=== PATIENT | female | born 1955 | race Caucasian/White ===

== ENCOUNTER 2020-08-25 17:07 | Inpatient (IN) | payer MEDICARE, MEDICAID, SELFPAY ==
[2020-08-25] VITALS (7 sets, daily range): BP systolic 115–134; BP diastolic 76–91; PULSE 88–98; RESP 16–24; TEMP 36–36.7; O2SAT 93–98; BMI 39.2
--- NOTE | ~2020-08-25 | XR_ITS ---
EXAMINATION: XR chest 1V portable EXAM DATE: 08/25/2020 18:34 INDICATION: Initial encounter following injury, with pain of the edema, CHF, high blood pressure. TECHNIQUE: Portable AP frontal chest x-ray was obtained. Comparison is made to prior examination from 02/27/2017. FINDINGS: Cardiac silhouette is moderately enlarged, and larger than previous examination. There is p ulmonary vascular congestion. No confluent consolidation, pneumothorax or pleural effusion suspected. There is aortic arteriosclerosis. There are bony degenerative changes. IMPRESSION: 1. Cardiomegaly, congestion. Reviewed, dictated and finalized at location A.
--- NOTE | ~2020-08-25 | US_ITS ---
EXAMINATION: US venous doppler [facility] DATE: 08/26/2020 16:07 INDICATION: Bilateral lower limb swelling TECHNIQUE: To scale images without and with compression and Doppler images of the bilateral lower e xtremity veins were obtained. COMPARISON: None FINDINGS: The right common femoral vein, profunda femoral vein, femoral vein, popliteal vein, peroneal trunk, p osterior tibial veins, and greater saphenous vein are patent. The left common femoral vein, profunda femoral vein, femoral vein, popliteal vein, peroneal trunk, po sterior tibial veins, and greater saphenous vein are patent. IMPRESSION: 1. Patent bilateral lower extremity veins. No evidence of deep venous thrombosis. Reviewed, dictated and finalized at location A. IMPRESSION: 1. Patent bilateral lower extremity veins. No evidence of deep venous thrombosi s.
--- NOTE | 2020-08-25 17:57 | ED.GENADULT ---
HPI - General Adult General Chief complaint: Unspecified Stated complaint: body is swollen Time Seen by Provider: 08/25/20 17:55 Source: patient and family Limitations: no limitations History of Present Illness HPI narrative: Patient is 65 years old white female presents with increased swelling of the lower extremities over the last few weeks ,currently up to her breast bilaterally.. Patient denies any fever, chills, nausea, vomiting, chest pain, shortness of breath or back pain. Patient cannot move or get out of bed without mechanic's assistant. Patient lives alone. Came to the emergency room with her daughter. Patient was seen her family physician 3 days ago, and did not make any comment about her lower extremity edema. History of CHF, diabetes, hyperlipidemia, hypertension, NM, COPD Related Data Allergies Allergy/AdvReac Type Severity Reaction Status Date / Time infliximab Allergy Unknown Verified 01/01/12 14:10 Review of Systems Review of Systems: Narrative: CONSTITUTIONAL: Denies fever, chills, or sweats. EYES: Denies visual changes, redness, or discharge. ENT: Denies rhinorrhea, congestion, sore throat, or otalgia. CARDIOVASCULAR: Denies chest pain, palpitations, or edema. RESPIRATORY: Denies cough or dyspnea. GASTROINTESTINAL: Denies abdominal pain, nausea, vomiting, or diarrhea. GENITOURINARY: Denies dysuria or hematuria. SKIN: Denies rash or itching. MUSCULOSKELETAL: Denies back pain, joint pain, or myalgia. NEUROLOGIC: Denies headache, numbness, or weakness. PSYCHIATRIC: Denies anxiety or depression. [facility] Past Medical History Medical History (Updated 08/25/20 @ 18:37 by Tung Collins MD) Acute CHF (congestive heart failure) COPD (chronic obstructive pulmonary disease) Diabetes mellitus, new onset Hypertension Family History Family History (Updated 06/08/16 @ 23:19 by DOCTOR UNKNOWN) Mother Family history of diabetes mellitus in first degree relative Social History Social History Alcohol intake: never Exam Narrative: Exam Narrative: General appearance: Well-developed, well-nourished, morbidly obese, poor hygienic condition patient unable to change position without mechanic's assistant in bed. Daughter at the bedside Skin: Normal color, extensive edema of the feet all the way up to the mid abdomen and lower back bilaterally. Scattered open sores Head: Normocephalic, nontraumatic Eyes: Clear conjunctiva ENT: Oropharynx normal, ears normal, nose normal Neck: Supple, nontender Chest and respiratory: Airway patent, no respiratory distress, no accessory muscle use Heart: Regular rate/rhythm Abdomen: Soft, nontender, no organomegaly, quiet bowel sounds Vascular: Normal peripheral pulses, normal capillary refill. Musculoskeletal: Normal range of motion, nontender back Neurologic: Alert and oriented ?3, COMBAT SYSTEMS OFFICER is normal as tested, no gross motor deficit Course Course Emergency Course: Stable Vital Signs Vital signs: Vital Signs Temperature 36.0 C L 08/25/20 17: Pulse Rate 98 08/25/20 17:29 Respiratory Rate 18 08/25/20 17:29 Blood Pressure 134/76 08/25/20 17:29 Pulse Oximetry 95 08/25/20 17:29 Temperature 36.0 C L 08/25/20 17:29 Pulse Rate 98 08/25/20 17:29 Respiratory Rate 18 08/25/20 17:29 Blood Pressure 134/76 08/25/20 17:29 Pulse Oximetry 95 08/25/20 17:29 Medical Decision Making [facility] Narrative Medical decision making narrative: Patient presents with extensive and worsening edema of the lower extremities over the last few weeks. Congestive heart failure, renal failure, dependent edema are my differential diagnosis. Labs, UA, EKG, chest x-ray ordered. Differential Diagnosis Differential Diagno
--- NOTE | 2020-08-25 18:09 | ECG_ITS ---
Measurements Intervals [place] Rate: 98 P: 54 OK: 159 QRS: -63 QRSD: 105 T: 151 QT: 346 QTc: 443 Interpretive Statements SINUS RHYTHM VENTRICULAR PREMATURE COMPLEX INFERIOR INFARCT, AGE INDETERMINATE ANTEROLATERAL INFARCT, AGE INDETERMINATE BORDERLINE ST-T WAVE ABNORMALITY- HIGH LATERAL LEADS BASELINE ARTIFACT- I, II, AVR, AVL, AVF, V1-V6 ABNORMAL ECG Electronically Signed On 08-25-2020 19:35:22 CDT by Walter Maki D.O.
[2020-08-25 18:33] LABS: Basophils Absolute Auto 0.1 K/mm3 (0.0-0.1); Basophils Percent Auto 0.6 % (0.2-1.2); Eosinophils Absolute Auto 0.3 K/mm3 (0-0.3); Eosinophils Percent Auto 3.8 % (0-4.4); Hematocrit 36.3 % (37.0-47.0); Hemoglobin 10.5 g/dL (12.0-15.0); Immature Granulocyte Absolute 0.02 K/mm3 (0.00-0.031); Immature Granulocyte Percent A 0.2 % (0-0.5); Lymphocytes Percent Auto 22.3 % (18.3-44.2); Mean Corpuscular HGB Conc 28.9 g/dl (32-36); Mean Corpuscular Hemoglobin 28.2 pg (26-34); Mean Corpuscular Volume 97.6 fl (80-100); Monocytes Absolute Auto 0.8 K/mm3 (0.1-0.6); Monocytes Percent Auto 9.5 % (2.6-8.5); Neutrophils Absolute Auto 5.1 K/mm3 (1.3-6.7); Neutrophils Percent Auto 63.6 % (45.5-73.1); Platelet Count Result 384 k/mm3 (150-375); Red Blood Count 3.72 M/mm3 (4.2-5.4); Red Cell Distribution Width 22.4 % (11.5-14.5); White Blood Count 8.1 K/mm3 (4.5-10.0)
[2020-08-25 18:44] LABS: Hypochromasia 1+ (NORMAL)
[2020-08-25 18:46] LABS: Alanine Aminotransferase 20 U/L (4-35); Albumin Level 3.2 g/dL (3.5-5.1); Alkaline Phosphatase 122 U/L (38-126); Anion Gap 5 mmol/L (8-16); Aspartate Amino Transferase 25 U/L (14-36); Bilirubin,Total 0.5 mg/dL (0.2-1.3); Blood Urea Nitrogen 28 mg/dL (7-17); Calcium 8.9 mg/dL (8.4-10.2); Carbon Dioxide 27 mmol/L (22-30); Chloride 114 mmol/L (98-107); Estimated CRCL calculation 57 ml/min; Estimated Glomerular Filt Rate 56; Glucose 158 mg/dL (65-105); Potassium 3.9 mmol/L (3.4-5.0); Sodium 146 mmol/L (137-145)
[2020-08-25 18:54] LABS: NT Pro B Type Natriuretic Pept 24600 PG/ML (5-100)
[2020-08-25 18:56] LABS: Add Urine Microscopic? YES; Appearance Urine Clear (Clear); Bilirubin Urine Negative (Negative); Blood Urine Negative (Negative); Color Urine Yellow (Yellow); Glucose Urine UA Negative (Negative); Ketones Urine Negative (Negative); Leukocyte Esterase Ur Negative LEU/UL (Negative); Mucus Urine Rare /lpf; Nitrate Urine Negative (Negative); Protein Urine 2+ mg/dL (Negative); RBC Urine 0-2 /hpf (0-2); Specific Grav Ur 1.017 (1.001-1.035); Squamous Epithelial Cell Urine Rare /hpf (Few); Urobilinogen Urine Negative mg/dL (<2.0); WBC Urine 0-3 /hpf
[2020-08-25] MEDS: FUROSEMIDE INJ 40 MG/4 ML VIAL IV PUSH (22:00)
--- NOTE | 2020-08-25 22:14 | PC.NURSE ---
noted swelling to bilat lower extremities, right leg has ulcers with yellow secretions, left leg weeping sm amount clear.
--- NOTE | 2020-08-25 23:27 | ADMGEN ---
This patient, Brenda Cruz, was admitted to 2 Medical Room 241-01. Patient/family oriented to hospital policies and general routines including ID bracelet, bed and alarms, visiting hours, pain management, procedures, bathroom and other care routines, personal items, smoking policy, room service/diet, and visiting hours. Information on how to activate the Rapid Response Team has been discussed. Patient/Family are encouraged to report perceived risks to care and to ask questions if they do not understand what they are told or what they should do.
[2020-08-26] VITALS (9 sets, daily range): BP systolic 98–121; BP diastolic 56–88; PULSE 80–100; RESP 16–22; TEMP 35.7–36.5; O2SAT 93–98
--- NOTE | 2020-08-26 | ECHO_ITS ---
Patient Info Name: Brenda Cruz Age: 65 years : 1955 Gender: Female Ht: 64 in Wt: 228 lbs BSA: 2.21 m2 HR: 100 bpm BP: 111 / 62 mmHg Heart Rhythm: Sinus Rhythm Technical Quality: Good Exam Date: 08/26/2020 1:54 PM Exam Location: [facility] Pulmonary Patient Status: Inpatient Admit Date: 08/26/2020 Staff Ordering Physician: Kendrick Fischer MD Certified Addiction Counselor: Ryna Hussein RDCS Attending Provider: Rayo Woo MD Exam Type: CA echo doppler color flow Study Info Indications I50.9 - Heart failure, unspecified Complete two-dimensional, color flow and Doppler transthoracic echocardiogram is performed. Strain analysis performed. History/Risk Factors CHF; COPD, DM, HTN, edema. Summary 1. Complete two-dimensional, color flow and Doppler transthoracic echocardiogram is performed. 2. Left ventricular chamber dimension is severely enlarged. 3. Left ventricular systolic function is severely reduced, estimated at 30-35%. 4. There is mildly increased left ventricular wall thickness. 5. Left ventricular septal wall motion is abnormal with septal motion related to bundle branch block. 6. The left ventricular diastolic function is abnormal. 7. E/e' 13 is mildly elevated. 8. Global longitudinal strain is abnormal at -8.0%. 9. Right ventricular systolic function is reduced with abnormal TAPSE at 1.0 cm. 10. Left atrial chamber dimension is moderately enlarged. 11. Right atrial chamber dimension is mildly enlarged. 12. The mitral valve has moderately calcified annulus. 13. There is trace mitral valve regurgitation. 14. There is mild tricuspid valve regurgitation. 15. Mild pulmonary hypertension, estimated pulmonary arterial systolic pressure is 44 mmHg. Left Ventricle E/e' 13 is mildly elevated. Global longitudinal strain is abnormal at -8.0%. Left ventricular chamber dimension is severely enlarged. Left ventricular systolic function is severely reduced, estimated at 30-35%. There is mildly increased left ventricular wall thickness. Left ventricular septal wall motion is abnormal with septal motion related to bundle branch block. The left ventricular diastolic function is abnormal. Right Ventricle Right ventricular systolic function is reduced with abnormal TAPSE at 1.0 cm. Right ventricular chamber dimension is normal. Left Atria Left atrial chamber dimension is moderately enlarged. Right Atria Right atrial chamber dimension is mildly enlarged. Aortic Valve There is no aortic valve stenosis based on valve area and gradients. Cannot determine number of aortic valve leaflets. The aortic valve is not well visualized. There is no aortic valve regurgitation. Pulmonic Valve There is no pulmonic regurgitation. Mitral Valve The mitral valve has moderately calcified annulus. There is no mitral valve stenosis. There is trace mitral valve regurgitation. Tricuspid Valve There is mild tricuspid valve regurgitation. Mild pulmonary hypertension, estimated pulmonary arterial systolic pressure is 44 mmHg. Pericardium/Pleural There is no pericardial effusion. Inferior Vena Cava Normal inferior vena cava with >50% collapse upon inspiration consistent with normal right atrial pressure, 5 mmHg. Aorta The aortic root size at the sinus of Valsalva is normal. Left Ventricular Outflow Tract Name Value Normal ------
[2020-08-26] MEDS: HYDROcodone/acetaminophen (*CRX) 5-325 MG TABLET 1 TAB PO ×2 (03:26→18:18)
[2020-08-26 04:06] LABS: Magnesium 1.5 mg/dL (1.6-2.3)
[2020-08-26] MEDS: MAGNESIUM SULF 2 GM/WATER 50ML 2 GM/50 ML BAG IVPB (04:39)
[2020-08-26 07:59] LABS: Glucose Point of Care 196 (65-105)
[2020-08-26] MEDS: TRIAMCINOLONE ACET 0.1% OINT 80 GM TUBE 1 APPLIC TOPICAL ×2 (09:31→18:20)
[2020-08-26] MEDS: ALPRAZolam (*CRX) 0.5 MG TABLET 1 MG PO (09:31)
[2020-08-26] MEDS: GABAPENTIN 300 MG CAPSULE PO ×3 (09:32→21:42)
[2020-08-26] MEDS: LOSARTAN POTASSIUM 50 MG TABLET PO (09:32)
[2020-08-26] MEDS: ATORVASTATIN 40 MG TABLET PO (09:32)
[2020-08-26] MEDS: ASPIRIN 325 MG TABLET PO (09:33)
[2020-08-26] MEDS: FUROSEMIDE INJ 40 MG/4 ML VIAL IV PUSH ×2 (09:33→21:42)
[2020-08-26] MEDS: MINOCYCLINE HCL 50 MG CAPSULE 100 MG PO ×2 (09:33→18:19)
[2020-08-26] MEDS: hydrALAZINE HCL 25 MG TABLET PO (09:33)
[2020-08-26] MEDS: TIZANIDINE HCL 4 MG TABLET PO ×2 (09:33→21:42)
[2020-08-26 11:41] LABS: Glucose Point of Care 175 (65-105)
--- NOTE | 2020-08-26 11:53 | PM.IMHP ---
H&P: HPI History of Present Illness Date/Time: 08/26/20 11:53 Chief complaint: Cellulitis, CHF Narrative: Brenda Cruz is a 65 year old female Morbidly obese with past medical history of diabetes hypertension congestive heart failure patient presented emergency department with a complaint of shortness of breath and lower extremity edema her symptoms were getting worse swelling is getting worse and is now is all the way up to her chest, patient states due to her morbid obesity and back pain is not very active and does not do any exertion, patient was seen by her primary care provider 3 days ago apparently there was no mention of lower extremity edema and getting worse, patient normally gets her care at the [facility], her hair spring cutter and primary care doctor at the hospital. to further evaluate etiology of acute CHF, we have ordered cardiac echo. patient is also found to hidradenitis suppurative to lower abdomen, groin, labia (per wound care nurse) cellulitis of lower extremity and scabs on her lower extremity, patient treated with imipenem and vancomycin, and dermatitis dermatitis most likely fungal patient is treated with antifungal ointment, patient is seen by wound team and been managed. Review of Systems Review of Systems: All systems reviewed & are unremarkable except as noted in HPI and below PMFSH Past Medical History Medical History (Updated 08/26/20 @ 12:06 by Kendrick Fischer MD) Acute CHF (congestive heart failure) COPD (chronic obstructive pulmonary disease) Diabetes mellitus, new onset Hypertension Family History Family History (Updated 06/08/16 @ 23:19 by DOCTOR UNKNOWN) Mother Family history of diabetes mellitus in first degree relative Social History Social History Smoking packs per day: 1 Smoking cigarettes per day: 20.0 Smoking status: Current every day smoker Tobacco type: cigarettes Alcohol intake: never Substance use: current Substance use type: marijuana Other substance usage details: every couple of weeks Last use: aug 11 2020 Gender identity (if verbalized by the patient): Female Spiritual care concerns: No Meds Home Medications and Allergies Home Medications Medication Instructions Recorded Confirmed Type albuterol sulfate [ProAir HFA] 2 puff INHALATION QID PRN 08/25/20 08/26/20 History alprazolam 1 mg PO BID 08/25/20 08/26/20 History aspirin 325 mg PO DAILY 08/25/20 08/25/20 History atorvastatin 40 mg PO DAILY 08/25/20 08/25/20 History azelastine 2 drp OPHTHALMIC (EYE) DAILY PRN 08/25/20 08/26/20 History betamethasone dipropionate 1 applic TOPICAL BID 08/25/20 08/26/20 History dulaglutide [Trulicity] 1.5 mg SUBCUT WEEKLY 08/25/20 08/25/20 History fluticasone propion-salmeterol 2 puff INHALATION Q12H 08/25/20 08/26/20 History [Advair HFA] gabapentin 300 mg PO QID 08/25/20 08/25/20 History hydralazine 25 mg PO DAILY 08/25/20 08/25/20 History hydrocodone-acetaminophen 5 - 325 tablet PO Q12H PRN 08/25/20 08/25/20 History losartan 50 mg PO DAILY 08/25/20 08/25/20 History minocycline 100 mg PO BID 08/25/20 08/25/20 History oxybutynin chloride 10 mg PO DAILY 08/25/20 08/25/20 History pramipexole 0.75 mg PO HS 08/25/20 08/25/20 History silver sulfadiazine [SSD] 1 applic TOPICAL DAILY 08/25/20 08/25/20 History tizanidine 4 mg PO Q8H 08/25/20 08/25/20 History Allergies Allergy/AdvReac Type Severity Reaction Status Date / Time infliximab Allergy Unknown Verified 01/01/12 14:10 Vital Signs Vital Signs - 24 hr 08/25/20 17:29 08/25/20 18:30 08/25/20 18:34 Temperature 96.8 F L Pulse Rate 98 98 96 Respiratory Rate 18 24 H Blood Pressure 134/76 117/81 Pulse Oximetry 95 94 08/25/20 21:15 08/25/20 21:16 08/25/20 23:06 Temperature 98.1 F Pulse Rate 89 88 Respiratory Rate 20 20 18 Blood Pressure 128/86 134/86 Pulse Oximetry 97 97 98 08/25/20 23:45 08/26/20 00:00 08/26/20 04:00 Temperature 97.8 F Pulse Rate 96 96 9
[2020-08-26 12:44] LABS: Hemoglobin A1C 5.9 % (<5.7)
[2020-08-26] MEDS: TOLNAFTATE 1% POWDER 45 GM BTL 1 APPLIC TOPICAL ×2 (13:19→21:41)
[2020-08-26 17:15] LABS: Glucose Point of Care 148 (65-105)
[2020-08-26] MEDS: FLUTICASONE/SALMETEROL 115-21 MCG INHALER 1 PUFF 2 PUFF INHALATION (20:08)
[2020-08-26] MEDS: PRAMIPEXOLE 0.25 MG TABLET 0.75 MG PO (21:42)
[2020-08-27] VITALS (21 sets, daily range): BP systolic 78–120; BP diastolic 42–92; PULSE 65–104; RESP 16–22; TEMP 36.4–36.6; O2SAT 80–99
[2020-08-27] MEDS: TIZANIDINE HCL 4 MG TABLET PO ×3 (05:54→22:18)
[2020-08-27 06:10] LABS: Glucose Point of Care 155 (65-105)
[2020-08-27 06:10] LABS: Hemoglobin 10.6 g/dL (12.0-15.0); Mean Corpuscular HGB Conc 27.9 g/dl (32-36); Mean Corpuscular Hemoglobin 27.9 pg (26-34); Mean Platelet Volume 11.3 fl (7.4-10.4); Platelet Count Result 388 k/mm3 (150-375); Red Cell Distribution Width 21.8 % (11.5-14.5); White Blood Count 8.9 K/mm3 (4.5-10.0)
[2020-08-27 06:33] LABS: Potassium 4.4 mmol/L (3.4-5.0)
[2020-08-27 06:38] LABS: Anion Gap 6 mmol/L (8-16); Blood Urea Nitrogen 29 mg/dL (7-17); Carbon Dioxide 27 mmol/L (22-30); Chloride 112 mmol/L (98-107); Estimated CRCL calculation 53 ml/min; Estimated Glomerular Filt Rate 50; Glucose 147 mg/dL (65-105); Sodium 145 mmol/L (137-145)
[2020-08-27 07:38] LABS: Glucose Point of Care 169 (65-105)
[2020-08-27] MEDS: FLUTICASONE/SALMETEROL 115-21 MCG INHALER 1 PUFF 2 PUFF INHALATION ×2 (08:13→19:55)
--- NOTE | 2020-08-27 08:54 | PM.CNCAR ---
Assessment and Plan Assessment and plan (1) Acute on chronic systolic (congestive) heart failure: Code(s): I50.23 - Acute on chronic systolic (congestive) heart failure Status: Acute Assessment and Plan: WIth evidence of anasarca and massive volume overload due to severe LV dysfunction EF is 30-35% as well as right heart failure with pulmonary HTN in the setting of COPD and active tobacco abuse Will need records from primaryt book canvasser at [facility]. Her BP is low this morning. Septic (due to cellulitis) Vs cardiogenic shock? Will transfer patient to stepdown unit Hold Losartan and Hydralazine Continue IV lasix If BP drops again would start Dobutamine at low dose 2.5 Mcg/kg/min. Will need to monitor closely for arrhythmia (had short run 7 beats of NSVT) Follow creatinine and in/out while on IV lasix (2) NSVT (nonsustained ventricular tachycardia): Code(s): I47.2 - Ventricular tachycardia Status: Acute Assessment and Plan: Short run noted on tele. Start BB once BP stable (3) Hypotension: Code(s): I95.9 - Hypotension, unspecified Status: Acute Assessment and Plan: Transfer to stepdown unit. Hold Losartan and Hydralazine. May need inotrope/pressor support (4) Tobacco abuse: Code(s): Z72.0 - Tobacco use Status: Acute History of Present Illness History of Present Illness Consult date/time: 08/27/20 08:54 65 y/o female with h/o of obiesty, HTN, DM, ME, CHF,COPD with active tobacco abuse who presents with lower ext edema Patient is poor historian. She states that she had worsening lower ext edema for more than a week. She is followed by book canvasser at [facility] but she can't recall his name. She states that she had 4 heart attacks in the past. She had cardiac catheterization in the past but does not think she has any stents placed. She denies dyspnea at rest. She lives sedentary lifestyle and not active due to back pain issues. She had 2D echo yesterday that showed Biventricular failure with severely enlarged left ventricle, EF 30-35%, Bi-atrial enlargement, mild MR/TR and mild pulmonary HTN She was started on Abx for cellulitis and was also started on IV lasix. Her BP this morning was 78/42, now up to 90/52 EKG sinus rhythm at HR 89, inferior Q waves (noted on prior EKG in 2017) Chest X ray: cardiomegaly and pulmonary edema noted. She smokes pack a day. Reason For Visit: Cellulitis, CHF Review of Systems Review of Systems: All systems reviewed & are unremarkable except as noted in HPI and below Constitutional: Constitutional: Denies fatigue and Denies headache(s) Eyes: Eyes: Denies blurry vision ENT: Reports Normal hearing present and Denies headache(s) Cardiovascular: Cardiovascular: Denies chest pain, Denies diaphoresis, Denies pedal edema, Denies leg edema, Denies lightheadedness, Denies palpitations and Denies dyspnea Respiratory: Respiratory: Denies cough and Denies dyspnea Gastrointestinal: Gastrointestinal: Denies abdominal pain Musculoskeletal: Musculoskeletal: Denies back pain Neurologic: Reports Normal hearing present and Denies headache(s) Psychiatric: Psychiatric: Denies anxiety Endocrine: Endocrine: Denies fatigue and Denies palpitations [facility] Past Medical History Medical History (Updated 08/27/20 @ 09:31 by Isaac Schumacher MD) Acute CHF (congestive heart failure) COPD (chronic obstructive pulmonary disease) Diabetes mellitus, new onset Hypertension Family History Family History (Updated 06/08/16 @ 23:19 by DOCTOR UNKNOWN) Mother Family history of diabetes mellitus in first degree relative Social History Social History Smoking packs per day: 1 Smoking cigarettes per day: 20.0 Smoking status: Current every day smoker Tobacco type: cigarettes Alcohol intake: never Substance use: current Substance use type: marijuana Other substance usage details: e
[2020-08-27] MEDS: GABAPENTIN 300 MG CAPSULE PO ×4 (09:09→20:34)
[2020-08-27] MEDS: FUROSEMIDE INJ 40 MG/4 ML VIAL IV PUSH ×2 (09:09→20:34)
[2020-08-27] MEDS: MINOCYCLINE HCL 50 MG CAPSULE 100 MG PO ×2 (09:09→18:43)
[2020-08-27] MEDS: ASPIRIN 325 MG TABLET PO (09:09)
[2020-08-27] MEDS: ATORVASTATIN 40 MG TABLET PO (09:09)
[2020-08-27 09:14] LABS: Magnesium 1.7 mg/dL (1.6-2.3)
[2020-08-27 12:18] LABS: Glucose Point of Care 147 (65-105)
[2020-08-27] MEDS: TOLNAFTATE 1% POWDER 45 GM BTL 1 APPLIC TOPICAL ×2 (12:29→20:37)
[2020-08-27] MEDS: TRIAMCINOLONE ACET 0.1% OINT 80 GM TUBE 1 APPLIC TOPICAL ×2 (12:30→18:43)
[2020-08-27] MEDS: SILVERGEL (ELTA) 45 ML 1 APPLIC TOPICAL (12:30)
--- NOTE | 2020-08-27 12:54 | PCOTNOTE ---
Attempted to see patient for OT treatment, however patient declined any/all activity at this time due to being too tired. Will continue to attempt.
--- NOTE | 2020-08-27 14:12 | PM.IMPN ---
Progress Note: A&P Assessment and Plan (1) Acute CHF (congestive heart failure): Code(s): I50.9 - Heart failure, unspecified Status: Inactive Assessment and Plan: Acute systolic and diastolic CHF with anasarca. Found to be fluid overloaded on admission with pitting edema and pulmonary congestion on CXR. She is receiving IV lasix at this time Echocardiogram showed EF 30-35%, diastolic dysfunction, right ventricular systolic function is reduced and mild pulmonary HTN. Cardiology was consulted for further evaluation and work up and suggested continuing IV Lasix Continue monitoring, strict input and output, weights daily. (2) Acute respiratory failure with hypoxemia: Code(s): J96.01 - Acute respiratory failure with hypoxia Status: Acute Assessment and Plan: Most likely secondary to acute CHF exacerbation as well as possible underlying sleep apnea because she was found to be hypoxic while sleeping. We have continuous pulse ox on. Will order apnea link tonight Continue to wean as tolerated with diuresis Continue monitoring. (3) Hypotension: Code(s): I95.9 - Hypotension, unspecified Status: Acute Assessment and Plan: Could be secondary to her IV Lasix, sepsis from cellulitis versus cardiogenic shock. Based the patient's vital signs does not appear she is septic Patient's blood pressure went low at 78/42 but she was asymptomatic. Cardiology moved her to the IMU for further evaluation monitoring in the need to possibly start dopamine. She is stable at this time with blood pressure is 90/50s. Continue monitoring. (4) Cellulitis of left lower extremity: Code(s): L03.116 - Cellulitis of left lower limb Status: Acute Assessment and Plan: Patient seen by Wound Team patient started on imipenem and vancomycin for cellulitis from a cat scratch, and antifungal for dermatitis Wound cultures were obtained today to from her anterior rocha and left toe Pending cultures to see if we can adjust antibiotics. Patient states she has improvement of her wound and redness around it Continue IV antibiotics at this time (5) Diabetes mellitus: Code(s): E11.9 - Type 2 diabetes mellitus without complications Status: Acute Assessment and Plan: Continue home regimen and monitor with sliding scale (6) Hypertension: Code(s): I10 - Essential (primary) hypertension Status: Inactive Assessment and Plan: Blood pressure have been hypotensive today so we will hold her blood pressure medications as per Cardiology recommendations (7) COPD (chronic obstructive pulmonary disease): Code(s): J44.9 - Chronic obstructive pulmonary disease, unspecified Status: Inactive Assessment and Plan: Patient is clinically stable will continue home inhalers and p.r.n. DuoNeb treatments Otherwise appears to be stable Time Spent With Patient Time with patient: 25 - 35 minutes Subjective Date/time seen: 08/27/20 14:12 Interval history: Date of service 08/27/2020: The patient states she is feeling slightly better today with her breathing. She still has some shortness of breath at rest and some with exertion. She denies any cough, fever, chills, chest pain. She states she has a wound to her left leg from a cat scratch and had almost healed the once her leg swelling came it became worse. She also has multiple scabs throughout her upper and lower legs without any signs of redness or drainage noted. Swelling to her legs is improved as well and it feels like she can't move them again. She still feels like she has swelling to her abdomen and breasts from fluid retention. She de
--- NOTE | 2020-08-27 14:30 | PCOTNOTE ---
Patient declined OT tx this afternoon due to pain and fatigue.
[2020-08-27 17:23] LABS: Glucose Point of Care 182 (65-105)
--- NOTE | 2020-08-27 17:53 | PC.NURSE ---
Patient transferred from 241 into 202 at [id number].
[2020-08-27] MEDS: HYDROcodone/acetaminophen (*CRX) 5-325 MG TABLET 1 TAB PO (20:33)
[2020-08-27] MEDS: PANTOPRAZOLE 40 MG TABLET PO (20:34)
[2020-08-27] MEDS: PRAMIPEXOLE 0.25 MG TABLET 0.75 MG PO (20:34)
[2020-08-27 20:47] LABS: Glucose Point of Care 164 (65-105)
[2020-08-27] MEDS: ALPRAZolam (*CRX) 0.5 MG TABLET PO (22:18)
[2020-08-28] VITALS (21 sets, daily range): BP systolic 82–125; BP diastolic 42–106; PULSE 62–94; RESP 16–22; TEMP 36–36.6; O2SAT 84–100
[2020-08-28 05:35] LABS: Hematocrit 32.2 % (37.0-47.0); Hemoglobin 9.3 g/dL (12.0-15.0); Mean Corpuscular HGB Conc 28.9 g/dl (32-36); Mean Corpuscular Hemoglobin 28.4 pg (26-34); Mean Corpuscular Volume 98.5 fl (80-100); Mean Platelet Volume 11.6 fl (7.4-10.4); Platelet Count Result 273 k/mm3 (150-375); Red Blood Count 3.27 M/mm3 (4.2-5.4); Red Cell Distribution Width 20.8 % (11.5-14.5); White Blood Count 6.4 K/mm3 (4.5-10.0)
[2020-08-28 05:50] LABS: Anion Gap 3 mmol/L (8-16); Blood Urea Nitrogen 36 mg/dL (7-17); CRP 1.6 mg/dL (<1.0); Calcium 8.2 mg/dL (8.4-10.2); Carbon Dioxide 29 mmol/L (22-30); Chloride 110 mmol/L (98-107); Estimated CRCL calculation 45 ml/min; Estimated Glomerular Filt Rate 41; Glucose 183 mg/dL (65-105); Magnesium 1.6 mg/dL (1.6-2.3); Potassium 4.2 mmol/L (3.4-5.0); Sodium 142 mmol/L (137-145)
[2020-08-28] MEDS: TIZANIDINE HCL 4 MG TABLET PO ×3 (06:33→21:15)
[2020-08-28] MEDS: FLUTICASONE/SALMETEROL 115-21 MCG INHALER 1 PUFF 2 PUFF INHALATION ×2 (07:51→20:09)
[2020-08-28 08:10] LABS: Glucose Point of Care 158 (65-105)
[2020-08-28] MEDS: ATORVASTATIN 40 MG TABLET PO (09:40)
[2020-08-28] MEDS: MINOCYCLINE HCL 50 MG CAPSULE 100 MG PO ×2 (09:40→17:25)
[2020-08-28] MEDS: PANTOPRAZOLE 40 MG TABLET PO ×2 (09:40→21:15)
[2020-08-28] MEDS: GABAPENTIN 300 MG CAPSULE PO ×4 (09:40→21:14)
[2020-08-28] MEDS: ASPIRIN 325 MG TABLET PO (09:40)
[2020-08-28] MEDS: FUROSEMIDE INJ 40 MG/4 ML VIAL IV PUSH ×2 (09:41→21:14)
[2020-08-28] MEDS: DOBUTamine 250 MG/D5W 250 ML 250 MG/250 ML BAG 15.5 MG IV CONT (09:56)
[2020-08-28] MEDS: TOLNAFTATE 1% POWDER 45 GM BTL 1 APPLIC TOPICAL ×2 (10:08→21:21)
[2020-08-28] MEDS: SILVERGEL (ELTA) 45 ML 1 APPLIC TOPICAL (10:08)
[2020-08-28] MEDS: TRIAMCINOLONE ACET 0.1% OINT 80 GM TUBE 1 APPLIC TOPICAL ×2 (10:08→17:25)
--- NOTE | 2020-08-28 11:03 | PM.PNCARD ---
Progress Note: A&P Assessment and Plan (1) Acute on chronic systolic (congestive) heart failure: Code(s): I50.23 - Acute on chronic systolic (congestive) heart failure Status: Acute Assessment and Plan: WIth evidence of anasarca and massive volume overload She has severe LV dysfunction EF is 30-35% as well as right heart failure with pulmonary HTN (with COPD and likely IRMA) BP low. Probably has component of cardiogenic shock. She is also on ABx for lower ext cellulitis though does not appear she is septic Will start patient on fixed dose of Dobutamine at 2.5 Mck/Kg/Min. Need to monitor closely on tele for ectopy. She had some short runs of NSVT Will continue on current dose of Lasix. She may start to diurese better while on inotropic support with Dobutamine. If urine output not adequate may consider Lasix drip Hold Losartan and Hydralazine (2) NSVT (nonsustained ventricular tachycardia): Code(s): I47.2 - Ventricular tachycardia Status: Acute Assessment and Plan: Short run noted on tele. Start BB once BP stable (3) Hypotension: Code(s): I95.9 - Hypotension, unspecified Status: Acute Assessment and Plan: Start Dobutamine (4) Tobacco abuse: Code(s): Z72.0 - Tobacco use Status: Acute Subjective Date/time seen: 08/28/20 11:03 BP low again this morning. Started on Dobutamine. Repeated BP better. She denies dizziness or lightheadedness. Continues to have massive lower ext edema up to the thighs. Review of Systems Review of Systems: All systems reviewed & are unremarkable except as noted in HPI and below Constitutional: Constitutional: Denies fatigue and Denies headache(s) Eyes: Eyes: Denies blurry vision ENT: Reports Normal hearing present and Denies headache(s) Cardiovascular: Cardiovascular: Denies chest pain, Denies diaphoresis, Denies pedal edema, Denies leg edema, Denies lightheadedness, Denies palpitations and Denies dyspnea Respiratory: Respiratory: Denies cough and Denies dyspnea Gastrointestinal: Gastrointestinal: Denies abdominal pain Musculoskeletal: Musculoskeletal: Denies back pain Neurologic: Reports Normal hearing present and Denies headache(s) Psychiatric: Psychiatric: Denies anxiety Endocrine: Endocrine: Denies fatigue and Denies palpitations Exam Narrative: Exam Narrative: General appearance: poor hygiene. No acute distress Head: Normocephalic, nontraumatic Eyes: Clear conjunctiva ENT: Oropharynx normal, ears normal, nose normal Neck: Supple, nontender Chest: decrease breathing sounds Heart: Regular rate/rhythm, normal S1,S2. No murmurs. +++ lower ext edema with Erythema, chronic skin changes and open sores noted Abdomen: Soft, nontender Vascular: Normal peripheral pulses, normal capillary refill. Neurologic: Alert and oriented ?3, LICENSED EMBALMER is normal as tested, no gross motor deficit Neuro: Cranial nerves: Yes Normal hearing present Objective Data Vital Signs Vital Signs: Vital Signs - 24 hr 08/27/20 12:00 08/27/20 12:20 08/27/20 14:00 Temperature 36.5 C Pulse Rate 95 89 99 Respiratory Rate 20 Blood Pressure 98/55 L Pulse Oximetry 96 08/27/20 16:00 08/27/20 17:11 08/27/20 19:45 Temperature 36.4 C 36.6 C Pulse Rate 97 100 104 H Respiratory Rate 16 20 Blood Pressure 103/51 L 120/92 H Pulse Oximetry 91 91 08/27/20 19:58 08/27/20 20:00 08/27/20 22:00 Temperature Pulse Rate 82 81 Respiratory Rate Blood Pressure Pulse Oximetry 92 08/27/20 22:20 08/27/20 22:41 08/28/20 00:00 Temperature 36.6 C Pulse Rate 71 Respiratory Rate 20 Blood Pressure 125/106 H Pulse Oximetry 90 91 97 08/28/20 01:53 08/28/20 04:00 08/28/20 06:00 Temperature 36.2 C L Pulse Rate 64 79 65 Respiratory Rate 20 Blood Pressure 100/45 L Pulse Oximetry 100 08/28/20 07:46 08/28/20 07:52 08/28/20 08:15 Temperature 36.0 C L Pulse Rate 64 Respiratory Rate 20 Bloo
[2020-08-28 12:59] LABS: Glucose Point of Care 169 (65-105)
[2020-08-28] MEDS: ENOXAPARIN 40 MG/0.4 ML SYRINGE SUB-Q ×2 (13:39→21:14)
--- NOTE | 2020-08-28 15:33 | PM.IMPN ---
Progress Note: A&P Assessment and Plan (1) Acute CHF (congestive heart failure): Code(s): I50.9 - Heart failure, unspecified Status: Inactive Assessment and Plan: Acute systolic and diastolic CHF with anasarca. Found to be fluid overloaded on admission with pitting edema and pulmonary congestion on CXR. She is receiving IV lasix at this time Echocardiogram showed EF 30-35%, diastolic dysfunction, right ventricular systolic function is reduced and mild pulmonary HTN. Cardiology was consulted for further evaluation and work up and suggested continuing IV Lasix Continue monitoring, strict input and output, weights daily. 08/28/20 15:33 Brenda Cruz is a 65 year old female Morbidly obese with past medical history of diabetes hypertension congestive heart failure patient presented emergency department with a complaint of shortness of breath and lower extremity edema her symptoms were getting worse swelling was getting worse and now was all the way up to her chest, patient stated due to her morbid obesity and back pain is not very active and does not do any exertion, patient was seen by her primary care provider 3 days ago apparently there was no mention of lower extremity edema and getting worse, patient normally gets her care at the [facility], her assistant nurse manager and primary care doctor at the hospital. to further evaluate etiology of acute CHF, had ordered cardiac echo which showed patient severe systolic dysfunction with reduced ejection fraction of 35%, and severe pulmonary hypertension secondary to COPD and obstructive sleep apnea, patient is seen by Cardiology patient is being diuresed dobutamine is added, today patient states feeling much better compared to when she arrived, discuss with cardiology will get the record from [facility] and further recommendation to follow. lower extremity venous Doppler is negative for DVT patient is also found to hidradenitis suppurative to lower abdomen, groin, labia (per wound care nurse) cellulitis of lower extremity and scabs on her lower extremity, patient treated with imipenem and vancomycin, and dermatitis dermatitis most likely fungal patient is treated with antifungal ointment, patient is seen by wound team and been managed. (2) Acute respiratory failure with hypoxemia: Code(s): J96.01 - Acute respiratory failure with hypoxia Status: Acute Assessment and Plan: Most likely secondary to acute CHF exacerbation as well as possible underlying sleep apnea because she was found to be hypoxic while sleeping. We have continuous pulse ox on. Will order apnea link tonight Continue to wean as tolerated with diuresis Continue monitoring. (3) Hypotension: Code(s): I95.9 - Hypotension, unspecified Status: Acute Assessment and Plan: Could be secondary to her IV Lasix, sepsis from cellulitis versus cardiogenic shock. Based the patient's vital signs does not appear she is septic Patient's blood pressure went low at 78/42 but she was asymptomatic. Cardiology moved her to the IMU for further evaluation monitoring in the need to possibly start dopamine. She is stable at this time with blood pressure is 90/50s. Continue monitoring. (4) Cellulitis of left lower extremity: Code(s): L03.116 - Cellulitis of left lower limb Status: Acute Assessment and Plan: Patient seen by Wound Team patient started on imipenem and vancomycin for cellulitis from a cat scratch, and antifungal for dermatitis Wound cultures were obtained today to from her anterior rocha and left toe Pending cultures to see if we can adjust antibiotics. Patient states she has improvement of her wound and redness around it Continue IV antibiotics at this time (5) Diabetes mellitus: Code(s): E11.9
[2020-08-28 17:04] LABS: Glucose Point of Care 199 (65-105)
[2020-08-28 20:38] LABS: Glucose Point of Care 252 (65-105)
[2020-08-28] MEDS: PRAMIPEXOLE 0.25 MG TABLET 0.75 MG PO (21:15)
[2020-08-28] MEDS: HYDROcodone/acetaminophen (*CRX) 5-325 MG TABLET 1 TAB PO (21:19)
[2020-08-28] MEDS: ALPRAZolam (*CRX) 0.5 MG TABLET PO (21:20)
[2020-08-28 22:03] LABS: Vancomycin Trough 14.5 ug/mL (10.0-20.0)
[2020-08-29] VITALS (20 sets, daily range): BP systolic 90–119; BP diastolic 46–74; PULSE 69–91; RESP 16–22; TEMP 36.1–36.4; O2SAT 94–99
[2020-08-29] MEDS: DOBUTamine 250 MG/D5W 250 ML 250 MG/250 ML BAG 15.5 MG IV CONT ×2 (03:46→21:26)
[2020-08-29 05:25] LABS: Hematocrit 30.9 % (37.0-47.0); Mean Corpuscular HGB Conc 29.1 g/dl (32-36); Mean Corpuscular Hemoglobin 28.1 pg (26-34); Mean Corpuscular Volume 96.6 fl (80-100); Mean Platelet Volume 11.6 fl (7.4-10.4); Platelet Count Result 266 k/mm3 (150-375); Red Cell Distribution Width 20.3 % (11.5-14.5); White Blood Count 8.4 K/mm3 (4.5-10.0)
[2020-08-29 05:47] LABS: Anion Gap 5 mmol/L (8-16); Blood Urea Nitrogen 38 mg/dL (7-17); Calcium 8.1 mg/dL (8.4-10.2); Carbon Dioxide 32 mmol/L (22-30); Chloride 105 mmol/L (98-107); Estimated CRCL calculation 45 ml/min; Estimated Glomerular Filt Rate 41; Glucose 175 mg/dL (65-105); Potassium 3.6 mmol/L (3.4-5.0); Sodium 142 mmol/L (137-145)
[2020-08-29] MEDS: TIZANIDINE HCL 4 MG TABLET PO ×3 (06:14→21:29)
[2020-08-29 08:24] LABS: Glucose Point of Care 132 (65-105)
[2020-08-29] MEDS: ATORVASTATIN 40 MG TABLET PO (09:19)
[2020-08-29] MEDS: GABAPENTIN 300 MG CAPSULE PO ×4 (09:19→21:27)
[2020-08-29] MEDS: ASPIRIN 325 MG TABLET PO (09:19)
[2020-08-29] MEDS: PANTOPRAZOLE 40 MG TABLET PO ×2 (09:20→22:56)
[2020-08-29] MEDS: MINOCYCLINE HCL 50 MG CAPSULE 100 MG PO ×2 (09:20→16:36)
[2020-08-29] MEDS: FUROSEMIDE INJ 40 MG/4 ML VIAL IV PUSH ×2 (09:21→21:27)
[2020-08-29] MEDS: ENOXAPARIN 40 MG/0.4 ML SYRINGE SUB-Q ×2 (09:21→21:26)
[2020-08-29] MEDS: LIDOCAINE HCL 1% PF INJ 5 ML VIAL INFILTRATE (09:30)
[2020-08-29 12:50] LABS: Glucose Point of Care 166 (65-105)
[2020-08-29] MEDS: CENTRAL LINE FLUSH 10 ML IV PUSH ×2 (13:01→21:29)
[2020-08-29] MEDS: TRIAMCINOLONE ACET 0.1% OINT 80 GM TUBE 1 APPLIC TOPICAL ×2 (13:02→21:28)
[2020-08-29] MEDS: TOLNAFTATE 1% POWDER 45 GM BTL 1 APPLIC TOPICAL ×2 (13:16→21:27)
[2020-08-29] MEDS: SILVERGEL (ELTA) 45 ML 1 APPLIC TOPICAL ×2 (13:26→21:28)
--- NOTE | 2020-08-29 13:42 | PM.PNCARD ---
Progress Note: A&P Assessment and Plan (1) Acute on chronic systolic (congestive) heart failure: Code(s): I50.23 - Acute on chronic systolic (congestive) heart failure Status: Acute Assessment and Plan: WIth evidence of anasarca and massive volume overload She has severe LV dysfunction EF is 30-35% as well as right heart failure with pulmonary HTN (with COPD and likely IRMA) BP low. Probably has component of cardiogenic shock. She is also on ABx for lower ext cellulitis though does not appear she is septic he seems to be much better with diuresing and with dobutamine dose, will continue with dobutamine for another 24 hours Will continue on current dose of Lasix. Hold Losartan and Hydralazine still trying to get her records from [place] (2) NSVT (nonsustained ventricular tachycardia): Code(s): I47.2 - Ventricular tachycardia Status: Acute Assessment and Plan: Short run noted on tele. Start BB once BP stable (3) Hypotension: Code(s): I95.9 - Hypotension, unspecified Status: Acute Assessment and Plan: Started Dobutamine, better now, continue to monitor inputs and outputs, will get her records from her primary vegetable farm worker to consider the need for cardiac catheterization (4) Tobacco abuse: Code(s): Z72.0 - Tobacco use Status: Acute Subjective Date/time seen: 08/29/20 13:42 she still has significant shortness of breath and significant orthopnea, leg swelling is better. No chest pain Exam Narrative: Exam Narrative: General appearance: poor hygiene. No acute distress Head: Normocephalic, nontraumatic Eyes: Clear conjunctiva ENT: Oropharynx normal, ears normal, nose normal Neck: Supple, nontender Chest: decrease breathing sounds Heart: Regular rate/rhythm, normal S1,S2. No murmurs. +++ lower ext edema with Erythema, chronic skin changes and open sores noted Abdomen: Soft, nontender Vascular: Normal peripheral pulses, normal capillary refill. Neurologic: Alert and oriented ?3, LEGAL COORDINATOR is normal as tested, no gross motor deficit Neuro: Cranial nerves: Yes Normal hearing present Objective Data Vital Signs Vital Signs: Vital Signs - 24 hr 08/28/20 14:00 08/28/20 16:00 08/28/20 16:13 Temperature 36.0 C L Pulse Rate 94 84 86 Respiratory Rate 16 Blood Pressure 120/67 Pulse Oximetry 98 08/28/20 18:00 08/28/20 20:00 08/28/20 20:11 Temperature 36.0 C L Pulse Rate 76 91 91 Respiratory Rate 22 H 22 H Blood Pressure 117/48 L Pulse Oximetry 94 94 08/28/20 22:00 08/28/20 23:20 08/29/20 00:00 Temperature 36.0 C L Pulse Rate 79 78 71 Respiratory Rate 20 20 Blood Pressure 86/49 L Pulse Oximetry 96 96 08/29/20 02:00 08/29/20 03:45 08/29/20 03:46 Temperature Pulse Rate 89 73 73 Respiratory Rate Blood Pressure Pulse Oximetry 08/29/20 04:00 08/29/20 06:00 08/29/20 07:10 Temperature 36.3 C L 36.4 C L Pulse Rate 73 69 87 Respiratory Rate 20 20 Blood Pressure 90/46 L 102/74 Pulse Oximetry 96 99 08/29/20 12:16 Temperature 36.2 C L Pulse Rate 75 Respiratory Rate 20 Blood Pressure 99/56 L Pulse Oximetry 97 Intake/Output Intake/Output: Intake & Output 08/26/20 08/27/20 08/28/20 08/29/20 23:59 23:59 23:59 23:59 Intake Total 2610 1570 2580 500 Output Total 1900 1750 3575 3850 Balance 262 -889 -291 -1878 Meds/Results Medications: Active Medications Generic Name Dose Route Start Last Admin Trade Name Freq PRN Reason Stop Dose Admin Hydrocodone Bitart/Acetaminophen 1 tab 08/26/20 07:46 08/28/20 21:19 Hydrocodone/Acetaminophen (*Crx) 5-325 Mg Tablet PO 1 tab Q12H PRN Administration Pain (Scale Score 4-6) Albuterol 2 puff 08/26/20 07:46 Albuterol Sulfate (*Sp) Aerosol 1 Puff INHALATION QID PRN Shortness Of Breath Albuterol 2.5 mg 08/27/20 15:47 Albuterol Sulfate Neb 2.5 Mg/0.5 Ml Inh INHALATION Q6HRT PRN Shortness Of Camila
[2020-08-29] MEDS: HYDROcodone/acetaminophen (*CRX) 5-325 MG TABLET 1 TAB PO (16:37)
--- NOTE | 2020-08-29 17:03 | PM.IMPN ---
Progress Note: A&P Assessment and Plan (1) Acute CHF (congestive heart failure): Code(s): I50.9 - Heart failure, unspecified Status: Inactive Assessment and Plan: Acute systolic and diastolic CHF with anasarca. Found to be fluid overloaded on admission with pitting edema and pulmonary congestion on CXR. She is receiving IV lasix at this time Echocardiogram showed EF 30-35%, diastolic dysfunction, right ventricular systolic function is reduced and mild pulmonary HTN. Cardiology was consulted for further evaluation and work up and suggested continuing IV Lasix Continue monitoring, strict input and output, weights daily. 08/29/20 17:03 Brenda Cruz is a 65 year old female Morbidly obese with past medical history of diabetes hypertension congestive heart failure patient presented emergency department with a complaint of shortness of breath and lower extremity edema her symptoms were getting worse swelling was getting worse and now was all the way up to her chest, patient stated due to her morbid obesity and back pain is not very active and does not do any exertion, patient was seen by her primary care provider 3 days ago apparently there was no mention of lower extremity edema and getting worse, patient normally gets her care at the [facility], her water control station engineer and primary care doctor at the hospital. to further evaluate etiology of acute CHF, had ordered cardiac echo which showed patient severe systolic dysfunction with reduced ejection fraction of 35%, and severe pulmonary hypertension secondary to COPD and obstructive sleep apnea, patient is seen by Cardiology patient is being diuresed, patient blood pressure is soft and was started on dobutamine, today patient states feeling much better compared to when she arrived, discuss with cardiology on 08/28 will get the record from [facility] and further recommendation to follow. lower extremity venous Doppler is negative for DVT, will have PT/OT evaluate the patient. patient is also found to hidradenitis suppurative to lower abdomen, groin, labia (per wound care nurse) cellulitis of lower extremity and scabs on her lower extremity, on 08/29 left toe wound culture is growing staph aureus, left foot culture is growing Pseudomonas sensitivities pending, currently patient treated with imipenem and vancomycin, will follow and sensitivity and further recommendation to follow, patient has dermatitis most likely fungal patient is treated with antifungal ointment, patient is seen by wound team and been managed. (2) Acute respiratory failure with hypoxemia: Code(s): J96.01 - Acute respiratory failure with hypoxia Status: Acute Assessment and Plan: Most likely secondary to acute CHF exacerbation as well as possible underlying sleep apnea because she was found to be hypoxic while sleeping. We have continuous pulse ox on. Will order apnea link tonight Continue to wean as tolerated with diuresis Continue monitoring. (3) Hypotension: Code(s): I95.9 - Hypotension, unspecified Status: Acute Assessment and Plan: Could be secondary to her IV Lasix, sepsis from cellulitis versus cardiogenic shock. Based the patient's vital signs does not appear she is septic Patient's blood pressure went low at 78/42 but she was asymptomatic. Cardiology moved her to the IMU for further evaluation monitoring in the need to possibly start dopamine. She is stable at this time with blood pressure is 90/50s. Continue monitoring. (4) Cellulitis of left lower extremity: Code(s): L03.116 - Cellulitis of left lower limb Status: Acute Assessment and Plan: Patient seen by Wound Team patient started on imipenem and vancomycin for cellulitis from a cat scratch, and antifungal for dermatitis Wound cultures were obtained today to from her
[2020-08-29 17:30] LABS: Glucose Point of Care 189 (65-105)
[2020-08-29 20:30] LABS: Glucose Point of Care 211 (65-105)
[2020-08-29] MEDS: FLUTICASONE/SALMETEROL 115-21 MCG INHALER 1 PUFF 2 PUFF INHALATION (20:41)
[2020-08-29] MEDS: ALPRAZolam (*CRX) 0.5 MG TABLET PO (22:56)
[2020-08-29] MEDS: PRAMIPEXOLE 0.25 MG TABLET 0.75 MG PO (22:56)
[2020-08-30] VITALS (17 sets, daily range): BP systolic 116–149; BP diastolic 48–65; PULSE 62–92; RESP 18–26; TEMP 35.7–36.7; O2SAT 92–98
--- NOTE | 2020-08-30 00:47 | PC.NURSE ---
patient offered a bath. refused a bath from the tech and from the nurse. stated that she was trying to get comfortable and didn't want one.
[2020-08-30 04:56] LABS: Hematocrit 31.1 % (37.0-47.0); Hemoglobin 9.3 g/dL (12.0-15.0); Mean Corpuscular HGB Conc 29.9 g/dl (32-36); Mean Corpuscular Hemoglobin 27.4 pg (26-34); Mean Corpuscular Volume 91.7 fl (80-100); Mean Platelet Volume 10.4 fl (7.4-10.4); Platelet Count Result 262 k/mm3 (150-375); Red Blood Count 3.39 M/mm3 (4.2-5.4); Red Cell Distribution Width 19.8 % (11.5-14.5); White Blood Count 9.6 K/mm3 (4.5-10.0)
[2020-08-30] MEDS: TIZANIDINE HCL 4 MG TABLET PO ×3 (05:51→23:13)
[2020-08-30] MEDS: CENTRAL LINE FLUSH 10 ML IV PUSH ×3 (05:51→20:20)
[2020-08-30 06:38] LABS: Anion Gap 4 mmol/L (8-16); Blood Urea Nitrogen 39 mg/dL (7-17); Calcium 8.2 mg/dL (8.4-10.2); Carbon Dioxide 39 mmol/L (22-30); Chloride 99 mmol/L (98-107); Estimated CRCL calculation 53 ml/min; Estimated Glomerular Filt Rate 50; Glucose 156 mg/dL (65-105); Potassium 3.6 mmol/L (3.4-5.0); Sodium 142 mmol/L (137-145)
[2020-08-30 07:45] LABS: Glucose Point of Care 132 (65-105)
[2020-08-30] MEDS: FLUTICASONE/SALMETEROL 115-21 MCG INHALER 1 PUFF 2 PUFF INHALATION ×2 (08:08→20:35)
[2020-08-30] MEDS: PANTOPRAZOLE 40 MG TABLET PO ×2 (08:40→20:11)
[2020-08-30] MEDS: MINOCYCLINE HCL 50 MG CAPSULE 100 MG PO ×2 (08:41→16:11)
[2020-08-30] MEDS: ATORVASTATIN 40 MG TABLET PO (08:42)
[2020-08-30] MEDS: FUROSEMIDE INJ 40 MG/4 ML VIAL IV PUSH ×2 (08:42→20:11)
[2020-08-30] MEDS: GABAPENTIN 300 MG CAPSULE PO ×4 (08:42→20:10)
[2020-08-30] MEDS: ASPIRIN 325 MG TABLET PO (08:42)
[2020-08-30] MEDS: ENOXAPARIN 40 MG/0.4 ML SYRINGE SUB-Q ×2 (08:42→20:11)
[2020-08-30] MEDS: POTASSIUM CHLORIDE 20 MEQ TABLET 40 MEQ PO (08:43)
[2020-08-30] MEDS: LOSARTAN POTASSIUM 25 MG TABLET PO (08:52)
--- NOTE | 2020-08-30 09:25 | PM.PNCARD ---
Progress Note: A&P Assessment and Plan (1) Acute on chronic systolic (congestive) heart failure: Code(s): I50.23 - Acute on chronic systolic (congestive) heart failure Status: Acute Assessment and Plan: With evidence of anasarca and massive volume overload She has severe LV dysfunction EF is 30-35% as well as right heart failure with pulmonary HTN (with COPD and likely IRMA) She is doing better since started on Dobutamine. Diuresing well. Net negative 4 liters over the last 24 hours. Her creatinine is improving. K is borderline low Would continue Dobutamine at current dose for today. Start Losartan. Continue lasix 40 BID. Will start BB once weaned off Dobutamine. Hopefully tomorrow Replace Stephen Still trying to get her records from [place] (2) NSVT (nonsustained ventricular tachycardia): Code(s): I47.2 - Ventricular tachycardia Status: Acute Assessment and Plan: Short run noted on tele. Stable while on Dobutamine Start BB once BP stable (3) Hypotension: Code(s): I95.9 - Hypotension, unspecified Status: Acute Assessment and Plan: Resolved. Will start Losartan at low dose. (4) Tobacco abuse: Code(s): Z72.0 - Tobacco use Status: Acute Subjective Date/time seen: 08/30/20 09:25 She feels better. Lower ext edema improving. Review of Systems Review of Systems: All systems reviewed & are unremarkable except as noted in HPI and below Constitutional: Constitutional: Denies fatigue and Denies headache(s) Eyes: Eyes: Denies blurry vision ENT: Reports Normal hearing present and Denies headache(s) Cardiovascular: Cardiovascular: Denies chest pain, Denies diaphoresis, Denies pedal edema, Denies leg edema, Denies lightheadedness, Denies palpitations and Denies dyspnea Respiratory: Respiratory: Denies cough and Denies dyspnea Gastrointestinal: Gastrointestinal: Denies abdominal pain Musculoskeletal: Musculoskeletal: Denies back pain Neurologic: Reports Normal hearing present and Denies headache(s) Psychiatric: Psychiatric: Denies anxiety Endocrine: Endocrine: Denies fatigue and Denies palpitations Exam Narrative: Exam Narrative: General appearance: poor hygiene. No acute distress Head: Normocephalic, nontraumatic Eyes: Clear conjunctiva ENT: Oropharynx normal, ears normal, nose normal Neck: Supple, nontender Chest: decrease breathing sounds Heart: Regular rate/rhythm, normal S1,S2. No murmurs. +++ lower ext edema with Erythema, chronic skin changes and open sores noted Abdomen: Soft, nontender Vascular: Normal peripheral pulses, normal capillary refill. Neurologic: Alert and oriented ?3, MASCARA MOLDER is normal as tested, no gross motor deficit Neuro: Cranial nerves: Yes Normal hearing present Objective Data Vital Signs Vital Signs: Vital Signs - 24 hr 08/29/20 10:00 08/29/20 12:00 08/29/20 12:16 Temperature 36.2 C L Pulse Rate 77 77 75 Respiratory Rate 20 Blood Pressure 99/56 L Pulse Oximetry 97 08/29/20 14:00 08/29/20 16:19 08/29/20 16:20 Temperature 36.2 C L Pulse Rate 80 75 79 Respiratory Rate 16 Blood Pressure 111/61 Pulse Oximetry 96 08/29/20 19:23 08/29/20 20:00 08/29/20 20:42 Temperature 36.2 C L Pulse Rate 75 88 82 Respiratory Rate 16 20 20 Blood Pressure 119/63 Pulse Oximetry 95 94 94 08/29/20 21:26 08/29/20 22:00 08/29/20 23:44 Temperature 36.1 C L Pulse Rate 91 76 72 Respiratory Rate 22 H Blood Pressure 106/54 L Pulse Oximetry 96 08/30/20 00:00 08/30/20 02:00 08/30/20 04:00 Temperature 36.0 C L Pulse Rate 62 80 73 Respiratory Rate 22 H 22 H Blood Pressure 130/48 L Pulse Oximetry 96 94 08/30/20 06:00 08/30/20 07:05 08/30/20 08:00 Temperature 36.3 C L Pulse Rate 76 77 87 Respiratory Rate 22 H Blood Pressure 124/51 L Pulse Oximetry 97 08/30/20 08:08 Temperature Pulse Rate Respiratory Rate Blood Pressure Pulse Oximetry 97
[2020-08-30 12:21] LABS: Glucose Point of Care 202 (65-105)
[2020-08-30] MEDS: TRIAMCINOLONE ACET 0.1% OINT 80 GM TUBE 1 APPLIC TOPICAL ×2 (12:27→20:12)
[2020-08-30] MEDS: INSULIN ASPART (*BKC) 100 UNITS/ML SUB-Q (12:27)
[2020-08-30] MEDS: TOLNAFTATE 1% POWDER 45 GM BTL 1 APPLIC TOPICAL ×2 (13:35→20:12)
--- NOTE | 2020-08-30 14:49 | PM.IMPN ---
Progress Note: A&P Assessment and Plan (1) Acute CHF (congestive heart failure): Code(s): I50.9 - Heart failure, unspecified Status: Inactive Assessment and Plan: Acute systolic and diastolic CHF with anasarca. Found to be fluid overloaded on admission with pitting edema and pulmonary congestion on CXR. She is receiving IV lasix at this time Echocardiogram showed EF 30-35%, diastolic dysfunction, right ventricular systolic function is reduced and mild pulmonary HTN. Cardiology was consulted for further evaluation and work up and suggested continuing IV Lasix Continue monitoring, strict input and output, weights daily. 08/30/20 14:49 Brenda Cruz is a 65 year old female Morbidly obese with past medical history of diabetes hypertension congestive heart failure patient presented emergency department with a complaint of shortness of breath and lower extremity edema her symptoms were getting worse swelling was getting worse and now was all the way up to her chest, patient stated due to her morbid obesity and back pain is not very active and does not do any exertion, patient was seen by her primary care provider 3 days ago apparently there was no mention of lower extremity edema and getting worse, patient normally gets her care at the [facility], her nutritionist and primary care doctor at the hospital. to further evaluate etiology of acute CHF, had ordered cardiac echo which showed patient severe systolic dysfunction with reduced ejection fraction of 35%, and severe pulmonary hypertension secondary to COPD and obstructive sleep apnea, patient is seen by Cardiology patient is being diuresed, patient blood pressure is soft and was started on dobutamine, today patient states feeling much better compared to when she arrived, discuss with cardiology on 08/28 will get the record from [facility] and further recommendation to follow. lower extremity venous Doppler is negative for DVT, today on 08/30 patient states feeling much better patient is diuresing well see has urinated 7500 cc in last 24 and net urine production of 5700cc again seen by Cardiology will continue dobutamine 1 more day and will plan tomorrow and further recommendation to follow will have PT/OT evaluate the patient. patient is also found to hidradenitis suppurative to lower abdomen, groin, labia (per wound care nurse) cellulitis of lower extremity and scabs on her lower extremity, on 08/30 left toe wound culture is growing staph aureus not MRSA patient is treated with imipenem and vancomycin, left foot culture is growing Pseudomonas sensitivities pending, currently patient treated with imipenem and vancomycin, will follow and sensitivity and further recommendation to follow, patient has dermatitis most likely fungal patient is treated with antifungal ointment, patient is seen by wound team and been managed. (2) Acute respiratory failure with hypoxemia: Code(s): J96.01 - Acute respiratory failure with hypoxia Status: Acute Assessment and Plan: Most likely secondary to acute CHF exacerbation as well as possible underlying sleep apnea because she was found to be hypoxic while sleeping. We have continuous pulse ox on. Will order apnea link tonight Continue to wean as tolerated with diuresis Continue monitoring. (3) Hypotension: Code(s): I95.9 - Hypotension, unspecified Status: Acute Assessment and Plan: Could be secondary to her IV Lasix, sepsis from cellulitis versus cardiogenic shock. Based the patient's vital signs does not appear she is septic Patient's blood pressure went low at 78/42 but she was asymptomatic. Cardiology moved her to the IMU for further evaluation monitoring in the need to possibly start dopamine. She is stable at this time with blood pressure is 90/50s. Continue monitoring. (4) C
[2020-08-30] MEDS: DOBUTamine 250 MG/D5W 250 ML 250 MG/250 ML BAG 15.5 MG IV CONT (16:11)
[2020-08-30 17:18] LABS: Glucose Point of Care 179 (65-105)
[2020-08-30 19:56] LABS: Glucose Point of Care 186 (65-105)
[2020-08-30] MEDS: PRAMIPEXOLE 0.25 MG TABLET 0.75 MG PO (20:13)
[2020-08-30] MEDS: HYDROcodone/acetaminophen (*CRX) 5-325 MG TABLET 1 TAB PO (20:16)
[2020-08-31] VITALS (17 sets, daily range): BP systolic 108–144; BP diastolic 53–83; PULSE 68–92; RESP 18–26; TEMP 36–36.5; O2SAT 92–96
[2020-08-31 04:21] LABS: Hematocrit 32.3 % (37.0-47.0); Hemoglobin 9.7 g/dL (12.0-15.0); Mean Corpuscular Hemoglobin 28.1 pg (26-34); Mean Corpuscular Volume 93.6 fl (80-100); Mean Platelet Volume 10.7 fl (7.4-10.4); Platelet Count Result 256 k/mm3 (150-375); Red Blood Count 3.45 M/mm3 (4.2-5.4); Red Cell Distribution Width 19.7 % (11.5-14.5)
[2020-08-31 05:25] LABS: Anion Gap 8.99999 mmol/L (8-16); Blood Urea Nitrogen 37 mg/dL (7-17); Calcium 8.2 mg/dL (8.4-10.2); Carbon Dioxide > 40 mmol/L (22-30); Chloride 91 mmol/L (98-107); Estimated CRCL calculation 69 ml/min; Estimated Glomerular Filt Rate > 60; Glucose 216 mg/dL (65-105); Potassium 3.7 mmol/L (3.4-5.0); Sodium 140 mmol/L (137-145)
[2020-08-31] MEDS: TIZANIDINE HCL 4 MG TABLET PO ×3 (05:39→20:31)
[2020-08-31] MEDS: CENTRAL LINE FLUSH 10 ML IV PUSH ×4 (05:40→20:35)
[2020-08-31] MEDS: MINOCYCLINE HCL 50 MG CAPSULE 100 MG PO ×2 (08:41→17:32)
[2020-08-31] MEDS: FUROSEMIDE INJ 40 MG/4 ML VIAL IV PUSH ×2 (08:41→20:29)
[2020-08-31] MEDS: LOSARTAN POTASSIUM 25 MG TABLET PO (08:41)
[2020-08-31] MEDS: GABAPENTIN 300 MG CAPSULE PO ×4 (08:41→20:30)
[2020-08-31] MEDS: ENOXAPARIN 40 MG/0.4 ML SYRINGE SUB-Q ×2 (08:41→20:29)
[2020-08-31] MEDS: PANTOPRAZOLE 40 MG TABLET PO ×2 (08:41→20:30)
[2020-08-31 08:42] LABS: Glucose Point of Care 119 (65-105)
[2020-08-31] MEDS: ATORVASTATIN 40 MG TABLET PO (08:42)
[2020-08-31] MEDS: DOBUTamine 250 MG/D5W 250 ML 250 MG/250 ML BAG 15.5 MG IV CONT (08:42)
[2020-08-31] MEDS: ASPIRIN 325 MG TABLET PO (08:42)
[2020-08-31] MEDS: FLUTICASONE/SALMETEROL 115-21 MCG INHALER 1 PUFF 2 PUFF INHALATION ×2 (09:30→19:21)
[2020-08-31] MEDS: SILVERGEL (ELTA) 45 ML 1 APPLIC TOPICAL (10:43)
[2020-08-31] MEDS: TOLNAFTATE 1% POWDER 45 GM BTL 1 APPLIC TOPICAL ×2 (10:43→20:38)
[2020-08-31] MEDS: TRIAMCINOLONE ACET 0.1% OINT 80 GM TUBE 1 APPLIC TOPICAL ×2 (10:44→20:38)
--- NOTE | 2020-08-31 11:12 | PM.PNCARD ---
Progress Note: A&P Assessment and Plan (1) Acute on chronic systolic (congestive) heart failure: Code(s): I50.23 - Acute on chronic systolic (congestive) heart failure Status: Acute Assessment and Plan: With evidence of anasarca and massive volume overload She has severe LV dysfunction EF is 30-35% as well as right heart failure with pulmonary HTN (with COPD and likely IRMA) She is doing better since started on Dobutamine. Diuresing well. Net negative 4 liters over the last 24 hours. Her creatinine is improving. K is borderline low Would stop Dobutamine today. Start Losartan. Continue lasix 40 BID. Replace K Still trying to get her records from [place] she may need to have cardiac catheterization (2) NSVT (nonsustained ventricular tachycardia): Code(s): I47.2 - Ventricular tachycardia Status: Acute Assessment and Plan: Short run noted on tele. Stable while on Dobutamine Start BB once BP stable (3) Hypotension: Code(s): I95.9 - Hypotension, unspecified Status: Acute Assessment and Plan: Resolved. Will start Losartan at low dose. (4) Tobacco abuse: Code(s): Z72.0 - Tobacco use Status: Acute Subjective Date/time seen: 08/31/20 11:12 she feels slightly better today, still with mild shortness of breath on mild orthopnea, but she diuresed very well on dobutamine. No chest pain Exam Narrative: Exam Narrative: General appearance: poor hygiene. No acute distress Head: Normocephalic, nontraumatic Eyes: Clear conjunctiva ENT: Oropharynx normal, ears normal, nose normal Neck: Supple, nontender Chest: decrease breathing sounds Heart: Regular rate/rhythm, normal S1,S2. No murmurs. +++ lower ext edema with Erythema, chronic skin changes and open sores noted Abdomen: Soft, nontender Vascular: Normal peripheral pulses, normal capillary refill. 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 tested, no gross motor deficit Objective Data Vital Signs Vital Signs: Vital Signs - 24 hr 08/30/20 12:00 08/30/20 12:57 08/30/20 14:00 Temperature 36.1 C L Pulse Rate 89 83 88 Respiratory Rate 22 H Blood Pressure 121/65 Pulse Oximetry 95 08/30/20 16:00 08/30/20 18:14 08/30/20 20:00 Temperature 36.7 C 35.9 C L Pulse Rate 77 86 77 Respiratory Rate 26 H 18 Blood Pressure 128/60 116/55 L Pulse Oximetry 92 98 08/30/20 22:00 08/30/20 23:42 08/31/20 00:00 Temperature 35.7 C L Pulse Rate 92 82 68 Respiratory Rate 18 Blood Pressure 149/59 H Pulse Oximetry 98 08/31/20 02:00 08/31/20 03:20 08/31/20 04:00 Temperature 36.3 C L Pulse Rate 72 74 68 Respiratory Rate 18 Blood Pressure 137/63 Pulse Oximetry 96 08/31/20 06:00 08/31/20 08:00 08/31/20 10:00 Temperature 36.5 C Pulse Rate 70 76 73 Respiratory Rate 22 H Blood Pressure 116/83 Pulse Oximetry 95 Intake/Output Intake/Output: Intake & Output 08/28/20 08/29/20 08/30/20 08/31/20 23:59 23:59 23:59 23:59 Intake Total 2580 1170 1610 1650 Output Total 3575 5900 8900 3800 [facility] -[phone] Meds/Results Medications: Active Medications Generic Name Dose Route Start Last Admin Trade Name Freq PRN Reason Stop Dose Admin Hydrocodone Bitart/Acetaminophen 1 tab 08/26/20 07:46 08/30/20 20:16 Hydrocodone/Acetaminophen (*Crx) 5-325 Mg Tablet PO 1 tab Q12H PRN Administration Pain (Scale Score 4-6) Acetazolamide 250 mg 08/31/20 09:00 Acetazolamide Tab 250 Mg Tablet PO 09/01/20 08:00 QAM MELONY Albuterol 2 puff 08/26/20 07:46 Albuterol Sulfate (*Sp) Aerosol 1 Puff INHALATION QID PRN Shortness Of Breath Albuterol 2.5 mg 08/27/20 15:47 Albuterol Sulfate Neb 2.5 Mg/0.5 Ml Inh INHALATION Q6HRT PRN Shortness Of Breath Alprazolam 0.5 mg 08/26/20 18:35 08/29/20 22:56 Alprazolam (*Crx) 0.5 Mg Tablet PO 0.5 mg BID PRN Administration Anxiety Aspirin 325
[2020-08-31] MEDS: POTASSIUM CHLORIDE 20 MEQ PACKET (FOR LIQUID) 40 MEQ PO (11:30)
[2020-08-31 12:09] LABS: Glucose Point of Care 140 (65-105)
[2020-08-31] MEDS: acetaZOLAMIDE TAB 250 MG TABLET PO (12:32)
--- NOTE | 2020-08-31 14:26 | PM.IMPN ---
Progress Note: A&P Assessment and Plan (1) Acute CHF (congestive heart failure): Code(s): I50.9 - Heart failure, unspecified Status: Inactive Assessment and Plan: Acute systolic and diastolic CHF with anasarca. Found to be fluid overloaded on admission with pitting edema and pulmonary congestion on CXR. She is receiving IV lasix at this time Echocardiogram showed EF 30-35%, diastolic dysfunction, right ventricular systolic function is reduced and mild pulmonary HTN. Cardiology was consulted for further evaluation and work up and suggested continuing IV Lasix Continue monitoring, strict input and output, weights daily. 08/31/20 14:26 Brenda Cruz is a 65 year old female Morbidly obese with past medical history of diabetes hypertension congestive heart failure patient presented emergency department with a complaint of shortness of breath and lower extremity edema her symptoms were getting worse swelling was getting worse and now was all the way up to her chest, patient stated due to her morbid obesity and back pain is not very active and does not do any exertion, patient was seen by her primary care provider 3 days ago apparently there was no mention of lower extremity edema and getting worse, patient normally gets her care at the [facility], her concessionist and primary care doctor at the hospital. to further evaluate etiology of acute CHF, had ordered cardiac echo which showed patient severe systolic dysfunction with reduced ejection fraction of 35%, and severe pulmonary hypertension secondary to COPD and obstructive sleep apnea, patient is seen by Cardiology patient is being diuresed, patient blood pressure is soft and was started on dobutamine, today patient states feeling much better compared to when she arrived, discuss with cardiology on 08/28 will get the record from [facility] and further recommendation to follow. lower extremity venous Doppler is negative for DVT, today on 08/31 patient states feeling much better patient is diuresing well she has urinated 9300 cc in last 24 and net urine production of 7322 cc, today again patient was seen by Cardiology decided to discountinue dobutamine and will continue to diursing the patient, patient will benefit from cardiac catheterization to further evaluate, further recommendation to follow will have PT/OT evaluate the patient. patient is also found to hidradenitis suppurative to lower abdomen, groin, labia (per wound care nurse) cellulitis of lower extremity and scabs on her lower extremity, on 08/31 left toe wound culture is growing staph aureus not MRSA patient is treated with imipenem and vancomycin, left foot culture is growing Pseudomonas sensitivities pending, currently patient treated with imipenem and vancomycin, will follow and sensitivity and further recommendation to follow, will consult Dr. Rivera for recommendation. patient has dermatitis most likely fungal patient is treated with antifungal ointment, patient is seen by wound team and been managed. (2) Acute respiratory failure with hypoxemia: Code(s): J96.01 - Acute respiratory failure with hypoxia Status: Acute Assessment and Plan: Most likely secondary to acute CHF exacerbation as well as possible underlying sleep apnea because she was found to be hypoxic while sleeping. We have continuous pulse ox on. Will order apnea link tonight Continue to wean as tolerated with diuresis Continue monitoring. (3) Hypotension: Code(s): I95.9 - Hypotension, unspecified Status: Acute Assessment and Plan: Could be secondary to her IV Lasix, sepsis from cellulitis versus cardiogenic shock. Based the patient's vital signs does not appear she is septic Patient's blood pressure went low at 78/42 but she was asymptomatic. Cardiology moved her to the IMU for further evaluation monitoring in the need to possibl
--- NOTE | 2020-08-31 15:25 | WPDINFPN2 ---
Progress Note: A&P Assessment and Plan (1) Infected ulcer of skin: Code(s): L98.499 - Non-pressure chronic ulcer of skin of other sites with unspecified severity; L08.9 - Local infection of the skin and subcutaneous tissue, unspecified Status: Acute Assessment and Plan: 1. Infected leg ulcer R rocha, after cat scratch. There is no cellulitis 2. Chronic uninfected foot ulcers 3. Hidradenitis and immune suppression 4. 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 Add cefuroxime x 4 days more. Local wound care. F/U with her gore inserter, suggest hold Humira this week and next week. Call if other Qs Subjective Date/time seen: 08/31/20 15:25 Objective Data Vital Signs Vital Signs: Vital Signs - 24 hr 08/30/20 16:00 08/30/20 18:14 08/30/20 20:00 Temperature 36.7 C 35.9 C L Pulse Rate 77 86 77 Respiratory Rate 26 H 18 Blood Pressure 128/60 116/55 L Pulse Oximetry 92 98 08/30/20 22:00 08/30/20 23:42 08/31/20 00:00 Temperature 35.7 C L Pulse Rate 92 82 68 Respiratory Rate 18 Blood Pressure 149/59 H Pulse Oximetry 98 08/31/20 02:00 08/31/20 03:20 08/31/20 04:00 Temperature 36.3 C L Pulse Rate 72 74 68 Respiratory Rate 18 Blood Pressure 137/63 Pulse Oximetry 96 08/31/20 06:00 08/31/20 08:00 08/31/20 10:00 Temperature 36.5 C Pulse Rate 70 76 73 Respiratory Rate 22 H Blood Pressure 116/83 Pulse Oximetry 95 08/31/20 12:00 Temperature 36.0 C L Pulse Rate 76 Respiratory Rate 22 H Blood Pressure 134/63 Pulse Oximetry 92 Intake/Output Intake/Output: Intake & Output 08/28/20 08/29/20 08/30/20 08/31/20 23:59 23:59 23:59 23:59 Intake Total 2580 1170 1610 1758 Output Total 3575 5900 8900 2560 [facility] [phone] Meds/Results Medications: Active Medications Generic Name Dose Route Start Last Admin Trade Name Freq PRN Reason Stop Dose Admin Hydrocodone Bitart/Acetaminophen 1 tab 08/26/20 07:46 08/30/20 20:16 Hydrocodone/Acetaminophen (*Crx) 5-325 Mg Tablet PO 1 tab Q12H PRN Administration Pain (Scale Score 4-6) Acetazolamide 250 mg 08/31/20 09:00 08/31/20 12:32 Acetazolamide Tab 250 Mg Tablet PO 09/01/20 08:00 250 mg QAM MELONY Administration Albuterol 2 puff 08/26/20 07:46 Albuterol Sulfate (*Sp) Aerosol 1 Puff INHALATION QID PRN Shortness Of Breath Albuterol 2.5 mg 08/27/20 15:47 Albuterol Sulfate Neb 2.5 Mg/0.5 Ml Inh INHALATION Q6HRT PRN Shortness Of Breath Alprazolam 0.5 mg 08/26/20 18:35 08/29/20 22:56 Alprazolam (*Crx) 0.5 Mg Tablet PO 0.5 mg BID PRN Administration Anxiety Aspirin 325 mg 08/26/20 09:00 08/31/20 08:42 Aspirin 325 Mg Tablet PO 325 mg DAILY MELONY Administration Atorvastatin Calcium 40 mg 08/26/20 09:00 08/31/20 08:42 Atorvastatin 40 Mg Tablet PO 40 mg DAILY MELONY Administration Dextrose 12.5 gm 08/26/20 11:37 Dextrose 50% 25 Gm/50 Ml Syringe IV PUSH PRN PRN Hypoglycemia Protocol Docusate Sodium 100 mg 08/27/20 15:48 Docusate Sodium 100 Mg Capsule PO Q12H PRN Constipation Enoxaparin Sodium 40 mg 08/28/20 12:40 08/31/20 08:41 Enoxaparin 40 Mg/0.4 Ml Syringe SUB-Q 40 mg Q12HR MELONY Administration Furosemide 40 mg 08/26/20 09:00 08/31/20 08:41 Furosemide Inj 40 Mg/4 Ml Vial IV PUSH 40 mg Q12HR MELONY Administration Gabapentin 300 mg 08/26/20 09:00 08/31/20 12:32 Gabapentin 300 Mg Capsule PO 300 mg QID MELONY Administration Glucagon 1 mg 08/26/20 11:37 Glucagon For Inj 1 Mg Vial IM PRN PRN Hypoglycemia Protocol Glucose 15 gm 08/26/20 11:37 Glucose Oral Gel 15 Gm Of Glucse In 37.5 Gm Tube PO PRN PRN Hypoglycemia Protocol Dextrose 1,000 mls @ 100 mls/hr 08/26/20 11:37 Dextrose 5% 1,000 Ml IVPB PRN PRN Hypoglycemia Protocol Insulin Aspart 2 - 5 units 08/26/20 12
--- NOTE | 2020-08-31 15:34 | PCPTNOTE ---
Attempted to see patient for PT, however patient refused. Patient states she will do therapy tomorrow.
[2020-08-31 16:43] LABS: Glucose Point of Care 140 (65-105)
--- NOTE | 2020-08-31 18:25 | CONS_ITS ---
DATE OF CONSULTATION: REASON FOR CONSULTATION: Positive wound culture. HISTORY OF PRESENT ILLNESS: A 65-year-old female with hidradenitis, treated by railway head tender in [place], has previously received Remicade, more recently has been on Humira. She also is on chronic minocycline or doxycycline, the former being used here. She was admitted through the emergency room on August 25 with worsened swelling over both lower extremities. She has a longstanding history of congestive heart failure. Here, she was believed to have dependent edema and heart failure. She presumably was believed to have infection coexistent as well in the lower extremities and was given vancomycin, cefazolin, imipenem at various times. Consultation requested. Today, she is on day 7 of her antibiotics. She reports her railway head tender is treating ulcers over the dorsum of both feet. About 2 weeks prior to admission, she had her cat scratch her in the right rocha. First aid was applied and she has been doing topical ointment of some kind to the open wound in the right rocha, but it has not been healing. The patient denies fever, chills, or sweats. No other recent trauma. Her railway head tender is apparently treating her for chronic skin condition in both distal legs, though the patient is unsure of diagnosis. The hidradenitis causes marked pain for the patient in the pelvic area. HABITS: One [id number] smoker. She also uses marijuana. No alcohol. PRESENT MEDICATIONS: Humira as above, but did not receive a dose, 40 mg once weekly when scheduled 3 days ago. ALLERGIES: REMICADE. PAST MEDICAL HISTORY: In addition to the above, diabetes mellitus, hypertension, morbid obesity, COPD, chronic heart failure, diastolic dysfunction, and systolic dysfunction. No previous vascular operations. FAMILY HISTORY: Not pertinent to her present illness. SOCIAL HISTORY: She is single, lives locally. Has family locally that help look after her. REVIEW OF SYSTEMS: Chronic pain due to the hidradenitis and the patient is not happy with the degree of pain relief as provided by her hydrocodone 5 mg b.i.d. 14-point review otherwise unremarkable. FAMILY HISTORY: Not pertinent to present illness. PHYSICAL EXAMINATION: GENERAL: This is a middle-aged female who appears older than her actual age. No respiratory distress. VITAL SIGNS: Afebrile since arrival, 134/63, 76, 22, 92%. SKIN: No erythroderma. No generalized rash. Warm and dry. EENT: The pupils equal, round, and reactive to light. The conjunctivae are normal. The oropharynx, oral mucosa normal. Teeth in good repair. NECK: No meningismus, no tenderness nor abnormal contour. LUNGS: Clear to auscultation and percussion. CARDIAC: Soft, S1, S2. Regular rate and rhythm. No murmurs or gallops. ABDOMEN: Morbidly obese, nontender. No masses. EXTREMITIES: She has multiple scars and abrasions over both lower extremities. Right mid rocha has an open wound 2 cm x 0.5 cm with an ointment present at the base, which I did not remove. I did review the photographs on the patient's phone of untreated wound. She has 2 to 3+ pitting and nonpitting edema of her legs down into the toes. She has no surrounding erythema, tenderness, or warmth. No crepitus. She has ulcers over both feet. LABORATORY DATA: No wound culture collected from the rocha. Cultures from both feet indicate Staph aureus and pseudomonas. I reviewed the susceptibilities. White count consistently normal. Hemoglobin 9.7 and platelets are 256, no differential done recently, but earlier showed a mild monocytosis. Her sodium initially high and now normalized. CO2 was 24, now over 40. BUN 37, creatinine 0.8, down from 1.1, glucose 216. Hemoglobin A1c 5.9%. CRP is 1.6. Urinalysis, done for unknown reasons,
[2020-08-31 20:12] LABS: Glucose Point of Care 229 (65-105)
[2020-08-31] MEDS: CEFUROXIME AXETIL 250 MG TABLET 500 MG PO (20:29)
[2020-08-31] MEDS: PRAMIPEXOLE 0.25 MG TABLET 0.75 MG PO (20:30)
[2020-08-31] MEDS: HYDROcodone/acetaminophen (*CRX) 5-325 MG TABLET 1 TAB PO (20:32)
[2020-09-01] VITALS (13 sets, daily range): BP systolic 116–135; BP diastolic 53–77; PULSE 58–99; RESP 18–24; TEMP 35.6–36.8; O2SAT 92–97
[2020-09-01] MEDS: TIZANIDINE HCL 4 MG TABLET PO ×3 (05:03→21:40)
[2020-09-01] MEDS: CENTRAL LINE FLUSH 10 ML IV PUSH ×3 (05:03→21:40)
[2020-09-01] MEDS: CENTRAL LINE FLUSH 20 ML IV PUSH (05:03)
[2020-09-01 05:34] LABS: Mean Corpuscular HGB Conc 29.4 g/dl (32-36); Mean Corpuscular Hemoglobin 27.9 pg (26-34); Mean Corpuscular Volume 94.7 fl (80-100); Mean Platelet Volume 11.5 fl (7.4-10.4); Platelet Count Result 257 k/mm3 (150-375); Red Blood Count 3.59 M/mm3 (4.2-5.4); Red Cell Distribution Width 19.2 % (11.5-14.5); White Blood Count 9.5 K/mm3 (4.5-10.0)
[2020-09-01 05:47] LABS: Anion Gap 9.99999 mmol/L (8-16); Blood Urea Nitrogen 34 mg/dL (7-17); Calcium 8.4 mg/dL (8.4-10.2); Carbon Dioxide > 40 mmol/L (22-30); Chloride 90 mmol/L (98-107); Estimated CRCL calculation 45 ml/min; Estimated Glomerular Filt Rate 45; Glucose 162 mg/dL (65-105); Potassium 3.7 mmol/L (3.4-5.0); Sodium 140 mmol/L (137-145)
[2020-09-01] MEDS: FLUTICASONE/SALMETEROL 115-21 MCG INHALER 1 PUFF 2 PUFF INHALATION ×2 (08:16→20:35)
[2020-09-01] MEDS: PANTOPRAZOLE 40 MG TABLET PO ×2 (08:55→21:38)
[2020-09-01] MEDS: GABAPENTIN 300 MG CAPSULE PO ×4 (08:55→21:39)
[2020-09-01] MEDS: HYDROcodone/acetaminophen (*CRX) 5-325 MG TABLET 1 TAB PO ×3 (08:55→21:38)
[2020-09-01] MEDS: CEFUROXIME AXETIL 250 MG TABLET 500 MG PO ×2 (08:56→21:39)
[2020-09-01] MEDS: ATORVASTATIN 40 MG TABLET PO (08:56)
[2020-09-01] MEDS: LOSARTAN POTASSIUM 25 MG TABLET PO (08:56)
[2020-09-01] MEDS: MINOCYCLINE HCL 50 MG CAPSULE 100 MG PO ×2 (08:56→16:58)
[2020-09-01] MEDS: ENOXAPARIN 40 MG/0.4 ML SYRINGE SUB-Q ×2 (08:56→21:40)
[2020-09-01] MEDS: FUROSEMIDE INJ 40 MG/4 ML VIAL IV PUSH ×2 (08:56→21:38)
[2020-09-01] MEDS: ASPIRIN 325 MG TABLET PO (08:56)
[2020-09-01] MEDS: TRIAMCINOLONE ACET 0.1% OINT 80 GM TUBE 1 APPLIC TOPICAL ×2 (08:57→21:40)
[2020-09-01] MEDS: SILVERGEL (ELTA) 45 ML 1 APPLIC TOPICAL (08:57)
[2020-09-01] MEDS: TOLNAFTATE 1% POWDER 45 GM BTL 1 APPLIC TOPICAL ×2 (08:57→21:40)
[2020-09-01 12:23] LABS: Glucose Point of Care 162 (65-105)
[2020-09-01 12:23] LABS: Glucose Point of Care 182 (65-105)
--- NOTE | 2020-09-01 13:50 | PM.PNCARD ---
Progress Note: A&P Assessment and Plan (1) Acute on chronic systolic (congestive) heart failure: Code(s): I50.23 - Acute on chronic systolic (congestive) heart failure Status: Acute Assessment and Plan: With evidence of anasarca and massive volume overload She has severe LV dysfunction EF is 30-35% as well as right heart failure with pulmonary HTN (with COPD and likely IRMA) She is doing better since started on Dobutamine. Diuresing well. she seems to be clinically much better now, apparently she had cardiac catheterization at [place] December of this year showed mild coronary disease with total occluded RCA and with collaterals. She was considered for ICD, she will need to have a follow-up with her primary academic computing director for further follow-up and treatment from that point of view (2) NSVT (nonsustained ventricular tachycardia): Code(s): I47.2 - Ventricular tachycardia Status: Acute Assessment and Plan: Short run noted on tele. Stable while on Dobutamine Start BB once BP stable no recurrence, she was considered for ICD, will arrange for her to follow-up with her primary academic computing director to continue that plan (3) Hypotension: Code(s): I95.9 - Hypotension, unspecified Status: Acute Assessment and Plan: Resolved. Will start Losartan at low dose. (4) Tobacco abuse: Code(s): Z72.0 - Tobacco use Status: Acute Subjective Date/time seen: 09/01/20 13:50 she feels much better today, shortness breath is better leg swelling is a lot better. Still with fatigue and weakness Exam Narrative: Exam Narrative: General appearance: poor hygiene. No acute distress Head: Normocephalic, nontraumatic Eyes: Clear conjunctiva ENT: Oropharynx normal, ears normal, nose normal Neck: Supple, nontender Chest: decrease breathing sounds Heart: Regular rate/rhythm, normal S1,S2. No murmurs. +++ lower ext edema with Erythema, chronic skin changes and open sores noted Abdomen: Soft, nontender Vascular: Normal peripheral pulses, normal capillary refill. 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, no gross motor deficit Objective Data Vital Signs Vital Signs: Vital Signs - 24 hr 08/31/20 14:00 08/31/20 16:00 08/31/20 18:23 Temperature 36.0 C L Pulse Rate 78 87 76 Respiratory Rate 24 H Blood Pressure 144/76 H Pulse Oximetry 96 08/31/20 19:24 08/31/20 19:25 08/31/20 19:36 Temperature 36.0 C L Pulse Rate 76 76 74 Respiratory Rate 20 20 26 H Blood Pressure 141/74 H Pulse Oximetry 95 96 08/31/20 20:00 08/31/20 22:00 08/31/20 23:46 Temperature 36.2 C L Pulse Rate 77 89 69 Respiratory Rate 18 Blood Pressure 108/53 L Pulse Oximetry 96 09/01/20 00:00 09/01/20 02:00 09/01/20 04:00 Temperature 35.6 C L Pulse Rate 61 88 76 Respiratory Rate 20 Blood Pressure 135/77 Pulse Oximetry 92 09/01/20 06:00 09/01/20 08:00 09/01/20 08:16 Temperature 36.2 C L Pulse Rate 59 L 58 L Respiratory Rate 24 H Blood Pressure 116/63 Pulse Oximetry 94 92 09/01/20 10:00 09/01/20 12:00 Temperature 36.5 C Pulse Rate 72 83 Respiratory Rate 24 H Blood Pressure 129/77 Pulse Oximetry 93 Intake/Output Intake/Output: Intake & Output 08/29/20 08/30/20 08/31/20 09/01/20 23:59 23:59 23:59 23:59 Intake Total 1170 1610 2418 750 Output Total 5900 8900 8450 2250 [facility] -[phone] -1500 Meds/Results Medications: Active Medications Generic Name Dose Route Start Last Admin Trade Name Freq PRN Reason Stop Dose Admin Hydrocodone Bitart/Acetaminophen 1 tab 09/01/20 12:07 Hydrocodone/Acetaminophen (*Crx) 5-325 Mg Tablet PO Q6H PRN Pain (Scale Score 4-6) Albuterol 2 puff 08/26/20 07:46 Albuterol Sulfate (*Sp) Aerosol 1 Puff INHALATION QID PRN Shortness Of Breath Albuterol 2.5 mg 08/27/20 15:47 Albuterol Sulfate Neb 2.5 Mg/0.5 Ml Inh INHALATION Q6HRT PRN
--- NOTE | 2020-09-01 16:31 | PCPTNOTE ---
The patient treatment was not able to be completed on 09/01/2020. Will plan to continue treatment per plan of care.
--- NOTE | 2020-09-01 16:43 | PM.IMPN ---
Progress Note: A&P Assessment and Plan (1) Acute CHF (congestive heart failure): Code(s): I50.9 - Heart failure, unspecified Status: Inactive Assessment and Plan: Acute systolic and diastolic CHF with anasarca. Found to be fluid overloaded on admission with pitting edema and pulmonary congestion on CXR. She is receiving IV lasix at this time Echocardiogram showed EF 30-35%, diastolic dysfunction, right ventricular systolic function is reduced and mild pulmonary HTN. Cardiology was consulted for further evaluation and work up and suggested continuing IV Lasix Continue monitoring, strict input and output, weights daily. [place] discharge soon in 1-2 days time (2) Acute respiratory failure with hypoxemia: Code(s): J96.01 - Acute respiratory failure with hypoxia Status: Acute Assessment and Plan: Most likely secondary to acute CHF exacerbation as well as possible underlying sleep apnea (3) Hypotension: Code(s): I95.9 - Hypotension, unspecified Status: Resolved Assessment and Plan: Move out of [facility] (4) Cellulitis of left lower extremity: Code(s): L03.116 - Cellulitis of left lower limb Status: Acute Assessment and Plan: Patient seen by Wound Team patient started on imipenem and vancomycin for cellulitis from a cat scratch, and antifungal for dermatitis Continue IV antibiotics at this time (5) Diabetes mellitus: Code(s): E11.9 - Type 2 diabetes mellitus without complications Status: Acute Assessment and Plan: Continue home regimen and monitor with sliding scale (6) Hypertension: Code(s): I10 - Essential (primary) hypertension Status: Inactive Assessment and Plan: Blood pressure have been hypotensive today so we will hold her blood pressure medications as per Cardiology recommendations (7) COPD (chronic obstructive pulmonary disease): Code(s): J44.9 - Chronic obstructive pulmonary disease, unspecified Status: Inactive Assessment and Plan: Patient is clinically stable will continue home inhalers and p.r.n. DuoNeb treatments Otherwise appears to be stable Subjective Date/time seen: 09/01/20 16:44 Interval history: Pt admitted with SOB swelling and wound to her left leg from a cat scratch. PT feels better sinve admission abdomen softer now. Wound is getting better Review of Systems Review of Systems: All systems reviewed & are unremarkable except as noted in HPI and below Exam Narrative: Exam Narrative: Patient is comfortable= HEENT: eyes are clear and none icteric LUNGS: bilateral fair air entry decreased at bases HEART: RR S1S2 ABD: BS+, Soft and nontender, Lower extremities: b/l SKIN: nonjaundiced, lower extremity erythematous macules scabbed, wound dressed over Neuro: grossly intact. Objective Data Vital Signs Vital Signs: Vital Signs - 24 hr 08/31/20 18:23 08/31/20 19:24 08/31/20 19:25 Temperature Pulse Rate 76 76 76 Respiratory Rate 20 20 Blood Pressure Pulse Oximetry 95 08/31/20 19:36 08/31/20 20:00 08/31/20 22:00 Temperature 36.0 C L Pulse Rate 74 77 89 Respiratory Rate 26 H Blood Pressure 141/74 H Pulse Oximetry 96 08/31/20 23:46 09/01/20 00:00 09/01/20 02:00 Temperature 36.2 C L Pulse Rate 69 61 88 Respiratory Rate 18 Blood Pressure 108/53 L Pulse Oximetry 96 09/01/20 04:00 09/01/20 06:00 09/01/20 08:00 Temperature 35.6 C L 36.2 C L Pulse Rate 76 59 L 58 L Respiratory Rate 20 24 H Blood Pressure 135/77 116/63 Pulse Oximetry 92 94 09/01/20 08:16 09/01/20 10:00 09/01/20 12:00 Temperature 36.5 C Pulse R
[2020-09-01 17:08] LABS: Glucose Point of Care 194 (65-105)
--- NOTE | 2020-09-01 17:57 | PC.NURSE ---
This patient, Brenda Cruz, was transferred to [facility] on 09/01/20 at 1755. Personal belongings sent with patient. Report given to VINOD Walker. Appropriate documentation sent with patient.
--- NOTE | 2020-09-01 18:07 | PC.NURSE ---
This patient, Brenda Cruz, was received from IMU on 09/01/20 at 1800. Personal belongings list checked and signed. Patient/family oriented to unit policies and routines
[2020-09-01 20:15] LABS: Glucose Point of Care 239 (65-105)
[2020-09-01] MEDS: PRAMIPEXOLE 0.25 MG TABLET 0.75 MG PO (21:38)
[2020-09-01] MEDS: ALPRAZolam (*CRX) 0.5 MG TABLET PO (21:38)
[2020-09-02] VITALS (11 sets, daily range): BP systolic 135–151; BP diastolic 73–87; PULSE 62–100; RESP 16–18; TEMP 36.1–36.3; O2SAT 92–97
[2020-09-02] MEDS: TIZANIDINE HCL 4 MG TABLET PO ×3 (05:31→20:30)
[2020-09-02] MEDS: HYDROcodone/acetaminophen (*CRX) 5-325 MG TABLET 1 TAB PO ×2 (05:31→20:40)
[2020-09-02] MEDS: CENTRAL LINE FLUSH 20 ML IV PUSH (05:32)
[2020-09-02] MEDS: CENTRAL LINE FLUSH 10 ML IV PUSH ×2 (05:32→13:54)
[2020-09-02 05:50] LABS: Hematocrit 34.8 % (37.0-47.0); Hemoglobin 10.4 g/dL (12.0-15.0); Mean Corpuscular HGB Conc 29.9 g/dl (32-36); Mean Corpuscular Hemoglobin 27.5 pg (26-34); Mean Corpuscular Volume 92.1 fl (80-100); Mean Platelet Volume 11.8 fl (7.4-10.4); Platelet Count Result 281 k/mm3 (150-375); Red Blood Count 3.78 M/mm3 (4.2-5.4); Red Cell Distribution Width 18.7 % (11.5-14.5); White Blood Count 9.3 K/mm3 (4.5-10.0)
[2020-09-02 06:12] LABS: Anion Gap 10.99999 mmol/L (8-16); Blood Urea Nitrogen 34 mg/dL (7-17); Calcium 8.5 mg/dL (8.4-10.2); Carbon Dioxide > 40 mmol/L (22-30); Chloride 92 mmol/L (98-107); Estimated CRCL calculation 49 ml/min; Estimated Glomerular Filt Rate 50; Glucose 104 mg/dL (65-105); Potassium 3.3 mmol/L (3.4-5.0); Sodium 143 mmol/L (137-145)
[2020-09-02] MEDS: FLUTICASONE/SALMETEROL 115-21 MCG INHALER 1 PUFF 2 PUFF INHALATION ×2 (07:55→19:34)
[2020-09-02 08:03] LABS: Glucose Point of Care 130 (65-105)
--- NOTE | 2020-09-02 09:37 | PM.PNCARD ---
Progress Note: A&P Assessment and Plan (1) Acute on chronic systolic (congestive) heart failure: Code(s): I50.23 - Acute on chronic systolic (congestive) heart failure Status: Acute Assessment and Plan: Significantly improved Initially With evidence of anasarca and massive volume overload She has severe LV dysfunction EF is 30-35% as well as right heart failure with pulmonary HTN (with COPD and likely IRMA) Diuresing well. she seems to be clinically much better now, apparently she had cardiac catheterization at [place] December of this year showed mild coronary disease with total occluded RCA and with collaterals. She was considered for ICD, she will need to have a follow-up with her primary casing splitter for further follow-up and treatment from that point of view (2) NSVT (nonsustained ventricular tachycardia): Code(s): I47.2 - Ventricular tachycardia Status: Acute Assessment and Plan: Short run noted on tele while on Dobutamine Start BB (3) Infected ulcer of skin: Code(s): L98.499 - Non-pressure chronic ulcer of skin of other sites with unspecified severity; L08.9 - Local infection of the skin and subcutaneous tissue, unspecified Status: Acute Assessment and Plan: management per PC (4) HTN (hypertension): Code(s): I10 - Essential (primary) hypertension Status: Acute Assessment and Plan: well controlled cont meds Subjective Date/time seen: 09/02/20 Pt feels better today. Her LE edema and SOB improved significantly. Still complains for pain due to cellulitis. Higher dose of pain pills helped her. Pt was seen and examined, chart reviewed, hollis d/w pt's nurse. Review of Systems Review of Systems: All systems reviewed & are unremarkable except as noted in HPI and below Constitutional: Constitutional: Reports as per HPI Eyes: Eyes: Reports as per HPI ENT: Reports system reviewed and no additional complaints, except as documented and Reports as per HPI Cardiovascular: Cardiovascular: Reports as per HPI Respiratory: Respiratory: Reports as per HPI Gastrointestinal: Gastrointestinal: Reports as per HPI Genitourinary: Genitourinary: Reports as per HPI Musculoskeletal: Musculoskeletal: Reports as per HPI Exam Const: General: no acute distress Nutritional Appearance: well nourished Orientation/consciousness: patient oriented x3 HENMT: Head: normal to inspection and atraumatic Ears: hearing grossly normal bilaterally Face and sinus: normal facial exam Eyes: General: appearance normal, both eyes and all related structures Pupils: Equal, round and reactive pupils present EOM: EOMs intact bilaterally Neck: Neck: supple Chest: Chest palpation & inspection: normal inspection of the chest Resp: Effort & Inspection: normal respiratory effort and no respiratory distress Auscultation: clear to auscultation bilaterally Cardio: Jugular venous distension: no JVD Rate: regular rate Heart sounds: S1 normal heart sound present, S2 normal heart sound present and no murmurs Peripheral pulses: Peripheral pulses 2+ throughout GI: GI Palp: No abdominal tenderness Auscultation: normal bowel sounds Skin: General skin exam: normal color Neuro: General: patient oriented x3 Cranial nerves: Yes Equal, round and reactive pupils present Extrem: General: normal to inspection and no clubbing, cyanosis or edema Objective Data Vital Signs Vital Signs: Vital Signs - 24 hr 09/01/20 10:00 09/01/20 12:00 09/01/20 16:00 Temperature 36.5 C 36.8 C Pulse Rate 72 83 78 Respiratory Rate 24 H 24 H Blood Pressure 129/77 122/76 Pulse Oximetry 93 96 09/01/20 18:00 09/01/20 19:33 09/01/20 20:00 Temperature 35.9 C L 36.6 C Pulse Rate 68 79 68 Respiratory Rate 18 18 Blood Pressure 117/65 127/53 L Pulse Oximetry 93 97 09/01/20 20:36 09/02/20 00:00 09/02/20 04:00 Temperature Pulse Rate 80 81 Respiratory Rate Blood Pressure Puls
--- NOTE | 2020-09-02 09:37 | PM.PNCARD ---
Progress Note: A&P Assessment and Plan (1) Acute on chronic systolic (congestive) heart failure: Code(s): I50.23 - Acute on chronic systolic (congestive) heart failure Status: Acute Assessment and Plan: With evidence of anasarca and massive volume overload She has severe LV dysfunction EF is 30-35% as well as right heart failure with pulmonary HTN (with COPD and likely IRMA) She is doing better since started on Dobutamine. Diuresing well. she seems to be clinically much better now, apparently she had cardiac catheterization at [place] December of this year showed mild coronary disease with total occluded RCA and with collaterals. She was considered for ICD, she will need to have a follow-up with her primary client experience consultant for further follow-up and treatment from that point of view Subjective Date/time seen: 09/02/20 09:37 Objective Data Vital Signs Vital Signs: Vital Signs - 24 hr 09/01/20 10:00 09/01/20 12:00 09/01/20 16:00 Temperature 36.5 C 36.8 C Pulse Rate 72 83 78 Respiratory Rate 24 H 24 H Blood Pressure 129/77 122/76 Pulse Oximetry 93 96 09/01/20 18:00 09/01/20 19:33 09/01/20 20:00 Temperature 35.9 C L 36.6 C Pulse Rate 68 79 68 Respiratory Rate 18 18 Blood Pressure 117/65 127/53 L Pulse Oximetry 93 97 09/01/20 20:36 09/02/20 00:00 09/02/20 04:00 Temperature Pulse Rate 80 81 Respiratory Rate Blood Pressure Pulse Oximetry 95 09/02/20 05:25 09/02/20 07:58 Temperature 36.1 C L Pulse Rate 88 Respiratory Rate 18 Blood Pressure 151/73 H Pulse Oximetry 96 94 Intake/Output Intake/Output: Intake & Output 08/30/20 08/31/20 09/01/20 09/02/20 23:59 23:59 23:59 23:59 Intake Total 1610 2418 1870 380 Output Total 8900 8450 3500 1750 [id number] [phone] [phone] Meds/Results Medications: Active Medications Generic Name Dose Route Start Last Admin Trade Name Freq PRN Reason Stop Dose Admin Hydrocodone Bitart/Acetaminophen 1 tab 09/01/20 12:07 09/02/20 05:31 Hydrocodone/Acetaminophen (*Crx) 5-325 Mg Tablet PO 1 tab Q6H PRN Administration Pain (Scale Score 4-6) Albuterol 2 puff 08/26/20 07:46 Albuterol Sulfate (*Sp) Aerosol 1 Puff INHALATION QID PRN Shortness Of Breath Albuterol 2.5 mg 08/27/20 15:47 Albuterol Sulfate Neb 2.5 Mg/0.5 Ml Inh INHALATION Q6HRT PRN Shortness Of Breath Alprazolam 0.5 mg 08/26/20 18:35 09/01/20 21:38 Alprazolam (*Crx) 0.5 Mg Tablet PO 0.5 mg BID PRN Administration Anxiety Aspirin 325 mg 08/26/20 09:00 09/01/20 08:56 Aspirin 325 Mg Tablet PO 325 mg DAILY MELONY Administration Atorvastatin Calcium 40 mg 08/26/20 09:00 09/01/20 08:56 Atorvastatin 40 Mg Tablet PO 40 mg DAILY MELONY Administration Cefuroxime Axetil 500 mg 08/31/20 21:00 09/01/20 21:39 Cefuroxime Axetil 250 Mg Tablet PO 09/04/20 09:01 500 mg Q12HR MELONY Administration Dextrose 12.5 gm 08/26/20 11:37 Dextrose 50% 25 Gm/50 Ml Syringe IV PUSH PRN PRN Hypoglycemia Protocol Docusate Sodium 100 mg 08/27/20 15:48 Docusate Sodium 100 Mg Capsule PO Q12H PRN Constipation Enoxaparin Sodium 40 mg 08/28/20 12:40 09/01/20 21:40 Enoxaparin 40 Mg/0.4 Ml Syringe SUB-Q 40 mg Q12HR MELONY Administration Furosemide 40 mg 08/26/20 09:00 09/01/20 21:38 Furosemide Inj 40 Mg/4 Ml Vial IV PUSH 40 mg Q12HR MELONY Administration Gabapentin 300 mg 08/26/20 09:00 09/01/20 21:39 Gabapentin 300 Mg Capsule PO 300 mg QID MELONY Administration Glucagon 1 mg 08/26/20 11:37 Glucagon For Inj 1 Mg Vial IM PRN PRN Hypoglycemia Protocol Glucose 15 gm 08/26/20 11:37 Glucose Oral Gel 15 Gm Of Glucse In 37.5 Gm Tube PO PRN PRN Hypoglycemia Protocol Dextrose 1,000 mls @ 100 mls/hr 08/26/20 11:37 Dextrose 5% 1,000 Ml IVPB PRN PRN Hypoglycemia Protocol Insulin Aspart 2 - 5
[2020-09-02] MEDS: ASPIRIN 325 MG TABLET PO (09:41)
[2020-09-02] MEDS: ATORVASTATIN 40 MG TABLET PO (09:42)
[2020-09-02] MEDS: PANTOPRAZOLE 40 MG TABLET PO ×2 (09:42→20:29)
[2020-09-02] MEDS: CEFUROXIME AXETIL 250 MG TABLET 500 MG PO ×2 (09:42→20:28)
[2020-09-02] MEDS: LOSARTAN POTASSIUM 25 MG TABLET PO (09:42)
[2020-09-02] MEDS: ENOXAPARIN 40 MG/0.4 ML SYRINGE SUB-Q ×2 (09:42→20:28)
[2020-09-02] MEDS: MINOCYCLINE HCL 50 MG CAPSULE 100 MG PO ×2 (09:42→17:20)
[2020-09-02] MEDS: GABAPENTIN 300 MG CAPSULE PO ×4 (09:42→20:29)
[2020-09-02] MEDS: TRIAMCINOLONE ACET 0.1% OINT 80 GM TUBE 1 APPLIC TOPICAL ×2 (09:44→20:26)
[2020-09-02] MEDS: FUROSEMIDE INJ 40 MG/4 ML VIAL IV PUSH ×2 (09:44→20:29)
[2020-09-02] MEDS: TOLNAFTATE 1% POWDER 45 GM BTL 1 APPLIC TOPICAL ×2 (09:44→20:26)
[2020-09-02] MEDS: SILVERGEL (ELTA) 45 ML 1 APPLIC TOPICAL (09:45)
--- NOTE | 2020-09-02 11:01 | PM.IMPN ---
Progress Note: A&P Assessment and Plan (1) Acute CHF (congestive heart failure): Code(s): I50.9 - Heart failure, unspecified Status: Inactive Assessment and Plan: Acute systolic and diastolic CHF with anasarca. Found to be fluid overloaded on admission with pitting edema and pulmonary congestion on CXR. She is receiving IV lasix at this time Echocardiogram showed EF 30-35%, diastolic dysfunction, right ventricular systolic function is reduced and mild pulmonary HTN. Cardiology was consulted for further evaluation Continue monitoring, strict input and output, weights daily. Hopeful discharge soon in 1-2 days time (2) Acute respiratory failure with hypoxemia: Code(s): J96.01 - Acute respiratory failure with hypoxia Status: Acute Assessment and Plan: Most likely secondary to acute CHF exacerbation as well as possible underlying sleep apnea (3) Hypotension: Code(s): I95.9 - Hypotension, unspecified Status: Resolved Assessment and Plan: Move out of [facility] (4) Cellulitis of left lower extremity: Code(s): L03.116 - Cellulitis of left lower limb Status: Acute Assessment and Plan: Patient seen by Wound Team patient started on imipenem and vancomycin for cellulitis from a cat scratch, and antifungal for dermatitis Continue IV antibiotics at this time. Pain control for cellultis and Hidradenitis. (5) Diabetes mellitus: Code(s): E11.9 - Type 2 diabetes mellitus without complications Status: Acute Assessment and Plan: Continue home regimen and monitor with sliding scale (6) Hypertension: Code(s): I10 - Essential (primary) hypertension Status: Inactive Assessment and Plan: Blood pressure have been hypotensive today so we will hold her blood pressure medications as per Cardiology recommendations (7) COPD (chronic obstructive pulmonary disease): Code(s): J44.9 - Chronic obstructive pulmonary disease, unspecified Status: Inactive Assessment and Plan: Patient is clinically stable will continue home inhalers and p.r.n. DuoNeb treatments Otherwise appears to be stable Subjective Date/time seen: 09/02/20 11:01 Interval history: Pt admitted with SOB swelling and wound to her left leg from a cat scratch. Pt feels better since admission abdomen softer now. Wound is getting better, complains of pain her groin from Hidradenitis. Otherwise feels better. Review of Systems Review of Systems: All systems reviewed & are unremarkable except as noted in HPI and below Exam Narrative: Exam Narrative: Patient is comfortable HEENT: eyes are clear and none icteric LUNGS: bilateral fair air entry decreased at bases, no crackles HEART: RR S1S2 ABD: BS+, Soft and nontender, Lower extremities: b/l SKIN: BL legs less red less swollen, lower extremity erythematous macules scabbed, wound dressed over Neuro: grossly intact. Objective Data Vital Signs Vital Signs: Vital Signs - 24 hr 09/01/20 12:00 09/01/20 16:00 09/01/20 18:00 Temperature 36.5 C 36.8 C 35.9 C L Pulse Rate 83 78 68 Respiratory Rate 24 H 24 H 18 Blood Pressure 129/77 122/76 117/65 Pulse Oximetry 93 96 93 09/01/20 19:33 09/01/20 20:00 09/01/20 20:36 Temperature 36.6 C Pulse Rate 79 68 Respiratory Rate 18 Blood Pressure 127/53 L Pulse Oximetry 97 95 09/02/20 00:00 09/02/20 04:00 09/02/20 05:25 Temperature 36.1 C L Pulse Rate 80 81 88 Respiratory Rate 18 Blood Pressure 151/73 H Pulse Oximetry 96 09/02/20 07:58 Temperature Pulse Rate Respiratory Rate Blood Pressure Pulse Oximetry 94 Intake/Output Int
[2020-09-02 11:44] LABS: Glucose Point of Care 167 (65-105)
--- NOTE | 2020-09-02 11:46 | PCNWS ---
Weekly nutritional screen. Patient is tolerating current diet with adequate intake. No weight loss reported. No nutritional needs at this time.
[2020-09-02] MEDS: POTASSIUM CHLORIDE 20 MEQ PACKET (FOR LIQUID) PO (13:54)
[2020-09-02] MEDS: METOPROLOL SUCCINATE EXT REL 12.5 MG TABCR PO (13:58)
[2020-09-02 16:44] LABS: Glucose Point of Care 169 (65-105)
[2020-09-02] MEDS: PRAMIPEXOLE 0.25 MG TABLET 0.75 MG PO (20:30)
[2020-09-02 22:00] LABS: Glucose Point of Care 277 (65-105)
[2020-09-03] VITALS (8 sets, daily range): BP systolic 119–150; BP diastolic 59–67; PULSE 65–89; RESP 16–18; TEMP 36.3–36.6; O2SAT 94–96
[2020-09-03] MEDS: CENTRAL LINE FLUSH 10 ML IV PUSH ×3 (00:57→13:05)
[2020-09-03] MEDS: TIZANIDINE HCL 4 MG TABLET PO ×2 (05:18→13:05)
[2020-09-03 06:10] LABS: Anion Gap 8.99999 mmol/L (8-16); Blood Urea Nitrogen 30 mg/dL (7-17); Calcium 8.5 mg/dL (8.4-10.2); Carbon Dioxide > 40 mmol/L (22-30); Chloride 93 mmol/L (98-107); Estimated CRCL calculation 48 ml/min; Estimated Glomerular Filt Rate 50; Glucose 123 mg/dL (65-105); Potassium 3.6 mmol/L (3.4-5.0); Sodium 142 mmol/L (137-145)
[2020-09-03 06:12] LABS: Hematocrit 35.2 % (37.0-47.0); Hemoglobin 10.5 g/dL (12.0-15.0); Mean Corpuscular HGB Conc 29.8 g/dl (32-36); Mean Corpuscular Hemoglobin 27.6 pg (26-34); Mean Corpuscular Volume 92.4 fl (80-100); Mean Platelet Volume 11.7 fl (7.4-10.4); Platelet Count Result 262 k/mm3 (150-375); Red Blood Count 3.81 M/mm3 (4.2-5.4); Red Cell Distribution Width 18.5 % (11.5-14.5); White Blood Count 9.1 K/mm3 (4.5-10.0)
[2020-09-03 08:26] LABS: Glucose Point of Care 167 (65-105)
[2020-09-03] MEDS: METOPROLOL SUCCINATE EXT REL 12.5 MG TABCR PO (08:33)
[2020-09-03] MEDS: GABAPENTIN 300 MG CAPSULE PO ×2 (08:34→13:04)
[2020-09-03] MEDS: CEFUROXIME AXETIL 250 MG TABLET 500 MG PO (08:34)
[2020-09-03] MEDS: PANTOPRAZOLE 40 MG TABLET PO (08:35)
[2020-09-03] MEDS: FUROSEMIDE INJ 40 MG/4 ML VIAL IV PUSH (08:35)
[2020-09-03] MEDS: ASPIRIN 325 MG TABLET PO (08:35)
[2020-09-03] MEDS: ENOXAPARIN 40 MG/0.4 ML SYRINGE SUB-Q (08:35)
[2020-09-03] MEDS: SPIRONOLACTONE 12.5 MG TABLET PO (08:36)
[2020-09-03] MEDS: POTASSIUM CHLORIDE 20 MEQ PACKET (FOR LIQUID) PO (08:36)
[2020-09-03] MEDS: LOSARTAN POTASSIUM 25 MG TABLET PO (08:37)
[2020-09-03] MEDS: ATORVASTATIN 40 MG TABLET PO (08:37)
[2020-09-03] MEDS: MINOCYCLINE HCL 50 MG CAPSULE 100 MG PO (08:39)
[2020-09-03] MEDS: SILVERGEL (ELTA) 45 ML 1 APPLIC TOPICAL (08:57)
[2020-09-03] MEDS: TOLNAFTATE 1% POWDER 45 GM BTL 1 APPLIC TOPICAL (09:06)
[2020-09-03] MEDS: FLUTICASONE/SALMETEROL 115-21 MCG INHALER 1 PUFF 2 PUFF INHALATION (09:07)
--- NOTE | 2020-09-03 09:57 | PM.PNCARD ---
Progress Note: A&P Assessment and Plan (1) Acute on chronic systolic (congestive) heart failure: Code(s): I50.23 - Acute on chronic systolic (congestive) heart failure Status: Acute Assessment and Plan: Significantly improved Initially With evidence of anasarca and massive volume overload She has severe LV dysfunction EF is 30-35% as well as right heart failure with pulmonary HTN (with COPD and likely IRMA) Diuresing well. she seems to be clinically much better now, apparently she had cardiac catheterization at [place] December of this year showed mild coronary disease with total occluded RCA and with collaterals. She was considered for ICD, she will need to have a follow-up with her primary medical staff services coordinator for further follow-up and treatment from that point of view. she seems to be more stable from cardiac standpoint now to be discharged home if it is okay with all others to have a follow-up with her medical staff services coordinator in [place] (2) NSVT (nonsustained ventricular tachycardia): Code(s): I47.2 - Ventricular tachycardia Status: Acute Assessment and Plan: Short run noted on tele while on Dobutamine Start BB (3) Infected ulcer of skin: Code(s): L98.499 - Non-pressure chronic ulcer of skin of other sites with unspecified severity; L08.9 - Local infection of the skin and subcutaneous tissue, unspecified Status: Acute Assessment and Plan: management per PC (4) HTN (hypertension): Code(s): I10 - Essential (primary) hypertension Status: Acute Assessment and Plan: well controlled cont meds Subjective Date/time seen: 09/03/20 09:57 She feels better today, shortness of breath is better, still with mild cough orthopnea significantly improved leg swelling almost resolved Exam Const: General: no acute distress Nutritional Appearance: well nourished Orientation/consciousness: patient oriented x3 HENMT: Head: normal to inspection and atraumatic Ears: hearing grossly normal bilaterally Face and sinus: normal facial exam Eyes: General: appearance normal, both eyes and all related structures Pupils: Equal, round and reactive pupils present EOM: EOMs intact bilaterally Neck: Neck: supple Chest: Chest palpation & inspection: normal inspection of the chest Resp: Effort & Inspection: normal respiratory effort and no respiratory distress Auscultation: clear to auscultation bilaterally Cardio: Jugular venous distension: no JVD Rate: regular rate Heart sounds: S1 normal heart sound present, S2 normal heart sound present and no murmurs Peripheral pulses: Peripheral pulses 2+ throughout GI: Auscultation: normal bowel sounds Skin: General skin exam: normal color Neuro: General: patient oriented x3 Cranial nerves: Yes Equal, round and reactive pupils present and Yes Normal hearing present Extrem: General: normal to inspection and no clubbing, cyanosis or edema Objective Data Vital Signs Vital Signs: Vital Signs - 24 hr 09/02/20 12:00 09/02/20 13:58 09/02/20 14:48 Temperature 36.3 C L Pulse Rate 84 87 100 Respiratory Rate 18 Blood Pressure 149/87 H Pulse Oximetry 92 09/02/20 16:00 09/02/20 16:25 09/02/20 20:00 Temperature 36.3 C L 36.3 C L Pulse Rate 74 68 91 Respiratory Rate 16 18 Blood Pressure 135/73 138/86 Pulse Oximetry 97 92 09/03/20 00:00 09/03/20 00:34 09/03/20 04:00 Temperature 36.3 C L 36.6 C Pulse Rate 65 80 Respiratory Rate 16 16 Blood Pressure 119/59 L 150/67 H Pulse Oximetry 96 94 96 09/03/20 08:00 09/03/20 08:33 09/03/20 09:12 Temperature Pulse Rate 79 72 79 Respiratory Rate 16 Blood Pressure Pulse Oximetry 96 Intake/Output Intake/Output: Intake & Output 08/31/20 09/01/20 09/02/20 09/03/20 23:59 23:59 23:59 23:59 Intake Total 2418 1870 1525 420 Output Total 8451 3500 0920 992 [facility] -6032 -1630 -2325 -230 Meds/Results Medications: Active Medications Generic Name Dose
[2020-09-03] MEDS: TRIAMCINOLONE ACET 0.1% OINT 80 GM TUBE 1 APPLIC TOPICAL (10:27)
[2020-09-03] MEDS: POTASSIUM CHLORIDE 20 MEQ PACKET (FOR LIQUID) 40 MEQ PO (10:38)
[2020-09-03] MEDS: INSULIN ASPART (*BKC) 100 UNITS/ML SUB-Q (11:49)
[2020-09-03 11:56] LABS: Glucose Point of Care 205 (65-105)
--- NOTE | 2020-09-03 12:34 | PM.DS ---
DS: Admitting Diagnosis Admitting Diagnosis Admitting Diagnosis: Cellulitis, CHF DS: Discharge Diagnosis Discharge Diagnosis (1) Acute respiratory failure with hypoxemia: Code(s): J96.01 - Acute respiratory failure with hypoxia Status: Acute Assessment and Plan: Most likely secondary to acute CHF exacerbation as well as possible underlying sleep apnea, sleep study will have to be ordered later. (2) Hypotension: Code(s): I95.9 - Hypotension, unspecified Status: Resolved Assessment and Plan: Hypotension resolved now. (3) Cellulitis of left lower extremity: Code(s): L03.116 - Cellulitis of left lower limb Status: Acute Assessment and Plan: Patient seen by Wound Team patient started on imipenem and vancomycin for cellulitis from a cat scratch, and antifungal for dermatitis. Pain control for cellultis and Hidradenitis. Pt can continue with cefuroxime for 3 more days. (4) Diabetes mellitus: Code(s): E11.9 - Type 2 diabetes mellitus without complications Status: Acute Assessment and Plan: Continue home regimen and monitor with sliding scale DS: Summary Time Spent with Patient Time attestation: Total time spent providing and/or coordinating discharge services:40 minutes on day of dischrage Exam Narrative: Exam Narrative: Patient is comfortable HEENT: eyes are clear and none icteric LUNGS: bilateral fair air entry decreased at bases, no crackles HEART: RR S1S2 ABD: BS+, Soft and nontender, Lower extremities: b/l SKIN: BL legs less red less swollen, lower extremity erythematous macules scabbed, wound dressed over Neuro: grossly intact. DS: Data Data Completed and Pending Labs on day of discharge: Labs from last 24 hours 09/03/20 09/03/20 09/03/20 11:45 07:51 05:16 WBC RBC Hgb Hct MCV MCH MCHC RDW Plt Count MPV Sodium 142 Potassium 3.6 Chloride 93 L Carbon Dioxide > 40 H Anion Gap [id number] BUN 30 H Creatinine 1.10 H Estim Creat Clear Calc 48 Estimated GFR 50 L Glucose 123 H POC Capillary Glucose 205 H 167 H Calcium 8.5 09/03/20 09/02/20 09/02/20 05:16 20:27 16:38 WBC 9.1 RBC 3.81 L Hgb 10.5 L Hct 35.2 L MCV 92.4 MCH 27.6 MCHC 29.8 L RDW 18.5 H Plt Count 262 MPV 11.7 H Sodium Potassium Chloride Carbon Dioxide Anion Gap BUN Creatinine Estim Creat Clear Calc Estimated GFR Glucose POC Capillary Glucose 277 H 169 H Calcium Discharge Plan Discharge Attending physician on discharge: Nany Roque Consulting providers: Carroll Nolan Discharging Clinician: Nany Roque Anticipated Discharge Date/Time: 09/03/20 12:08 Patient Disposition: Home, Self-Care Activity: as tolerated Diet: heart healthy and diabetic Discharge Instructions: FOLLOW UP WITH PATIENTS OWN SCHOOL CROSSING GUARD SUPERVISOR Patient Instructions: Antibiotic Form, Heart Failure (GEN), How to Stop Smoking (DC), Cellulitis (GEN), [place] Catheter Placement and Care (GEN), [place] Catheter Removal (GEN) Stand Alone Forms: General Discharge Information Follow-up/Referrals: Bridger,Kirsten Kimble MD [Primary Care Provider] - Discharge Medications: New furosemide 40 mg Tablet 40 mg PO DAILY 30 Days Qty: 30 RF: 0 cefuroxime axetil 250 mg Tablet 500 mg PO Q12HR Qty: 6 RF: 0 potassium chloride 20 mEq Packet 20 meq PO DAILY 30 Days RF: 0 losartan 25 mg Tablet 25 mg PO QAM 30 Days Qty: 30 RF: 0 docusate sodium 100 mg Capsule 100 mg PO Q12H PRN (Reason: Constipation) Qty: 30 RF: 0 albuterol sulfate 2.5 mg/0.5 mL Solution For Nebulization 2.5 mg inhalation Q6HRT PRN
[2020-09-03] MEDS: NEOMYCIN/POLYMYXIN/BACITRACIN OINTMENT PACKET 1 PACKET TOPICAL (14:01)
== END 2020-09-03 14:30 | disposition home or self-care (01) | DRG 291 ==
LOC: ANHED 21:37 → ANH2MED 22:34 → ANHIMU 08-27 10:49 → ANH3MED 09-03 12:34 → ANH2MED 09-06 10:26 → ANH3MED 09-06 10:26 → ANHIMU 09-06 10:26
PROVIDERS: Emergency Medicine; Family Medicine; Nurse Practitioner; Physician Assistant; Admitting Provider Internal Medicine; Emergency Provider Emergency Medicine; PCP Family Medicine; Visit Provider Family Medicine
DX: I11.0 Hypertensive heart disease with heart failure (principal); J96.01 Acute respiratory failure with hypoxia; R57.0 Cardiogenic shock; I47.2 Ventricular tachycardia; L03.116 Cellulitis of left lower limb; E87.0 Hyperosmolality and hypernatremia; I50.43 Acute on chronic combined systolic (congestive) and diastolic (congestive) heart failure; Z23 Encounter for immunization; W55.03XA Scratched by cat, initial encounter; L98.499 Non-pressure chronic ulcer of skin of other sites with unspecified severity; L08.9 Local infection of the skin and subcutaneous tissue, unspecified; G47.33 Obstructive sleep apnea (adult) (pediatric); E11.9 Type 2 diabetes mellitus without complications; J44.9 Chronic obstructive pulmonary disease, unspecified; B95.61 Methicillin susceptible Staphylococcus aureus infection as the cause of diseases classified elsewhere; B96.5 Pseudomonas (aeruginosa) (mallei) (pseudomallei) as the cause of diseases classified elsewhere; I27.20 Pulmonary hypertension, unspecified; L73.2 Hidradenitis suppurativa; I95.9 Hypotension, unspecified; E66.01 Morbid (severe) obesity due to excess calories; E78.5 Hyperlipidemia, unspecified; I25.2 Old myocardial infarction; B36.8 Other specified superficial mycoses; F17.210 Nicotine dependence, cigarettes, uncomplicated; Z68.32 Body mass index [BMI] 32.0-32.9, adult
CPT/HCPCS: 36415; 36569; 51701; 71045; 80048; 80053; 80202; 81001; 83036; 83735; 83880; 85025; 85027; 86140; 87070; 87077; 87147; 87186; 87205; 90471; 90653; 93005; 93306; 93970; 94640; 94762; 96365; 96367; 96368; 96375; 96376; 97110; 97116; 97162; 97166; 97530; 97535; 99285; A9270; C1751; G0008; G0378; J0743; J1250; J1650; J1815; J1940; J3370; J3475

== ENCOUNTER 2020-11-20 19:56 | Inpatient (IN) | payer MEDICARE, MEDICAID, SELFPAY ==
[2020-11-20] VITALS (20 sets, daily range): BP systolic 138–165; BP diastolic 92–115; PULSE 96–113; RESP 21–32; TEMP 36.4–36.8; O2SAT 92–97; BMI 38.2
--- NOTE | ~2020-11-20 | US_ITS ---
EXAMINATION: US renal BI DATE: 11/24/2020 08:54 INDICATION: Acute kidney injury TECHNIQUE: Multiple grayscale and Doppler ultrasound images of the kidneys were obtained. COMPARISON: None. FINDINGS: The right kidney measures 11.9 x 5.6 x 5.0 cm and contains cysts measuring up to 2.5 cm. Th e left kidney measures 10.5 x 6.0 x 5.0 cm and contains a 1.3 cm cyst. The kidneys demonstrate normal parenchymal echogenicity. There is no hydronephrosis. The bladder is incompletely distended but norm al in appearance. IMPRESSION: 1. Normal kidneys without hydronephrosis. Reviewed, dictated and finalized at location A. AL SCIENCE MANAGER
--- NOTE | ~2020-11-20 | CT_ITS ---
EXAMINATION: CT brain wo con DATE: 11/27/2020 09:35 INDICATION: Visual hallucinations. TECHNIQUE: Computed tomography (CT) of the head was performed without intravenous contrast. The dose- length product was 605.33 mGy-cm. Automated exposure control and iterative reconstruction technique w ere employed. COMPARISON: None FINDINGS: Normal brain parenchymal volume. There is intracranial atherosclerosis. No acute intracrani al hemorrhage, infarction, mass or mass effect. No ventriculomegaly or midline shift. Basilar cistern s are patent. Paranasal sinuses and mastoids are pneumatized. No depressed skull fractures. IMPRESSION: 1. No acute intracranial abnormality. Reviewed, dictated and finalized at location A. ITE COORDINATOR
--- NOTE | ~2020-11-20 | XR_ITS ---
EXAMINATION: XR chest 2V DATE: 11/30/2020 10:00 INDICATION: Shortness of breath. TECHNIQUE: Frontal and lateral views of the chest were obtained. COMPARISON: Chest single view 11/27/2020 FINDINGS: There are airspace opacities in the lower lung zones. No pleural effusion or pneumothorax. Cardiomegaly is noted. There is an old healed fracture of right seventh rib. IMPRESSION: 1. Stable airspace opacities in the lower lung zones, consistent with atelectasis versus pneumonia. 2. Cardiomegaly. Reviewed, dictated and finalized at location B. GER BUSINESS INTELLIGENCE IMPRESSION: 1. Stable airspace opacities in the lower lung zones, consistent with atelectas is versus pneumonia. 2. Cardiomegaly.
--- NOTE | ~2020-11-20 | US_ITS ---
US breast LT complete 11/26/2020 13:41 Indication: Enlarged swollen left breast. Left breast pain for 4-5 days. Procedure: High-resolution ultrasound of the left breast Comparison: No prior studies for comparison. Findings: There is diffuse soft tissue edema. No discrete walled off fluid collection to suggest absc ess. No discrete mass. Impression: 1: Diffuse left breast edema without evidence for abscess. Findings compatible with cellulitis. Reviewed, dictated and finalized at location A. POURER Impression: 1: Diffuse left breast edema without evidence for abscess. Findings compatible with cellulitis.
--- NOTE | ~2020-11-20 | XR_ITS ---
EXAMINATION: XR chest 1V portable DATE: 11/20/2020 20:41 INDICATION: Shortness of breath and cough. TECHNIQUE: A single frontal view of the chest was obtained. COMPARISON: Chest single view 08/25/2020 FINDINGS: There is a diffuse interstitial pattern, consistent with mild pulmonary edema. No pleural e ffusion or pneumothorax. Cardiomegaly is noted. IMPRESSION: 1. Mild pulmonary edema. 2. Cardiomegaly. Reviewed, dictated and finalized at location A. STAFF
--- NOTE | ~2020-11-20 | US_ITS ---
EXAMINATION: US soft tissue head and neck EXAM DATE: 11/23/2020 08:03 INDICATION: Soft tissue swelling right neck . TECHNIQUE: Multiple grayscale and Doppler images of the right side of neck were obtained (by a techno logist who performed the scan) and subsequently reviewed. There is no prior study for comparison. FINDINGS: Scanning in the area of clinical concern right-sided neck demonstrates a smaller superficial vein, po ssibly external jugular vein, draining into a large right internal jugular vein. Doppler was obtained of the smaller tributary vein, which had biphasic waveform and then no flow for most of the cardiac cycle, suggesting possibility of right heart failure. No thrombus identified in either of these 2 ves sels. No regional lymphadenopathy. IMPRESSION: 1. Large right internal jugular vein. 2. Tributary vein Doppler signal suggesting possibility of right heart failure. Reviewed, dictated and finalized at location B. LTY NEUROPSYCHOLOGIST IMPRESSION: 1. Large right internal jugular vein. 2. Tributary vein Doppler signal suggesting possibility of right heart failure .
--- NOTE | ~2020-11-20 | XR_ITS ---
XR chest 1V portable 11/27/2020 08:59 Indication: Hypoxia. CHF. Procedure: AP portable chest Comparison: 11/20/2020 Findings: Cardiomegaly. There is mild pulmonary vascular congestion. There is atelectasis of the left lower lung zone. No significant pleural effusion or pneumothorax. No acute osseous abnormality. Impression: 1: Cardiomegaly with mild pulmonary vascular congestion. 2: Linear opacities of the left lower lung zone, most likely atelectasis. Reviewed, dictated and finalized at location A. IST ORGANIC Impression: 1: Cardiomegaly with mild pulmonary vascular congestion. 2: Linear opacities of the left lower lung zone, most likely atelectasis.
--- NOTE | 2020-11-20 20:20 | ECG_ITS ---
Measurements Intervals [place] Rate: 95 P: 58 MA: 154 QRS: -23 QRSD: 114 T: 129 QT: 346 QTc: 436 Interpretive Statements SINUS RHYTHM VENTRICULAR PREMATURE COMPLEX INCOMPLETE LEFT BUNDLE BRANCH BLOCK POSSIBLE LEFT ATRIAL ENLARGEMENT ANTEROLATERAL INFARCT, AGE INDETERMINATE INFERIOR INFARCT, AGE INDETERMINATE ST-T WAVE ABNORMALITY IN HIGH LATERAL LEADS- CONSIDER ISCHEMIA BASELINE ARTIFACT- I, II, AVR ABNORMAL ECG Electronically Signed On 11-21-2020 7:12:29 TRUCK LEASING MANAGER by Walter Maki D.O.
--- NOTE | 2020-11-20 20:27 | ED.GENADULT ---
HPI - General Adult General Chief complaint: Shortness of Breath/Dyspnea Stated complaint: short of breath, swelling Time Seen by Provider: 11/20/20 20:09 Source: RN notes reviewed History of Present Illness HPI narrative: Patient presents to emergency department from home for shortness of breath. Patient states symptoms have been worse over the past 2 days. States that she has been feeling more short of breath as well as having swelling in her lower legs and abdomen. Patient states she has a history of CHF and COPD she denies any fevers or cough denies chest pain states she does still smoke daily states she has been taking her medications as prescribed denies any abdominal pain nausea vomiting patient does note 2 small wounds to her right leg where she was scratched by her cat last night Related Data Home Medications Medication Instructions Recorded Confirmed Advair HFA 2 puff INHALATION Q12H 08/25/20 08/26/20 Trulicity 1.5 mg SUBCUT WEEKLY 08/25/20 08/25/20 albuterol sulfate [ProAir HFA] 2 puff INHALATION QID PRN 08/25/20 08/26/20 alprazolam 1 mg PO BID 08/25/20 08/26/20 aspirin 325 mg PO DAILY 08/25/20 08/25/20 atorvastatin 40 mg PO DAILY 08/25/20 08/25/20 azelastine 2 drp OPHTHALMIC (EYE) DAILY PRN 08/25/20 08/26/20 betamethasone dipropionate 1 applic TOPICAL BID 08/25/20 08/26/20 gabapentin 300 mg PO QID 08/25/20 08/25/20 hydralazine 25 mg PO DAILY 08/25/20 08/25/20 hydrocodone-acetaminophen 5 - 325 tablet PO Q12H PRN 08/25/20 08/25/20 losartan 50 mg PO DAILY 08/25/20 08/25/20 minocycline 100 mg PO BID 08/25/20 08/25/20 oxybutynin chloride 10 mg PO DAILY 08/25/20 08/25/20 pramipexole 0.75 mg PO HS 08/25/20 08/25/20 silver sulfadiazine [SSD] 1 applic TOPICAL DAILY 08/25/20 08/25/20 tizanidine 4 mg PO Q8H 08/25/20 08/25/20 Allergies Allergy/AdvReac Type Severity Reaction Status Date / Time infliximab Allergy Unknown Other Verified 11/20/20 20:45 Review of Systems Review of Systems: Narrative: Gen.: Denies fevers or chills ENT: Denies congestion Respiratory: See HPI CV: Denies chest pain or palpitations GI: Denies abdominal pain nausea, emesis or diarrhea Musculoskeletal: Denies back pain or muscle pain Neuro: Denies numbness, tingling, weakness or focal weakness Skin: Denies rash Except as documented, all other systems reviewed and negative [facility] Past Medical History Medical History Acute CHF (congestive heart failure) COPD (chronic obstructive pulmonary disease) Diabetes mellitus, new onset Hypertension Family History Family History (Updated 06/08/16 @ 23:19 by DOCTOR UNKNOWN) Mother Family history of diabetes mellitus in first degree relative Social History Social History Smoking packs per day: 1 Smoking cigarettes per day: 20.0 Smoking status: Current every day smoker Tobacco type: cigarettes Alcohol intake: never Substance use: current Substance use type: marijuana Other substance usage details: every couple of weeks Last use: aug 11 2020 Gender identity (if verbalized by the patient): Female Spiritual care concerns: No Exam Narrative: Exam Narrative: APPEARANCE: No acute distress, nontoxic, resting in bed EYES: EOMI HEENT: Normocephalic, atraumatic, OMM RESPIRATORY: Mild respiratory distress sitting upright, crackles throughout the bilateral lung villa no wheezing CARDIOVASCULAR: Regular rate and rhythm without murmurs rubs or gallops. ABDOMINAL: Soft, nontender, nondistended, no rebound or guarding MUSCULOSKELETAl: Moves all extremities. No clubbing, cyanosis 3+ edema the bilateral lower extremities NEURO: Awake and alert. Following commands, speech normal, no focal deficits SKIN:: Warm, dry. No rashes lesions right anterior rocha has 2 small abrasions with no surrounding erythema or signs of infection PSYCHIATRIC: Normal affect/mood, Course Course Emergency Co
[2020-11-20 20:29] LABS: Basophils Absolute Auto 0.1 K/mm3 (0.0-0.1); Basophils Percent Auto 0.5 % (0.2-1.2); Eosinophils Absolute Auto 0.2 K/mm3 (0-0.3); Eosinophils Percent Auto 1.8 % (0-4.4); Hematocrit 40.6 % (37.0-47.0); Hemoglobin 12.4 g/dL (12.0-15.0); Immature Granulocyte Absolute 0.02 K/mm3 (0.00-0.031); Immature Granulocyte Percent A 0.2 % (0-0.5); Lymphocytes Absolute Auto 1.42 K/mm3 (0.9-3.2); Lymphocytes Percent Auto 13.8 % (18.3-44.2); Mean Corpuscular HGB Conc 30.5 g/dl (32-36); Mean Corpuscular Hemoglobin 27.7 pg (26-34); Mean Corpuscular Volume 90.6 fl (80-100); Mean Platelet Volume 12.1 fl (7.4-10.4); Monocytes Absolute Auto 0.7 K/mm3 (0.1-0.6); Monocytes Percent Auto 6.8 % (2.6-8.5); Neutrophils Absolute Auto 7.9 K/mm3 (1.3-6.7); Neutrophils Percent Auto 76.9 % (45.5-73.1); Platelet Count Result 310 k/mm3 (150-375); Red Blood Count 4.48 M/mm3 (4.2-5.4); Red Cell Distribution Width 15.9 % (11.5-14.5); White Blood Count 10.3 K/mm3 (4.5-10.0)
[2020-11-20 20:40] LABS: INR 1.2; Prothrombin Time 15.4 Seconds (11.1-14.7)
[2020-11-20 20:41] LABS: Partial Thromboplastin Time 29.2 SECONDS (22.3-36.8)
[2020-11-20 20:43] LABS: Anion Gap 6 mmol/L (8-16); Blood Urea Nitrogen 26 mg/dL (7-17); Calcium 8.6 mg/dL (8.4-10.2); Carbon Dioxide 26 mmol/L (22-30); Chloride 113 mmol/L (98-107); Estimated CRCL calculation 67 ml/min; Estimated Glomerular Filt Rate > 60; Glucose 225 mg/dL (65-105); Potassium 4.3 mmol/L (3.4-5.0); Sodium 145 mmol/L (137-145)
[2020-11-20 20:56] LABS: NT Pro B Type Natriuretic Pept 15700 PG/ML (5-100); Troponin I 0.027 ng/mL (0.000-0.034)
--- NOTE | 2020-11-20 20:59 | PC.NURSE ---
assisted patient to use BSC. patient with increased shortness of breath with any movement.
[2020-11-20] MEDS: FUROSEMIDE INJ 40 MG/4 ML VIAL IV PUSH (21:10)
[2020-11-20 21:25] LABS: Lactic Acid Reflex 1.3 mmol/L (0.7-2.1)
--- NOTE | 2020-11-20 21:50 | PC.NURSE ---
patient with call light on. states that she was unable to hold her urine. incontinent with depends on and now bed is wet. patient up to chair. patient cleaned. bed changed. patient is very upset that she cannot have a mansfield placed.
--- NOTE | 2020-11-20 22:00 | PC.NURSE ---
provider in room. patient and daughter aware of admission plan. patient still requesting a mansfield be placed. states she is too short of breath to use BSC. states she cannot use a bedpan . states that last time she was admitted here, they let her have a catheter. Dr. Ramos has discussed with patient criteria for catheters to be placed. patient wears depends already.
--- NOTE | 2020-11-20 22:20 | PC.NURSE ---
report given to Claus BROCK. patient back on stretcher. daughter brought in her belongings to take upstairs. back on monitors.
--- NOTE | 2020-11-20 23:35 | PC.NURSE ---
This patient, Brenda Cruz, was admitted to [facility] Surg Room 330-01. Patient/family oriented to hospital policies and general routines including ID bracelet, bed and alarms, visiting hours, pain management, procedures, bathroom and other care routines, personal items, smoking policy, room service/diet, and visiting hours. Information on how to activate the Rapid Response Team has been discussed. Patient/Family are encouraged to report perceived risks to care and to ask questions if they do not understand what they are told or what they should do.
[2020-11-21] VITALS (9 sets, daily range): BP systolic 129–147; BP diastolic 66–81; PULSE 95–110; RESP 22–24; TEMP 36.3–37.1; O2SAT 93–100
[2020-11-21 01:08] LABS: Troponin I 0.034 ng/mL (0.000-0.034)
--- NOTE | 2020-11-21 03:19 | PC.NURSE ---
This pt has requested mansfield catheter to this RN on multiple occasions. Taught patient why mansfield catheter is not able to be placed at this time.
[2020-11-21 04:06] LABS: Basophils Absolute Auto 0.1 K/mm3 (0.0-0.1); Basophils Percent Auto 0.5 % (0.2-1.2); Eosinophils Absolute Auto 0.2 K/mm3 (0-0.3); Hematocrit 43.6 % (37.0-47.0); Hemoglobin 13.4 g/dL (12.0-15.0); Immature Granulocyte Absolute 0.04 K/mm3 (0.00-0.031); Immature Granulocyte Percent A 0.3 % (0-0.5); Lymphocytes Percent Auto 16.5 % (18.3-44.2); Mean Corpuscular HGB Conc 30.7 g/dl (32-36); Mean Corpuscular Hemoglobin 28.3 pg (26-34); Mean Corpuscular Volume 92.2 fl (80-100); Monocytes Absolute Auto 0.8 K/mm3 (0.1-0.6); Monocytes Percent Auto 7.1 % (2.6-8.5); Neutrophils Absolute Auto 8.5 K/mm3 (1.3-6.7); Neutrophils Percent Auto 73.6 % (45.5-73.1); Platelet Count Result 332 k/mm3 (150-375); Red Blood Count 4.73 M/mm3 (4.2-5.4); Red Cell Distribution Width 15.9 % (11.5-14.5); White Blood Count 11.5 K/mm3 (4.5-10.0)
[2020-11-21 04:19] LABS: Anion Gap 6 mmol/L (8-16); Blood Urea Nitrogen 25 mg/dL (7-17); Calcium 8.8 mg/dL (8.4-10.2); Carbon Dioxide 29 mmol/L (22-30); Chloride 109 mmol/L (98-107); Estimated CRCL calculation 71 ml/min; Estimated Glomerular Filt Rate > 60; Glucose 166 mg/dL (65-105); Potassium 3.7 mmol/L (3.4-5.0); Sodium 144 mmol/L (137-145)
[2020-11-21 04:41] LABS: Troponin I 0.037 ng/mL (0.000-0.034)
[2020-11-21 08:41] LABS: Glucose Point of Care 153 (65-105)
--- NOTE | 2020-11-21 08:53 | PM.CNCAR ---
Assessment and Plan Assessment and plan (1) CHF (congestive heart failure): Code(s): I50.9 - Heart failure, unspecified Status: Acute Assessment and Plan: Patient with known ischemic cardiomyopathy EF 30-35%, Biventricular failure who presents now with acute on chronic systolic heart failure Acute CHF exacerbation, likely due to dietary non compliance (had [place] food over the weekend). Also medication compliance is questioned She required Inotropic support with Dobutamine during her recent admission however this time she has no evidence of low cardiac output and is able to generate normal (to mildly elevated) blood pressure Will continue IV diuresis with lasix 40 mg BID with close monitoring of her kidney function and electrolytes. Continue Losartan. Unclear why not on BB. She would eventually benefit from BB but it should not be started in the setting of acute decompensation of CHF. Will start in the next day or two once better compensated She had short run of NSVT during recent admission. No events on tele so far this admission. Not candidate for ICD (per pt report based on her discussion with her primary art appraiser, high risk of infection) Continue ASA and statin for her known CAD (DIRECTOR OF DESIGN of RCA). Smoking cessation highly encouraged. (2) Infected ulcer of skin: Code(s): L98.499 - Non-pressure chronic ulcer of skin of other sites with unspecified severity; L08.9 - Local infection of the skin and subcutaneous tissue, unspecified Status: Acute (3) Diabetes mellitus: Code(s): E11.9 - Type 2 diabetes mellitus without complications Status: Acute (4) Tobacco abuse: Code(s): Z72.0 - Tobacco use Status: Acute History of Present Illness History of Present Illness Consult date/time: 11/21/20 08:53 65 y/o female with h/o of obiesty, HTN, DM, KS, CHF,COPD with active tobacco abuse who presents with lower ext edema Patient is poor historian. She was seen by our service in Aug for CHF exacerbation and at that time she required inotropic support with Dobutamine. She is followed by art appraiser at [place] and underwent LHC in Dec 2019 that showed chronic total occlusion of RCA and non obstructive disease in LAD/LCx. She has been doing well up until last week when she started again to develop worsening lower ext edema as well as abdominal distention. With that she also has shortness of breath and orthopnea. She does not remember any of the name of her meds but states that she takes all the meds prescribed for her. She ate persian food over the weekend. She continues to smoke half pac a day. She had chronic skin discoloration of her lower ext She saw her art appraiser post discharge. She was also told that she would not be a good candidate for ICD given high risk of infection. EKG sinus rhythm, non specific intraventricular conduction delay, old inferior KS (noted on prior EKG in 2017) and poor R wave progression 2D echo in Oct showed Biventricular failure with severely enlarged left ventricle, EF 30-35%, Bi-atrial enlargement, mild MR/TR and mild pulmonary HTN Reason For Visit: chf Review of Systems Review of Systems: All systems reviewed & are unremarkable except as noted in HPI and below PMFSH Past Medical History Medical History Acute CHF (congestive heart failure) COPD (chronic obstructive pulmonary disease) Diabetes mellitus, new onset Hypertension Family History Family History Mother Family history of diabetes mellitus in first degree relative Social History Social History Smoking packs per day: 0.5 Smoking cigarettes per day: 10.0 Smoking status: Current every day smoker Tobacco type: cigarettes Alcohol intake: never Substance use: current Substance use type: marijuana Other substa
[2020-11-21] MEDS: ALBUTEROL SULFATE (*SP) INHALER 1 PUFF (08:58)
[2020-11-21] MEDS: LOSARTAN POTASSIUM 25 MG TABLET PO (09:25)
[2020-11-21] MEDS: FAMOTIDINE 20 MG TABLET PO ×2 (09:25→20:47)
[2020-11-21] MEDS: hydrALAZINE HCL 25 MG TABLET PO (09:25)
[2020-11-21] MEDS: GABAPENTIN 300 MG CAPSULE PO ×4 (09:26→20:47)
[2020-11-21] MEDS: ENOXAPARIN 40 MG/0.4 ML SYRINGE SUB-Q (09:26)
[2020-11-21] MEDS: ASPIRIN 325 MG TABLET PO (09:26)
[2020-11-21] MEDS: FUROSEMIDE INJ 40 MG/4 ML VIAL IV PUSH ×2 (09:26→20:49)
[2020-11-21] MEDS: ATORVASTATIN 40 MG TABLET PO (09:26)
--- NOTE | 2020-11-21 10:47 | PM.IMHP ---
H&P: HPI History of Present Illness Date/Time: 11/21/20 10:47 Chief Complaint: Shortness of breath Narrative: Date of admission: 11/20/20 Date of service: 11/21/20 Brenda Cruz is a 65 year old female with a history of CHF, CAD, COPD, DM, HTN, and several other comorbidities who presented to the emergency department on 11/20/2020 with complaints of increased shortness of breath. She reports that for the past 1 week, she had noted increased swelling in her legs and her stomach and then over the past few days developed increased shortness of breath. She reports that she is generally compliant with her low-sodium diet, but several days ago she ate [place] food a. She denies missing any doses of her Lasix. She also states that she typically monitors daily weights but has not been doing so recently because she could not locate her scale. She endorses VILLELA and orthopnea. She has decreased activity tolerance, stating that she can typically get around her home but lately this has made her very short of breath. She denies cough or congestion. She denies PND. No wheezing. No chest pain or palpitations. Upon arrival to the emergency department, her BP was elevated and she was tachypneic with additional vital signs stable, she had mild leukocytosis[place] [address]. She had a chest x-ray which showed mild pulmonary edema and cardiomegaly. At the time of my evaluation, she reports that she is feeling better but still is endorsing dyspnea. She is being admitted to the hospitalist service for further evaluation and management as an inpatient. Supervising physician for this history and physical is Dr. Matt Conn. Review of Systems Review of Systems: Narrative: All systems reviewed with pertinent positives and negatives as per HPI. Additionally, patient denies abdominal pain, nausea, vomiting, fevers, or chills. She endorses occasional lightheadedness with increased activity. She feels a bit weak. She reports that her appetite has been good. She feels that she has gained weight over the past week which she believes is due to fluid accumulation. For several months she has had numbness and tingling in her left arm and also endorses neuropathy in her lower extremities due to diabetes. She denies headache or body ache. She denies anosmia or dysgeusia. She denies any known positive COVID contacts. She denies dysuria, urgency, frequency, or hematuria. She has been having regular bowel movements and denies diarrhea, melena, or hematochezia. She denies any skin wounds or rashes. [facility] Past Medical History Medical History (Updated 11/21/20 @ 13:22 by Susan Pike PA-C) Acute CHF (congestive heart failure) Anxiety Chronic back pain COPD (chronic obstructive pulmonary disease) Coronary artery disease Diabetes mellitus, new onset Hidradenitis suppurativa History of myocardial infarction Hypertension Restless leg syndrome Tobacco abuse Surgical History Surgical History (Updated 11/21/20 @ 11:33 by Susan Pike PA-C) No history of previous surgery Family History Family History (Updated 11/21/20 @ 11:34 by Susan Pike PA-C) Mother Family history of diabetes mellitus in first degree relative Father Unknown family medical history Social History Social History (Updated 11/21/20 @ 11:36 by Susan Pike PA-C) Social History: Ms. Cruz lives at home alone. She reports she is independent in her ADLs. She has 3 adult children. Her PCP is Dr. Stokes. She designates her daughterCelia as her surrogate decision maker and would like to be a full code. She does not work. Smoking packs per day: 0.5 Smoking cigarettes per day: 10.0 Years smoked: 30 Smoking pack-years: 15.00 Smoking status: Current every day smoker Tobacco type: cigarettes Alcohol intake: never Substance use: current Substance use type: marijuana Other substance usage details: Smokes marijuana 1x/week
[2020-11-21] MEDS: ALBUTEROL SULFATE (*SP) AEROSOL 1 PUFF 2 PUFF INHALATION ×3 (13:29→20:58)
[2020-11-21 14:29] LABS: Troponin I 0.021 ng/mL (0.000-0.034)
[2020-11-21 14:45] LABS: CRP 1.1 mg/dL (<1.0)
[2020-11-21] MEDS: TOLNAFTATE 1% POWDER 45 GM BTL 1 APPLIC TOPICAL ×2 (16:45→20:59)
[2020-11-21] MEDS: SILVER SULFADIAZINE 1% CR 50 GM JAR (*BKC) 1 APPLIC TOPICAL (16:45)
[2020-11-21 18:06] LABS: Glucose Point of Care 199 (65-105)
[2020-11-21 19:06] LABS: SARS-CoV-2 RNA PCR Negative
[2020-11-21] MEDS: PRAMIPEXOLE 0.25 MG TABLET 0.75 MG PO (20:48)
[2020-11-21] MEDS: FLUTICASONE/SALMETEROL 115-21 MCG INHALER 1 PUFF 2 PUFF INHALATION (20:59)
[2020-11-21] MEDS: HYDROcodone/acetaminophen (*CRX) 5-325 MG TABLET 1 TAB PO (23:42)
[2020-11-21 23:52] LABS: Glucose Point of Care 274 (65-105)
[2020-11-22] VITALS (11 sets, daily range): BP systolic 90–130; BP diastolic 52–79; PULSE 59–98; RESP 20–22; TEMP 36.1–36.4; O2SAT 93–100
[2020-11-22 05:58] LABS: Add Urine Microscopic? YES; Appearance Urine Clear (Clear); Bacteria Urine Trace /hpf; Bilirubin Urine Negative (Negative); Blood Urine Negative (Negative); Color Urine Yellow (Yellow); Glucose Urine UA Negative (Negative); Ketones Urine Negative (Negative); Leukocyte Esterase Ur 2+ LEU/UL (Negative); Mucus Urine Rare /lpf; Nitrate Urine Negative (Negative); Protein Urine 2+ mg/dL (Negative); RBC Urine 0-2 /hpf (0-2); Specific Grav Ur 1.011 (1.001-1.035); Squamous Epithelial Cell Urine Few /hpf (Few); Urobilinogen Urine Negative mg/dL (<2.0); WBC Urine 0-3 /hpf
[2020-11-22 06:37] LABS: Hematocrit 42.3 % (37.0-47.0); Hemoglobin 12.5 g/dL (12.0-15.0); Mean Corpuscular HGB Conc 29.6 g/dl (32-36); Mean Corpuscular Volume 94.6 fl (80-100); Mean Platelet Volume 12.5 fl (7.4-10.4); Platelet Count Result 281 k/mm3 (150-375); Red Blood Count 4.47 M/mm3 (4.2-5.4); Red Cell Distribution Width 16.2 % (11.5-14.5); White Blood Count 9.2 K/mm3 (4.5-10.0)
[2020-11-22 06:40] LABS: Hemoglobin A1C 8.3 % (<5.7)
[2020-11-22 07:00] LABS: Alanine Aminotransferase 15 U/L (4-35); Albumin Level 3.4 g/dL (3.5-5.1); Alkaline Phosphatase 117 U/L (38-126); Anion Gap 7 mmol/L (8-16); Aspartate Amino Transferase 30 U/L (14-36); Bilirubin,Total 0.5 mg/dL (0.2-1.3); Blood Urea Nitrogen 27 mg/dL (7-17); Calcium 8.7 mg/dL (8.4-10.2); Carbon Dioxide 28 mmol/L (22-30); Chloride 108 mmol/L (98-107); Estimated CRCL calculation 65 ml/min; Estimated Glomerular Filt Rate > 60; Glucose 152 mg/dL (65-105); Magnesium 1.4 mg/dL (1.6-2.3); Potassium 4.2 mmol/L (3.4-5.0); Sodium 143 mmol/L (137-145)
[2020-11-22 07:19] LABS: Lactate Dehydrogenase 746 U/L (313-618)
[2020-11-22 08:26] LABS: Glucose Point of Care 151 (65-105)
[2020-11-22] MEDS: ALBUTEROL SULFATE (*SP) AEROSOL 1 PUFF 2 PUFF INHALATION ×4 (08:41→20:21)
[2020-11-22] MEDS: FLUTICASONE/SALMETEROL 115-21 MCG INHALER 1 PUFF 2 PUFF INHALATION ×2 (08:41→20:20)
[2020-11-22] MEDS: ASPIRIN 325 MG TABLET PO (08:42)
[2020-11-22] MEDS: ATORVASTATIN 40 MG TABLET PO (08:42)
[2020-11-22] MEDS: FUROSEMIDE INJ 40 MG/4 ML VIAL IV PUSH ×2 (08:43→20:22)
[2020-11-22] MEDS: FAMOTIDINE 20 MG TABLET PO ×2 (08:43→20:21)
[2020-11-22] MEDS: GABAPENTIN 300 MG CAPSULE PO ×4 (08:43→20:22)
[2020-11-22] MEDS: hydrALAZINE HCL 25 MG TABLET PO (08:43)
[2020-11-22] MEDS: ENOXAPARIN 40 MG/0.4 ML SYRINGE SUB-Q (08:43)
[2020-11-22] MEDS: LOSARTAN POTASSIUM 25 MG TABLET PO (08:43)
[2020-11-22] MEDS: TOLNAFTATE 1% POWDER 45 GM BTL 1 APPLIC TOPICAL ×2 (08:43→20:21)
[2020-11-22] MEDS: SILVER SULFADIAZINE 1% CR 50 GM JAR (*BKC) 1 APPLIC TOPICAL (08:44)
[2020-11-22] MEDS: MAGNESIUM SULF 2 GM/WATER 50ML 2 GM/50 ML BAG IVPB (09:01)
--- NOTE | 2020-11-22 10:32 | PM.PNCARD ---
Progress Note: A&P Assessment and Plan (1) CHF (congestive heart failure): Code(s): I50.9 - Heart failure, unspecified Status: Acute Assessment and Plan: Patient with known ischemic cardiomyopathy EF 30-35%, Biventricular failure who presents now with acute on chronic systolic heart failure Acute CHF exacerbation, likely due to dietary non compliance. Also medication compliance is questioned She required Inotropic support with Dobutamine during her recent admission however this time she has no evidence of low cardiac output and is able to generate normal (to mildly elevated) blood pressure She is diuresing well and her creatinine remains stable. Will continue IV diuresis with lasix 40 mg BID for one or two more days. Continue Losartan. 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 Smoking cessation highly encouraged. (2) Infected ulcer of skin: Code(s): L98.499 - Non-pressure chronic ulcer of skin of other sites with unspecified severity; L08.9 - Local infection of the skin and subcutaneous tissue, unspecified Status: Acute (3) Diabetes mellitus: Code(s): E11.9 - Type 2 diabetes mellitus without complications Status: Acute (4) Tobacco abuse: Code(s): Z72.0 - Tobacco use Status: Acute Subjective Date/time seen: 11/22/20 10:32 Leg edema as well as abdominal distention are better today. Not quite back to normal per patient. Denies chest pain. Dyspnea also improving Review of Systems Review of Systems: All systems reviewed & are unremarkable except as noted in HPI and below Exam Narrative: Exam Narrative: Const: General: no acute distress HENMT: Head: normal to inspection and atraumatic Ears: hearing grossly normal bilaterally Face and sinus: normal facial exam Eyes: General: appearance normal, both eyes and all related structures Pupils: Equal, round and reactive pupils present EOM: EOMs intact bilaterally Neck: Neck: supple Resp: Increase resp effort only by talking. Decrease breath sounds on auscultation Cardio: Rate: regular rate Heart sounds: S1 normal heart sound present, S2 normal heart sound present and no murmurs . Lower ext edema with skin discoloration extends to the toes (appear cyanotic on the right) GI: Auscultation: normal bowel sounds Skin: General skin exam: normal color Neuro: General: patient oriented x3 Cranial nerves: Yes Equal, round and reactive pupils present and Yes Normal hearing present Extrem: General: normal to inspection and no clubbing, cyanosis or edema Objective Data Vital Signs Vital Signs: Vital Signs - 24 hr 11/21/20 12:00 11/21/20 16:00 11/21/20 18:00 Temperature 36.4 C L 36.9 C Pulse Rate 110 H 100 106 H Respiratory Rate 22 H 24 H Blood Pressure 144/75 H 134/73 Pulse Oximetry 96 95 11/21/20 20:00 11/21/20 22:00 11/22/20 00:00 Temperature 37.1 C Pulse Rate 95 96 78 Respiratory Rate 22 H Blood Pressure 129/66 Pulse Oximetry 93 11/22/20 04:00 11/22/20 06:00 11/22/20 08:00 Temperature 36.1 C L Pulse Rate 73 92 98 Respiratory Rate 22 H Blood Pressure 130/79 Pulse Oximetry 100 11/22/20 09:45 Temperature Pulse Rate Respiratory Rate Blood Pressure Pulse Oximetry 95 Intake/Output Intake/Output: Intake & Output 11/19/20 11/20/20 11/21/20 11/22/20 23:59 23:59 23:59 23:59 Intake Total 1420 660 Output Total 750 600 Balance 670 60 Meds/Results Medications: Active Medications Generic Name Dose Route Start Last Admin Trade Name Freq PRN Reason Stop Dose Admin Albuterol 2 puff 11/21/20 12:00 11/22/20 08:41 Albuterol Sulfate (*Sp) Aerosol 1 Puff INHALATION 2 puff QIDRT MELONY Administration Aspirin 325 mg 11/21/20 09:00 11/22/20 08:42 Aspirin 325 Mg Tablet PO 325
[2020-11-22] MEDS: METOPROLOL SUCCINATE EXT REL 25 MG TABCR PO (12:31)
[2020-11-22] MEDS: INSULIN ASPART (*BKC) 100 UNITS/ML SUB-Q (12:44)
[2020-11-22 12:45] LABS: Glucose Point of Care 216 (65-105)
--- NOTE | 2020-11-22 16:18 | PM.IMPN ---
Progress Note: A&P Assessment and Plan (1) Acute on chronic systolic (congestive) heart failure: Code(s): I50.23 - Acute on chronic systolic (congestive) heart failure Status: Acute Assessment and Plan: Notes increased swelling in her legs and stomach for 1 week, likely due to poor compliance with low-sodium diet. Denies missing any doses of Lasix. She has increased dyspnea. CXR showed pulmonary edema. Last echo August 2020 showed EF 30-35%. [place] [address]. Clinically, she feels much better with improved edema and dyspnea. Cardiology has been consulted and input is appreciated IV Lasix 40 mg BID for 1-2 more days per cardiology. Renal function is stable. Continue losartan Recommend initiation of beta mira therapy following improvement of acute decompensation of CHF per cardiology. Heart healthy diet Monitor strict intake and output. Check daily weights (2) SIRS (systemic inflammatory response syndrome): Code(s): R65.10 - Systemic inflammatory response syndrome (SIRS) of non-infectious origin without acute organ dysfunction Status: Acute Assessment and Plan: Patient met SIRS criteria on admission, evident by tachycardia, tachypnea, and leukocytosis. Suspect tachypnea is related to dyspnea from CHF. There is no obvious source of infectious etiology at this time. CXR not indicative of respiratory infection. She denies urinary symptoms. She does have a healing wound on the dorsum of her right foot with no new signs of infection related to this. She is afebrile. Urinalysis is not suspicious for UTI. COVID-19 test ins negative. Monitor CBC daily No indication for antibiotic therapy at this time. Monitor clinically. (3) COPD (chronic obstructive pulmonary disease): Code(s): J44.9 - Chronic obstructive pulmonary disease, unspecified Status: Acute Assessment and Plan: Does not appear to be in acute exacerbation. Maintaining adequate O2 saturations. Continue Advair and albuterol. (4) Diabetes mellitus: Code(s): E11.9 - Type 2 diabetes mellitus without complications Status: Acute Assessment and Plan: Hemoglobin A1c was 8.3%. Blood sugars are reasonable with most recent blood sugar 172. She is on weekly trulicity injections which are non-formulary. Continue ACHS glucose monitoring, sliding scale insulin, and hypoglycemic protocol (5) HTN (hypertension): Code(s): I10 - Essential (primary) hypertension Status: Acute Assessment and Plan: BP was elevated above target initially, likely secondary to excess fluid from CHF exacerbation. Blood pressures have improved significantly with diuresis. Continue hydralazine, losartan, and Lasix Monitor blood pressure trends closely (6) Elevated troponin: Code(s): R77.8 - Other specified abnormalities of plasma proteins Status: Acute Assessment and Plan: Troponins evaluated upon presentation and were slightly elevated. She has known CAD. She denies any active chest pain. Suspect this may be related to demand ischemia. Acute coronary syndrome not suspected. Continue to trend troponin until downward trend. Appreciate cardiology input. (7) Tobacco abuse: Code(s): Z72.0 - Tobacco use Status: Acute Assessment and Plan: Patient reports smoking 1/2 ppd. Smoking cessation is imperative. Smoking cessation was encouraged again today. I discussed potential risks of continued tobacco use including poor wound healing and adverse cardiovascular outcomes. Nicotine patch was offered but patient declined. (8) Wound of foot: Code(s): S91.309A - Unspecified open wound, unspecified foot, initial encounter Status: Acute Assessment and Plan: She was treated in August 2020 for staph aureus infection of right dorsal foot wound following cat bite. She was evaluated by ID and completed antibiotic therapy. The suzy
[2020-11-22 17:42] LABS: Glucose Point of Care 172 (65-105)
[2020-11-22] MEDS: HYDROcodone/acetaminophen (*CRX) 5-325 MG TABLET 1 TAB PO ×2 (17:57→23:20)
[2020-11-22] MEDS: PRAMIPEXOLE 0.25 MG TABLET 0.75 MG PO (20:22)
[2020-11-22 20:59] LABS: Glucose Point of Care 309 (65-105)
[2020-11-23] VITALS (9 sets, daily range): BP systolic 92–104; BP diastolic 44–59; PULSE 52–85; RESP 16–22; TEMP 35.7–36.3; O2SAT 91–100
[2020-11-23 06:36] LABS: Basophils Absolute Auto 0.1 K/mm3 (0.0-0.1); Basophils Percent Auto 0.6 % (0.2-1.2); Eosinophils Absolute Auto 0.3 K/mm3 (0-0.3); Hematocrit 41.7 % (37.0-47.0); Immature Granulocyte Absolute 0.03 K/mm3 (0.00-0.031); Immature Granulocyte Percent A 0.4 % (0-0.5); Lymphocytes Absolute Auto 1.85 K/mm3 (0.9-3.2); Lymphocytes Percent Auto 23.9 % (18.3-44.2); Mean Corpuscular HGB Conc 28.8 g/dl (32-36); Mean Corpuscular Hemoglobin 26.8 pg (26-34); Mean Corpuscular Volume 93.1 fl (80-100); Mean Platelet Volume 12.5 fl (7.4-10.4); Monocytes Absolute Auto 0.8 K/mm3 (0.1-0.6); Neutrophils Absolute Auto 4.7 K/mm3 (1.3-6.7); Neutrophils Percent Auto 61.1 % (45.5-73.1); Platelet Count Result 270 k/mm3 (150-375); Red Blood Count 4.48 M/mm3 (4.2-5.4); Red Cell Distribution Width 16.1 % (11.5-14.5); White Blood Count 7.7 K/mm3 (4.5-10.0)
[2020-11-23 06:52] LABS: Anion Gap 4 mmol/L (8-16); Blood Urea Nitrogen 29 mg/dL (7-17); CRP 2.1 mg/dL (<1.0); Calcium 8.6 mg/dL (8.4-10.2); Carbon Dioxide 32 mmol/L (22-30); Chloride 105 mmol/L (98-107); Estimated CRCL calculation 42 ml/min; Estimated Glomerular Filt Rate 38; Glucose 172 mg/dL (65-105); Magnesium 1.7 mg/dL (1.6-2.3); Potassium 4.6 mmol/L (3.4-5.0); Sodium 141 mmol/L (137-145)
[2020-11-23] MEDS: ALBUTEROL SULFATE (*SP) AEROSOL 1 PUFF 2 PUFF INHALATION ×4 (09:04→20:55)
[2020-11-23] MEDS: FLUTICASONE/SALMETEROL 115-21 MCG INHALER 1 PUFF 2 PUFF INHALATION ×2 (09:04→20:55)
[2020-11-23] MEDS: hydrALAZINE HCL 25 MG TABLET PO (09:05)
[2020-11-23] MEDS: GABAPENTIN 300 MG CAPSULE PO ×4 (09:05→20:58)
[2020-11-23] MEDS: ASPIRIN 325 MG TABLET PO (09:05)
[2020-11-23] MEDS: ENOXAPARIN 40 MG/0.4 ML SYRINGE SUB-Q (09:05)
[2020-11-23] MEDS: FAMOTIDINE 20 MG TABLET PO ×2 (09:05→20:57)
[2020-11-23] MEDS: ATORVASTATIN 40 MG TABLET PO (09:05)
[2020-11-23] MEDS: TOLNAFTATE 1% POWDER 45 GM BTL 1 APPLIC TOPICAL ×2 (09:06→20:58)
[2020-11-23] MEDS: LOSARTAN POTASSIUM 25 MG TABLET PO (09:06)
[2020-11-23] MEDS: SILVER SULFADIAZINE 1% CR 50 GM JAR (*BKC) 1 APPLIC TOPICAL (09:06)
--- NOTE | 2020-11-23 09:46 | PM.PNCARD ---
Progress Note: A&P Assessment and Plan (1) CHF (congestive heart failure): Code(s): I50.9 - Heart failure, unspecified Status: Acute Assessment and Plan: Patient with known ischemic cardiomyopathy EF 30-35%, Biventricular failure who presents now with acute on chronic systolic heart failure in the setting of dietary non complaince Better compensated and now creatinine started to rise. Agree with holding Lasix. May resume orally by tomorrow if creatinine stable. May discharge on 40 mg daily. Continue Losartan. Started Metoprolol 25 mg daily this admission. HR down to 50s. Will decrease dose to 12.5 daily on discharge Follow up with patient primary general intern. She was told she is not ICD candidate due to high infection risk Continue ASA and statin for her known CAD ([employer] of [employer]). Smoking cessation highly encouraged. (2) Infected ulcer of skin: Code(s): L98.499 - Non-pressure chronic ulcer of skin of other sites with unspecified severity; L08.9 - Local infection of the skin and subcutaneous tissue, unspecified Status: Acute (3) Diabetes mellitus: Code(s): E11.9 - Type 2 diabetes mellitus without complications Status: Acute (4) Tobacco abuse: Code(s): Z72.0 - Tobacco use Status: Acute Subjective Date/time seen: 11/23/20 09:46 Feels much better compared to admission. Lasix was held this am as creatinine started to rise. Tele reviewed, showed sinus bradycardia and PVCs Review of Systems Review of Systems: All systems reviewed & are unremarkable except as noted in HPI and below Exam Narrative: Exam Narrative: Const: General: no acute distress HENMT: Head: normal to inspection and atraumatic Ears: hearing grossly normal bilaterally Face and sinus: normal facial exam Eyes: General: appearance normal, both eyes and all related structures Pupils: Equal, round and reactive pupils present EOM: EOMs intact bilaterally Neck: Neck: supple Resp: Increase resp effort only by talking. Decrease breath sounds on auscultation Cardio: Rate: regular rate Heart sounds: S1 normal heart sound present, S2 normal heart sound present and no murmurs . Lower ext edema with skin discoloration extends to the toes (appear cyanotic on the right) GI: Auscultation: normal bowel sounds Skin: General skin exam: normal color Neuro: General: patient oriented x3 Cranial nerves: Yes Equal, round and reactive pupils present and Yes Normal hearing present Extrem: General: normal to inspection and no clubbing, cyanosis or edema Objective Data Vital Signs Vital Signs: Vital Signs - 24 hr 11/22/20 12:00 11/22/20 12:31 11/22/20 14:00 Temperature 36.4 C L Pulse Rate 67 70 65 Respiratory Rate 20 Blood Pressure 90/52 L Pulse Oximetry 93 11/22/20 16:00 11/22/20 20:00 11/22/20 21:32 Temperature 36.1 C L Pulse Rate 69 59 L 63 Respiratory Rate 20 Blood Pressure 99/60 L Pulse Oximetry 94 94 11/23/20 00:00 11/23/20 04:00 11/23/20 06:00 Temperature 36.3 C L Pulse Rate 54 L 59 L 54 L Respiratory Rate 20 Blood Pressure 102/52 L Pulse Oximetry 91 Intake/Output Intake/Output: Intake & Output 11/20/20 11/21/20 11/22/20 11/23/20 23:59 23:59 23:59 23:59 Intake Total 1420 2620 800 Output Total 750 1350 1400 Balance 670 1270 -600 Meds/Results Medications: Active Medications Generic Name Dose Route Start Last Admin Trade Name Freq PRN Reason Stop Dose Admin Acetaminophen 650 mg 11/22/20 17:43 Acetaminophen 325 Mg Tablet PO Q4H PRN Mild Pain (1-3) or Fever Hydrocodone Bitart/Acetaminophen 1 tab 11/22/20 17:43 11/22/20 23:20 Hydrocodone/Acetaminophen (*Crx) 5-325 Mg Tablet PO 1 tab Q4H PRN Administration Pain Rated 4-6 Albuterol 2 puff 11/21/20 12:00 11/23/20 09:04 Albuterol Sulfate (*Sp) Aerosol 1 Puff INHALATION 2 puff QIDRT MELONY Administration Aspirin 325 mg 11/21/20 09:00 11/23/20 09
[2020-11-23] MEDS: INSULIN GLARGINE (*BKC) 100 UNITS/ML SUB-Q (09:58)
[2020-11-23 10:36] LABS: Glucose Point of Care 171 (65-105)
[2020-11-23 12:21] LABS: Glucose Point of Care 229 (65-105)
[2020-11-23] MEDS: METOPROLOL SUCCINATE EXT REL 25 MG TABCR PO (12:41)
[2020-11-23] MEDS: INSULIN ASPART (*BKC) 100 UNITS/ML SUB-Q (12:41)
--- NOTE | 2020-11-23 17:17 | PM.IMPN ---
Progress Note: A&P Assessment and Plan (1) Acute on chronic systolic (congestive) heart failure: Code(s): I50.23 - Acute on chronic systolic (congestive) heart failure Status: Acute Assessment and Plan: Notes increased swelling in her legs and stomach for 1 week, likely due to poor compliance with low-sodium diet. Denies missing any doses of Lasix. She has increased dyspnea. CXR showed pulmonary edema. Last echo August 2020 showed EF 30-35[place] [address]. Clinically, she feels much better with improved edema and dyspnea. IV lasix was held today give increased creatinine. Cardiology has been consulted and input is appreciated Plan to resume PO furosemide tomorrow Continue losartan Recommend initiation of beta mira therapy following improvement of acute decompensation of CHF per cardiology. Heart healthy diet Monitor strict intake and output. Check daily weights Continue education on CHF management (2) HANNA (acute kidney injury): Code(s): N17.9 - Acute kidney failure, unspecified Status: Acute Assessment and Plan: Cr increased to 1.4 today. Baseline appears to be 1-1.1. This is likely secondary to IV diuresis. Furosemide was held today (11/23) after discussion with cardiology. Repeat BMP tomorrow Avoid nephrotoxins and renally dose medications (3) SIRS (systemic inflammatory response syndrome): Code(s): R65.10 - Systemic inflammatory response syndrome (SIRS) of non-infectious origin without acute organ dysfunction Status: Acute Assessment and Plan: Patient met SIRS criteria on admission, evident by tachycardia, tachypnea, and leukocytosis. Suspect tachypnea is related to dyspnea from CHF. There is no obvious source of infectious etiology at this time. CXR not indicative of respiratory infection. She denies urinary symptoms. She does have a healing wound on the dorsum of her right foot with no new signs of infection related to this. She is afebrile. Urinalysis is not suspicious for UTI. COVID-19 test is negative. Leukocytosis resolved. Monitor CBC daily No indication for antibiotic therapy at this time. Monitor clinically. (4) COPD (chronic obstructive pulmonary disease): Code(s): J44.9 - Chronic obstructive pulmonary disease, unspecified Status: Acute Assessment and Plan: Does not appear to be in acute exacerbation. Maintaining adequate O2 saturations. Continue Advair and albuterol. (5) Diabetes mellitus: Code(s): E11.9 - Type 2 diabetes mellitus without complications Status: Acute Assessment and Plan: Hemoglobin A1c was 8.3%. Blood sugars are reasonable with most recent blood sugar 127. She is on weekly trulicity injections which are non-formulary. Continue ACHS glucose monitoring, sliding scale insulin, and hypoglycemic protocol Continue 5 units lantus which was added today (11/23) given elevated blood sugars (6) HTN (hypertension): Code(s): I10 - Essential (primary) hypertension Status: Acute Assessment and Plan: BP was elevated above target initially, likely secondary to excess fluid from CHF exacerbation. Blood pressures have improved significantly and are a bit on the soft side today. Continue hydralazine, losartan, and Lasix Monitor blood pressure trends closely Will defer blood pressure management to cardiology (7) Elevated troponin: Code(s): R77.8 - Other specified abnormalities of plasma proteins Status: Acute Assessment and Plan: Troponins evaluated upon presentation and were slightly elevated. She has known CAD. She denies any active chest pain. Suspect this may be related to demand ischemia. Acute coronary syndrome not suspected. Appreciate cardiology input. Likely elevated in the setting of CHF exacerbation (8) Tobacco abuse: Code(s): Z72.0 - Tobacco use Status: Acute Assessment and P
[2020-11-23 17:31] LABS: Glucose Point of Care 127 (65-105)
[2020-11-23] MEDS: HYDROcodone/acetaminophen (*CRX) 5-325 MG TABLET 1 TAB PO (17:36)
[2020-11-23] MEDS: PRAMIPEXOLE 0.25 MG TABLET 0.75 MG PO (20:58)
--- NOTE | 2020-11-23 23:53 | PC.NURSE ---
2000 PT NOTED TO BE UP IN [place] WITHOUT MASK, CARRYING A PACK OF CIGARETTES, CIGARETTES TAKEN FROM PATIENT.
[2020-11-24] VITALS (14 sets, daily range): BP systolic 91–112; BP diastolic 52–77; PULSE 41–76; RESP 18–24; TEMP 35.9–36.9; O2SAT 91–96
[2020-11-24 02:19] LABS: Glucose Point of Care 185 (65-105)
--- NOTE | 2020-11-24 06:11 | PC.NURSE ---
0530 PT HEART RATE NOTED LOW 33-38, RETURNS TO 50S SPONTANIOUSLY, PT RESTING QUIETLY, DENIES COMPLAINTS. ATTEMPTED TO INFORM HOSPITALIST
[2020-11-24 06:42] LABS: Basophils Absolute Auto 0.1 K/mm3 (0.0-0.1); Basophils Percent Auto 0.6 % (0.2-1.2); Eosinophils Absolute Auto 0.3 K/mm3 (0-0.3); Eosinophils Percent Auto 3.2 % (0-4.4); Hematocrit 42.6 % (37.0-47.0); Hemoglobin 12.2 g/dL (12.0-15.0); Immature Granulocyte Absolute 0.02 K/mm3 (0.00-0.031); Immature Granulocyte Percent A 0.2 % (0-0.5); Lymphocytes Percent Auto 23.6 % (18.3-44.2); Mean Corpuscular HGB Conc 28.6 g/dl (32-36); Mean Corpuscular Volume 94.2 fl (80-100); Mean Platelet Volume 12.4 fl (7.4-10.4); Monocytes Percent Auto 11.7 % (2.6-8.5); Neutrophils Absolute Auto 5.2 K/mm3 (1.3-6.7); Neutrophils Percent Auto 60.7 % (45.5-73.1); Platelet Count Result 299 k/mm3 (150-375); Red Blood Count 4.52 M/mm3 (4.2-5.4); White Blood Count 8.5 K/mm3 (4.5-10.0)
[2020-11-24 06:44] LABS: Alanine Aminotransferase 14 U/L (4-35); Albumin Level 3.2 g/dL (3.5-5.1); Alkaline Phosphatase 102 U/L (38-126); Anion Gap 6 mmol/L (8-16); Aspartate Amino Transferase 25 U/L (14-36); Bilirubin,Total 0.3 mg/dL (0.2-1.3); Blood Urea Nitrogen 39 mg/dL (7-17); Calcium 8.2 mg/dL (8.4-10.2); Carbon Dioxide 25 mmol/L (22-30); Chloride 108 mmol/L (98-107); Estimated CRCL calculation 33 ml/min; Estimated Glomerular Filt Rate 28; Glucose 147 mg/dL (65-105); Magnesium 1.8 mg/dL (1.6-2.3); Potassium 4.9 mmol/L (3.4-5.0); Sodium 139 mmol/L (137-145)
[2020-11-24 07:54] LABS: Hypochromasia 1+ (NORMAL); Large Platelets Present; Target Cells 1+ (NORMAL)
[2020-11-24 07:56] LABS: Platelet Estimate Adequate (Adequate)
[2020-11-24] MEDS: ATORVASTATIN 40 MG TABLET PO (09:03)
[2020-11-24] MEDS: GABAPENTIN 300 MG CAPSULE PO ×4 (09:04→21:25)
[2020-11-24] MEDS: ASPIRIN 325 MG TABLET PO (09:04)
[2020-11-24] MEDS: ENOXAPARIN 40 MG/0.4 ML SYRINGE SUB-Q (09:04)
[2020-11-24] MEDS: FAMOTIDINE 20 MG TABLET PO ×2 (09:04→21:24)
[2020-11-24] MEDS: SILVER SULFADIAZINE 1% CR 50 GM JAR (*BKC) 1 APPLIC TOPICAL (09:05)
[2020-11-24] MEDS: TOLNAFTATE 1% POWDER 45 GM BTL 1 APPLIC TOPICAL ×4 (09:05→21:26)
[2020-11-24] MEDS: ALBUTEROL SULFATE (*SP) AEROSOL 1 PUFF 2 PUFF INHALATION ×4 (09:06→21:21)
[2020-11-24] MEDS: FLUTICASONE/SALMETEROL 115-21 MCG INHALER 1 PUFF 2 PUFF INHALATION ×2 (09:06→21:21)
[2020-11-24] MEDS: HYDROcodone/acetaminophen (*CRX) 5-325 MG TABLET 1 TAB PO ×3 (09:12→21:30)
[2020-11-24] MEDS: INSULIN GLARGINE (*BKC) 100 UNITS/ML SUB-Q (09:27)
--- NOTE | 2020-11-24 09:32 | PM.PNCARD ---
Progress Note: A&P Assessment and Plan (1) CHF (congestive heart failure): Code(s): I50.9 - Heart failure, unspecified Status: Acute Assessment and Plan: Patient with known ischemic cardiomyopathy EF 30-35%, Biventricular failure who presents now with acute on chronic systolic heart failure in the setting of dietary non complaince Better compensated but now creatinine is rising and BP soft since started low dose Metoprolol Will d.c Metoprolol. Also for profound bradycaida Hold Losartan due to HANNA Hold Hydralazine Will also continue to hold diuretics. Will monitor BP closely. Will consider start Dobutmaine if BP drops further. Also monitor urine output and consider start dobutmaine if urine output low Continue ASA and statin for her known CAD ([employer] of [employer]CA). Not candidate for ICD due to high infection risk (2) Infected ulcer of skin: Code(s): L98.499 - Non-pressure chronic ulcer of skin of other sites with unspecified severity; L08.9 - Local infection of the skin and subcutaneous tissue, unspecified Status: Acute (3) Diabetes mellitus: Code(s): E11.9 - Type 2 diabetes mellitus without complications Status: Acute (4) Tobacco abuse: Code(s): Z72.0 - Tobacco use Status: Acute Subjective Date/time seen: 11/24/20 09:32 HR down to low 40s overnight. BP also relatively low this am compared to admission ~90/60 Creatinine continue to rise. She denies chest pain or dyspnea. She has left arm pain but that has been ongoing for about a year Review of Systems Review of Systems: All systems reviewed & are unremarkable except as noted in HPI and below Exam Narrative: Exam Narrative: Const: General: no acute distress HENMT: Head: normal to inspection and atraumatic Ears: hearing grossly normal bilaterally Face and sinus: normal facial exam Eyes: General: appearance normal, both eyes and all related structures Pupils: Equal, round and reactive pupils present EOM: EOMs intact bilaterally Neck: Neck: supple Resp: Increase resp effort only by talking. Decrease breath sounds on auscultation Cardio: Rate: regular rate Heart sounds: S1 normal heart sound present, S2 normal heart sound present and no murmurs . Lower ext edema with skin discoloration extends to the toes (appear cyanotic on the right) GI: Auscultation: normal bowel sounds Skin: General skin exam: normal color Neuro: General: patient oriented x3 Cranial nerves: Yes Equal, round and reactive pupils present and Yes Normal hearing present Extrem: General: normal to inspection and no clubbing, cyanosis or edema Objective Data Vital Signs Vital Signs: Vital Signs - 24 hr 11/23/20 12:00 11/23/20 12:41 11/23/20 14:00 Temperature 35.7 C L Pulse Rate 65 65 60 Respiratory Rate 16 Blood Pressure 104/59 L Pulse Oximetry 97 11/23/20 20:00 11/23/20 22:00 11/24/20 00:00 Temperature 36.3 C L Pulse Rate 52 L 85 53 L Respiratory Rate 22 H Blood Pressure 92/44 L Pulse Oximetry 100 11/24/20 00:24 11/24/20 04:00 11/24/20 05:15 Temperature 35.9 C L Pulse Rate 48 L 56 L Respiratory Rate 20 Blood Pressure 95/54 L 91/52 L Pulse Oximetry 96 11/24/20 06:09 Temperature 35.9 C L Pulse Rate 52 L Respiratory Rate 20 Blood Pressure 91/52 L Pulse Oximetry 96 Intake/Output Intake/Output: Intake & Output 11/21/20 11/22/20 11/23/20 11/24/20 23:59 23:59 23:59 23:59 Intake Total 1420 2620 1850 240 Output Total 750 1350 1400 250 Balance 670 1270 450 -10 Meds/Results Medications: Active Medications Generic Name Dose Route Start Last Admin Trade Name Freq PRN Reason Stop Dose Admin Acetaminophen 650 mg 11/22/20 17:43 Acetaminophen 325 Mg Tablet PO Q4H PRN Mild Pain (1-3) or Fever Hydrocodone Bitart/Acetaminophen 1 tab 11/22/20 17:43 11/24/20 09:12 Hydrocodone/Acetaminophen (*Crx) 5-325 Mg Tablet PO 1 tab Q4H PRN Administration Pa
[2020-11-24 09:47] LABS: Glucose Point of Care 136 (65-105)
[2020-11-24] MEDS: INSULIN ASPART (*BKC) 100 UNITS/ML SUB-Q (12:04)
--- NOTE | 2020-11-24 12:14 | PM.IMPN ---
Progress Note: A&P Assessment and Plan (1) Acute on chronic systolic (congestive) heart failure: Code(s): I50.23 - Acute on chronic systolic (congestive) heart failure Status: Acute Assessment and Plan: The patient reported increased swelling in her legs and stomach for 1 week, likely due to poor compliance with low-sodium diet. She denied missing any doses of Lasix. She reported increased dyspnea as well. CXR showed pulmonary edema. Last echo August 2020 showed EF 30-35%. BNP elevated at 16,000. Clinically, she feels much better with improved edema and dyspnea. IV lasix was held today give increased creatinine. Cardiology has been consulted and input is appreciated Furosemide held today given increased creatinine. Monitor renal function closely. Hold losartan given soft pressures and HANNA per discussion with Dr. Schumacher Beta mira was initiated per cardiology but she did not tolerate this well with subsequent bradycardia and soft pressures. Beta mira was discontinued today after discussion with cardiology. Heart healthy diet Monitor strict intake and output. Check daily weights Continue education on CHF management (2) HANNA (acute kidney injury): Code(s): N17.9 - Acute kidney failure, unspecified Status: Acute Assessment and Plan: Cr increased to 1.8 today and BUN 39. This appears pre-renal. Baseline appears to be 1-1.1. This is likely secondary to IV diuresis and hypotension. Furosemide was held today (11/23) after discussion with cardiology. Renal US was performed and unremarkable. Urine osmolality, sodium, and creatinine are ordered and pending. Repeat BMP tomorrow Hold losartan Lasix held Pt may require dobutamine if renal function continues to worsen and blood pressures do not improve with medication adjustments Avoid nephrotoxins and renally dose medications (3) SIRS (systemic inflammatory response syndrome): Code(s): R65.10 - Systemic inflammatory response syndrome (SIRS) of non-infectious origin without acute organ dysfunction Status: Acute Assessment and Plan: Patient met SIRS criteria on admission, evident by tachycardia, tachypnea, and leukocytosis. Suspect tachypnea is related to dyspnea from CHF. There is no obvious source of infectious etiology at this time. CXR not indicative of respiratory infection. She denies urinary symptoms. She does have a healing wound on the dorsum of her right foot with no new signs of infection related to this. She is afebrile. Urinalysis is not suspicious for UTI. COVID-19 test is negative. Leukocytosis resolved. Monitor CBC daily No indication for antibiotic therapy at this time. Monitor clinically. (4) COPD (chronic obstructive pulmonary disease): Code(s): J44.9 - Chronic obstructive pulmonary disease, unspecified Status: Acute Assessment and Plan: Does not appear to be in acute exacerbation. Maintaining adequate O2 saturations. Continue Advair and albuterol. (5) Diabetes mellitus: Code(s): E11.9 - Type 2 diabetes mellitus without complications Status: Acute Assessment and Plan: Hemoglobin A1c was 8.3%. Blood sugars are reasonable with most recent blood sugar 224. She is on weekly trulicity injections which are non-formulary. Continue ACHS glucose monitoring, sliding scale insulin, and hypoglycemic protocol Continue 5 units lantus which was added 11/23 given elevated blood sugars (6) HTN (hypertension): Code(s): I10 - Essential (primary) hypertension Status: Acute Assessment and Plan: BP was elevated above target initially, likely secondary to excess fluid from CHF exacerbation. Blood pressures were on the soft side with systolic 90s and diastolic 50s. This is likely secondary to the addition of beta mira and other antihypertensives. Discussed with cardiology and plan to hold hydralazine, losartan, and stop beta mira
[2020-11-24 12:17] LABS: Glucose Point of Care 224 (65-105)
[2020-11-24 17:36] LABS: Glucose Point of Care 155 (65-105)
[2020-11-24 20:34] LABS: Glucose Point of Care 111 (65-105)
[2020-11-24] MEDS: PRAMIPEXOLE 0.25 MG TABLET 0.75 MG PO (21:25)
[2020-11-25] VITALS (10 sets, daily range): BP systolic 98–108; BP diastolic 51–74; PULSE 51–63; RESP 18–20; TEMP 36.2–36.5; O2SAT 92–100
--- NOTE | 2020-11-25 06:15 | PC.NURSE ---
Patient only had 50ML of output on scene shifter 11/24-11/25. This nurse tried to get patient to urinate to obtain urine sample. Patient stated that she did not have to urinate. This nurse then educated the patient and attempted to explain to the patient that I would have to bladder scan her due to her low output overnight. Patient refused the bladder scan.
[2020-11-25 06:32] LABS: Hematocrit 44.2 % (37.0-47.0); Hemoglobin 12.8 g/dL (12.0-15.0); Mean Corpuscular Volume 93.2 fl (80-100); Mean Platelet Volume 12.5 fl (7.4-10.4); Platelet Count Result 311 k/mm3 (150-375); Red Blood Count 4.74 M/mm3 (4.2-5.4); Red Cell Distribution Width 15.9 % (11.5-14.5); White Blood Count 10.2 K/mm3 (4.5-10.0)
[2020-11-25 07:30] LABS: Band Neutrophils Percent 2 % (0-6); Basophils Percent Manual 2 % (0-1); Eosinophils Percent Manual 4 % (0-4); Lymphocytes Absolute Manual 1.83 K/mm3 (1.1-4.5); Monocytes Absolute Manual 1.12 K/mm3 (0.1-0.90); Monocytes Percent Manual 11 % (3-9); Neutrophils Absolute Manual 6.63 K/mm3 (1.7-7.2); Neutrophils Percent Manual 63 % (46-73); Platelet Estimate Adequate (Adequate); Total Cells Counted 100
[2020-11-25 07:31] LABS: Anisocytosis 1+ (NORMAL); Hypochromasia 1+ (NORMAL); Poikilocytosis 1+ (NORMAL)
[2020-11-25 08:30] LABS: Glucose Point of Care 147 (65-105)
[2020-11-25] MEDS: INSULIN GLARGINE (*BKC) 100 UNITS/ML SUB-Q (08:48)
[2020-11-25] MEDS: ASPIRIN 325 MG TABLET PO (08:49)
[2020-11-25] MEDS: GABAPENTIN 300 MG CAPSULE PO ×4 (08:49→21:24)
[2020-11-25] MEDS: FAMOTIDINE 20 MG TABLET PO ×2 (08:49→21:24)
[2020-11-25] MEDS: ALBUTEROL SULFATE (*SP) AEROSOL 1 PUFF 2 PUFF INHALATION ×3 (08:50→18:15)
[2020-11-25] MEDS: ATORVASTATIN 40 MG TABLET PO (08:50)
[2020-11-25] MEDS: ENOXAPARIN 40 MG/0.4 ML SYRINGE SUB-Q (08:50)
[2020-11-25] MEDS: FLUTICASONE/SALMETEROL 115-21 MCG INHALER 1 PUFF 2 PUFF INHALATION (08:50)
[2020-11-25] MEDS: TOLNAFTATE 1% POWDER 45 GM BTL 1 APPLIC TOPICAL ×3 (08:51→21:25)
[2020-11-25 08:52] LABS: Albumin Level 3.5 g/dL (3.5-5.1); Anion Gap 7 mmol/L (8-16); Blood Urea Nitrogen 47 mg/dL (7-17); Calcium 8.5 mg/dL (8.4-10.2); Carbon Dioxide 30 mmol/L (22-30); Chloride 104 mmol/L (98-107); Estimated CRCL calculation 29 ml/min; Estimated Glomerular Filt Rate 24; Glucose 149 mg/dL (65-105); Magnesium 1.8 mg/dL (1.6-2.3); Phosphorus 6.7 mg/dL (2.5-4.5); Potassium 4.8 mmol/L (3.4-5.0); Sodium 141 mmol/L (137-145)
[2020-11-25] MEDS: SILVER SULFADIAZINE 1% CR 50 GM JAR (*BKC) 1 APPLIC TOPICAL (08:52)
--- NOTE | 2020-11-25 09:05 | PM.PNCARD ---
Progress Note: A&P Assessment and Plan (1) CHF (congestive heart failure): Code(s): I50.9 - Heart failure, unspecified Status: Acute Assessment and Plan: Patient with known ischemic cardiomyopathy EF 30-35%, Biventricular failure who presents now with acute on chronic systolic heart failure in the setting of dietary non complaince Better compensated since Cr increased ARB on hold pt had episode of bradycardia which resoled after metoprolol was dc Will also continue to hold diuretics. Continue ASA and statin for her known CAD ([employer] of RCA). Not candidate for ICD due to high infection risk (2) HANNA (acute kidney injury): Code(s): N17.9 - Acute kidney failure, unspecified Status: Acute Assessment and Plan: Acute on Chronic renal failure if Cr deteriorates consider nephrology evauationl (3) Infected ulcer of skin: Code(s): L98.499 - Non-pressure chronic ulcer of skin of other sites with unspecified severity; L08.9 - Local infection of the skin and subcutaneous tissue, unspecified Status: Acute Assessment and Plan: Management per PC (4) Diabetes mellitus: Code(s): E11.9 - Type 2 diabetes mellitus without complications Status: Acute Assessment and Plan: Management per PC (5) Tobacco abuse: Code(s): Z72.0 - Tobacco use Status: Acute (6) COPD (chronic obstructive pulmonary disease): Code(s): J44.9 - Chronic obstructive pulmonary disease, unspecified Status: Acute Subjective Date/time seen: 11/25/20 Pt states that she feels same, No CP or LE edema. pt was seen and examine, chart reviewed, case d/w pt's nurse. Review of Systems Review of Systems: All systems reviewed & are unremarkable except as noted in HPI and below Constitutional: Constitutional: Reports as per HPI Eyes: Eyes: Reports as per HPI ENT: Reports system reviewed and no additional complaints, except as documented and Reports as per HPI Cardiovascular: Cardiovascular: Reports as per HPI Respiratory: Respiratory: Reports as per HPI Gastrointestinal: Gastrointestinal: Reports as per HPI Genitourinary: Genitourinary: Reports as per HPI Musculoskeletal: Musculoskeletal: Reports as per HPI Exam Const: General: no acute distress Nutritional Appearance: well nourished Orientation/consciousness: patient oriented x3 HENMT: Head: normal to inspection and atraumatic Ears: hearing grossly normal bilaterally Face and sinus: normal facial exam Eyes: General: appearance normal, both eyes and all related structures Pupils: Equal, round and reactive pupils present EOM: EOMs intact bilaterally Neck: Neck: supple Chest: Chest palpation & inspection: normal inspection of the chest Resp: Effort & Inspection: normal respiratory effort and no respiratory distress Auscultation: clear to auscultation bilaterally Cardio: Jugular venous distension: no JVD Rate: regular rate Heart sounds: S1 normal heart sound present, S2 normal heart sound present and no murmurs Peripheral pulses: Peripheral pulses 2+ throughout GI: GI Palp: No abdominal tenderness Auscultation: normal bowel sounds Skin: General skin exam: normal color Neuro: General: patient oriented x3 Cranial nerves: Yes Equal, round and reactive pupils present Extrem: General: normal to inspection and no clubbing, cyanosis or edema Objective Data Vital Signs Vital Signs: Vital Signs - 24 hr 11/24/20 09:25 11/24/20 10:25 11/24/20 11:25 Temperature 36.3 C L 36.9 C 36.4 C L Pulse Rate 76 50 L 53 L Respiratory Rate 20 18 20 Blood Pressure 104/70 103/70 108/74 Pulse Oximetry 95 93 95 11/24/20 12:00 11/24/20 12:25 11/24/20 13:25 Temperature Pulse Rate 53 L 51 L 52 L Respiratory Rate 18 18 Blood Pressure 111/63 109/77 Pulse Oximetry 94 93 11/24/20 16:00 11/24/20 20:00 11/25/20 00:00 Temperature 36.6 C 36.6 C Pulse Rate 58 L 42 L 52 L Respiratory Rate 18 24 H Blood Pressure
[2020-11-25 12:18] LABS: Glucose Point of Care 230 (65-105)
[2020-11-25] MEDS: INSULIN ASPART (*BKC) 100 UNITS/ML SUB-Q (12:41)
--- NOTE | 2020-11-25 14:50 | P.PNIM_ITS ---
Progress Note: A&P Assessment and Plan (1) Acute on chronic systolic (congestive) heart failure: Code(s): I50.23 - Acute on chronic systolic (congestive) heart failure Status: Acute Assessment and Plan: The patient reported increased swelling in her legs and stomach for 1 week, likely due to poor compliance with low-sodium diet. She denied missing any doses of Lasix. She reported increased dyspnea as well. CXR showed pulmonary edema. Last echo August 2020 showed EF 30-35%. BNP elevated at 16,000. * Cardiology has been consulted and input is appreciated * Furosemide is held in conjugation with cardiology given increased creatinine. Monitor renal function closely. * Hold losartan given soft pressures and HANNA * Beta mira was initiated per cardiology but she did not tolerate this well with subsequent bradycardia and soft pressures. Beta mira was discontinued. * Heart healthy diet * Monitor volume status closely with strict intake and output and daily weights * Continue education on CHF management * Cardiology initiated dobutamine today * Patient stated she was told she is not a candidate for ICD given infection risk (2) Non-sustained ventricular tachycardia: Code(s): I47.2 - Ventricular tachycardia Status: Acute Assessment and Plan: The patient has had a several 8-9 peat runs of non-sustained v-tach. Cardiology is following. Potassium and magnesium were within normal limits. She was asymptomatic. * Continue cardiology recommendations, per cardiology, she is not candidate for ICD. Await additional cardiac recommendations. * Continue to monitor electrolytes closely * Continue telemetry * Further management will be deferred to cardiology (3) Visual hallucinations: Code(s): R44.1 - Visual hallucinations Status: Acute Assessment and Plan: She reports that she is having intermittent visual hallucinations, mostly at night. Etiology is unclear. This may be secondary to delirium, HANNA, sleep disturbances, or hypotension. * Check CT brain wo contrast * Continue to monitor * Will ask neurology for input if this continues as she may benefit from EEG or other workup * Encourage good sleep hygiene, minimize sleep interruptions (4) HANNA (acute kidney injury): Code(s): N17.9 - Acute kidney failure, unspecified Status: Acute Assessment and Plan: Cr increased to 2.1 today and BUN 47. This appears pre-renal. Baseline appears to be 1-1.1. This is likely secondary to IV diuresis and hypotension with underlying HFrEF, diastolic dysfunction. Furosemide is held in conjugation with cardiology. Renal US was performed and unremarkable. Urine osmolality pending. FENa is 0.2% consistent with pre-renal disease. Cr is improving. * Continue to monitor with repeat BMP * Hold losartan * Hold lasix * Appreciate nephrology input * Avoid nephrotoxins and renally dose medications (5) Inflammatory disorder of breast: Code(s): N61.0 - Mastitis without abscess Status: Acute Assessment and Plan: She notes significant swelling of the left breast. This is very pronounced when she is sitting up. Left breast US was ordered and demonstrates diffuse left breast edema without evidence for abscess and suspicious for cellulitis. She thinks she had a mammogram 1 year ago. * Will start PO dicloxacillin * She will need mammogram outpatient * I have asked [employer] to see her given appearance concerning for possible inflammatory breast cancer (6) SIRS (systemic inflamm
--- NOTE | 2020-11-25 14:50 | PM.IMPN ---
Progress Note: A&P Assessment and Plan (1) Acute on chronic systolic (congestive) heart failure: Code(s): I50.23 - Acute on chronic systolic (congestive) heart failure Status: Acute Assessment and Plan: The patient reported increased swelling in her legs and stomach for 1 week, likely due to poor compliance with low-sodium diet. She denied missing any doses of Lasix. She reported increased dyspnea as well. CXR showed pulmonary edema. Last echo August 2020 showed EF 30-35%. BNP elevated at 16,000. Cardiology has been consulted and input is appreciated Furosemide is held in conjugation with cardiology given increased creatinine. Monitor renal function closely. Hold losartan given soft pressures and HANNA Beta mira was initiated per cardiology but she did not tolerate this well with subsequent bradycardia and soft pressures. Beta mira was discontinued. Heart healthy diet Monitor volume status closely with strict intake and output and daily weights Continue education on CHF management Cardiology initiated dobutamine today Patient stated she was told she is not a candidate for ICD given infection risk (2) Non-sustained ventricular tachycardia: Code(s): I47.2 - Ventricular tachycardia Status: Acute Assessment and Plan: The patient has had a several 8-9 peat runs of non-sustained v-tach. Cardiology is following. Potassium and magnesium were within normal limits. She was asymptomatic. Continue cardiology recommendations, per cardiology, she is not candidate for ICD. Await additional cardiac recommendations. Continue to monitor electrolytes closely Continue telemetry Further management will be deferred to cardiology (3) Visual hallucinations: Code(s): R44.1 - Visual hallucinations Status: Acute Assessment and Plan: She reports that she is having intermittent visual hallucinations, mostly at night. Etiology is unclear. This may be secondary to delirium, HANNA, sleep disturbances, or hypotension. Check CT brain wo contrast Continue to monitor Will ask neurology for input if this continues as she may benefit from EEG or other workup Encourage good sleep hygiene, minimize sleep interruptions (4) HANNA (acute kidney injury): Code(s): N17.9 - Acute kidney failure, unspecified Status: Acute Assessment and Plan: Cr increased to 2.1 today and BUN 47. This appears pre-renal. Baseline appears to be 1-1.1. This is likely secondary to IV diuresis and hypotension with underlying HFrEF, diastolic dysfunction. Furosemide is held in conjugation with cardiology. Renal US was performed and unremarkable. Urine osmolality pending. FENa is 0.2% consistent with pre-renal disease. Cr is improving. Continue to monitor with repeat BMP Hold losartan Hold lasix Appreciate nephrology input Avoid nephrotoxins and renally dose medications (5) Inflammatory disorder of breast: Code(s): N61.0 - Mastitis without abscess Status: Acute Assessment and Plan: She notes significant swelling of the left breast. This is very pronounced when she is sitting up. Left breast US was ordered and demonstrates diffuse left breast edema without evidence for abscess and suspicious for cellulitis. She thinks she had a mammogram 1 year ago. Will start PO dicloxacillin She will need mammogram outpatient I have asked OFFICIAL COURT REPORTER to see her given appearance concerning for possible inflammatory breast cancer (6) SIRS (systemic inflammatory response syndrome): Code(s): R65.10 - Systemic inflammatory response syndrome (SIRS) of non-infectious origin without acute organ dysfunction Status: Acute Assessment and Plan: Patient met SIRS criteria on admission, evident by tachycardia, tachypnea, and leukocytosis. Suspect tachypnea is related to dyspnea from CHF. There is no obvious source of infectious etiology at this time. CXR not
--- NOTE | 2020-11-25 15:19 | PM.CNNEP ---
Assessment and Plan Assessment and plan (1) HANNA (acute kidney injury): Code(s): N17.9 - Acute kidney failure, unspecified Status: Acute Assessment and Plan: suspect due to overcontrol for blood pressure had systolic readings in 150 - 160s and then abruptly dropped to 90s systolic - this likely led to renal hypoperfusion worsened in the setting her chronic heart failure I agree with backing off on BP medications and allowing her BP to rise consideration for ionotropic support if BP fails to improve but I would defer to Cardiology on this urine electrolyte c/w prerenal azotemia but this is more a reflection of her low EF/cardiomyopathy renal ultrasound normal follow trend of repeat labs and UOP (2) Acute on chronic systolic (congestive) heart failure: Code(s): I50.23 - Acute on chronic systolic (congestive) heart failure Status: Acute Assessment and Plan: Cardiology following clinically better holding diuretics and BP medications given #1 (3) HTN (hypertension): Code(s): I10 - Essential (primary) hypertension Status: Acute Assessment and Plan: an issue on admission but now BP quite soft backing off on BP medications (see #1) (4) Wound of foot: Code(s): S91.309A - Unspecified open wound, unspecified foot, initial encounter Status: Acute Assessment and Plan: local wound care Will continue to follow. History of Present Illness Reason for Consult Consult date: 11/25/20 Reason for consult: acute renal failure Chief Complaint Chief complaint: chf History of Present Illness Narrative: The patient is a 65 year old female with a past medical history as outlined below who presented to [facility] with complaints of increased shortness of breath. According to the patient, for last week prior to admission, she has noted increasing shortness of breath in association with more swelling in her lower extremities and abdominal area. In the last 2-3 days prior to admission, the symptoms appear to have worsened in association with worsening shortness of breath as well. She does admit to some dietary indiscretion with regard to salty food (British food) but has remained compliant with her other medications including her diuretics. She is unable to clarify if she has noticed any weight gain as she is unable to been keep up with her daily weights. Additional symptoms included worsening dyspnea on exertion in association with orthopnea and exercise intolerance due to her respiratory status. Workup and evaluation the emergency room demonstrated the patient to be hemodynamically stable ( actually somewhat hypertensive) although she was somewhat tachypneic. Routine blood test demonstrated an elevated BNP, mild leukocytosis, and a chest x-ray consistent with a CHF exacerbation. She was given IV diuretics as well as BP medications stabilize her symptoms and she was subsequent admitted the hospital for further evaluation and therapy. Since her admission, her medications have been adjusted for better blood pressure control and she has been continuing IV diuretics an effort to optimize her volume status. Both of these conditions have improved remarkably and the patient herself does state that she feels better as well. Unfortunately, in the last 2-3 days for her kidney function has deteriorated which prompted renal consultation. At baseline, her kidney function is normal but as mentioned, in the last 2-3 days her creatinine has been slowly rising up until its most recent/current value. She does not any dorsal any problems or issues with regard to the decline in her kidney function but the suspicion for the etiology of this acute changes related to her blood pressure control and possibly the use of IV diuretics as mentioned above. Currently, the patient does not appear to be in acute distress and has no other complaints voiced at this time. Autumn
--- NOTE | 2020-11-25 15:30 | PCPTNOTE ---
Attempted PT evaluation. Pt refusing this date reporting she's SOB and doesn't want to move. States she will work with therapy tomorrow and agreed to get up and sit in a chair in the morning. Elena Sanders, DPT
[2020-11-25 17:14] LABS: Creatinine Urine 260.1 mg/dL
[2020-11-25 17:18] LABS: Sodium Urine Random 29 meq/L
--- NOTE | 2020-11-25 17:49 | PC.NURSE ---
Report given to Hardik BROCK in chest pain center @[id number]. Patient transported @[id number].
--- NOTE | 2020-11-25 18:00 | PC.NURSE ---
pt arrived to room [facility]4
--- NOTE | 2020-11-25 18:00 | PC.NURSE ---
pt arrived to [facility]- with belongings and food tray at bedside. Monitor applied. pt situated in a comfortable position. call light at pt side.
[2020-11-25 18:14] LABS: Glucose Point of Care 162 (65-105)
--- NOTE | 2020-11-25 19:19 | PC.NURSE ---
monitor showed 8 beat run of VTach. Phoned , Dr. Nolan, no answer, left message. patient is asymptomatic. denies any pain or discomfort. will continue to monitor.
--- NOTE | 2020-11-25 19:28 | PC.NURSE ---
This nurse called the daughter of this patient back @1920. General update given and all questions answered per Celia. Celia was notified that this patient was moved to chest pain center room 4.
[2020-11-25] MEDS: HEPARIN SODIUM 5,000 UNITS/ML VIAL 5000 UNITS SUB-Q (21:23)
[2020-11-25] MEDS: MAGNESIUM OXIDE 400 MG TABLET 800 MG PO (21:23)
[2020-11-25] MEDS: PRAMIPEXOLE 0.25 MG TABLET 0.75 MG PO (21:26)
[2020-11-25 21:52] LABS: Glucose Point of Care 220 (65-105)
[2020-11-26] VITALS (10 sets, daily range): BP systolic 94–150; BP diastolic 44–86; PULSE 54–90; RESP 16–22; TEMP 34.9–36.6; O2SAT 91–98
[2020-11-26] MEDS: ACETAMINOPHEN 325 MG TABLET 650 MG PO (02:20)
[2020-11-26 03:03] LABS: Creatinine Urine 137.6 mg/dL
[2020-11-26 03:15] LABS: Sodium Urine Random 34 meq/L
[2020-11-26] MEDS: HEPARIN SODIUM 5,000 UNITS/ML VIAL 5000 UNITS SUB-Q ×3 (06:18→21:30)
[2020-11-26 07:56] LABS: Glucose Point of Care 183 (65-105)
[2020-11-26 08:03] LABS: Basophils Percent Auto 0.5 % (0.2-1.2); Eosinophils Absolute Auto 0.3 K/mm3 (0-0.3); Eosinophils Percent Auto 3.4 % (0-4.4); Hemoglobin 12.6 g/dL (12.0-15.0); Immature Granulocyte Absolute 0.02 K/mm3 (0.00-0.031); Immature Granulocyte Percent A 0.3 % (0-0.5); Lymphocytes Absolute Auto 1.63 K/mm3 (0.9-3.2); Lymphocytes Percent Auto 20.7 % (18.3-44.2); Mean Corpuscular HGB Conc 29.3 g/dl (32-36); Mean Corpuscular Hemoglobin 27.5 pg (26-34); Mean Corpuscular Volume 93.7 fl (80-100); Mean Platelet Volume 11.9 fl (7.4-10.4); Monocytes Absolute Auto 0.9 K/mm3 (0.1-0.6); Monocytes Percent Auto 11.2 % (2.6-8.5); Neutrophils Percent Auto 63.9 % (45.5-73.1); Platelet Count Result 291 k/mm3 (150-375); Red Blood Count 4.59 M/mm3 (4.2-5.4); Red Cell Distribution Width 16.1 % (11.5-14.5); White Blood Count 7.9 K/mm3 (4.5-10.0)
[2020-11-26] MEDS: ALBUTEROL SULFATE (*SP) AEROSOL 1 PUFF 2 PUFF INHALATION ×4 (08:11→21:14)
[2020-11-26] MEDS: FLUTICASONE/SALMETEROL 115-21 MCG INHALER 1 PUFF 2 PUFF INHALATION ×2 (08:11→21:17)
[2020-11-26 08:32] LABS: Anion Gap 4 mmol/L (8-16); Blood Urea Nitrogen 47 mg/dL (7-17); Calcium 8.5 mg/dL (8.4-10.2); Carbon Dioxide 28 mmol/L (22-30); Chloride 106 mmol/L (98-107); Estimated CRCL calculation 40 ml/min; Estimated Glomerular Filt Rate 35; Glucose 144 mg/dL (65-105); Potassium 4.8 mmol/L (3.4-5.0); Sodium 138 mmol/L (137-145)
[2020-11-26] MEDS: ATORVASTATIN 40 MG TABLET PO (10:02)
[2020-11-26] MEDS: GABAPENTIN 300 MG CAPSULE PO ×4 (10:02→21:13)
[2020-11-26] MEDS: FAMOTIDINE 20 MG TABLET PO ×2 (10:02→21:13)
[2020-11-26] MEDS: ASPIRIN 325 MG TABLET PO (10:02)
[2020-11-26] MEDS: HYDROcodone/acetaminophen (*CRX) 5-325 MG TABLET 1 TAB PO (10:04)
[2020-11-26] MEDS: TOLNAFTATE 1% POWDER 45 GM BTL 1 APPLIC TOPICAL ×2 (10:06→21:16)
[2020-11-26] MEDS: SILVER SULFADIAZINE 1% CR 50 GM JAR (*BKC) 1 APPLIC TOPICAL (10:07)
[2020-11-26] MEDS: INSULIN GLARGINE (*BKC) 100 UNITS/ML SUB-Q (10:10)
[2020-11-26 11:46] LABS: Glucose Point of Care 232 (65-105)
--- NOTE | 2020-11-26 12:04 | PM.PNCARD ---
Progress Note: A&P Assessment and Plan (1) CHF (congestive heart failure): Code(s): I50.9 - Heart failure, unspecified Status: Acute Assessment and Plan: Patient with known ischemic cardiomyopathy EF 30-35%, Biventricular failure who presents now with acute on chronic systolic heart failure in the setting of dietary non complaince Better compensated since Cr increased ARB on hold pt had episode of bradycardia which resoled after metoprolol was dc Will also continue to hold diuretics. Will try dobutamine drip that pt tolerated well during last admission. Will need to monitor electrolytes closely. 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 Pt had short run of nsVT during this admission. Not candidate for ICD due to high infection risk (2) Wound of foot: Code(s): S91.309A - Unspecified open wound, unspecified foot, initial encounter Status: Acute (3) Tobacco abuse: Code(s): Z72.0 - Tobacco use Status: Acute (4) HTN (hypertension): Code(s): I10 - Essential (primary) hypertension Status: Acute Assessment and Plan: BP meds on hold due to episodes of hypotension (5) HANNA (acute kidney injury): Code(s): N17.9 - Acute kidney failure, unspecified Status: Acute Assessment and Plan: Cr improving diuretics on hold nephrology consult completed Subjective Date/time seen: 11/26/20 Pt states that her SOB is gradually improving. No CP or LE edema. Pt noticed that her L breas is bigger than R. She had some hallucinations as well. pt was transferred to [facility] yesterday. Nephrology evaluated her. pt was seen and examine, chart reviewed, case d/w pt's nurse. Review of Systems Review of Systems: All systems reviewed & are unremarkable except as noted in HPI and below Constitutional: Constitutional: Reports as per HPI Eyes: Eyes: Reports as per HPI ENT: Reports system reviewed and no additional complaints, except as documented and Reports as per HPI Cardiovascular: Cardiovascular: Reports as per HPI Respiratory: Respiratory: Reports as per HPI Gastrointestinal: Gastrointestinal: Reports as per HPI Genitourinary: Genitourinary: Reports as per HPI Musculoskeletal: Musculoskeletal: Reports as per HPI Exam Const: General: other (sitting in chair) Nutritional Appearance: well nourished Orientation/consciousness: patient oriented x3 HENMT: Head: normal to inspection and atraumatic Ears: hearing grossly normal bilaterally Face and sinus: normal facial exam Eyes: General: appearance normal, both eyes and all related structures Pupils: Equal, round and reactive pupils present EOM: EOMs intact bilaterally Neck: Neck: supple Chest: Chest palpation & inspection: normal inspection of the chest Resp: Effort & Inspection: normal respiratory effort and no respiratory distress Auscultation: clear to auscultation bilaterally Cardio: Jugular venous distension: no JVD Rate: regular rate Heart sounds: S1 normal heart sound present, S2 normal heart sound present and no murmurs Peripheral pulses: Peripheral pulses 2+ throughout GI: GI Palp: No abdominal tenderness Auscultation: normal bowel sounds Skin: General skin exam: normal color Neuro: General: patient oriented x3 Cranial nerves: Yes Equal, round and reactive pupils present Extrem: General: normal to inspection and no clubbing, cyanosis or edema Objective Data Vital Signs Vital Signs: Vital Signs - 24 hr 11/25/20 16:00 11/25/20 18:00 11/25/20 19:23 Temperature 36.4 C Pulse Rate 54 L 56 L 55 L Respiratory Rate 20 Blood Pressure 108/72 Pulse Oximetry 95 11/25/20 20:00 11/25/20 21:15 11/26/20 00:00 Temperature 36.2 C L 35.9 C L Pulse Rate 63 56 L 77 Respiratory Rate 20 16 Blood Pressure 107/51 L 127/86 Pulse Oximetry 96 91 11/26/20 04:00 11/26/20 06:05 11/26/20 08:00 Temperature 34.9 C L 36.3 C L Pulse Rate 63 54 L 75 Respiratory Rate 18
[2020-11-26] MEDS: INSULIN ASPART (*BKC) 100 UNITS/ML SUB-Q (12:07)
--- NOTE | 2020-11-26 12:31 | PM.PNNEP ---
Progress Note: A&P Assessment and Plan (1) HANNA (acute kidney injury): Code(s): N17.9 - Acute kidney failure, unspecified Status: Acute Assessment and Plan: suspect due to overcontrol for blood pressure had systolic readings in 150 - 160s and then abruptly dropped to 90s systolic - this likely led to renal hypoperfusion worsened in the setting her chronic heart failure urine electrolyte c/w prerenal azotemia but this is more a reflection of her low EF/cardiomyopathy renal ultrasound normal creatinine a bit better by this AM labs follow trend of creatinine (2) Acute on chronic systolic (congestive) heart failure: Code(s): I50.23 - Acute on chronic systolic (congestive) heart failure Status: Acute Assessment and Plan: Cardiology following clinically better holding diuretics and BP medications given #1 started on dobutamine gtt (3) HTN (hypertension): Code(s): I10 - Essential (primary) hypertension Status: Acute Assessment and Plan: an issue on admission but now BP quite soft backing off on BP medications (see #1) (4) Wound of foot: Code(s): S91.309A - Unspecified open wound, unspecified foot, initial encounter Status: Acute Assessment and Plan: local wound care Will continue to follow. Subjective Date/time seen: 11/26/20 12:31 Appears to be doing a bit better -- nursing reports patient has issues with visual hallucination for the last couple of days (due to HANNA versus hypotension versus something else); no apparent distress voiced at this time. Exam Narrative: Exam Narrative: General: WD/WN female in NAD Heart: normal S1 and S2; no rub Lungs: decreased at bases Abdomen: soft, nontender, nondistended, positive bowel sounds Extremities: no cyanosis or clubbing; trace edema Skin: warm and dry Objective Data Vital Signs Vital Signs: Vital Signs Temp Pulse Resp BP Pulse Ox 11/26/20 08:00 36.3 C L 75 20 103/49 L 92 11/26/20 06:05 34.9 C L 54 L 18 94/44 L 98 11/26/20 04:00 63 11/26/20 00:00 35.9 C L 77 16 127/86 91 11/25/20 21:15 36.2 C L 56 L 20 107/51 L 96 11/25/20 20:00 63 11/25/20 19:23 55 L 11/25/20 18:00 56 L 11/25/20 16:00 36.4 C 54 L 20 108/72 95 Intake/Output Intake/Output: Intake & Output 11/23/20 11/24/20 11/25/20 11/26/20 23:59 23:59 23:59 23:59 Intake Total 1850 1680 1700 480 Output Total 1400 500 350 200 Balance 450 1180 1350 280 Meds/Results Medications: Active Medications Generic Name Dose Route Start Last Admin Trade Name Freq PRN Reason Stop Dose Admin Acetaminophen 650 mg 11/22/20 17:43 11/26/20 02:20 Acetaminophen 325 Mg Tablet PO 650 mg Q4H PRN Administration Mild Pain (1-3) or Fever Hydrocodone Bitart/Acetaminophen 1 tab 11/22/20 17:43 11/26/20 10:04 Hydrocodone/Acetaminophen (*Crx) 5-325 Mg Tablet PO 1 tab Q4H PRN Administration Pain Rated 4-6 Albuterol 2 puff 11/21/20 12:00 11/26/20 12:17 Albuterol Sulfate (*Sp) Aerosol 1 Puff INHALATION 2 puff QIDRT MELONY Administration Aspirin 325 mg 11/21/20 09:00 11/26/20 10:02 Aspirin 325 Mg Tablet PO 325 mg DAILY MELONY Administration Atorvastatin Calcium 40 mg 11/21/20 09:00 11/26/20 10:02 Atorvastatin 40 Mg Tablet PO 40 mg DAILY MELONY Administration Dextrose 12.5 gm 11/21/20 13:28 Dextrose 50% 25 Gm/50 Ml Syringe IV PUSH PRN PRN Hypoglycemia Protocol Docusate Sodium 100 mg 11/21/20 08:14 Docusate Sodium 100 Mg Capsule PO Q12H PRN Constipation Famotidine 20 mg 11/21/20 09:00 11/26/20 10:02 Famotidine 20 Mg Tablet PO 20 mg Q12HR MELONY Administration Gabapentin 300 mg 11/21/20 09:00 11/26/20 10:02 Gabapentin 300 Mg Capsule PO 300 mg QID MELONY Administration Glucagon 1 mg 11/21/20 13:28 Glucagon For Inj 1 Mg Vial IM PRN PRN Hypogly
[2020-11-26] MEDS: DOBUTamine 250 MG/D5W 250 ML 250 MG/250 ML BAG 31.38 MG IV CONT ×2 (13:54→21:37)
[2020-11-26 17:00] LABS: Glucose Point of Care 156 (65-105)
[2020-11-26] MEDS: MAGNESIUM OXIDE 400 MG TABLET 800 MG PO (18:10)
[2020-11-26] MEDS: DICLOXACILLIN SODIUM 250 MG CAPSULE 500 MG PO (20:21)
[2020-11-26 21:09] LABS: Glucose Point of Care 248 (65-105)
[2020-11-26] MEDS: PRAMIPEXOLE 0.25 MG TABLET 0.75 MG PO (21:30)
[2020-11-27] VITALS (9 sets, daily range): BP systolic 94–136; BP diastolic 46–68; PULSE 63–87; RESP 17–22; TEMP 36.3–36.7; O2SAT 83–94
[2020-11-27] MEDS: DICLOXACILLIN SODIUM 250 MG CAPSULE 500 MG PO ×3 (00:29→12:49)
[2020-11-27] MEDS: HYDROcodone/acetaminophen (*CRX) 5-325 MG TABLET 1 TAB PO ×3 (00:32→22:11)
[2020-11-27] MEDS: DOBUTamine 250 MG/D5W 250 ML 250 MG/250 ML BAG 31.38 MG IV CONT (05:35)
[2020-11-27 05:58] LABS: Anion Gap 0 mmol/L (8-16); Blood Urea Nitrogen 40 mg/dL (7-17); Calcium 8.2 mg/dL (8.4-10.2); Carbon Dioxide 32 mmol/L (22-30); Chloride 106 mmol/L (98-107); Estimated CRCL calculation 49 ml/min; Estimated Glomerular Filt Rate 45; Glucose 125 mg/dL (65-105); Phosphorus 3.9 mg/dL (2.5-4.5); Sodium 138 mmol/L (137-145)
[2020-11-27 05:59] LABS: Magnesium 1.9 mg/dL (1.6-2.3)
[2020-11-27] MEDS: HEPARIN SODIUM 5,000 UNITS/ML VIAL 5000 UNITS SUB-Q ×3 (06:00→21:46)
[2020-11-27] MEDS: GABAPENTIN 300 MG CAPSULE PO ×4 (08:02→20:44)
[2020-11-27] MEDS: ATORVASTATIN 40 MG TABLET PO (08:02)
[2020-11-27] MEDS: FAMOTIDINE 20 MG TABLET PO ×2 (08:02→20:44)
[2020-11-27] MEDS: ASPIRIN 325 MG TABLET PO (08:02)
[2020-11-27] MEDS: SILVER SULFADIAZINE 1% CR 50 GM JAR (*BKC) 1 APPLIC TOPICAL (08:03)
[2020-11-27] MEDS: TOLNAFTATE 1% POWDER 45 GM BTL 1 APPLIC TOPICAL ×2 (08:03→20:45)
[2020-11-27] MEDS: ALBUTEROL SULFATE (*SP) AEROSOL 1 PUFF 2 PUFF INHALATION ×4 (08:03→20:06)
[2020-11-27] MEDS: FLUTICASONE/SALMETEROL 115-21 MCG INHALER 1 PUFF 2 PUFF INHALATION ×2 (08:04→20:06)
--- NOTE | 2020-11-27 08:19 | PM.IMPN ---
Progress Note: A&P Assessment and Plan (1) Acute on chronic systolic (congestive) heart failure: Code(s): I50.23 - Acute on chronic systolic (congestive) heart failure Status: Acute Assessment and Plan: The patient reported increased swelling in her legs and stomach for 1 week, likely due to poor compliance with low-sodium diet. She denied missing any doses of Lasix. She reported increased dyspnea as well. CXR showed pulmonary edema. Last echo August 2020 showed EF 30-35%. BNP elevated at 16,000. Cardiology has been consulted and input is appreciated Furosemide is held in conjugation with cardiology given increased creatinine. Monitor renal function closely. Hold losartan given soft pressures and HANNA Beta mira was initiated per cardiology but she did not tolerate this well with subsequent bradycardia and soft pressures. Beta mira was discontinued. Heart healthy diet Monitor volume status closely with strict intake and output and daily weights Continue education on CHF management (2) HANNA (acute kidney injury): Code(s): N17.9 - Acute kidney failure, unspecified Status: Acute Assessment and Plan: Cr increased to 2.1 and BUN 47 today (11/25). This appears pre-renal. Baseline appears to be 1-1.1. This is likely secondary to IV diuresis and hypotension with underlying HFrEF, diastolic dysfunction. Furosemide is held in conjugation with cardiology. Renal US was performed and unremarkable. Urine osmolality pending. FENa is 0.2% consistent with pre-renal disease. Continue to monitor with repeat BMP Hold losartan Hold lasix Will plan to consult nephrology given rising creatinine for further recommendations. Avoid nephrotoxins and renally dose medications (3) SIRS (systemic inflammatory response syndrome): Code(s): R65.10 - Systemic inflammatory response syndrome (SIRS) of non-infectious origin without acute organ dysfunction Status: Acute Assessment and Plan: Patient met SIRS criteria on admission, evident by tachycardia, tachypnea, and leukocytosis. Suspect tachypnea is related to dyspnea from CHF. There is no obvious source of infectious etiology at this time. CXR not indicative of respiratory infection. She denies urinary symptoms. She does have a healing wound on the dorsum of her right foot with no new signs of infection related to this. She is afebrile. Urinalysis is not suspicious for UTI. COVID-19 test is negative. Monitor CBC daily No indication for antibiotic therapy at this time. Monitor clinically. (4) COPD (chronic obstructive pulmonary disease): Code(s): J44.9 - Chronic obstructive pulmonary disease, unspecified Status: Acute Assessment and Plan: Does not appear to be in acute exacerbation. Maintaining adequate O2 saturations. Continue Advair and albuterol. (5) Diabetes mellitus: Code(s): E11.9 - Type 2 diabetes mellitus without complications Status: Acute Assessment and Plan: Hemoglobin A1c was 8.3%. Blood sugars are acceptable with most recent blood sugar 162. She is on weekly trulicity injections which are non-formulary. Continue ACHS glucose monitoring, sliding scale insulin, and hypoglycemic protocol Continue 5 units lantus which was added 11/23 given elevated blood sugars (6) HTN (hypertension): Code(s): I10 - Essential (primary) hypertension Status: Acute Assessment and Plan: BP was elevated above target initially, likely secondary to excess fluid from CHF exacerbation. Blood pressures were subsequently on the soft side. This is likely secondary to the addition of beta mira and other antihypertensives in addition to diuresis. Blood pressures have improved. Discussed with cardiology and plan to hold hydralazine, losartan, and stop beta mira Monitor blood pressure trends closely Appreciate cardiology input (7) Elevated troponin: Co
--- NOTE | 2020-11-27 08:40 | ECG_ITS ---
Measurements Intervals [place] Rate: 83 P: 56 DE: 137 QRS: 49 QRSD: 116 T: 94 QT: 371 QTc: 437 Interpretive Statements SINUS RHYTHM VENTRICULAR BIGEMINY INCOMPLETE LEFT BUNDLE BRANCH BLOCK MINIMAL Q WAVES- INFERIOR LEADS BORDERLINE T WAVE ABNORMALITY- INF/HIGH LAT LEADS ABNORMAL ECG Electronically Signed On 11-27-2020 12:27:22 ATHLETIC COORDINATOR by Walter Maki D.O.
[2020-11-27] MEDS: INSULIN GLARGINE (*BKC) 100 UNITS/ML SUB-Q (08:45)
[2020-11-27 08:47] LABS: Basophils Percent Auto 0.3 % (0.2-1.2); Eosinophils Absolute Auto 0.2 K/mm3 (0-0.3); Eosinophils Percent Auto 3.1 % (0-4.4); Hematocrit 36.9 % (37.0-47.0); Hemoglobin 10.9 g/dL (12.0-15.0); Immature Granulocyte Absolute 0.02 K/mm3 (0.00-0.031); Immature Granulocyte Percent A 0.3 % (0-0.5); Lymphocytes Absolute Auto 1.25 K/mm3 (0.9-3.2); Lymphocytes Percent Auto 17.3 % (18.3-44.2); Mean Corpuscular HGB Conc 29.5 g/dl (32-36); Mean Corpuscular Hemoglobin 27.8 pg (26-34); Mean Corpuscular Volume 94.1 fl (80-100); Mean Platelet Volume 12.8 fl (7.4-10.4); Monocytes Absolute Auto 0.7 K/mm3 (0.1-0.6); Monocytes Percent Auto 10.1 % (2.6-8.5); Neutrophils Percent Auto 68.9 % (45.5-73.1); Platelet Count Result 283 k/mm3 (150-375); Red Blood Count 3.92 M/mm3 (4.2-5.4); Red Cell Distribution Width 15.9 % (11.5-14.5); White Blood Count 7.2 K/mm3 (4.5-10.0)
[2020-11-27 09:05] LABS: Platelet Estimate Adequate (Adequate)
[2020-11-27 09:06] LABS: Hypochromasia 1+ (NORMAL); Stomatocytes 1+ (NORMAL); Target Cells 1+ (NORMAL)
--- NOTE | 2020-11-27 09:07 | PM.IMPN ---
Progress Note: A&P Assessment and Plan (1) Acute respiratory failure with hypoxia: Code(s): J96.01 - Acute respiratory failure with hypoxia Status: Acute Assessment and Plan: Likely secondary to mild pulmonary edema in the setting of CHF with combined systolic and diastolic dysfunction. Lasix was held 11/24-11/27 and she appears fluid positive. CXR demonstrates mild pulmonary edema. Give 40mg IV lasix Continue supplemental oxygen as needed to maintain oxygen saturation >90% (2) Acute on chronic systolic (congestive) heart failure: Code(s): I50.23 - Acute on chronic systolic (congestive) heart failure Status: Acute Assessment and Plan: The patient reported increased swelling in her legs and stomach for 1 week, likely due to poor compliance with low-sodium diet. She denied missing any doses of Lasix. She reported increased dyspnea as well. CXR showed pulmonary edema on admission. Last echo August 2020 showed EF 30-35%. BNP elevated at 16,000. Home PO Lasix was held since 11/24 give HANNA and concern for overdiuresis. She now appears fluid positive with hypoxia, presumed secondary to mild pulmonary edema, and increased lower extremity swelling. Cardiology has been consulted and input is appreciated Hold losartan given soft pressures and HANNA Beta mira was initiated per cardiology but she did not tolerate this well with subsequent bradycardia and soft pressures. Beta mira was discontinued. Heart healthy diet Monitor volume status closely with strict intake and output and daily weights Continue education on CHF management Dobutamine was initiated 11/26 per cardiology Give IV lasix 40mg IV now. Will defer further diuresis to cardiology. (3) Non-sustained ventricular tachycardia: Code(s): I47.2 - Ventricular tachycardia Status: Acute Assessment and Plan: The patient has had a several 8-9 peat runs of non-sustained v-tach. Cardiology is following. Potassium and magnesium were within normal limits. She was asymptomatic. Echocardiogram from 08/26/20 demonstrated EF 30-35%. Continue cardiology recommendations. Per cardiology, she is not candidate for ICD. Await additional cardiac recommendations. Continue to monitor electrolytes closely and replace as necessary Continue telemetry Further management will be deferred to cardiology (4) HANNA (acute kidney injury): Code(s): N17.9 - Acute kidney failure, unspecified Status: Acute Assessment and Plan: Cr increased to 2.1 and BUN 47 11/25 but continues to improve. Baseline appears to be 1-1.1. This is likely secondary to renal hypoperfusion given IV diuresis and hypotension with underlying HFrEF, diastolic dysfunction. Furosemide was held since 11/24. Renal US was performed and unremarkable. Urine osmolality pending. FENa is 0.2% consistent with pre-renal disease. Nephrology is following and input is greatly appreciated. Continue to monitor with repeat BMP given need for lasix today as patient is felt to be fluid positive Await cardiology/nephrology input and resume losartan per their recommendations Avoid nephrotoxins and renally dose medications (5) Cellulitis of left breast: Code(s): N61.0 - Mastitis without abscess Status: Acute Assessment and Plan: With left breast erythema, induration, swelling, and pain. US demonstrates diffuse left breast edema consistent with cellulitis without abscess. She is afebrile and WBC is normal. Likely secondary to intertrigo. Dicloxacillin was initiated 11/26/20. ORACLE TECHNICAL DEVELOPER was consulted and input is appreciated. (6) Inflammatory disorder of breast: Code(s): N61.0 - Mastitis without abscess Status: Acute Assessment and Plan: She notes significant swelling of the left breast. This is very pronounced when she is sitting up. Left breast US was ordered and demonstrates diffuse left breast edema without evidence for absc
[2020-11-27] MEDS: FUROSEMIDE INJ 40 MG/4 ML VIAL IV PUSH (11:32)
--- NOTE | 2020-11-27 11:39 | PM.PNCARD ---
Progress Note: A&P Assessment and Plan (1) CHF (congestive heart failure): Code(s): I50.9 - Heart failure, unspecified Status: Acute Assessment and Plan: Patient with known ischemic cardiomyopathy EF 30-35%, Biventricular failure who presents now with acute on chronic systolic heart failure in the setting of dietary non compliance Better compensated since Cr increased ARB was on hold, now Cr improved (1.2). If OK with nephrology low dose of ARB could be restarted. pt had episode of bradycardia which resoled after metoprolol was dc diuretics were on hold, restarted today. Pt is on dobutamine drip that pt tolerated well as during the previous admission. Will need to monitor electrolytes closely. 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 Pt has short runs of nsVT during this admission, will start low dose amiodarone PO. Not candidate for ICD due to high infection risk (2) Inflammatory disorder of breast: Code(s): N61.0 - Mastitis without abscess Status: Acute (3) HANNA (acute kidney injury): Code(s): N17.9 - Acute kidney failure, unspecified Status: Acute Assessment and Plan: Cr improving (1.2) nephrology fu (4) Wound of foot: Code(s): S91.309A - Unspecified open wound, unspecified foot, initial encounter Status: Acute (5) Tobacco abuse: Code(s): Z72.0 - Tobacco use Status: Acute (6) COPD (chronic obstructive pulmonary disease): Code(s): J44.9 - Chronic obstructive pulmonary disease, unspecified Status: Acute (7) HTN (hypertension): Code(s): I10 - Essential (primary) hypertension Status: Acute Subjective Date/time seen: 11/27/20 Pt feels fine today. No CP or LE edema. Because of SOB pt was started on oxygen NC. She had two short runs of nsVT during which was asymptomatic. Pt noticed that her L breas is bigger than R. NIGHT COORDINATOR evaluated her today. No more hallucinations. pt was seen and examined, chart reviewed, case d/w pt's nurse. Review of Systems Review of Systems: All systems reviewed & are unremarkable except as noted in HPI and below Constitutional: Constitutional: Reports as per HPI Eyes: Eyes: Reports as per HPI ENT: Reports system reviewed and no additional complaints, except as documented and Reports as per HPI Cardiovascular: Cardiovascular: Reports as per HPI Respiratory: Respiratory: Reports as per HPI Gastrointestinal: Gastrointestinal: Reports as per HPI Genitourinary: Genitourinary: Reports as per HPI Musculoskeletal: Musculoskeletal: Reports as per HPI Exam Const: General: no acute distress Nutritional Appearance: well nourished Orientation/consciousness: patient oriented x3 HENMT: Head: normal to inspection and atraumatic Ears: hearing grossly normal bilaterally Face and sinus: normal facial exam Eyes: General: appearance normal, both eyes and all related structures Pupils: Equal, round and reactive pupils present EOM: EOMs intact bilaterally Neck: Neck: supple Chest: Chest palpation & inspection: normal inspection of the chest Resp: Effort & Inspection: normal respiratory effort and no respiratory distress Auscultation: clear to auscultation bilaterally Cardio: Jugular venous distension: no JVD Rate: regular rate Heart sounds: S1 normal heart sound present, S2 normal heart sound present and no murmurs Peripheral pulses: Peripheral pulses 2+ throughout GI: GI Palp: No abdominal tenderness Auscultation: normal bowel sounds Skin: General skin exam: normal color Neuro: General: patient oriented x3 Cranial nerves: Yes Equal, round and reactive pupils present Extrem: General: normal to inspection and no clubbing, cyanosis or edema Objective Data Vital Signs Vital Signs: Vital Signs - 24 hr 11/26/20 12:00 11/26/20 13:54 11/26/20 13:57 Temperature 36.4 C Pulse Rate 58 L 61 61 Respiratory Rate 22 H Blood Pressure 116/69 116/69 Pulse Oximet
[2020-11-27 11:45] LABS: Glucose Point of Care 193 (65-105)
--- NOTE | 2020-11-27 11:50 | WPDCN ---
Assessment and Plan Assessment and plan (1) Cellulitis of left breast: Code(s): N61.0 - Mastitis without abscess Status: Acute Assessment and Plan: pt with extensive left breast cellulitis s/p breast US that showed cellulitis with no evidence of abscess recommend antibiotic treatment, would recommend switching to Keflex instead of Dicloxacillin and continuing for a total of 10 days although last mammo was 8 mo. ago, would highly recommend a diagnostic mammogram when acute episode has resolved may benefit from supportive bra or binder to help support weight of enlarged breast (2) Candidiasis of skin: Code(s): B37.2 - Candidiasis of skin and nail Status: Acute Assessment and Plan: extensive rash noted bilaterally beneath breasts recommend use of Nystatin cream instead of antifungal powder for better coverage also recommend good skin hygiene, use mild soap and water, keep area clean and dry may need to use hair dresser to help keep area beneath breasts dry or keep a soft cloth underneath will continue to monitor while patient is in house Thank you for this consult and for allowing us to participate in the care of this patient. HPI Data of Consult Date/Time: 11/27/20 11:50 Requesting Physician: Loreta Pritchett PA-C Primary Care Provider: Kirsten Stokes, Consult Narrative Narrative: Brenda Cruz is a 65 year old female who is currently admitted to the hospital for management of CHF and respiratory failure. An ROPE MACHINE SETTER consult was requested for evaluation of patient's left breast. The patient reports development of significant unilateral swelling of the left breast approx. 1 week ago. States that this has never happened before. She does report a history of hidradenitis along the outer aspect of left breast, however, states that it is well managed by dermatology and has not caused any recent issues. She reports occasional mild itching where the hidradenitis is present, however, not usually bothersome. Patient denies any recent trauma to the area. She states that breast is painful, mostly near nipple. Also reports nipple retraction/inversion with progressive edema as well as retractions along outer aspect of breast. Denies any nipple discharge. The entire breast is erythematous and minimally warm to the touch. Denies any fever or chills. Also denies any palpable nodules or masses. Patient states that she has also developed a rash beneath breasts bilaterally. Also reports a foul odor in this area, however, has had difficulty keeping area clean and dry and is not currently wearing a bra. Patient denies any problems with the right breast. Patient does not have a university administrative assistant and states that her PCP, Dr. Kirsten Stokes, usually manages her university administrative assistant issues. Last mammogram was approx. 8 mo. ago and was negative, per patient. N61.0 - Mastitis without abscess Status: Acute Assessment and Plan: With left breast erythema, induration, swelling, and pain. US demonstrates diffuse left breast edema consistent with cellulitis without abscess. She is afebrile and WBC is normal. Likely secondary to intertrigo. Dicloxacillin was initiated 11/26/20. ROPE MACHINE SETTER was consulted and input is appreciated. (6) Inflammatory disorder of breast: Code(s): N61.0 - Mastitis without abscess Status: Acute Assessment and Plan: She notes significant swelling of the left breast. This is very pronounced when she is sitting up. Left breast US was ordered and demonstrates diffuse left breast edema without evidence for abscess and consistent with cellulitis. She thinks she had a mammogram 1 year ago. Plan to treat for cellulitis with plan as above. I have asked ROPE MACHINE SETTER to see her given appearance concerning for possible inflammatory breast cancer. Will see if this resolves with antiobiotic therapy but outpatient mammogram is recommended. Review of Systems Constitutional: Constitutional: Reports as per HPI and Reports n
--- NOTE | 2020-11-27 12:35 | PM.PNNEP ---
Progress Note: A&P Assessment and Plan (1) HANNA (acute kidney injury): Code(s): N17.9 - Acute kidney failure, unspecified Status: Acute Assessment and Plan: suspect due to overcontrol for blood pressure had systolic readings in 150 - 160s and then abruptly dropped to 90s systolic - this likely led to renal hypoperfusion worsened in the setting her chronic heart failure urine electrolyte c/w prerenal azotemia but this is more a reflection of her low EF/cardiomyopathy renal ultrasound normal creatinine better by this AM labs follow trend of creatinine (2) Acute on chronic systolic (congestive) heart failure: Code(s): I50.23 - Acute on chronic systolic (congestive) heart failure Status: Acute Assessment and Plan: Cardiology following clinically better holding diuretics and BP medications given #1 started on dobutamine gtt agree with IV diuretics given hypoxia and CXR findings - will order another dose in AM would hold ARB for another day since resuming IV diuretics (3) HTN (hypertension): Code(s): I10 - Essential (primary) hypertension Status: Acute Assessment and Plan: an issue on admission but now BP quite soft backing off on BP medications (see #1) (4) Wound of foot: Code(s): S91.309A - Unspecified open wound, unspecified foot, initial encounter Status: Acute Assessment and Plan: local wound care Will continue to follow. Subjective Date/time seen: 11/27/20 12:35 Some discomfort with left breast given cellulitis -- seen by Professor Of Physical Education with recommendations noted; issues with hypoxia and shortness of breath this AM with subsequent IV lasix given; no other acute issues or problems noted at the time of my visit. Exam Narrative: Exam Narrative: General: WD/WN female in NAD Heart: normal S1 and S2; no rub Lungs: decreased at bases with a few bibasilar crackles Abdomen: soft, nontender, nondistended, positive bowel sounds Extremities: no cyanosis or clubbing; trace edema Skin: warm and intact Objective Data Vital Signs Vital Signs: Vital Signs Temp Pulse Resp BP Pulse Ox 11/27/20 12:00 36.3 C L 85 20 114/67 93 11/27/20 08:00 36.6 C 87 22 H 94/46 L 83 L 11/27/20 05:35 65 112/51 L 11/27/20 04:00 36.7 C 71 19 112/51 L 94 11/27/20 00:52 82 11/27/20 00:00 36.3 C L 71 18 110/51 L 92 11/26/20 21:37 84 150/71 H 11/26/20 20:00 36.1 C L 90 20 150/71 H 93 11/26/20 16:00 36.6 C 89 18 126/74 95 Intake/Output Intake/Output: Intake & Output 11/24/20 11/25/20 11/26/20 11/27/20 23:59 23:59 23:59 23:59 Intake Total 1680 1700 2450 2280 Output Total 500 764 650 6406 Balance 1180 1350 2050 880 Meds/Results Medications: Active Medications Generic Name Dose Route Start Last Admin Trade Name Freq PRN Reason Stop Dose Admin Acetaminophen 650 mg 11/22/20 17:43 11/26/20 02:20 Acetaminophen 325 Mg Tablet PO 650 mg Q4H PRN Administration Mild Pain (1-3) or Fever Hydrocodone Bitart/Acetaminophen 1 tab 11/22/20 17:43 11/27/20 12:49 Hydrocodone/Acetaminophen (*Crx) 5-325 Mg Tablet PO 1 tab Q4H PRN Administration Pain Rated 4-6 Albuterol 2 puff 11/21/20 12:00 11/27/20 11:32 Albuterol Sulfate (*Sp) Aerosol 1 Puff INHALATION 2 puff QIDRT MELONY Administration Aspirin 325 mg 11/21/20 09:00 11/27/20 08:02 Aspirin 325 Mg Tablet PO 325 mg DAILY MELONY Administration Atorvastatin Calcium 40 mg 11/21/20 09:00 11/27/20 08:02 Atorvastatin 40 Mg Tablet PO 40 mg DAILY MELONY Administration Calcium Carbonate 250 mg 11/28/20 12:00 Calcium Carbonate (Oscal) 250 Mg Tablet PO DAILY@0800 [facility] Cephalexin HCl 500 mg 11/27/20 18:00 Cephalexin 500 Mg Capsule PO Q6HR [facility] Dextrose 12.5 gm 11/21/20 13:28 Dextrose 50% 25 Gm/50 Ml Syringe IV PUSH PRN PRN Hypoglycemia Protocol Docusate S
[2020-11-27] MEDS: MAGNESIUM OXIDE 400 MG TABLET PO (12:54)
[2020-11-27 16:46] LABS: Glucose Point of Care 155 (65-105)
[2020-11-27] MEDS: CEPHALEXIN 500 MG CAPSULE PO (17:04)
[2020-11-27] MEDS: MICONAZOLE NITRATE 2% CREAM 30 GM TUBE 1 APPLIC TOPICAL (17:31)
--- NOTE | 2020-11-27 20:00 | PC.NURSE ---
Pt. refusing to apply ice to L breast per order. Pt. educated on benefits of ice application. Will reassess throughout shift.
[2020-11-27] MEDS: PRAMIPEXOLE 0.25 MG TABLET 0.75 MG PO (20:44)
[2020-11-27] MEDS: TIZANIDINE HCL 4 MG TABLET PO (21:46)
[2020-11-27 21:50] LABS: Glucose Point of Care 199 (65-105)
[2020-11-28] VITALS (13 sets, daily range): BP systolic 100–138; BP diastolic 50–73; PULSE 56–72; RESP 18–24; TEMP 36.2–36.8; O2SAT 88–97
[2020-11-28] MEDS: CEPHALEXIN 500 MG CAPSULE PO ×3 (00:28→11:34)
[2020-11-28 05:35] LABS: Basophils Percent Auto 0.3 % (0.2-1.2); Eosinophils Absolute Auto 0.3 K/mm3 (0-0.3); Eosinophils Percent Auto 3.4 % (0-4.4); Hematocrit 37.9 % (37.0-47.0); Hemoglobin 11.4 g/dL (12.0-15.0); Immature Granulocyte Absolute 0.03 K/mm3 (0.00-0.031); Immature Granulocyte Percent A 0.3 % (0-0.5); Lymphocytes Absolute Auto 1.86 K/mm3 (0.9-3.2); Lymphocytes Percent Auto 20.5 % (18.3-44.2); Mean Corpuscular HGB Conc 30.1 g/dl (32-36); Mean Corpuscular Hemoglobin 28.2 pg (26-34); Mean Corpuscular Volume 93.8 fl (80-100); Mean Platelet Volume 11.6 fl (7.4-10.4); Monocytes Percent Auto 10.8 % (2.6-8.5); Neutrophils Absolute Auto 5.9 K/mm3 (1.3-6.7); Neutrophils Percent Auto 64.7 % (45.5-73.1); Platelet Count Result 329 k/mm3 (150-375); Red Blood Count 4.04 M/mm3 (4.2-5.4); Red Cell Distribution Width 15.8 % (11.5-14.5); White Blood Count 9.1 K/mm3 (4.5-10.0)
[2020-11-28 05:57] LABS: Albumin Level 3.4 g/dL (3.5-5.1); Anion Gap 1 mmol/L (8-16); Blood Urea Nitrogen 32 mg/dL (7-17); Calcium 8.7 mg/dL (8.4-10.2); Carbon Dioxide 35 mmol/L (22-30); Chloride 104 mmol/L (98-107); Creatine Kinase 70 U/L (30-135); Estimated CRCL calculation 53 ml/min; Estimated Glomerular Filt Rate 50; Glucose 127 mg/dL (65-105); Phosphorus 3.6 mg/dL (2.5-4.5); Potassium 5.7 mmol/L (3.4-5.0); Sodium 140 mmol/L (137-145)
[2020-11-28] MEDS: HEPARIN SODIUM 5,000 UNITS/ML VIAL 5000 UNITS SUB-Q ×3 (06:03→21:45)
[2020-11-28 06:23] LABS: Osmolality, Urine 426 mOsm/kg (50-1200)
[2020-11-28] MEDS: GABAPENTIN 300 MG CAPSULE PO ×4 (07:40→20:34)
[2020-11-28] MEDS: FAMOTIDINE 20 MG TABLET PO ×2 (07:41→20:34)
[2020-11-28] MEDS: AMIODARONE HCL 200 MG TABLET PO (07:41)
[2020-11-28] MEDS: ASPIRIN 325 MG TABLET PO (07:41)
[2020-11-28] MEDS: MAGNESIUM OXIDE 400 MG TABLET PO (07:41)
[2020-11-28] MEDS: FUROSEMIDE INJ 40 MG/4 ML VIAL 60 MG IV PUSH (07:42)
[2020-11-28] MEDS: INSULIN GLARGINE (*BKC) 100 UNITS/ML SUB-Q (07:42)
[2020-11-28] MEDS: ATORVASTATIN 40 MG TABLET PO (07:45)
[2020-11-28] MEDS: ALBUTEROL SULFATE (*SP) AEROSOL 1 PUFF 2 PUFF INHALATION ×4 (07:46→22:12)
[2020-11-28] MEDS: FLUTICASONE/SALMETEROL 115-21 MCG INHALER 1 PUFF 2 PUFF INHALATION ×2 (07:47→22:11)
[2020-11-28] MEDS: SILVER SULFADIAZINE 1% CR 50 GM JAR (*BKC) 1 APPLIC TOPICAL (07:48)
[2020-11-28] MEDS: TOLNAFTATE 1% POWDER 45 GM BTL 1 APPLIC TOPICAL ×2 (07:48→20:36)
[2020-11-28] MEDS: MICONAZOLE NITRATE 2% CREAM 30 GM TUBE 1 APPLIC TOPICAL ×2 (07:48→20:36)
[2020-11-28] MEDS: HYDROcodone/acetaminophen (*CRX) 5-325 MG TABLET 1 TAB PO ×3 (09:00→20:35)
--- NOTE | 2020-11-28 09:19 | PM.PNCARD ---
Progress Note: A&P Assessment and Plan (1) CHF (congestive heart failure): Code(s): I50.9 - Heart failure, unspecified Status: Acute Assessment and Plan: Patient with known ischemic cardiomyopathy EF 30-35%, Biventricular failure who presents now with acute on chronic systolic heart failure in the setting of dietary non compliance Better compensated Required Dobutamine drip in the setting of hypotension and HANNA shortly after started on low dose BB. BB also caused profound bradycardia. Would not start any BB Creatinine better. Now back on ARB. K is elevated this am. Need to monitor closely. May need to hold ARB. Nephrology on board She had short run of NSVT mostly while on Dobutamine. Will d/c Amiodarone for now and monitor. 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 Not candidate for ICD due to high infection risk She need follow up within a week after discharge with her primary houseperson at [place] (2) Inflammatory disorder of breast: Code(s): N61.0 - Mastitis without abscess Status: Acute (3) HANNA (acute kidney injury): Code(s): N17.9 - Acute kidney failure, unspecified Status: Acute Assessment and Plan: Cr improving (1.1) nephrology fu (4) Wound of foot: Code(s): S91.309A - Unspecified open wound, unspecified foot, initial encounter Status: Acute (5) Tobacco abuse: Code(s): Z72.0 - Tobacco use Status: Acute (6) COPD (chronic obstructive pulmonary disease): Code(s): J44.9 - Chronic obstructive pulmonary disease, unspecified Status: Acute (7) HTN (hypertension): Code(s): I10 - Essential (primary) hypertension Status: Acute Subjective Date/time seen: 11/28/20 09:19 Breathing better overall. Her main concern is the breast swelling currently Review of Systems Review of Systems: All systems reviewed & are unremarkable except as noted in HPI and below Exam Narrative: Exam Narrative: Const: General: no acute distress HENMT: Head: normal to inspection and atraumatic Ears: hearing grossly normal bilaterally Face and sinus: normal facial exam Eyes: General: appearance normal, both eyes and all related structures Pupils: Equal, round and reactive pupils present EOM: EOMs intact bilaterally Neck: Neck: supple Resp: Increase resp effort only by talking. Decrease breath sounds on auscultation Cardio: Rate: regular rate Heart sounds: S1 normal heart sound present, S2 normal heart sound present and no murmurs . Lower ext edema with skin discoloration extends to the toes (appear cyanotic on the right) GI: Auscultation: normal bowel sounds Skin: General skin exam: normal color Neuro: General: patient oriented x3 Cranial nerves: Yes Equal, round and reactive pupils present and Yes Normal hearing present Extrem: General: normal to inspection and no clubbing, cyanosis or edema Const: General: no acute distress and other (sitting in chair) Nutritional Appearance: well nourished Orientation/consciousness: patient oriented x3 HENMT: Head: normal to inspection and atraumatic Ears: hearing grossly normal bilaterally Face and sinus: normal facial exam Eyes: General: appearance normal, both eyes and all related structures Pupils: Equal, round and reactive pupils present EOM: EOMs intact bilaterally Neck: Neck: supple Chest: Chest palpation & inspection: normal inspection of the chest Resp: Effort & Inspection: normal respiratory effort and no respiratory distress Auscultation: clear to auscultation bilaterally Cardio: Jugular venous distension: no JVD Rate: regular rate Heart sounds: S1 normal heart sound present, S2 normal heart sound present and no murmurs Peripheral pulses: Peripheral pulses 2+ throughout GI: Auscultation: normal bowel sounds Skin: General skin exam: normal color Neuro: General: patient oriented x3 Cranial nerves: Yes Equal, round and reactive pupils present Ex
[2020-11-28 11:33] LABS: Glucose Point of Care 220 (65-105)
[2020-11-28] MEDS: CALCIUM CARBONATE (OSCAL) 250 MG TABLET PO (11:34)
[2020-11-28] MEDS: INSULIN ASPART (*BKC) 100 UNITS/ML SUB-Q (11:35)
[2020-11-28 11:46] LABS: Potassium 5.2 mmol/L (3.4-5.0)
--- NOTE | 2020-11-28 12:13 | WPDCN ---
Assessment and Plan Assessment and plan (1) Cellulitis of left breast: Code(s): N61.0 - Mastitis without abscess Status: Acute Assessment and Plan: continue antibiotics. Ice packs on affected area continue Nystatin for rash underneath breast. Per nurse are planning to consult Surgeon. HPI Data of Consult Date/Time: 11/28/20 12:13 Requesting Physician: Loreta Pritchett PA-C Primary Care Provider: Kirsten Stokes, Consult Narrative Narrative: Brenda Cruz is a 65 year old female who is admitted with multiple medical problem and as well as left breast mastitis. Per pt still c/o pain in left breast.Denies any nipple discharge. Denies Fever/chills Review of Systems Constitutional: Constitutional: Reports as per HPI, Denies chills and Denies fever(s) ENT: Reports Normal hearing present Cardiovascular: Cardiovascular: Reports as per HPI Respiratory: Respiratory: Reports as per HPI Gastrointestinal: Gastrointestinal: Reports as per HPI Genitourinary: Genitourinary: Reports as per HPI [facility] Past Medical History Medical History (Updated 11/27/20 @ 13:04 by Danyelle Ritter MD) Acute CHF (congestive heart failure) Anxiety Chronic back pain COPD (chronic obstructive pulmonary disease) Coronary artery disease Diabetes mellitus, new onset Hidradenitis suppurativa History of myocardial infarction Hypertension Restless leg syndrome Tobacco abuse Surgical History Surgical History (Updated 11/21/20 @ 11:33 by Susan Pike PA-C) No history of previous surgery Family History Family History (Updated 11/21/20 @ 11:34 by Susan Pike PA-C) Mother Family history of diabetes mellitus in first degree relative Father Unknown family medical history Social History Social History (Updated 11/21/20 @ 11:36 by Susan Pike PA-C) Social History: Ms. Cruz lives at home alone. She reports she is independent in her ADLs. She has 3 adult children. Her PCP is Dr. Stokes. She designates her daughterCelia as her surrogate decision maker and would like to be a full code. She does not work. Smoking packs per day: 0.5 Smoking cigarettes per day: 10.0 Years smoked: 30 Smoking pack-years: 15.00 Smoking status: Current every day smoker Tobacco type: cigarettes Alcohol intake: never Substance use: current Substance use type: marijuana Other substance usage details: Smokes marijuana 1x/week Living arrangements: alone Gender identity (if verbalized by the patient): Female Spiritual care concerns: No Meds Home Medications and Allergies Home Medications Medication Instructions Recorded Confirmed Type Advair HFA 2 puff INHALATION Q12H 08/25/20 11/21/20 History Trulicity 1.5 mg SUBCUT WEEKLY 08/25/20 11/21/20 History albuterol sulfate [ProAir HFA] 2 puff INHALATION QID PRN 08/25/20 11/21/20 History alprazolam 1 mg PO BID 08/25/20 11/21/20 History aspirin 325 mg PO DAILY 08/25/20 11/21/20 History atorvastatin 40 mg PO DAILY 08/25/20 11/21/20 History azelastine 2 drp OPHTHALMIC (EYE) DAILY PRN 08/25/20 11/21/20 History betamethasone dipropionate 1 applic TOPICAL BID 08/25/20 11/21/20 History gabapentin 300 mg PO QID 08/25/20 11/21/20 History hydralazine 25 mg PO DAILY 08/25/20 11/21/20 History hydrocodone-acetaminophen 5 - 325 tablet PO Q12H PRN 08/25/20 11/21/20 History minocycline 100 mg PO BID 08/25/20 11/21/20 History oxybutynin chloride 10 mg PO DAILY 08/25/20 11/21/20 History pramipexole 0.75 mg PO HS 08/25/20 11/21/20 History silver sulfadiazine [SSD] 1 applic TOPICAL DAILY 08/25/20 11/21/20 History tizanidine 4 mg PO Q8H 08/25/20 11/21/20 History albuterol sulfate 2.5 mg INHALATION Q6HRT PRN #30 ea 09/03/20 11/21/20 Rx docusate sodium 100 mg PO Q12H PRN #30 cap 09/03/20 11/21/20 Rx furosemide 40 mg PO DAILY 30 Days #30 tablet 09/03/20 11/21/20 Rx losartan 25 mg PO QAM 30 Days #30 tablet 09/03/20 11/21/20 Rx potassium chloride 20 meq
--- NOTE | 2020-11-28 12:16 | PC.NURSE ---
patient educated on importance of applying ice to assist with decreasing swelling. Pt refuses to use ice packs.
--- NOTE | 2020-11-28 12:18 | PCDIET ---
Physician consult to try and improve patients nutritional status. See Nutritional Teaching Intervention. MD orders for diet order changes from heart healthy to DBCC/2 gm Na. Thank you for the consult.
--- NOTE | 2020-11-28 13:05 | PM.IMPN ---
Progress Note: A&P Assessment and Plan (1) Acute respiratory failure with hypoxia: Code(s): J96.01 - Acute respiratory failure with hypoxia Status: Acute Assessment and Plan: Likely secondary to mild pulmonary edema in the setting of CHF with combined systolic and diastolic dysfunction. Lasix was held 11/24-11/27 and she still appears fluid positive. CXR 11/27 demonstrated mild pulmonary edema. She is being diuresed. Continue diuresis as this is felt secondary to CHF Continue supplemental oxygen as needed to maintain oxygen saturation >90% (2) Acute on chronic systolic (congestive) heart failure: Code(s): I50.23 - Acute on chronic systolic (congestive) heart failure Status: Acute Assessment and Plan: The patient reported increased swelling in her legs and stomach for 1 week, likely due to poor compliance with low-sodium diet. She denied missing any doses of Lasix. She reported increased dyspnea as well. CXR showed pulmonary edema on admission. Last echo August 2020 showed EF 30-35%. BNP elevated at 16,000. Home PO Lasix was held since 11/24 give HANNA and concern for overdiuresis. She subsequently appears fluid positive with hypoxia, presumed secondary to mild pulmonary edema, and increased lower extremity swelling. Cardiology has been consulted and input is appreciated Hold losartan given soft pressures and HANNA Beta mira was initiated per cardiology but she did not tolerate this well with subsequent bradycardia and soft pressures. Beta mira was discontinued. Heart healthy diet Monitor volume status closely with strict intake and output and daily weights Continue education on CHF management Dobutamine was initiated 11/26 per cardiology Continue diresus, appreciate cardiology and nephrology input (3) Cellulitis of left breast: Code(s): N61.0 - Mastitis without abscess Status: Acute Assessment and Plan: With left breast erythema, induration, swelling, and pain. US demonstrates diffuse left breast edema consistent with cellulitis without abscess. She still has significant erythema, swelling, and pain despite PO antibiotics. She is felt at risk for MRSA given hospitalization and hx of several infections. She was seen by HEALTHCARE ADMINISTRATIVE ASSISTANT and input is greatly appreciated. Stop PO keflex and start IV vancomycin Continue to monitor clinically (4) Non-sustained ventricular tachycardia: Code(s): I47.2 - Ventricular tachycardia Status: Acute Assessment and Plan: The patient has had a several 8-9 peat runs of non-sustained v-tach. She had one episode early this AM with 7 beat run. Cardiology is following. Potassium and magnesium were within normal limits. She was asymptomatic. Echocardiogram from 08/26/20 demonstrated EF 30-35%. Continue cardiology recommendations. Per cardiology, she is not candidate for ICD. Await additional cardiac recommendations. Continue to monitor electrolytes closely and replace as necessary Continue telemetry Further management will be deferred to cardiology (5) Hyperkalemia: Code(s): E87.5 - Hyperkalemia Status: Acute Assessment and Plan: Potassium was 5.7 this AM. She states that she has been eating bananas and ate 3 yesterday. She also ate potatoes yesterday as well. Repeat potassium is 5.2. Avoid additional potassium rich foods which I discussed with the patient today Continue to monitor closely with repeat lab this afternoon and BMP tomorrow Low potassium diet (6) HANNA (acute kidney injury): Code(s): N17.9 - Acute kidney failure, unspecified Status: Acute Assessment and Plan: Cr increased to 2.1 and BUN 47 11/25 but continues to improve. Baseline appears to be 1-1.1. This is likely secondary to renal hypoperfusion given IV diuresis and hypotension with underlying HFrEF, diastolic dysfunction. Furosemide was held since 11/24. Renal US was performed and unremarkable
--- NOTE | 2020-11-28 15:37 | PM.PNNEP ---
Progress Note: A&P Assessment and Plan (1) HANNA (acute kidney injury): Code(s): N17.9 - Acute kidney failure, unspecified Status: Acute Assessment and Plan: suspect due to overcontrol for blood pressure had systolic readings in 150 - 160s and then abruptly dropped to 90s systolic - this likely led to renal hypoperfusion worsened in the setting her chronic heart failure urine electrolyte c/w prerenal azotemia but this is more a reflection of her low EF/cardiomyopathy renal ultrasound normal creatinine continues to improve. Today down to 1.1. (2) Acute on chronic systolic (congestive) heart failure: Code(s): I50.23 - Acute on chronic systolic (congestive) heart failure Status: Acute Assessment and Plan: Cardiology following clinically better holding diuretics and BP medications given #1 started on dobutamine gtt Will give another couple of doses of diuretics would hold ARB for down the road. (3) HTN (hypertension): Code(s): I10 - Essential (primary) hypertension Status: Acute Assessment and Plan: BP is doing well right now. (4) Wound of foot: Code(s): S91.309A - Unspecified open wound, unspecified foot, initial encounter Status: Acute Assessment and Plan: local wound care Will continue to follow. Subjective Date/time seen: 11/28/20 15:37 Interval history: Patient is feeling okay. Just trying to get a little nap. She denies shortness of breath or chest pain. She may lots of urine yesterday in is making more today. Exam Narrative: Exam Narrative: General: WD/WN female in NAD Heart: normal S1 and S2; no rub or gallop Lungs: decreased at bases with a few bibasilar crackles Abdomen: soft, nontender, nondistended, positive bowel sounds Extremities: no cyanosis or clubbing; trace edema Skin: No rash Objective Data Vital Signs Vital Signs: Vital Signs - 24 hr 11/27/20 16:00 11/27/20 20:00 11/28/20 00:00 Temperature 36.6 C 36.4 C L 36.2 C L Pulse Rate 63 77 59 L Respiratory Rate 17 20 18 Blood Pressure 136/68 134/67 100/50 L Pulse Oximetry 93 92 91 11/28/20 04:00 11/28/20 06:37 11/28/20 07:41 Temperature 36.3 C L Pulse Rate 61 64 72 Respiratory Rate 24 H Blood Pressure 109/62 Pulse Oximetry 97 11/28/20 07:58 11/28/20 08:00 11/28/20 12:00 Temperature 36.3 C L 36.6 C Pulse Rate 72 72 64 Respiratory Rate 21 H 21 H 18 Blood Pressure 132/68 125/63 Pulse Oximetry 88 L 88 L 96 11/28/20 12:30 11/28/20 15:25 Temperature 36.2 C L Pulse Rate 70 Respiratory Rate 18 Blood Pressure 124/63 Pulse Oximetry 92 96 Intake/Output Intake/Output: Intake & Output 11/25/20 11/26/20 11/27/20 11/28/20 23:59 23:59 23:59 23:59 Intake Total 1700 2450 2870 1200 Output Total 478 657 4109 1100 Balance 1350 0 -30 100 Meds/Results Medications: Active Medications Generic Name Dose Route Start Last Admin Trade Name Freq PRN Reason Stop Dose Admin Acetaminophen 650 mg 11/22/20 17:43 11/26/20 02:20 Acetaminophen 325 Mg Tablet PO 650 mg Q4H PRN Administration Mild Pain (1-3) or Fever Hydrocodone Bitart/Acetaminophen 1 tab 11/22/20 17:43 11/28/20 09:00 Hydrocodone/Acetaminophen (*Crx) 5-325 Mg Tablet PO 1 tab Q4H PRN Administration Pain Rated 4-6 Albuterol 2 puff 11/21/20 12:00 11/28/20 12:24 Albuterol Sulfate (*Sp) Aerosol 1 Puff INHALATION 2 puff QIDRT MELONY Administration Aspirin 325 mg 11/21/20 09:00 11/28/20 07:41 Aspirin 325 Mg Tablet PO 325 mg DAILY MELONY Administration Atorvastatin Calcium 40 mg 11/21/20 09:00 11/28/20 07:45 Atorvastatin 40 Mg Tablet PO 40 mg DAILY MELONY Administration Calcium Carbonate 250 mg 11/28/20 12:00 11/28/20 11:34 Calcium Carbonate (Oscal) 250 Mg Tablet PO 250 mg DAILY@0800 MELONY Administration Dextrose 12.5 gm 11/21/20 13:28 Dextrose 50% 25 Gm/50 Ml Syringe IV
[2020-11-28 16:19] LABS: Glucose Point of Care 128 (65-105)
[2020-11-28 16:39] LABS: Potassium 5.1 mmol/L (3.4-5.0)
[2020-11-28] MEDS: BUMETANIDE INJ 1 MG/4 ML VIAL IV PUSH (16:45)
--- NOTE | 2020-11-28 18:19 | PC.NURSE ---
All charting completed 11/28/2020 between the hours of [id number] completed under Chetna Ayala RN was actually completed by Hardik Grace RN.
--- NOTE | 2020-11-28 18:32 | PC.NURSE ---
patient refuses offer of applying ice to left breast to assist with swelling.
[2020-11-28] MEDS: PRAMIPEXOLE 0.25 MG TABLET 0.75 MG PO (20:34)
[2020-11-28 21:44] LABS: Glucose Point of Care 121 (65-105)
[2020-11-29] VITALS (11 sets, daily range): BP systolic 126–142; BP diastolic 60–106; PULSE 59–86; RESP 16–22; TEMP 36.1–37.5; O2SAT 94–96
[2020-11-29] MEDS: HYDROcodone/acetaminophen (*CRX) 5-325 MG TABLET 1 TAB PO ×4 (02:42→20:12)
[2020-11-29] MEDS: HEPARIN SODIUM 5,000 UNITS/ML VIAL 5000 UNITS SUB-Q ×3 (05:38→21:43)
[2020-11-29 05:42] LABS: Hematocrit 35.7 % (37.0-47.0); Hemoglobin 10.7 g/dL (12.0-15.0); Mean Corpuscular Hemoglobin 27.6 pg (26-34); Mean Corpuscular Volume 92.2 fl (80-100); Mean Platelet Volume 11.4 fl (7.4-10.4); Platelet Count Result 295 k/mm3 (150-375); Red Blood Count 3.87 M/mm3 (4.2-5.4); Red Cell Distribution Width 15.8 % (11.5-14.5); White Blood Count 7.8 K/mm3 (4.5-10.0)
[2020-11-29 05:58] LABS: Albumin Level 3.2 g/dL (3.5-5.1); Anion Gap -1 mmol/L (8-16); Blood Urea Nitrogen 30 mg/dL (7-17); Calcium 8.8 mg/dL (8.4-10.2); Carbon Dioxide 38 mmol/L (22-30); Chloride 101 mmol/L (98-107); Estimated CRCL calculation 50 ml/min; Estimated Glomerular Filt Rate 45; Glucose 123 mg/dL (65-105); Magnesium 1.7 mg/dL (1.6-2.3); Phosphorus 4.1 mg/dL (2.5-4.5); Sodium 138 mmol/L (137-145)
[2020-11-29 07:04] LABS: Glucose Point of Care 97 (65-105)
--- NOTE | 2020-11-29 08:36 | PM.PNNEP ---
Progress Note: A&P Assessment and Plan (1) HANNA (acute kidney injury): Code(s): N17.9 - Acute kidney failure, unspecified Status: Acute Assessment and Plan: HANNA urine electrolyte c/w prerenal azotemia renal ultrasound normal Most likely due to dysautoregulation and cardiomyopathy on dobutamine and things better. creatinine continues to improve. Today down to 1.1. (2) Acute on chronic systolic (congestive) heart failure: Code(s): I50.23 - Acute on chronic systolic (congestive) heart failure Status: Acute Assessment and Plan: Cardiology following clinically better holding diuretics and BP medications given #1 started on dobutamine gtt Responded well to the diuretics. Will give another couple of doses of diuretics I encouraged her to drink less fluid if possible. Her sodium level is normal so I did not start an official fluid restriction would hold ARB for now. (3) HTN (hypertension): Code(s): I10 - Essential (primary) hypertension Status: Acute Assessment and Plan: BP is doing well right now. (4) Wound of foot: Code(s): S91.309A - Unspecified open wound, unspecified foot, initial encounter Status: Acute Assessment and Plan: local wound care Subjective Date/time seen: 11/29/20 08:36 Interval history: Patient is feeling okay. She did not sleep last night. She denies shortness of breath or chest pain. She made lots of urine yesterday but also drink a lot of fluid. Exam Narrative: Exam Narrative: General: WD/WN female in NAD Heart: normal S1 and S2; no rub or gallop Lungs: decreased at bases with a few bibasilar crackles Abdomen: soft, nontender, nondistended, positive bowel sounds Extremities: trace to 1+ edema Skin: No rash or subcu nodules Objective Data Vital Signs Vital Signs: Vital Signs - 24 hr 11/28/20 12:00 11/28/20 12:30 11/28/20 15:25 Temperature 36.6 C 36.2 C L Pulse Rate 64 70 Respiratory Rate 18 18 Blood Pressure 125/63 124/63 Pulse Oximetry 96 92 96 11/28/20 16:00 11/28/20 19:30 11/28/20 20:00 Temperature 36.8 C Pulse Rate 69 65 70 Respiratory Rate 20 Blood Pressure 138/73 Pulse Oximetry 93 11/28/20 20:05 11/29/20 00:00 11/29/20 00:05 Temperature 36.3 C L Pulse Rate 59 L 84 Respiratory Rate 20 Blood Pressure 126/68 Pulse Oximetry 93 96 11/29/20 03:06 11/29/20 04:00 Temperature 36.1 C L Pulse Rate 86 63 Respiratory Rate 20 Blood Pressure 133/70 Pulse Oximetry 96 Intake/Output Intake/Output: Intake & Output 11/26/20 11/27/20 11/28/20 11/29/20 23:59 23:59 23:59 23:59 Intake Total 2450 2870 2490 800 Output Total 400 2900 2050 1800 Balance 2049 440 -1000 Meds/Results Medications: Active Medications Generic Name Dose Route Start Last Admin Trade Name Freq PRN Reason Stop Dose Admin Acetaminophen 650 mg 11/22/20 17:43 11/26/20 02:20 Acetaminophen 325 Mg Tablet PO 650 mg Q4H PRN Administration Mild Pain (1-3) or Fever Hydrocodone Bitart/Acetaminophen 1 tab 11/22/20 17:43 11/29/20 02:42 Hydrocodone/Acetaminophen (*Crx) 5-325 Mg Tablet PO 1 tab Q4H PRN Administration Pain Rated 4-6 Albuterol 2 puff 11/21/20 12:00 11/28/20 22:12 Albuterol Sulfate (*Sp) Aerosol 1 Puff INHALATION 2 puff QIDRT MELONY Administration Aspirin 325 mg 11/21/20 09:00 11/28/20 07:41 Aspirin 325 Mg Tablet PO 325 mg DAILY MELONY Administration Atorvastatin Calcium 40 mg 11/21/20 09:00 11/28/20 07:45 Atorvastatin 40 Mg Tablet PO 40 mg DAILY MELONY Administration Calcium Carbonate 250 mg 11/28/20 12:00 11/28/20 11:34 Calcium Carbonate (Oscal) 250 Mg Tablet PO 250 mg DAILY@0800 MELONY Administration Dextrose 12.5 gm 11/21/20 13:28 Dextrose 50% 25 Gm/50 Ml Syringe IV PUSH PRN PRN Hypoglycemia Protocol Docusate Sodium 100 mg 11/21/20 08:14 Docusate Sodium
[2020-11-29] MEDS: ALBUTEROL SULFATE (*SP) AEROSOL 1 PUFF 2 PUFF INHALATION ×4 (08:40→21:17)
[2020-11-29] MEDS: FLUTICASONE/SALMETEROL 115-21 MCG INHALER 1 PUFF 2 PUFF INHALATION ×2 (08:41→21:17)
[2020-11-29] MEDS: ATORVASTATIN 40 MG TABLET PO (10:19)
[2020-11-29] MEDS: CALCIUM CARBONATE (OSCAL) 250 MG TABLET PO (10:19)
[2020-11-29] MEDS: ASPIRIN 325 MG TABLET PO (10:19)
[2020-11-29] MEDS: FAMOTIDINE 20 MG TABLET PO ×2 (10:19→20:12)
[2020-11-29] MEDS: GABAPENTIN 300 MG CAPSULE PO ×4 (10:20→20:12)
[2020-11-29] MEDS: INSULIN GLARGINE (*BKC) 100 UNITS/ML SUB-Q (10:20)
[2020-11-29] MEDS: MAGNESIUM OXIDE 400 MG TABLET PO (10:20)
[2020-11-29] MEDS: TOLNAFTATE 1% POWDER 45 GM BTL 1 APPLIC TOPICAL ×2 (10:21→20:14)
[2020-11-29] MEDS: SILVER SULFADIAZINE 1% CR 50 GM JAR (*BKC) 1 APPLIC TOPICAL (10:21)
[2020-11-29] MEDS: MICONAZOLE NITRATE 2% CREAM 30 GM TUBE 1 APPLIC TOPICAL ×2 (10:22→20:14)
--- NOTE | 2020-11-29 12:18 | WPDPN ---
Progress Note: A&P Assessment and Plan (1) Cellulitis of left breast: Code(s): N61.0 - Mastitis without abscess Status: Acute Assessment and Plan: continue IV antibiotics . per nurse surgery consultation in process. Time Spent With Patient Time with patient: 15 - 25 minutes Review of Systems Constitutional: Constitutional: Reports as per HPI, Denies chills and Denies fever(s) ENT: Reports Normal hearing present Cardiovascular: Cardiovascular: Reports as per HPI and Reports chest pain Respiratory: Respiratory: Reports as per HPI Gastrointestinal: Gastrointestinal: Reports as per HPI Exam Const: General: cooperative, no acute distress, alert and awake Nutritional Appearance: obese Orientation/consciousness: patient oriented x3 Chest: Breast/axilla palpation: other (left breast: erythematous,nipple inverted,no drainage from nipple,) Other: Left Breast: Tenderness present ,no fluctuation Objective Data Vital Signs Vital Signs: Vital Signs - 24 hr 11/28/20 12:30 11/28/20 15:25 11/28/20 16:00 Temperature 97.2 F L Pulse Rate 70 69 Respiratory Rate 18 Blood Pressure 124/63 Pulse Oximetry 92 96 11/28/20 19:30 11/28/20 20:00 11/28/20 20:05 Temperature 98.2 F Pulse Rate 65 70 Respiratory Rate 20 Blood Pressure 138/73 Pulse Oximetry 93 93 11/29/20 00:00 11/29/20 00:05 11/29/20 03:06 Temperature 97.3 F L 97 F L Pulse Rate 59 L 84 86 Respiratory Rate 20 20 Blood Pressure 126/68 133/70 Pulse Oximetry 96 96 11/29/20 04:00 Temperature Pulse Rate 63 Respiratory Rate Blood Pressure Pulse Oximetry Intake/Output Intake/Output: Intake & Output 11/26/20 11/27/20 11/28/20 11/29/20 23:59 23:59 23:59 23:59 Intake Total 2450 2870 2490 800 Output Total 400 2900 2050 1800 Balance 2049 440 -1000 Meds/Results Medications: Active Medications Generic Name Dose Route Start Last Admin Trade Name Freq PRN Reason Stop Dose Admin Acetaminophen 650 mg 11/22/20 17:43 11/26/20 02:20 Acetaminophen 325 Mg Tablet PO 650 mg Q4H PRN Administration Mild Pain (1-3) or Fever Hydrocodone Bitart/Acetaminophen 1 tab 11/22/20 17:43 11/29/20 10:27 Hydrocodone/Acetaminophen (*Crx) 5-325 Mg Tablet PO 1 tab Q4H PRN Administration Pain Rated 4-6 Albuterol 2 puff 11/21/20 12:00 11/29/20 11:12 Albuterol Sulfate (*Sp) Aerosol 1 Puff INHALATION 2 puff QIDRT MELONY Administration Aspirin 325 mg 11/21/20 09:00 11/29/20 10:19 Aspirin 325 Mg Tablet PO 325 mg DAILY MELONY Administration Atorvastatin Calcium 40 mg 11/21/20 09:00 11/29/20 10:19 Atorvastatin 40 Mg Tablet PO 40 mg DAILY MELONY Administration Bumetanide 1 mg 11/30/20 09:00 Bumetanide Inj 1 Mg/4 Ml Vial IV PUSH 11/30/20 09:01 ONCE ONE Calcium Carbonate 250 mg 11/28/20 12:00 11/29/20 10:19 Calcium Carbonate (Oscal) 250 Mg Tablet PO 250 mg DAILY@0800 MELONY Administration Dextrose 12.5 gm 11/21/20 13:28 Dextrose 50% 25 Gm/50 Ml Syringe IV PUSH PRN PRN Hypoglycemia Protocol Docusate Sodium 100 mg 11/21/20 08:14 Docusate Sodium 100 Mg Capsule PO Q12H PRN Constipation Famotidine 20 mg 11/21/20 09:00 11/29/20 10:19 Famotidine 20 Mg Tablet PO 20 mg Q12HR MELONY Administration Gabapentin 300 mg 11/21/20 09:00 11/29/20 10:20 Gabapentin 300 Mg Capsule PO 300 mg QID MELONY Administration Glucagon 1 mg 11/21/20 13:28 Glucagon For Inj 1 Mg Vial IM PRN PRN Hypoglycemia Protocol Glucose 15 gm 11/21/20 13:28 Glucose Oral Gel 15 Gm Of Glucse In 37.5 Gm Tube PO PRN PRN Hypoglycemia Protocol Heparin Sodium (Porcine) 5,000 units 11/25/20 22:00 11/29/20 05:38 Heparin Sodium 5,000 Units/Ml Vial SUB-Q 5,000 units Q8HR MELONY Administration Dextrose 1,000 mls @ 100 mls/hr 11/21/20 13:28 Dextrose 5% 1,000 Ml IVPB PRN PRN Hypoglycemia Pr
[2020-11-29] MEDS: BUMETANIDE INJ 1 MG/4 ML VIAL IV PUSH (12:26)
[2020-11-29 12:31] LABS: Glucose Point of Care 133 (65-105)
--- NOTE | 2020-11-29 14:10 | PM.CNGS ---
Assessment and Plan Assessment and plan (1) Cellulitis of left breast: Code(s): N61.0 - Mastitis without abscess Status: Acute Assessment and Plan: The patient has left breast cellulitis that appears to be clinically improving with the current treatment. There does not seem to be an area of significant hidradenitis that correlates to the left breast cellulitis. No evidence of an abscess on imaging or clinical exam. There is no drainage or open wound to be cultured. We would recommend continuing with antibiotic therapy and monitoring. There is no indication for surgical intervention at this time. I discussed the importance of maintaining glycemic control and smoking cessation. We also discussed the risks of recurrent infection if she is non-compliant. When this acute infection resolves, she will need a diagnostic mammogram for further evaluation. (2) Hidradenitis suppurativa: Code(s): L73.2 - Hidradenitis suppurativa Status: Chronic Assessment and Plan: She seems to have more severe areas of hidradenitis tunneling and pits in her groin, which does not appear to be infected at this time. The left breast does not seem to have any significant area of hidradenitis that is infected, but rather primarily breast cellulitis. See plan above regarding recommendations. Also to note, the patient reportedly was seen by a specialist at [facility] for her hidradenitis and was started on Humira after having an allergic reaction to another medical therapy that she could not name. Even though she should not be on a biologic at this time, she may need to consider following up with the provider who was prescribing this to decide on re-initiating therapy. She was also on minocycline previously as well. (3) Acute respiratory failure with hypoxia: Code(s): J96.01 - Acute respiratory failure with hypoxia Status: Acute (4) COPD (chronic obstructive pulmonary disease): Code(s): J44.9 - Chronic obstructive pulmonary disease, unspecified Status: Acute (5) Acute on chronic systolic (congestive) heart failure: Code(s): I50.23 - Acute on chronic systolic (congestive) heart failure Status: Acute Assessment and Plan: Receiving diuresis. Known ischemic cardiomyopathy with EF of 30-35%. Cardiology following. Sees a Cna Instructor in [place]. (6) Diabetes mellitus: Code(s): E11.9 - Type 2 diabetes mellitus without complications Status: Acute Assessment and Plan: Glycemic control is imperitive to healing and preventing further infections. Discussed this with the patient and also the importance of being compliant with medications after discharge. (7) HTN (hypertension): Code(s): I10 - Essential (primary) hypertension Status: Acute (8) Tobacco abuse: Code(s): Z72.0 - Tobacco use Status: Acute Assessment and Plan: Had a lengthy discussion regarding cessation. I encouraged her to quit smoking. She has decreased the amount she smokes daily but is still smoking 0.5 PPD. I discussed the importance of cessation and that tobacco abuse also increases her risk of recurrent infections, including breast cellulitis/abscess. She verbalized understanding and states she will think about quitting and what she would be willing to do for cessation. (9) Wound of foot: Code(s): S91.309A - Unspecified open wound, unspecified foot, initial encounter Status: Acute Assessment and Plan: Chronic and stable. Continue local wound care. (10) HANNA (acute kidney injury): Code(s): N17.9 - Acute kidney failure, unspecified Status: Acute Assessment and Plan: Creatinine 1.2 today. Nephrology following. Additional Plan Discussed the patient's case and plan of care with Dr. Scott. History of Present Illness Consult details Consult date: 11/29/20 Reason for consult: other (Left breast mastitis with history of hidradenitis suppurativa) Requesting phys
--- NOTE | 2020-11-29 15:33 | P.PNIM_ITS ---
Progress Note: A&P Assessment and Plan (1) Acute respiratory failure with hypoxia: Code(s): J96.01 - Acute respiratory failure with hypoxia Status: Acute Assessment and Plan: Likely secondary to mild pulmonary edema in the setting of CHF with combined systolic and diastolic dysfunction. Lasix was held 11/24-11/27 and she still appears fluid positive. CXR 11/27 demonstrated mild pulmonary edema. She is being diuresed. * Continue diuresis as this is felt secondary to CHF; bumex 1 mg * Continue supplemental oxygen as needed to maintain oxygen saturation >90% (2) Acute on chronic systolic (congestive) heart failure: Code(s): I50.23 - Acute on chronic systolic (congestive) heart failure Status: Acute Assessment and Plan: The patient reported increased swelling in her legs and stomach for 1 week, likely due to poor compliance with low-sodium diet. She denied missing any doses of Lasix. She reported increased dyspnea as well. CXR showed pulmonary edema on admission. Last echo August 2020 showed EF 30-35%. BNP elevated at 16,000. Home PO Lasix was held since 11/24 give HANNA and concern for overdiuresis. She subsequently appears fluid positive with hypoxia, presumed secondary to mild pulmonary edema, and increased lower extremity swelling. * Cardiology has been consulted and input is appreciated * Losartan resumed; previously held given soft pressures and HANNA * Beta mira was initiated per cardiology but she did not tolerate this well with subsequent bradycardia and soft pressures. Beta miar was discontinued. * Heart healthy diet * Monitor volume status closely with strict intake and output and daily weights * Continue education on CHF management * Dobutamine was initiated 11/26 per cardiology; subsequently discontinued 11/27 * Continue diresis, appreciate cardiology and nephrology input (3) Cellulitis of left breast: Code(s): N61.0 - Mastitis without abscess Status: Acute Assessment and Plan: With left breast erythema, induration, swelling, and pain. US demonstrates diffuse left breast edema consistent with cellulitis without abscess. She still has significant erythema, swelling, and pain despite PO antibiotics. She is felt at risk for MRSA given hospitalization and hx of several infections. She was seen by WALLPAPER INSPECTOR who recommended consultation to general surgery * Continue IV vancomycin * Place consult to general surgery; input is appreciated * Continue to monitor clinically (4) Non-sustained ventricular tachycardia: Code(s): I47.2 - Ventricular tachycardia Status: Acute Assessment and Plan: The patient has had a several 8-9 beat runs of non-sustained v-tach. She had one episode 11/28 with 7 beat run. Cardiology is following. Potassium and magnesium were within normal limits. She was asymptomatic. Echocardiogram from 08/26/20 demonstrated EF 30-35%. * Continue cardiology recommendations. Per cardiology, she is not a candidate for ICD. * Amiodarone was discontinued * Continue to monitor electrolytes closely and replace as necessary * Continue telemetry * Further management will be deferred to cardiology (5) Hyperkalemia: Code(s): E87.5 - Hyperkalemia Status: Acute Assessment and Plan: Potassium was 5.7 on 11/28. She reported eating 3 bananas that day. Repeat potassium improved and potassium is 5.0 today. * Avoid additional potassium rich foods * Continue to monitor closely with repeat lab this afternoon and BMP tomorrow * Low potassium diet * Consider holding ARB if potassium remains elevated
--- NOTE | 2020-11-29 15:33 | PM.IMPN ---
Progress Note: A&P Assessment and Plan (1) Acute respiratory failure with hypoxia: Code(s): J96.01 - Acute respiratory failure with hypoxia Status: Acute Assessment and Plan: Likely secondary to mild pulmonary edema in the setting of CHF with combined systolic and diastolic dysfunction. Lasix was held 11/24-11/27 and she still appears fluid positive. CXR 11/27 demonstrated mild pulmonary edema. She is being diuresed. Continue diuresis as this is felt secondary to CHF; bumex 1 mg Continue supplemental oxygen as needed to maintain oxygen saturation >90% (2) Acute on chronic systolic (congestive) heart failure: Code(s): I50.23 - Acute on chronic systolic (congestive) heart failure Status: Acute Assessment and Plan: The patient reported increased swelling in her legs and stomach for 1 week, likely due to poor compliance with low-sodium diet. She denied missing any doses of Lasix. She reported increased dyspnea as well. CXR showed pulmonary edema on admission. Last echo August 2020 showed EF 30-35%. BNP elevated at 16,000. Home PO Lasix was held since 11/24 give HANNA and concern for overdiuresis. She subsequently appears fluid positive with hypoxia, presumed secondary to mild pulmonary edema, and increased lower extremity swelling. Cardiology has been consulted and input is appreciated Losartan resumed; previously held given soft pressures and HANNA Beta mira was initiated per cardiology but she did not tolerate this well with subsequent bradycardia and soft pressures. Beta mira was discontinued. Heart healthy diet Monitor volume status closely with strict intake and output and daily weights Continue education on CHF management Dobutamine was initiated 11/26 per cardiology; subsequently discontinued 11/27 Continue diresis, appreciate cardiology and nephrology input (3) Cellulitis of left breast: Code(s): N61.0 - Mastitis without abscess Status: Acute Assessment and Plan: With left breast erythema, induration, swelling, and pain. US demonstrates diffuse left breast edema consistent with cellulitis without abscess. She still has significant erythema, swelling, and pain despite PO antibiotics. She is felt at risk for MRSA given hospitalization and hx of several infections. She was seen by ROTARY SAW OPERATOR who recommended consultation to general surgery Continue IV vancomycin Place consult to general surgery; input is appreciated Continue to monitor clinically (4) Non-sustained ventricular tachycardia: Code(s): I47.2 - Ventricular tachycardia Status: Acute Assessment and Plan: The patient has had a several 8-9 beat runs of non-sustained v-tach. She had one episode 11/28 with 7 beat run. Cardiology is following. Potassium and magnesium were within normal limits. She was asymptomatic. Echocardiogram from 08/26/20 demonstrated EF 30-35%. Continue cardiology recommendations. Per cardiology, she is not a candidate for ICD. Amiodarone was discontinued Continue to monitor electrolytes closely and replace as necessary Continue telemetry Further management will be deferred to cardiology (5) Hyperkalemia: Code(s): E87.5 - Hyperkalemia Status: Acute Assessment and Plan: Potassium was 5.7 on 11/28. She reported eating 3 bananas that day. Repeat potassium improved and potassium is 5.0 today. Avoid additional potassium rich foods Continue to monitor closely with repeat lab this afternoon and BMP tomorrow Low potassium diet Consider holding ARB if potassium remains elevated (6) HANNA (acute kidney injury): Code(s): N17.9 - Acute kidney failure, unspecified Status: Acute Assessment and Plan: Cr increased to 2.1 and BUN 47 11/25 but continues to improve. Baseline appears to be 1-1.1. This is likely secondary to renal hypoperfusion given IV diuresis and hypotension with underlying HFrEF, diastolic dysfunction. Renal
[2020-11-29 16:26] LABS: Glucose Point of Care 134 (65-105)
[2020-11-29] MEDS: PRAMIPEXOLE 0.25 MG TABLET 0.75 MG PO (20:12)
[2020-11-29 20:34] LABS: Glucose Point of Care 158 (65-105)
[2020-11-30] VITALS (9 sets, daily range): BP systolic 119–148; BP diastolic 61–84; PULSE 65–86; RESP 14–20; TEMP 36.4–36.6; O2SAT 94–98
[2020-11-30] MEDS: HEPARIN SODIUM 5,000 UNITS/ML VIAL 5000 UNITS SUB-Q ×3 (05:46→22:09)
[2020-11-30 05:51] LABS: Glucose Point of Care 101 (65-105)
[2020-11-30] MEDS: HYDROcodone/acetaminophen (*CRX) 5-325 MG TABLET 1 TAB PO ×3 (05:51→17:58)
[2020-11-30 06:32] LABS: Basophils Percent Auto 0.5 % (0.2-1.2); Eosinophils Absolute Auto 0.3 K/mm3 (0-0.3); Eosinophils Percent Auto 3.9 % (0-4.4); Hematocrit 37.2 % (37.0-47.0); Immature Granulocyte Absolute 0.03 K/mm3 (0.00-0.031); Immature Granulocyte Percent A 0.4 % (0-0.5); Lymphocytes Absolute Auto 1.39 K/mm3 (0.9-3.2); Lymphocytes Percent Auto 18.1 % (18.3-44.2); Mean Corpuscular HGB Conc 29.6 g/dl (32-36); Mean Corpuscular Volume 91.2 fl (80-100); Mean Platelet Volume 11.7 fl (7.4-10.4); Monocytes Absolute Auto 0.9 K/mm3 (0.1-0.6); Monocytes Percent Auto 11.4 % (2.6-8.5); Neutrophils Absolute Auto 5.1 K/mm3 (1.3-6.7); Neutrophils Percent Auto 65.7 % (45.5-73.1); Platelet Count Result 337 k/mm3 (150-375); Red Blood Count 4.08 M/mm3 (4.2-5.4); Red Cell Distribution Width 15.6 % (11.5-14.5); White Blood Count 7.7 K/mm3 (4.5-10.0)
[2020-11-30 06:50] LABS: Alanine Aminotransferase 13 U/L (4-35); Albumin Level 3.5 g/dL (3.5-5.1); Alkaline Phosphatase 91 U/L (38-126); Aspartate Amino Transferase 24 U/L (14-36); Bilirubin,Total 0.5 mg/dL (0.2-1.3); Blood Urea Nitrogen 24 mg/dL (7-17); Calcium 8.9 mg/dL (8.4-10.2); Carbon Dioxide > 40 mmol/L (22-30); Chloride 98 mmol/L (98-107); Estimated CRCL calculation 54 ml/min; Estimated Glomerular Filt Rate 50; Glucose 106 mg/dL (65-105); Magnesium 1.6 mg/dL (1.6-2.3); Potassium 4.7 mmol/L (3.4-5.0); Sodium 139 mmol/L (137-145)
[2020-11-30] MEDS: GABAPENTIN 300 MG CAPSULE PO ×4 (08:11→20:35)
[2020-11-30] MEDS: ASPIRIN 325 MG TABLET PO (08:12)
[2020-11-30] MEDS: ATORVASTATIN 40 MG TABLET PO (08:12)
[2020-11-30] MEDS: MAGNESIUM OXIDE 400 MG TABLET PO (08:12)
[2020-11-30] MEDS: BUMETANIDE INJ 1 MG/4 ML VIAL IV PUSH ×2 (08:12→16:43)
[2020-11-30] MEDS: FAMOTIDINE 20 MG TABLET PO ×2 (08:12→20:35)
[2020-11-30] MEDS: CALCIUM CARBONATE (OSCAL) 250 MG TABLET PO (08:13)
[2020-11-30] MEDS: INSULIN GLARGINE (*BKC) 100 UNITS/ML SUB-Q (08:18)
[2020-11-30] MEDS: MICONAZOLE NITRATE 2% CREAM 30 GM TUBE 1 APPLIC TOPICAL ×2 (08:20→20:36)
[2020-11-30] MEDS: SILVER SULFADIAZINE 1% CR 50 GM JAR (*BKC) 1 APPLIC TOPICAL (08:20)
[2020-11-30] MEDS: TOLNAFTATE 1% POWDER 45 GM BTL 1 APPLIC TOPICAL ×2 (08:21→20:36)
[2020-11-30] MEDS: FLUTICASONE/SALMETEROL 115-21 MCG INHALER 1 PUFF 2 PUFF INHALATION ×2 (08:38→20:36)
[2020-11-30] MEDS: ALBUTEROL SULFATE (*SP) AEROSOL 1 PUFF 2 PUFF INHALATION ×4 (08:38→20:36)
--- NOTE | 2020-11-30 09:12 | PM.PNNEP ---
Progress Note: A&P Assessment and Plan (1) HANNA (acute kidney injury): Code(s): N17.9 - Acute kidney failure, unspecified Status: Acute Assessment and Plan: HANNA urine electrolyte c/w prerenal azotemia renal ultrasound normal Most likely due to dysautoregulation and cardiomyopathy on dobutamine. U.O. is great. 2L neg on i/o. creatinine is stable in the low 1s co2 is high. add diamox and consider reducing diuretics. getting bumex 1mg at a time. check cxr to see how aggressive we need to be (2) Acute on chronic systolic (congestive) heart failure: Code(s): I50.23 - Acute on chronic systolic (congestive) heart failure Status: Acute Assessment and Plan: Cardiology following clinically better on dobutamine. (3) HTN (hypertension): Code(s): I10 - Essential (primary) hypertension Status: Acute Assessment and Plan: BP is doing well right now. (4) Wound of foot: Code(s): S91.309A - Unspecified open wound, unspecified foot, initial encounter Status: Acute Assessment and Plan: local wound care Subjective Date/time seen: 11/30/20 09:12 Interval history: Patient is feeling okay. eating breakfast no sob. drinking less fluid Exam Narrative: Exam Narrative: General: WD/WN female in NAD Heart: normal S1 and S2; no rub Lungs: fairly clear Abdomen: soft, nontender, nondistended, positive bowel sounds Extremities: trace to 1+ edema Skin: No rash Objective Data Vital Signs Vital Signs: Vital Signs - 24 hr 11/29/20 12:00 11/29/20 16:00 11/29/20 19:45 Temperature 36.8 C 36.9 C 36.4 C Pulse Rate 86 72 68 Respiratory Rate 16 16 18 Blood Pressure 132/66 142/106 H 131/60 Pulse Oximetry 94 96 95 11/29/20 20:00 11/29/20 21:18 11/29/20 23:55 Temperature 36.2 C L Pulse Rate 74 69 76 Respiratory Rate 18 Blood Pressure 133/61 Pulse Oximetry 94 95 11/30/20 00:00 11/30/20 03:52 11/30/20 04:00 Temperature 36.4 C L Pulse Rate 68 84 84 Respiratory Rate 20 Blood Pressure 132/68 Pulse Oximetry 95 11/30/20 08:00 11/30/20 08:40 Temperature 36.6 C Pulse Rate 83 71 Respiratory Rate 14 18 Blood Pressure 148/82 H Pulse Oximetry 98 94 Intake/Output Intake/Output: Intake & Output 11/27/20 11/28/20 11/29/20 11/30/20 23:59 23:59 23:59 23:59 Intake Total 2870 2490 2380 800 Output Total 2900 2050 4950 1550 Balance -30 321 -3415 -251 Meds/Results Medications: Active Medications Generic Name Dose Route Start Last Admin Trade Name Freq PRN Reason Stop Dose Admin Acetaminophen 650 mg 11/22/20 17:43 11/26/20 02:20 Acetaminophen 325 Mg Tablet PO 650 mg Q4H PRN Administration Mild Pain (1-3) or Fever Hydrocodone Bitart/Acetaminophen 1 tab 11/22/20 17:43 11/30/20 05:51 Hydrocodone/Acetaminophen (*Crx) 5-325 Mg Tablet PO 1 tab Q4H PRN Administration Pain Rated 4-6 Albuterol 2 puff 11/21/20 12:00 11/30/20 08:38 Albuterol Sulfate (*Sp) Aerosol 1 Puff INHALATION 2 puff QIDRT MELONY Administration Aspirin 325 mg 11/21/20 09:00 11/30/20 08:12 Aspirin 325 Mg Tablet PO 325 mg DAILY MELONY Administration Atorvastatin Calcium 40 mg 11/21/20 09:00 11/30/20 08:12 Atorvastatin 40 Mg Tablet PO 40 mg DAILY MELONY Administration Calcium Carbonate 250 mg 11/28/20 12:00 11/30/20 08:13 Calcium Carbonate (Oscal) 250 Mg Tablet PO 250 mg DAILY@0800 MELONY Administration Dextrose 12.5 gm 11/21/20 13:28 Dextrose 50% 25 Gm/50 Ml Syringe IV PUSH PRN PRN Hypoglycemia Protocol Docusate Sodium 100 mg 11/21/20 08:14 Docusate Sodium 100 Mg Capsule PO Q12H PRN Constipation Famotidine 20 mg 11/21/20 09:00 11/30/20 08:12 Famotidine 20 Mg Tablet PO 20 mg Q12HR MELONY Administration Gabapentin 300 mg 11/21/20 09:00 11/30/20 08:11 Gabapentin 300 Mg Capsule PO 300 mg QID MELONY Administration Gluc
--- NOTE | 2020-11-30 09:14 | P.CDI_ITS ---
CDI Query Clarification Request -SIRS of non-infectious origin has been documented and This may have been secondary to developing breast cellullitis also documented. Please clarify diagnosis: * SIRS of non infectious origin * Sepsis due to cellulitis * Other * Unable to determine -
--- NOTE | 2020-11-30 09:14 | WPDCDIQUERY2 ---
CDI Query Clarification Request -SIRS of non-infectious origin has been documented and This may have been secondary to developing breast cellullitis also documented. Please clarify diagnosis: SIRS of non infectious origin Sepsis due to cellulitis Other Unable to determine -
[2020-11-30 11:43] LABS: Glucose Point of Care 121 (65-105)
--- NOTE | 2020-11-30 11:51 | WPDCN ---
Assessment and Plan Assessment and plan (1) Cellulitis of left breast: Code(s): N61.0 - Mastitis without abscess Status: Acute Assessment and Plan: continue IV antibiotics. Surgery on board will sign off on pt .Thank you for consultation HPI Data of Consult Date/Time: 11/30/20 11:51 Requesting Physician: Susan Pike PA-C Primary Care Provider: Kirsten Stokes, Consult Narrative Narrative: Brenda Cruz is a 65 year old female with left breast cellulitis Robinson fever/chills Currently on IV antibiotics Surgery on board. Review of Systems Constitutional: Constitutional: Reports as per HPI, Denies chills and Denies fever(s) ENT: Reports Normal hearing present Genitourinary: Genitourinary: Reports no additional female genitourinary complaints PMFSH Past Medical History Medical History Acute CHF (congestive heart failure) Anxiety Chronic back pain COPD (chronic obstructive pulmonary disease) Coronary artery disease Diabetes mellitus, new onset Hidradenitis suppurativa History of myocardial infarction Hypertension Psoriasis Restless leg syndrome Tobacco abuse Surgical History Surgical History History of cardiac cath History of tonsillectomy Family History Family History Mother Family history of diabetes mellitus in first degree relative Father Unknown family medical history Social History Social History Social History: Ms. Cruz lives at home alone. She reports she is independent in her ADLs. She has 3 adult children. Her PCP is Dr. Stokes. She designates her daughter, Celia as her surrogate decision maker and would like to be a full code. She does not work. Smoking packs per day: 0.5 Smoking cigarettes per day: 10.0 Years smoked: 30 Smoking pack-years: 15.00 Smoking status: Current every day smoker Tobacco type: cigarettes Alcohol intake: never Substance use: current Substance use type: marijuana Other substance usage details: Smokes marijuana 1x/week Living arrangements: alone Gender identity (if verbalized by the patient): Female Spiritual care concerns: No Meds Home Medications and Allergies Home Medications Medication Instructions Recorded Confirmed Type Advair HFA 2 puff INHALATION Q12H 08/25/20 11/21/20 History Trulicity 1.5 mg SUBCUT WEEKLY 08/25/20 11/21/20 History albuterol sulfate [ProAir HFA] 2 puff INHALATION QID PRN 08/25/20 11/21/20 History alprazolam 1 mg PO BID 08/25/20 11/21/20 History aspirin 325 mg PO DAILY 08/25/20 11/21/20 History atorvastatin 40 mg PO DAILY 08/25/20 11/21/20 History azelastine 2 drp OPHTHALMIC (EYE) DAILY PRN 08/25/20 11/21/20 History betamethasone dipropionate 1 applic TOPICAL BID 08/25/20 11/21/20 History gabapentin 300 mg PO QID 08/25/20 11/21/20 History hydralazine 25 mg PO DAILY 08/25/20 11/21/20 History hydrocodone-acetaminophen 5 - 325 tablet PO Q12H PRN 08/25/20 11/21/20 History minocycline 100 mg PO BID 08/25/20 11/21/20 History oxybutynin chloride 10 mg PO DAILY 08/25/20 11/21/20 History pramipexole 0.75 mg PO HS 08/25/20 11/21/20 History silver sulfadiazine [SSD] 1 applic TOPICAL DAILY 08/25/20 11/21/20 History tizanidine 4 mg PO Q8H 08/25/20 11/21/20 History albuterol sulfate 2.5 mg INHALATION Q6HRT PRN #30 ea 09/03/20 11/21/20 Rx docusate sodium 100 mg PO Q12H PRN #30 cap 09/03/20 11/21/20 Rx furosemide 40 mg PO DAILY 30 Days #30 tablet 09/03/20 11/21/20 Rx losartan 25 mg PO QAM 30 Days #30 tablet 09/03/20 11/21/20 Rx potassium chloride 20 meq PO DAILY 30 Days ea 09/03/20 11/21/20 Rx tolnaftate 1 applic TOPICAL Q12HR #1 appful 09/03/20 11/21/20 Rx Allergies Allergy/AdvReac Type Severity Reaction Status Date / Time infliximab Allergy Unknown Other V
--- NOTE | 2020-11-30 12:33 | PM.IMPN ---
Progress Note: A&P Assessment and Plan (1) Acute respiratory failure with hypoxia: Code(s): J96.01 - Acute respiratory failure with hypoxia Status: Acute Assessment and Plan: Likely secondary to mild pulmonary edema in the setting of CHF with combined systolic and diastolic dysfunction. CXR 11/27 demonstrated mild pulmonary edema. She is being diuresed. She appears euvolemic on exam today. Continue supplemental oxygen as needed to maintain oxygen saturation >90% (2) Acute on chronic systolic (congestive) heart failure: Code(s): I50.23 - Acute on chronic systolic (congestive) heart failure Status: Acute Assessment and Plan: The patient reported increased dyspnea and swelling in her legs and stomach for 1 week, likely due to poor compliance with low-sodium diet. She denied missing any doses of Lasix. CXR showed pulmonary edema on admission. Last echo August 2020 showed EF 30-35%. BNP elevated at 16,000. Home PO Lasix has been held since 11/24 give HANNA and concern for overdiuresis. She appears euvolemic on exam today Cardiology and nephrology have been consulted and input is appreciated Losartan resumed; previously held given soft pressures and HANNA Beta mira was initiated per cardiology but she did not tolerate this well with subsequent bradycardia and soft pressures. Beta mira was discontinued. Heart healthy diet Monitor volume status closely with strict intake and output and daily weights Continue education on CHF management Dobutamine was initiated 11/26 per cardiology; subsequently discontinued 11/27 Bumex held today. CO2 elevated, possibly from overdiuresis. Acetazolamide has been initiated per nephrology. (3) Cellulitis of left breast: Code(s): N61.0 - Mastitis without abscess Status: Acute Assessment and Plan: With left breast erythema, induration, swelling, and pain. Left nipple is inverted. US demonstrates diffuse left breast edema consistent with cellulitis without abscess. She did not demonstrate improvement on dicloxacillin or Keflex. She is felt at risk for MRSA given hospitalization and hx of several infections. She has been evaluated by BROOMCORN SORTER and general surgery. Erythema, edema, and tenderness improving. Continue IV vancomycin; do not anticipate need for long-term IV antibiotics appreciate general surgery and NUTRITION TEACHER consult Continue to monitor clinically Outpatient diagnostic mammogram is recommended when the acute episode has resolved. She reports she has obtained consistent mammograms and believes her last was 1 year ago. Denies family history or personal history of breast cancer. (4) Non-sustained ventricular tachycardia: Code(s): I47.2 - Ventricular tachycardia Status: Acute Assessment and Plan: The patient has had a several 8-9 beat runs of non-sustained v-tach. She had one episode 11/28 with 7 beat run. Cardiology is following. Potassium and magnesium were within normal limits. She was asymptomatic. Echocardiogram from 08/26/20 demonstrated EF 30-35%. Continue cardiology recommendations. Per cardiology, she is not a candidate for ICD. Amiodarone was discontinued Continue to monitor electrolytes closely and replace as necessary Continue telemetry Further management will be deferred to cardiology (5) Hyperkalemia: Code(s): E87.5 - Hyperkalemia Status: Acute Assessment and Plan: Potassium was 5.7 on 11/28. She reported eating 3 bananas that day. Repeat potassium improved and potassium is 4.7 today. Can discontinue low potassium diet; She has been counseled on avoiding excess intake of potassium rich foods Continue to monitor closely with daily BMP ARB can be continued as hyperkalemia has resolved. No need to hold/dc. (6) HANNA (acute kidney injury): Code(s): N17.9 - Acute kidney failure, unspecified Status: Acute Assessment and Plan: Cr increased to 2.1 and BUN 47
--- NOTE | 2020-11-30 13:11 | PM.PNGS ---
Progress Note: A&P Assessment and Plan (1) Cellulitis of left breast: Code(s): N61.0 - Mastitis without abscess Status: Acute Assessment and Plan: Left breast cellulitis, improving with current treatment. Continue antibiotics. Okay from a surgical standpoint to discharge the patient when okay with other services. It would be reasonable to allow the patient to resume her minocycline on discharge for antibiotic coverage. We would then recommend that she follow-up with the Door Liner Helper at [facility] in a week. (2) Hidradenitis suppurativa: Code(s): L73.2 - Hidradenitis suppurativa Status: Chronic Assessment and Plan: No significant areas of hidradenitis that are infected. No surgical intervention needed at this time. We would recommend f/u with the specialist at [facility] that she follows - she can then discuss when to restart her previous biologic therapy once the acute infection has resolved. (3) COPD (chronic obstructive pulmonary disease): Code(s): J44.9 - Chronic obstructive pulmonary disease, unspecified Status: Acute (4) Acute on chronic systolic (congestive) heart failure: Code(s): I50.23 - Acute on chronic systolic (congestive) heart failure Status: Acute Assessment and Plan: Known ischemic cardiomyopathy with EF of 30-35%. Cardiology following. Sees a Spanish Language Lecturer in [place]. Management per Cardiology/Hospitalist. (5) Diabetes mellitus: Code(s): E11.9 - Type 2 diabetes mellitus without complications Status: Acute Assessment and Plan: Glycemic control is imperitive to healing and preventing further infections. Discussed this with the patient and also the importance of being compliant with medications after discharge. (6) Tobacco abuse: Code(s): Z72.0 - Tobacco use Status: Acute Assessment and Plan: Had a lengthy discussion regarding cessation yesterday. Mentioned smoking cessation again today. Patient can f/u with PCP regarding cessation options. Additional Plan Discussed the plan of care with Dr. Scott. Subjective Subjective Date/Time Seen: 11/30/20 13:11 Patient reports: no new complaints and feels better Interval history: Pt reports improvement in left breast swelling and pain since yesterday. Improvement in SOB as well. No other complaints. Review of Systems Review of Systems: All systems reviewed & are unremarkable except as noted in HPI and below Respiratory: Respiratory: Denies dyspnea (not at rest) and Reports dyspnea on exertion (improved) Exam Const: General: no acute distress, alert and awake Nutritional Appearance: obese Chest: Breast/axilla palpation: no axillary lymphadenopathy Other: Left breast: Improvement today in overall erythema and swelling of left breast. No induration or fluctuant areas. Skin: Other: Bilateral lower extremities with multiple scabs scattered and scars noted on bilateral lower legs without signs of infection. Mild pitting edema bilateral lower legs and feet. Right foot with stable non-infected ulcer of the medial aspect of the dorsum of the foot. Multiple scattered scabs along bilateral arms and back, no signs of infection. Neuro: General: moves all extremities and no focal motor deficits Extrem: General: edema bilateral (mild pitting bilateral lower extremities) Psych: Mental Status: mental status grossly normal Affect: normal affect Insight: Good insight present (Psych) Judgement: Good judgement present (Psych) Objective Data Vital Signs Vital Signs: Vital Signs - 24 hr 11/29/20 16:00 11/29/20 19:45 11/29/20 20:00 Temperature 98.5 F 97.6 F Pulse Rate 72 68 74 Respiratory Rate 16 18 Blood Pressure 142/106 H 131/60 Pulse Oximetry 96 95 11/29/20 21:18 11/29/20 23:55 11/30/20 00:00 Temperature 97.1 F L Pulse Rate 69 76 68 Respiratory Rate 18 Blood Pressure 133/61 Pulse Oximetry 94 95 11/30/20 03:52 11/30/20 04:00 11/30/20 08:00 Te
--- NOTE | 2020-11-30 13:48 | PM.PNCARD ---
Progress Note: A&P Assessment and Plan (1) CHF (congestive heart failure): Code(s): I50.9 - Heart failure, unspecified Status: Acute Assessment and Plan: Patient with known ischemic cardiomyopathy EF 30-35%, Biventricular failure who presents now with acute on chronic systolic heart failure in the setting of dietary non compliance Required Dobutamine drip in the setting of hypotension and HANNA shortly after started on low dose BB. Her lasix was on hold for few days due to HANNA, now she is volume overloaded. Appears she is responding to Bumex ordered per nephrology and her creatinine is stable. Will start Bumex 1 mg BID. Will do via IV while admitted. Will also resume Losartan for afterload reduction She is intolerant to BB with profound bradycardia and hypotension She had short run of NSVT mostly while on Dobutamine. None in the last 24 hours. Will monitor. 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 Not candidate for ICD due to high infection risk She need follow up within a week after discharge with her primary hydrogen power plant engineer at [place] (2) HANNA (acute kidney injury): Code(s): N17.9 - Acute kidney failure, unspecified Status: Acute Assessment and Plan: Will monitor while starting Bumex BID (3) Tobacco abuse: Code(s): Z72.0 - Tobacco use Status: Acute Assessment and Plan: Smoking cessation counseling (4) COPD (chronic obstructive pulmonary disease): Code(s): J44.9 - Chronic obstructive pulmonary disease, unspecified Status: Acute (5) HTN (hypertension): Code(s): I10 - Essential (primary) hypertension Status: Acute Subjective Date/time seen: 11/30/20 13:48 Feels better overall. Still with lower ext edema. Denies chest pain Review of Systems Review of Systems: All systems reviewed & are unremarkable except as noted in HPI and below Constitutional: Constitutional: Reports as per HPI Eyes: Eyes: Reports as per HPI ENT: Reports system reviewed and no additional complaints, except as documented and Reports as per HPI Cardiovascular: Cardiovascular: Reports as per HPI Respiratory: Respiratory: Reports as per HPI Gastrointestinal: Gastrointestinal: Reports as per HPI Genitourinary: Genitourinary: Reports as per HPI Musculoskeletal: Musculoskeletal: Reports as per HPI Exam Narrative: Exam Narrative: Const: General: no acute distress HENMT: Head: normal to inspection and atraumatic Ears: hearing grossly normal bilaterally Face and sinus: normal facial exam Eyes: General: appearance normal, both eyes and all related structures Pupils: Equal, round and reactive pupils present EOM: EOMs intact bilaterally Neck: Neck: supple Resp: Increase resp effort only by talking. Decrease breath sounds on auscultation Cardio: Rate: regular rate Heart sounds: S1 normal heart sound present, S2 normal heart sound present and no murmurs . Lower ext edema with skin discoloration extends to the toes (appear cyanotic on the right) GI: Auscultation: normal bowel sounds Skin: General skin exam: normal color Neuro: General: patient oriented x3 Cranial nerves: Yes Equal, round and reactive pupils present and Yes Normal hearing present Extrem: General: normal to inspection and no clubbing, cyanosis or edema Const: General: no acute distress and other (sitting in chair) Nutritional Appearance: well nourished Orientation/consciousness: patient oriented x3 HENMT: Head: normal to inspection and atraumatic Ears: hearing grossly normal bilaterally Face and sinus: normal facial exam Eyes: General: appearance normal, both eyes and all related structures Pupils: Equal, round and reactive pupils present EOM: EOMs intact bilaterally Neck: Neck: supple Chest: Chest palpation & inspection: normal inspection of the chest Resp: Effort & Inspection: normal respiratory effort and no respiratory distress Auscultation: clear to aus
[2020-11-30 16:34] LABS: Glucose Point of Care 172 (65-105)
[2020-11-30] MEDS: acetaZOLAMIDE TAB 250 MG TABLET 500 MG PO (16:42)
[2020-11-30] MEDS: PRAMIPEXOLE 0.25 MG TABLET 0.75 MG PO (20:35)
[2020-11-30] MEDS: EUCERIN CREAM 120 GM JAR 1 APPLIC TOPICAL (20:35)
[2020-11-30 20:53] LABS: Glucose Point of Care 153 (65-105)
[2020-12-01] VITALS (13 sets, daily range): BP systolic 111–141; BP diastolic 65–87; PULSE 66–86; RESP 16–21; TEMP 36.3–37.3; O2SAT 91–99
[2020-12-01] MEDS: MAGNESIUM SULF 2 GM/WATER 50ML 2 GM/50 ML BAG IVPB (01:54)
[2020-12-01] MEDS: HYDROcodone/acetaminophen (*CRX) 5-325 MG TABLET 1 TAB PO ×3 (04:17→17:51)
[2020-12-01] MEDS: HEPARIN SODIUM 5,000 UNITS/ML VIAL 5000 UNITS SUB-Q ×3 (05:28→21:05)
[2020-12-01 05:43] LABS: Hematocrit 37.7 % (37.0-47.0); Hemoglobin 11.2 g/dL (12.0-15.0); Mean Corpuscular HGB Conc 29.7 g/dl (32-36); Mean Corpuscular Hemoglobin 27.3 pg (26-34); Mean Corpuscular Volume 91.7 fl (80-100); Mean Platelet Volume 11.4 fl (7.4-10.4); Platelet Count Result 344 k/mm3 (150-375); Red Blood Count 4.11 M/mm3 (4.2-5.4); Red Cell Distribution Width 15.8 % (11.5-14.5); White Blood Count 7.5 K/mm3 (4.5-10.0)
[2020-12-01 05:56] LABS: Magnesium 2.1 mg/dL (1.6-2.3)
[2020-12-01 06:05] LABS: Alanine Aminotransferase 13 U/L (4-35); Albumin Level 3.5 g/dL (3.5-5.1); Alkaline Phosphatase 91 U/L (38-126); Aspartate Amino Transferase 26 U/L (14-36); Bilirubin,Total 0.4 mg/dL (0.2-1.3); Blood Urea Nitrogen 20 mg/dL (7-17); Carbon Dioxide > 40 mmol/L (22-30); Chloride 98 mmol/L (98-107); Estimated CRCL calculation 44 ml/min; Estimated Glomerular Filt Rate 41; Glucose 113 mg/dL (65-105); Phosphorus 4.6 mg/dL (2.5-4.5); Potassium 4.8 mmol/L (3.4-5.0); Sodium 139 mmol/L (137-145)
[2020-12-01 08:15] LABS: Glucose Point of Care 87 (65-105)
[2020-12-01] MEDS: GABAPENTIN 300 MG CAPSULE PO ×3 (08:57→21:00)
[2020-12-01] MEDS: ASPIRIN 325 MG TABLET PO (08:58)
[2020-12-01] MEDS: FAMOTIDINE 20 MG TABLET PO ×2 (08:58→21:00)
[2020-12-01] MEDS: MAGNESIUM OXIDE 400 MG TABLET PO (08:58)
[2020-12-01] MEDS: ATORVASTATIN 40 MG TABLET PO (08:58)
[2020-12-01] MEDS: CALCIUM CARBONATE (OSCAL) 250 MG TABLET PO (09:00)
[2020-12-01] MEDS: ALBUTEROL SULFATE (*SP) AEROSOL 1 PUFF 2 PUFF INHALATION ×3 (09:03→20:58)
[2020-12-01] MEDS: FLUTICASONE/SALMETEROL 115-21 MCG INHALER 1 PUFF 2 PUFF INHALATION ×2 (09:04→20:58)
[2020-12-01] MEDS: TOLNAFTATE 1% POWDER 45 GM BTL 1 APPLIC TOPICAL ×2 (09:05→21:01)
[2020-12-01] MEDS: SILVER SULFADIAZINE 1% CR 50 GM JAR (*BKC) 1 APPLIC TOPICAL (09:05)
[2020-12-01] MEDS: MICONAZOLE NITRATE 2% CREAM 30 GM TUBE 1 APPLIC TOPICAL ×2 (09:06→21:01)
[2020-12-01] MEDS: EUCERIN CREAM 120 GM JAR 1 APPLIC TOPICAL (09:08)
--- NOTE | 2020-12-01 09:15 | PM.PNCARD ---
Progress Note: A&P Assessment and Plan (1) CHF (congestive heart failure): Code(s): I50.9 - Heart failure, unspecified Status: Acute Assessment and Plan: Patient with known ischemic cardiomyopathy EF 30-35%, Biventricular failure who presents now with acute on chronic systolic heart failure in the setting of dietary non-compliance Recently required Dobutamine drip in the setting of hypotension and HANNA shortly after started on low dose BB. Her Lasix was on hold for few days due to HANNA, now she is volume overloaded. She is currently on Diamox as per Nephrology service given her elevated bicarbonate, with Bumex on hold. She had an asymptomatic 38 beat run of nonsustained ventricular tachycardia overnight 12/01/2020 but was not initiated on amiodarone because of its interaction with Diamox. Consider initiation of amiodarone pending resolution of Diamox therapy following improvement in bicarbonate level. She had NSVT earlier this admission as well in the setting of dobutamine. 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 She is intolerant to BB with profound bradycardia and hypotension. Losartan and Bumex on hold in the setting of acute renal failure and hypotension. 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 She need follow up within a week after discharge with her primary family psychologist in [place]. (2) HANNA (acute kidney injury): Code(s): N17.9 - Acute kidney failure, unspecified Status: Acute Assessment and Plan: Will monitor while on Diamox, with holding of Bumex, as per Nephrology service. (3) Tobacco abuse: Code(s): Z72.0 - Tobacco use Status: Acute Assessment and Plan: Smoking cessation counseling (4) COPD (chronic obstructive pulmonary disease): Code(s): J44.9 - Chronic obstructive pulmonary disease, unspecified Status: Acute Assessment and Plan: Management as per primary service. (5) HTN (hypertension): Code(s): I10 - Essential (primary) hypertension Status: Acute Assessment and Plan: -blood pressure normal at present. -continue to monitor with diuresis. Subjective Date/time seen: 12/01/20 09:15 Patient denies chest pain and reports occasional chronic shortness of breath without recent change. She denies syncope but reports occasional dizziness. She had a 38 beat run of nonsustained ventricular tachycardia overnight 12/01/2020 for which she was asymptomatic. Patient was seen and examined, chart reviewed, case discussed with nurse. Exam Narrative: Exam Narrative: Const: General: no acute distress HENMT: Head: normal to inspection and atraumatic Ears: hearing grossly normal bilaterally Face and sinus: normal facial exam Eyes: General: appearance normal, both eyes and all related structures Pupils: Equal, round and reactive pupils present EOM: EOMs intact bilaterally Neck: Neck: supple Resp: Increase resp effort only by talking. Decrease breath sounds on auscultation Cardio: Rate: regular rate Heart sounds: S1 normal heart sound present, S2 normal heart sound present and no murmurs . Lower ext edema with skin discoloration extends to the toes (appear cyanotic on the right) GI: Auscultation: normal bowel sounds Skin: General skin exam: normal color Neuro: General: patient oriented x3 Cranial nerves: Yes Equal, round and reactive pupils present and Yes Normal hearing present Extrem: General: normal to inspection and no clubbing, cyanosis or edema Const: General: no acute distress and other (sitting in chair) Nutritional Appearance: well nourished Orientation/consciousness: patient oriented x3 HENMT: Head: normal to inspection and atraumatic Ears: hearing grossly normal bilaterally Face and sinus: normal facial exam Eyes: General: appearance normal, both eyes and all related structures Pupils: Equal, round and reactive pupils present EOM: EOMs intact
[2020-12-01] MEDS: acetaZOLAMIDE TAB 250 MG TABLET 500 MG PO ×2 (10:36→17:52)
--- NOTE | 2020-12-01 12:46 | P.PNNP_ITS ---
Progress Note: A&P Assessment and Plan (1) HANNA (acute kidney injury): Code(s): N17.9 - Acute kidney failure, unspecified Status: Acute Assessment and Plan: * HANNA * urine electrolyte c/w prerenal azotemia * renal ultrasound normal * Most likely due to dysautoregulation and cardiomyopathy * Today the creatinine is a little bit worse. * She is off the dobutamine. * She may become more pre renal because of decreased cardiac function off the dobutamine. * Will hold Bumex IV and restart p.o. tomorrow. (2) Acute on chronic systolic (congestive) heart failure: Code(s): I50.23 - Acute on chronic systolic (congestive) heart failure Status: Acute Assessment and Plan: * Cardiology following * clinically better * on dobutamine. (3) HTN (hypertension): Code(s): I10 - Essential (primary) hypertension Status: Acute Assessment and Plan: * BP is doing well right now. (4) Wound of foot: Code(s): S91.309A - Unspecified open wound, unspecified foot, initial encounter Status: Acute Assessment and Plan: * local wound care Subjective Date/time seen: 12/01/20 12:46 Interval history: Patient is feeling okay. eating breakfast Left breast feels better. It is not as swollen. no sob. drinking less fluid Edema is better. Review of Systems Cardiovascular: Cardiovascular: Reports no additional cardiovascular compl aints Respiratory: Respiratory: Reports no additional respiratory complaints Gastrointestinal: Gastrointestinal: Reports no additional gastrointestinal complaints Genitourinary: Genitourinary: Reports no additional female genitourinary complaints Exam Narrative: Exam Narrative: General: WD/WN female in NAD Heart: normal S1 and S2; no rub Lungs: clear Abdomen: soft, nontender, nondistended, positive bowel sounds Extremities: trace to 1+ edema Skin: No rash Objective Data Vital Signs Vital Signs: Vital Signs - 24 hr 11/30/20 15:40 11/30/20 20:00 11/30/20 20:40 Temperature 36.6 C Pulse Rate 81 65 67 Respiratory Rate 15 16 Blood Pressure 126/84 119/61 Pulse Oximetry 98 95 12/01/20 00:00 12/01/20 00:20 12/01/20 04:00 Temperature 36.7 C Pulse Rate 83 66 86 Respiratory Rate 18 Blood Pressure 123/65 Pulse Oximetry 93 12/01/20 04:12 12/01/20 08:00 12/01/20 08:10 Temperature 36.3 C L 36.4 C L Pulse Rate 84 66 82 Respiratory Rate 20 17 Blood Pressure 127/72 141/72 H Pulse Oximetry 92 94 12/01/20 09:33 Temperature Pulse Rate Respiratory Rate Blood Pressure Pulse Oximetry 94 Intake/Output Intake/Output: Intake & Output 11/28/20 11/29/20 11/30/20 12/01/20 23:59 23:59 23:59 23:59 Intake Total 2490 2380 800 1050 Output Total 2050 4950 2450 1800 Balance 084 -2315 -1650 -750 Meds/Results Medications: Active Medications Generic Name Dose Route Start Last Admin Trade Name Mikhailq PRN Reason Stop Dose Admin Acetaminophen 650 mg 11/22/20 17:43 11/26/20 02:20 Acet
--- NOTE | 2020-12-01 12:46 | PM.PNNEP ---
Progress Note: A&P Assessment and Plan (1) HANNA (acute kidney injury): Code(s): N17.9 - Acute kidney failure, unspecified Status: Acute Assessment and Plan: HANNA urine electrolyte c/w prerenal azotemia renal ultrasound normal Most likely due to dysautoregulation and cardiomyopathy Today the creatinine is a little bit worse. She is off the dobutamine. She may become more pre renal because of decreased cardiac function off the dobutamine. Will hold Bumex IV and restart p.o. tomorrow. (2) Acute on chronic systolic (congestive) heart failure: Code(s): I50.23 - Acute on chronic systolic (congestive) heart failure Status: Acute Assessment and Plan: Cardiology following clinically better on dobutamine. (3) HTN (hypertension): Code(s): I10 - Essential (primary) hypertension Status: Acute Assessment and Plan: BP is doing well right now. (4) Wound of foot: Code(s): S91.309A - Unspecified open wound, unspecified foot, initial encounter Status: Acute Assessment and Plan: local wound care Subjective Date/time seen: 12/01/20 12:46 Interval history: Patient is feeling okay. eating breakfast Left breast feels better. It is not as swollen. no sob. drinking less fluid Edema is better. Review of Systems Cardiovascular: Cardiovascular: Reports no additional cardiovascular complaints Respiratory: Respiratory: Reports no additional respiratory complaints Gastrointestinal: Gastrointestinal: Reports no additional gastrointestinal complaints Genitourinary: Genitourinary: Reports no additional female genitourinary complaints Exam Narrative: Exam Narrative: General: WD/WN female in NAD Heart: normal S1 and S2; no rub Lungs: clear Abdomen: soft, nontender, nondistended, positive bowel sounds Extremities: trace to 1+ edema Skin: No rash Objective Data Vital Signs Vital Signs: Vital Signs - 24 hr 11/30/20 15:40 11/30/20 20:00 11/30/20 20:40 Temperature 36.6 C Pulse Rate 81 65 67 Respiratory Rate 15 16 Blood Pressure 126/84 119/61 Pulse Oximetry 98 95 12/01/20 00:00 12/01/20 00:20 12/01/20 04:00 Temperature 36.7 C Pulse Rate 83 66 86 Respiratory Rate 18 Blood Pressure 123/65 Pulse Oximetry 93 12/01/20 04:12 12/01/20 08:00 12/01/20 08:10 Temperature 36.3 C L 36.4 C L Pulse Rate 84 66 82 Respiratory Rate 20 17 Blood Pressure 127/72 141/72 H Pulse Oximetry 92 94 12/01/20 09:33 Temperature Pulse Rate Respiratory Rate Blood Pressure Pulse Oximetry 94 Intake/Output Intake/Output: Intake & Output 11/28/20 11/29/20 11/30/20 12/01/20 23:59 23:59 23:59 23:59 Intake Total 2490 2380 800 1050 Output Total 2050 4950 2450 1800 Balance 803 -5310 -1650 -750 Meds/Results Medications: Active Medications Generic Name Dose Route Start Last Admin Trade Name Freq PRN Reason Stop Dose Admin Acetaminophen 650 mg 11/22/20 17:43 11/26/20 02:20 Acetaminophen 325 Mg Tablet PO 650 mg Q4H PRN Administration Mild Pain (1-3) or Fever Hydrocodone Bitart/Acetaminophen 1 tab 11/22/20 17:43 12/01/20 08:58 Hydrocodone/Acetaminophen (*Crx) 5-325 Mg Tablet PO 1 tab Q4H PRN Administration Pain Rated 4-6 Acetazolamide 500 mg 11/30/20 17:00 12/01/20 10:36 Acetazolamide Tab 250 Mg Tablet PO 500 mg BID MELONY Administration Albuterol 2 puff 11/21/20 12:00 12/01/20 09:03 Albuterol Sulfate (*Sp) Aerosol 1 Puff INHALATION 2 puff QIDRT MELONY Administration Aspirin 325 mg 11/21/20 09:00 12/01/20 08:58 Aspirin 325 Mg Tablet PO 325 mg DAILY MELONY Administration Atorvastatin Calcium 40 mg 11/21/20 09:00 12/01/20 08:58 Atorvastatin 40 Mg Tablet PO 40 mg DAILY MELONY Administration Bumetanide 1 mg 11/30/20 17:00 12/01/20 10:20 Bumetanide Inj 1 Mg/4 Ml Vial IV PUSH Not Given BID [facility] Calcium Carbonate 250 mg
[2020-12-01 12:57] LABS: Kappa\\Lambda Light Chains 1.39 (0.26-1.65); Lambda Light Chain 70.6 mg/L (5.7-26.3)
--- NOTE | 2020-12-01 13:05 | PM.PNGS ---
Progress Note: A&P Assessment and Plan (1) Cellulitis of left breast: Code(s): N61.0 - Mastitis without abscess Status: Acute Assessment and Plan: Left breast cellulitis, improving with current treatment. Continue antibiotics. Okay from a surgical standpoint to discharge the patient when okay with other services. It would be reasonable to allow the patient to resume her minocycline on discharge for antibiotic coverage. We would then recommend that she follow-up with the [facility] at [place] in a week. (2) Hidradenitis suppurativa: Code(s): L73.2 - Hidradenitis suppurativa Status: Chronic Assessment and Plan: No significant areas of hidradenitis that are infected. No surgical intervention needed at this time. We would recommend f/u with the specialist at [place] that she follows with already. - - she can then discuss when to restart her previous biologic therapy once the acute infection has resolved. (3) COPD (chronic obstructive pulmonary disease): Code(s): J44.9 - Chronic obstructive pulmonary disease, unspecified Status: Acute (4) Acute on chronic systolic (congestive) heart failure: Code(s): I50.23 - Acute on chronic systolic (congestive) heart failure Status: Acute Assessment and Plan: Known ischemic cardiomyopathy with EF of 30-35%. Cardiology following. Sees a Repair Tech in [place]. Management per Cardiology/Hospitalist. (5) Diabetes mellitus: Code(s): E11.9 - Type 2 diabetes mellitus without complications Status: Acute Assessment and Plan: Glycemic control is imperitive to healing and preventing further infections. Discussed this with the patient and also the importance of being compliant with medications after discharge. (6) Tobacco abuse: Code(s): Z72.0 - Tobacco use Status: Acute Assessment and Plan: Had a lengthy discussion regarding cessation yesterday. Mentioned smoking cessation again today. Patient can f/u with PCP regarding cessation options. Additional Plan Discharge when okay with primary service Would encourage use of a lubricating lotion to all surfaces of her skin that her dry. She can use this on the anterior surface of the left breast now also. However would continue the antifungal cream or powder under her breast on the left side when discharged. Will not plan to see her in the office. Patient already has a dietetic tech that can follow her recent left breast cellulitis and the known hidradenitis that she has. Subjective Subjective Date/Time Seen: 12/01/20 11:05 Patient is sitting up in bed when I entered the room. She states that she believes the swelling on her breast is getting better. There has been no drainage. She continues to apply antifungal cream to the underside of her breast. She states she does things that the lotion were using on the dry skin on her legs is helping cut down on the itching. Review of Systems Review of Systems: All systems reviewed & are unremarkable except as noted in HPI and below Constitutional: Constitutional: Reports as per HPI, Reports no additional constitutional complaints, Denies chills, Denies fatigue, Denies fever(s) and Denies weakness Eyes: Eyes: Reports no additional eye complaints, Denies change in vision and Denies loss of vision ENT: Reports system reviewed and no additional complaints, except as documented, Denies dysphagia, Denies dizziness, Denies dry mouth, Denies hearing loss and Denies lip swelling Cardiovascular: Cardiovascular: Reports no additional cardiovascular complaints, Denies chest pain, Denies syncope, Reports leg edema, Denies radiating jaw, neck or arm pain, Denies dyspnea (not at rest) and Reports dyspnea on exertion (improved) Respiratory: Respiratory: Reports no additional respiratory complaints, Denies cough, Denies dyspnea (not at rest), Reports dyspnea on exertion (improved) and Denies wheezing Gastrointestinal: Gastro
[2020-12-01 13:20] LABS: Glucose Point of Care 113 (65-105)
[2020-12-01 15:17] LABS: Vancomycin Trough 14.8 ug/mL (10.0-20.0)
--- NOTE | 2020-12-01 16:32 | PM.IMPN ---
Progress Note: A&P Assessment and Plan (1) Acute respiratory failure with hypoxia: Code(s): J96.01 - Acute respiratory failure with hypoxia Status: Acute Assessment and Plan: Likely secondary to mild pulmonary edema in the setting of CHF with combined systolic and diastolic dysfunction. CXR 11/27 demonstrated mild pulmonary edema. She is being diuresed. She appears euvolemic on exam today. Maintaining adequate O2 sats on 1 L per nasal cannula Continue supplemental oxygen as needed to maintain oxygen saturation >90% (2) Acute on chronic systolic (congestive) heart failure: Code(s): I50.23 - Acute on chronic systolic (congestive) heart failure Status: Acute Assessment and Plan: The patient reported increased dyspnea and swelling in her legs and stomach for 1 week, likely due to poor compliance with low-sodium diet. She denied missing any doses of Lasix. CXR showed pulmonary edema on admission. Last echo August 2020 showed EF 30-35%. BNP elevated at 16,000. Home PO Lasix has been held since 11/24 give HANNA and concern for overdiuresis. Cardiology and nephrology have been consulted and input is appreciated Losartan resumed; previously held given soft pressures and HANNA Beta mira was initiated per cardiology but she did not tolerate this well with subsequent bradycardia and soft pressures. Beta mira was discontinued and should be avoided in future, per cardiology. Heart healthy diet Monitor volume status closely with strict intake and output and daily weights Continue education on CHF management Dobutamine was initiated 11/26 per cardiology; subsequently discontinued 11/27 Bumex held today. CO2 elevated, possibly from overdiuresis. Continue diamox 500 mg bid (3) Cellulitis of left breast: Code(s): N61.0 - Mastitis without abscess Status: Acute Assessment and Plan: With left breast erythema, induration, swelling, and pain. Left nipple was inverted due to edema but this has now resolved. US demonstrates diffuse left breast edema consistent with cellulitis without abscess. She did not demonstrate improvement on dicloxacillin or Keflex. She is felt at risk for MRSA given hospitalization and hx of several infections. She has been evaluated by CHALK MOLDING MACHINE OPERATOR and general surgery. Erythema, edema, and tenderness improving. Continue IV vancomycin; do not anticipate need for long-term IV antibiotics. Per general surgery, she can resume her daily minocycline upon discharge and follow up with her scaffold worker at [place] within 1 week. appreciate general surgery and SEED ANALYST consult Continue to monitor clinically Outpatient diagnostic mammogram is recommended when the acute episode has resolved. She reports she has obtained consistent mammograms and believes her last was 1 year ago. Denies family history or personal history of breast cancer. (4) Non-sustained ventricular tachycardia: Code(s): I47.2 - Ventricular tachycardia Status: Acute Assessment and Plan: The patient has had a several 8-9 beat runs of non-sustained v-tach. She had one episode 11/28 with 7 beat run. Cardiology is following. Potassium and magnesium were within normal limits. She was asymptomatic. Echocardiogram from 08/26/20 demonstrated EF 30-35%. Last night, she had an extended run of NSVT of 38 beats and remained asymptomatic. Amiodarone recommended but unable to be initiated concurrently with Diamox. May be initiated at later date per cardiology Continue cardiology recommendations. Per cardiology, she is not a candidate for ICD given high infection risk. Continue to monitor electrolytes closely and replace as necessary Continue telemetry (5) Hyperkalemia: Code(s): E87.5 - Hyperkalemia Status: Acute Assessment and Plan: Potassium was 5.7 on 11/28. She reported eating 3 bananas that day. Repeat potassium improved and potassium is 4.8 today. Can discontinue low potassium
[2020-12-01 17:33] LABS: Glucose Point of Care 198 (65-105)
--- NOTE | 2020-12-01 18:37 | PC.NURSE ---
Patient informed RN that she had a pizza delivered to the hospital and that it is awaiting her in the lobby. RN educated patient on her prescribed diet while in the hospital. Patient states, Well, I don't the parmesan cheese or extra salt to put on it, so it will not kill me now. RN continued to educate patient on appropriate dietary choices. Patient insistent on eating pizza. BG obtained prior to dinner. Will continue to monitor and educate patient.
[2020-12-01] MEDS: PRAMIPEXOLE 0.25 MG TABLET 0.75 MG PO (21:00)
[2020-12-01 21:14] LABS: Glucose Point of Care 167 (65-105)
[2020-12-02] VITALS (9 sets, daily range): BP systolic 108–133; BP diastolic 59–80; PULSE 64–88; RESP 14–18; TEMP 36.4–37.4; O2SAT 90–98
[2020-12-02] MEDS: HYDROcodone/acetaminophen (*CRX) 5-325 MG TABLET 1 TAB PO ×3 (04:27→17:19)
[2020-12-02] MEDS: HEPARIN SODIUM 5,000 UNITS/ML VIAL 5000 UNITS SUB-Q ×3 (05:27→21:09)
[2020-12-02 05:44] LABS: Hematocrit 36.4 % (37.0-47.0); Hemoglobin 10.9 g/dL (12.0-15.0); Mean Corpuscular HGB Conc 29.9 g/dl (32-36); Mean Corpuscular Hemoglobin 27.8 pg (26-34); Mean Corpuscular Volume 92.9 fl (80-100); Mean Platelet Volume 11.2 fl (7.4-10.4); Platelet Count Result 296 k/mm3 (150-375); Red Blood Count 3.92 M/mm3 (4.2-5.4); Red Cell Distribution Width 15.9 % (11.5-14.5); White Blood Count 6.6 K/mm3 (4.5-10.0)
[2020-12-02 05:54] LABS: Albumin Level 3.4 g/dL (3.5-5.1); Anion Gap 2 mmol/L (8-16); Blood Urea Nitrogen 19 mg/dL (7-17); Calcium 9.1 mg/dL (8.4-10.2); Carbon Dioxide 34 mmol/L (22-30); Chloride 103 mmol/L (98-107); Estimated CRCL calculation 44 ml/min; Estimated Glomerular Filt Rate 41; Glucose 140 mg/dL (65-105); Magnesium 1.9 mg/dL (1.6-2.3); Phosphorus 5.1 mg/dL (2.5-4.5); Potassium 4.9 mmol/L (3.4-5.0); Sodium 139 mmol/L (137-145)
[2020-12-02 07:45] LABS: Creatinine, Random Urine 53 mg/dL (20-275); Total Protein/Creatinine Ratio 434 mg/g creat (21-161)
[2020-12-02] MEDS: FAMOTIDINE 20 MG TABLET PO ×2 (08:53→21:09)
[2020-12-02] MEDS: MAGNESIUM OXIDE 400 MG TABLET PO (08:53)
[2020-12-02] MEDS: acetaZOLAMIDE TAB 250 MG TABLET 500 MG PO ×2 (08:53→17:18)
[2020-12-02] MEDS: ASPIRIN 325 MG TABLET PO (08:53)
[2020-12-02] MEDS: ATORVASTATIN 40 MG TABLET PO (08:53)
[2020-12-02] MEDS: GABAPENTIN 300 MG CAPSULE PO ×3 (08:54→21:09)
[2020-12-02] MEDS: CALCIUM CARBONATE (OSCAL) 250 MG TABLET PO (08:54)
[2020-12-02] MEDS: INSULIN GLARGINE (*BKC) 100 UNITS/ML SUB-Q (08:56)
[2020-12-02] MEDS: EUCERIN CREAM 120 GM JAR 1 APPLIC TOPICAL (09:52)
[2020-12-02] MEDS: TOLNAFTATE 1% POWDER 45 GM BTL 1 APPLIC TOPICAL (09:53)
[2020-12-02] MEDS: MICONAZOLE NITRATE 2% CREAM 30 GM TUBE 1 APPLIC TOPICAL (09:53)
[2020-12-02] MEDS: SILVER SULFADIAZINE 1% CR 50 GM JAR (*BKC) 1 APPLIC TOPICAL (09:53)
[2020-12-02 13:05] LABS: Glucose Point of Care 125 (65-105)
--- NOTE | 2020-12-02 13:37 | PM.PNCARD ---
Progress Note: A&P Assessment and Plan (1) Acute respiratory failure with hypoxia: Code(s): J96.01 - Acute respiratory failure with hypoxia Status: Acute (2) HANNA (acute kidney injury): Code(s): N17.9 - Acute kidney failure, unspecified Status: Acute (3) Tobacco abuse: Code(s): Z72.0 - Tobacco use Status: Acute (4) COPD (chronic obstructive pulmonary disease): Code(s): J44.9 - Chronic obstructive pulmonary disease, unspecified Status: Acute (5) CHF (congestive heart failure): Code(s): I50.9 - Heart failure, unspecified Status: Acute Assessment and Plan: Patient with known ischemic cardiomyopathy EF 30-35%, Biventricular failure who presents now with acute on chronic systolic heart failure in the setting of dietary non-compliance Recently required Dobutamine drip in the setting of hypotension and HANNA shortly after started on low dose BB. Her Lasix was on hold for few days due to HANNA, now she is volume overloaded. She is currently on Diamox as per Nephrology service given her elevated bicarbonate, with Bumex on hold. She had an asymptomatic 38 beat run of nonsustained ventricular tachycardia overnight 12/01/2020 but was not initiated on amiodarone because of its interaction with Diamox. Consider initiation of amiodarone pending resolution of Diamox therapy following improvement in bicarbonate level. She had NSVT earlier this admission as well in the setting of dobutamine. 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 She is intolerant to BB with profound bradycardia and hypotension. Losartan and Bumex on hold in the setting of acute renal failure and hypotension. 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 She need follow up within a week after discharge with her primary finishing machine operator automatic in [place]. Subjective Date/time seen: 12/02/20 Pt feels fine today. No complains. D/w pt's nurse. Review of Systems Review of Systems: All systems reviewed & are unremarkable except as noted in HPI and below Constitutional: Constitutional: Reports as per HPI Eyes: Eyes: Reports as per HPI ENT: Reports system reviewed and no additional complaints, except as documented and Reports as per HPI Cardiovascular: Cardiovascular: Reports as per HPI Respiratory: Respiratory: Reports as per HPI Gastrointestinal: Gastrointestinal: Reports as per HPI Genitourinary: Genitourinary: Reports as per HPI Musculoskeletal: Musculoskeletal: Reports as per HPI Exam Const: General: no acute distress Nutritional Appearance: well nourished Orientation/consciousness: patient oriented x3 HENMT: Head: normal to inspection and atraumatic Ears: hearing grossly normal bilaterally Face and sinus: normal facial exam Eyes: General: appearance normal, both eyes and all related structures Pupils: Equal, round and reactive pupils present EOM: EOMs intact bilaterally Neck: Neck: supple Chest: Chest palpation & inspection: normal inspection of the chest Resp: Effort & Inspection: normal respiratory effort and no respiratory distress Auscultation: clear to auscultation bilaterally Cardio: Jugular venous distension: no JVD Rate: regular rate Heart sounds: S1 normal heart sound present, S2 normal heart sound present and no murmurs Peripheral pulses: Peripheral pulses 2+ throughout GI: GI Palp: No abdominal tenderness Auscultation: normal bowel sounds Skin: General skin exam: normal color Neuro: General: patient oriented x3 Cranial nerves: Yes Equal, round and reactive pupils present Extrem: General: normal to inspection and no clubbing, cyanosis or edema Objective Data Vital Signs Vital Signs: Vital Signs - 24 hr 12/01/20 16:00 12/01/20 16:51 12/01/20 20:00 Temperature 36.3 C L Pulse Rate 74 84 85 Respiratory Rate 21 H Blood Pressure 126/71 Pulse Oximetry 99 12/01/20 20:50 12/02/20 00:00 12/02/20 04:00 [place]
--- NOTE | 2020-12-02 14:17 | PM.PNGS ---
Progress Note: A&P Assessment and Plan (1) Cellulitis of left breast: Code(s): N61.0 - Mastitis without abscess Status: Acute Assessment and Plan: Left breast cellulitis, improving with current treatment. Continue antibiotics. Okay with me at this time to stop IV vancomycin and try switching to oral minocycline which is what she would use when she goes home. Okay from a surgical standpoint to discharge the patient when okay with other services. It would be reasonable to allow the patient to resume her minocycline on discharge for antibiotic coverage. We would then recommend that she follow-up with the Hotel Desk Clerk at [facility] in a week. (2) Hidradenitis suppurativa: Code(s): L73.2 - Hidradenitis suppurativa Status: Chronic Assessment and Plan: No significant areas of hidradenitis that are infected. No surgical intervention needed at this time. We would recommend f/u with the specialist at [facility] that she follows with already. - - she can then discuss when to restart her previous biologic therapy once the acute infection has resolved. (3) COPD (chronic obstructive pulmonary disease): Code(s): J44.9 - Chronic obstructive pulmonary disease, unspecified Status: Acute (4) Acute on chronic systolic (congestive) heart failure: Code(s): I50.23 - Acute on chronic systolic (congestive) heart failure Status: Acute Assessment and Plan: Known ischemic cardiomyopathy with EF of 30-35%. Cardiology following. Sees a Business Applications Manager in [place]. Management per Cardiology/Hospitalist. (5) Diabetes mellitus: Code(s): E11.9 - Type 2 diabetes mellitus without complications Status: Acute Assessment and Plan: Glycemic control is imperitive to healing and preventing further infections. Discussed this with the patient and also the importance of being compliant with medications after discharge. (6) Tobacco abuse: Code(s): Z72.0 - Tobacco use Status: Acute Assessment and Plan: Patient can f/u with PCP regarding cessation options. Additional Plan Discharge when okay with primary service Would encourage use of a lubricating lotion to all surfaces of her skin that her dry. She can use this on the anterior surface of the left breast now also. However would continue the antifungal cream or powder under her breast on the left side when discharged. Will not plan to see her in the office. Patient already has a digital editor that can follow her recent left breast cellulitis and the known hidradenitis that she has. Subjective Subjective Date/Time Seen: 12/02/20 10:17 Patient is sitting up in bed when I entered the room. She denies much left breast pain. Denies any drainage in the area of the previous cellulitis on the underside of her left breast. Denies any new changes on her legs. She believes the use her in cream is helping to keep her skin from being dry and itchy. Review of Systems Review of Systems: All systems reviewed & are unremarkable except as noted in HPI and below Constitutional: Constitutional: Reports as per HPI, Reports no additional constitutional complaints, Denies chills, Denies fatigue, Denies fever(s) and Denies weakness Eyes: Eyes: Reports no additional eye complaints, Denies change in vision and Denies loss of vision ENT: Reports system reviewed and no additional complaints, except as documented, Denies dysphagia, Denies dizziness, Denies dry mouth, Denies hearing loss and Denies lip swelling Cardiovascular: Cardiovascular: Reports no additional cardiovascular complaints, Denies chest pain, Denies syncope, Reports leg edema, Denies radiating jaw, neck or arm pain, Denies dyspnea (not at rest) and Reports dyspnea on exertion (improved) Respiratory: Respiratory: Reports no additional respiratory complaints, Denies cough, Denies dyspnea (not at rest), Reports dyspnea on exertion (improved) and Denies wheezing Gastrointestinal: Ga
--- NOTE | 2020-12-02 15:43 | PM.IMPN ---
Progress Note: A&P Assessment and Plan (1) Acute respiratory failure with hypoxia: Code(s): J96.01 - Acute respiratory failure with hypoxia Status: Acute Assessment and Plan: Likely secondary to mild pulmonary edema in the setting of CHF with combined systolic and diastolic dysfunction. CXR 11/27 demonstrated mild pulmonary edema. She is being diuresed. She appears euvolemic on exam today and is maintaining adequate oxygen saturations on room air Continue supplemental oxygen as needed to maintain oxygen saturation >90% (2) Acute on chronic systolic (congestive) heart failure: Code(s): I50.23 - Acute on chronic systolic (congestive) heart failure Status: Acute Assessment and Plan: The patient reported increased dyspnea and swelling in her legs and stomach for 1 week, likely due to poor compliance with low-sodium diet. She denied missing any doses of Lasix. CXR showed pulmonary edema on admission. Last echo August 2020 showed EF 30-35%. BNP elevated at 16,000. Home PO Lasix has been held since 11/24 give HANNA and concern for overdiuresis. Cardiology and nephrology have been consulted and input is appreciated Losartan on hold due to HANNA Beta mira was discontinued and she did not tolerate this well with bradycardia and hypotension. Should be avoided in future, per cardiology. Heart healthy diet Monitor volume status closely with strict intake and output and daily weights Dobutamine in the setting of hypotension HANNA, has since been discontinued Bumex held today as bicarb has been elevated, likely from over-diuresis Continue diamox 500 mg bid (3) Cellulitis of left breast: Code(s): N61.0 - Mastitis without abscess Status: Acute Assessment and Plan: With left breast erythema, induration, swelling, and pain. Left nipple was inverted due to edema but this has now resolved. US demonstrates diffuse left breast edema consistent with cellulitis without abscess. She did not demonstrate improvement on dicloxacillin or Keflex. She is felt at risk for MRSA given hospitalization and hx of several infections. She has been evaluated by TUMBLING INSTRUCTOR and general surgery. Erythema, edema, and tenderness have improved significantly Continue IV vancomycin. Started on 11/28. Will discontinue tonight and plan to transition to p.o. minocycline, which is a daily home medication for her. Per general surgery, she can resume minocycline and follow up with her manager web application at [place] within 1 week. appreciate general surgery consultation Continue to monitor clinically Outpatient diagnostic mammogram is recommended when the acute episode has resolved. She reports she has obtained consistent mammograms and believes her last was 1 year ago. Denies family history or personal history of breast cancer. (4) Non-sustained ventricular tachycardia: Code(s): I47.2 - Ventricular tachycardia Status: Acute Assessment and Plan: The patient has had a several 8-9 beat runs of non-sustained v-tach. She had one episode 11/28 with 7 beat run. Cardiology is following. Potassium and magnesium were within normal limits. She was asymptomatic. Echocardiogram from 08/26/20 demonstrated EF 30-35%. On 11/30, she had an extended run of NSVT of 38 beats and remained asymptomatic. Plan to initiate amiodarone per Cardiology. Diamox has been discontinued due to interaction with amiodarone, therefore amiodarone can safely be initiated at this time. Continue cardiology recommendations. Per cardiology, she is not a candidate for ICD given high infection risk. Continue to monitor electrolytes closely and replace as necessary Continue telemetry (5) Hyperkalemia: Code(s): E87.5 - Hyperkalemia Status: Acute Assessment and Plan: Potassium was 5.7 on 11/28. She reported eating 3 bananas that day. Repeat potassium improved and potassium is 4.9 today. She has been counseled on avoiding exce
--- NOTE | 2020-12-02 15:54 | PM.PNNEP ---
Progress Note: A&P Assessment and Plan (1) HANNA (acute kidney injury): Code(s): N17.9 - Acute kidney failure, unspecified Status: Acute Assessment and Plan: HANNA urine electrolyte c/w prerenal azotemia renal ultrasound normal Most likely due to dysautoregulation and cardiomyopathy The creatinine stabilized. Her intake/output is even Will restart oral diuretics tomorrow DC the Diamox because it interferes with Amiodarone (2) Acute on chronic systolic (congestive) heart failure: Code(s): I50.23 - Acute on chronic systolic (congestive) heart failure Status: Acute Assessment and Plan: Cardiology following clinically better off dobutamine. (3) HTN (hypertension): Code(s): I10 - Essential (primary) hypertension Status: Acute Assessment and Plan: BP is doing well right now. (4) Wound of foot: Code(s): S91.309A - Unspecified open wound, unspecified foot, initial encounter Status: Acute Assessment and Plan: local wound care Subjective Date/time seen: 12/02/20 15:54 Interval history: Patient is feeling okay. eating breakfast No chest pain or shortness of Breath Exam Narrative: Exam Narrative: General: WD/WN female in NAD Heart: normal S1 and S2; no rub Lungs: clear bilaterally Abdomen: soft, nontender, nondistended, positive bowel sounds Extremities: trace to 1+ edema Skin: No rash or subcu nodules Objective Data Vital Signs Vital Signs: Vital Signs - 24 hr 12/01/20 16:00 12/01/20 16:51 12/01/20 20:00 Temperature 36.3 C L Pulse Rate 74 84 85 Respiratory Rate 21 H Blood Pressure 126/71 Pulse Oximetry 99 12/01/20 20:50 12/02/20 00:00 12/02/20 04:00 Temperature 36.3 C L Pulse Rate 67 85 85 Respiratory Rate 16 16 Blood Pressure 111/66 133/80 Pulse Oximetry 91 90 12/02/20 04:30 12/02/20 08:00 12/02/20 12:00 Temperature 37.4 C 36.6 C 36.4 C Pulse Rate 88 68 79 Respiratory Rate 16 14 14 Blood Pressure 132/68 133/74 124/63 Pulse Oximetry 91 97 98 Intake/Output Intake/Output: Intake & Output 11/29/20 11/30/20 12/01/2022/21 23:59 23:59 23:59 23:59 Intake Total 2380 1300 2210 550 Output Total 4950 2450 2800 1450 Balance -2570 -1150 -590 -900 Meds/Results Medications: Active Medications Generic Name Dose Route Start Last Admin Trade Name Freq PRN Reason Stop Dose Admin Acetaminophen 650 mg 11/22/20 17:43 11/26/20 02:20 Acetaminophen 325 Mg Tablet PO 650 mg Q4H PRN Administration Mild Pain (1-3) or Fever Hydrocodone Bitart/Acetaminophen 1 tab 11/22/20 17:43 12/02/20 09:00 Hydrocodone/Acetaminophen (*Crx) 5-325 Mg Tablet PO 1 tab Q4H PRN Administration Pain Rated 4-6 Acetazolamide 500 mg 11/30/20 17:00 12/02/20 08:53 Acetazolamide Tab 250 Mg Tablet PO 500 mg BID MELONY Administration Albuterol 2 puff 11/21/20 12:00 12/01/20 20:58 Albuterol Sulfate (*Sp) Aerosol 1 Puff INHALATION 2 puff QIDRT MELONY Administration Aspirin 325 mg 11/21/20 09:00 12/02/20 08:53 Aspirin 325 Mg Tablet PO 325 mg DAILY MELONY Administration Atorvastatin Calcium 40 mg 11/21/20 09:00 12/02/20 08:53 Atorvastatin 40 Mg Tablet PO 40 mg DAILY MELONY Administration Calcium Carbonate 250 mg 11/28/20 12:00 12/02/20 08:54 Calcium Carbonate (Oscal) 250 Mg Tablet PO 250 mg DAILY@0800 MELONY Administration Dextrose 12.5 gm 11/21/20 13:28 Dextrose 50% 25 Gm/50 Ml Syringe IV PUSH PRN PRN Hypoglycemia Protocol Docusate Sodium 100 mg 11/21/20 08:14 Docusate Sodium 100 Mg Capsule PO Q12H PRN Constipation Famotidine 20 mg 11/21/20 09:00 12/02/20 08:53 Famotidine 20 Mg Tablet PO 20 mg Q12HR MELONY Administration Gabapentin 300 mg 11/21/20 09:00 12/02/20 08:54 Gabapentin 300 Mg Capsule PO 300 mg QID MELONY Administration Glucagon 1 mg 11/21/20 13:28 Glucagon For Inj 1
[2020-12-02 17:19] LABS: Glucose Point of Care 148 (65-105)
[2020-12-02] MEDS: PRAMIPEXOLE 0.25 MG TABLET 0.75 MG PO (21:09)
[2020-12-02 21:20] LABS: Glucose Point of Care 159 (65-105)
[2020-12-03] VITALS (9 sets, daily range): BP systolic 109–155; BP diastolic 61–83; PULSE 63–83; RESP 16–24; TEMP 36.6–37.3; O2SAT 91–95
[2020-12-03] MEDS: ACETAMINOPHEN 325 MG TABLET 650 MG PO (00:38)
[2020-12-03 05:54] LABS: Albumin 3.1 g/dL (3.8-4.8); Alpha 1 Globulin 0.5 g/dL (0.2-0.3); Alpha 2 Globulin 0.8 g/dL (0.5-0.9); Beta 1 Globulin 0.7 g/dL (0.4-0.6); Gamma Globulin 1.9 g/dL (0.8-1.7); Protein, Total 7.5 g/dL (6.1-8.1)
[2020-12-03 06:15] LABS: Basophils Percent Auto 0.6 % (0.2-1.2); Eosinophils Absolute Auto 0.4 K/mm3 (0-0.3); Eosinophils Percent Auto 6.5 % (0-4.4); Hematocrit 38.2 % (37.0-47.0); Hemoglobin 11.2 g/dL (12.0-15.0); Immature Granulocyte Absolute 0.03 K/mm3 (0.00-0.031); Immature Granulocyte Percent A 0.4 % (0-0.5); Lymphocytes Percent Auto 23.8 % (18.3-44.2); Mean Corpuscular HGB Conc 29.3 g/dl (32-36); Mean Corpuscular Hemoglobin 27.7 pg (26-34); Mean Corpuscular Volume 94.6 fl (80-100); Mean Platelet Volume 11.2 fl (7.4-10.4); Monocytes Absolute Auto 0.7 K/mm3 (0.1-0.6); Monocytes Percent Auto 10.7 % (2.6-8.5); Neutrophils Absolute Auto 3.9 K/mm3 (1.3-6.7); Platelet Count Result 317 k/mm3 (150-375); Red Blood Count 4.04 M/mm3 (4.2-5.4); Red Cell Distribution Width 15.9 % (11.5-14.5); White Blood Count 6.7 K/mm3 (4.5-10.0)
[2020-12-03] MEDS: MINOCYCLINE HCL 50 MG CAPSULE 100 MG PO ×2 (06:15→18:17)
[2020-12-03] MEDS: HEPARIN SODIUM 5,000 UNITS/ML VIAL 5000 UNITS SUB-Q ×3 (06:15→20:46)
[2020-12-03 06:32] LABS: Alanine Aminotransferase 15 U/L (4-35); Albumin Level 3.6 g/dL (3.5-5.1); Alkaline Phosphatase 87 U/L (38-126); Anion Gap 3 mmol/L (8-16); Aspartate Amino Transferase 27 U/L (14-36); Bilirubin,Total 0.3 mg/dL (0.2-1.3); Blood Urea Nitrogen 18 mg/dL (7-17); Calcium 9.1 mg/dL (8.4-10.2); Carbon Dioxide 31 mmol/L (22-30); Chloride 104 mmol/L (98-107); Estimated CRCL calculation 44 ml/min; Estimated Glomerular Filt Rate 41; Glucose 109 mg/dL (65-105); Magnesium 1.9 mg/dL (1.6-2.3); Phosphorus 4.8 mg/dL (2.5-4.5); Potassium 4.7 mmol/L (3.4-5.0); Sodium 138 mmol/L (137-145)
--- NOTE | 2020-12-03 08:08 | PM.PNCARD ---
Progress Note: A&P Assessment and Plan (1) CHF (congestive heart failure): Code(s): I50.9 - Heart failure, unspecified Status: Acute Assessment and Plan: Patient with known ischemic cardiomyopathy EF 30-35%, Biventricular failure who presents now with acute on chronic systolic heart failure in the setting of dietary non-compliance She has very poor cardiac preserve and has required inotropic support this admission and last admission. Unfortunately, she is not candidate for advanced therapies due to compliance issues Currently appears well compensated from CHF standpoint and volume status better Will defer diuretic dosing to nephrology service. Consider resume Losartan as creatinine has been stable Intolerant to BB with profound bradycardia and hypotension. She has multiple runs of NSVT. Will start Amiodarone. No need for IV or PO load. Will start at 400 mg daily. 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 She need follow up within a week after discharge with her primary rotary drum tanner in [place]. (2) CAD (coronary artery disease): Code(s): I25.10 - Atherosclerotic heart disease of [place] coronary artery without angina pectoris Status: Acute Assessment and Plan: Stable (3) Tobacco abuse: Code(s): Z72.0 - Tobacco use Status: Acute Assessment and Plan: Smoking cessation counseling Subjective Date/time seen: 12/03/20 08:08 She feels fair Leg edema improved. Denies chest pain or dyspnea Exam Narrative: Exam Narrative: Const: General: no acute distress HENMT: Head: normal to inspection and atraumatic Ears: hearing grossly normal bilaterally Face and sinus: normal facial exam Eyes: General: appearance normal, both eyes and all related structures Pupils: Equal, round and reactive pupils present EOM: EOMs intact bilaterally Neck: Neck: supple Resp: Increase resp effort only by talking. Decrease breath sounds on auscultation Cardio: Rate: regular rate Heart sounds: S1 normal heart sound present, S2 normal heart sound present and no murmurs . Lower ext edema with skin discoloration extends to the toes (appear cyanotic on the right) GI: Auscultation: normal bowel sounds Skin: General skin exam: normal color Neuro: General: patient oriented x3 Cranial nerves: Yes Equal, round and reactive pupils present and Yes Normal hearing present Extrem: General: normal to inspection and no clubbing, cyanosis or edema Const: General: no acute distress and other (sitting in chair) Nutritional Appearance: well nourished Orientation/consciousness: patient oriented x3 HENMT: Head: normal to inspection and atraumatic Ears: hearing grossly normal bilaterally Face and sinus: normal facial exam Eyes: General: appearance normal, both eyes and all related structures Pupils: Equal, round and reactive pupils present EOM: EOMs intact bilaterally Neck: Neck: supple Chest: Chest palpation & inspection: normal inspection of the chest Resp: Effort & Inspection: normal respiratory effort and no respiratory distress Auscultation: clear to auscultation bilaterally Cardio: Jugular venous distension: no JVD Rate: regular rate Heart sounds: S1 normal heart sound present, S2 normal heart sound present and no murmurs Peripheral pulses: Peripheral pulses 2+ throughout GI: Auscultation: normal bowel sounds Skin: General skin exam: normal color Neuro: General: patient oriented x3 Cranial nerves: Yes Equal, round and reactive pupils present Extrem: General: normal to inspection and no clubbing, cyanosis or edema Objective Data Vital Signs Vital Signs: Vital Signs - 24 hr 12/02/20 12:00 12/02/20 16:00 12/02/20 20:00 Temperature 36.4 C Pulse Rate 79 75 67 Respiratory Rate 14 18 Blood Pressure 124/63 Pulse Oximetry 98 97 12/02/20 21:00 12/02/20 23:10 12/03/20 00:
--- NOTE | 2020-12-03 08:30 | PC.NURSE ---
DR. STEARNS HERE TO SEE PT. STARTED AMIODARONE PO.
[2020-12-03] MEDS: AMIODARONE HCL 200 MG TABLET 400 MG PO (09:44)
[2020-12-03] MEDS: CALCIUM CARBONATE (OSCAL) 250 MG TABLET PO (09:44)
[2020-12-03] MEDS: ASPIRIN 325 MG TABLET PO (09:45)
[2020-12-03] MEDS: ATORVASTATIN 40 MG TABLET PO (09:45)
[2020-12-03] MEDS: FAMOTIDINE 20 MG TABLET PO ×2 (09:45→20:41)
[2020-12-03] MEDS: BUMETANIDE 1 MG TABLET PO (09:45)
[2020-12-03] MEDS: MAGNESIUM OXIDE 400 MG TABLET PO (09:46)
[2020-12-03] MEDS: GABAPENTIN 300 MG CAPSULE PO ×4 (09:46→20:41)
[2020-12-03] MEDS: SILVER SULFADIAZINE 1% CR 50 GM JAR (*BKC) 1 APPLIC TOPICAL (09:54)
[2020-12-03] MEDS: EUCERIN CREAM 120 GM JAR 1 APPLIC TOPICAL (09:54)
[2020-12-03] MEDS: TOLNAFTATE 1% POWDER 45 GM BTL 1 APPLIC TOPICAL (09:55)
[2020-12-03] MEDS: INSULIN GLARGINE (*BKC) 100 UNITS/ML SUB-Q (10:00)
--- NOTE | 2020-12-03 10:35 | PC.NURSE ---
DR. CIFUENTES HERE TO SEE PT.
--- NOTE | 2020-12-03 11:35 | PC.NURSE ---
CUBA CHARLES HERE TO SEE PT. CONDITION UPDATE GIVEN. DISCHARGE PLANNING IN PROGRESS.
--- NOTE | 2020-12-03 11:48 | PM.IMPN ---
Progress Note: A&P Assessment and Plan (1) Acute respiratory failure with hypoxia: Code(s): J96.01 - Acute respiratory failure with hypoxia Status: Acute Assessment and Plan: Likely secondary to mild pulmonary edema in the setting of CHF with combined systolic and diastolic dysfunction. CXR 11/27 demonstrated mild pulmonary edema. She is being diuresed. She appears euvolemic on exam today and is maintaining adequate oxygen saturations on room air Continue supplemental oxygen as needed to maintain oxygen saturation >90% (2) Acute on chronic systolic (congestive) heart failure: Code(s): I50.23 - Acute on chronic systolic (congestive) heart failure Status: Acute Assessment and Plan: The patient reported increased dyspnea and swelling in her legs and stomach for 1 week, likely due to poor compliance with low-sodium diet. She denied missing any doses of Lasix. CXR showed pulmonary edema on admission. Last echo August 2020 showed EF 30-35%. BNP elevated at 16,000. Cardiology and nephrology have been consulted and input is appreciated Losartan on hold due to HANNA. Per Nephrology, this can be held until outpatient follow-up. Beta mira was discontinued and she did not tolerate this well with bradycardia and hypotension. Should be avoided in future, per cardiology. Heart healthy diet Monitor volume status closely with strict intake and output and daily weights Dobutamine in the setting of hypotension HANNA was initiated on 11/26, has since been discontinued Bumex resume today at 1 mg p.o. daily. diamox 500 mg bid has been discontinued. (3) Cellulitis of left breast: Code(s): N61.0 - Mastitis without abscess Status: Acute Assessment and Plan: With left breast erythema, induration, swelling, and pain. Left nipple was inverted due to edema but this has now resolved. US demonstrated diffuse left breast edema consistent with cellulitis without abscess. She did not demonstrate improvement on dicloxacillin or Keflex. She was felt at risk for MRSA given hospitalization and hx of several infections. She has been evaluated by DEALER COMPLIANCE REPRESENTATIVE and general surgery. Cellulitis is resolving and overall appearance has improved significantly. IV vancomycin (started on 11/28) was discontinued yesterday. Her home medication menisci cleaned on 100 mg b.i.d. has been resumed. Per general surgery, she can continue minocycline and follow up with her elastic cutter at [place] within 1 week. Appreciate general surgery consultation Continue to monitor clinically Outpatient diagnostic mammogram is recommended when the acute episode has resolved. She reports she has obtained consistent mammograms and believes her last was 1 year ago. Denies family history or personal history of breast cancer. (4) Non-sustained ventricular tachycardia: Code(s): I47.2 - Ventricular tachycardia Status: Acute Assessment and Plan: The patient has had a several runs of non-sustained v-tach. She has remained asymptomatic. Cardiology is following. Potassium and magnesium were within normal limits. Echocardiogram from 08/26/20 demonstrated EF 30-35%. On 11/30, she had an extended run of NSVT of 38 beats and remained asymptomatic. Amiodarone has been initiated per Cardiology. 400 mg p.o. daily. Continue cardiology recommendations. Per cardiology, she is not a candidate for ICD given high infection risk. Continue to monitor electrolytes closely and replace as necessary Continue telemetry (5) Hyperkalemia: Code(s): E87.5 - Hyperkalemia Status: Acute Assessment and Plan: Potassium was 5.7 on 11/28. She reported eating 3 bananas that day. Repeat potassium improved and potassium is 4.7 today. She has been counseled on avoiding excess intake of potassium rich foods Continue to monitor closely with daily BMP. (6) HANNA (acute kidney injury): Code(s): N17.9 - Acute kidney failur
--- NOTE | 2020-12-03 12:50 | PC.NURSE ---
DR. COHEN HERE TO SEE PT. CONDITION UPDATE GIVEN. DIURETICS HAVE BEEN ADJUSTED.
[2020-12-03 12:52] LABS: Glucose Point of Care 104 (65-105)
--- NOTE | 2020-12-03 13:32 | PM.PNNEP ---
Progress Note: A&P Assessment and Plan (1) HANNA (acute kidney injury): Code(s): N17.9 - Acute kidney failure, unspecified Status: Acute Assessment and Plan: HANNA urine electrolyte c/w prerenal azotemia renal ultrasound normal Most likely due to dysautoregulation and cardiomyopathy The creatinine Is stable at 1.3 this is probably her new baseline off dobutamine. There may be some residual effect of the Dobutamine which can last a few days or weeks. If so as the Dobutamine effect wears off her creatinine may rise will check another set of blood work next week and I can see her in the office. Stay off losartan for now and will restarted in the office if her numbers are okay (2) Acute on chronic systolic (congestive) heart failure: Code(s): I50.23 - Acute on chronic systolic (congestive) heart failure Status: Acute Assessment and Plan: Cardiology following clinically better off dobutamine. (3) HTN (hypertension): Code(s): I10 - Essential (primary) hypertension Status: Acute Assessment and Plan: BP is doing well right now. (4) Wound of foot: Code(s): S91.309A - Unspecified open wound, unspecified foot, initial encounter Status: Acute Assessment and Plan: local wound care Subjective Date/time seen: 12/03/20 13:32 Interval history: Patient is feeling okay. eating breakfast No chest pain or shortness of Breath a little dizzy with standing every once in a while. She says that she got up to the bathroom and to make her bed. She has much less pain and swelling in the left breast. Exam Narrative: Exam Narrative: General: WD/WN female in NAD Heart: normal S1 and S2; no rub Lungs: clear bilaterally Abdomen: soft, nontender, nondistended, positive bowel sounds Extremities: trace to 1+ edema Skin: No rash or subcu nodules Objective Data Vital Signs Vital Signs: Vital Signs - 24 hr 12/02/20 16:00 12/02/20 20:00 12/02/20 21:00 Temperature 36.6 C Pulse Rate 75 67 64 Respiratory Rate 18 16 Blood Pressure 108/59 L Pulse Oximetry 97 90 12/02/20 23:10 12/03/20 00:00 12/03/20 03:36 Temperature Pulse Rate 66 67 63 Respiratory Rate 16 16 Blood Pressure 113/63 135/76 Pulse Oximetry 91 91 12/03/20 04:00 12/03/20 09:44 Temperature Pulse Rate 65 82 Respiratory Rate Blood Pressure Pulse Oximetry Intake/Output Intake/Output: Intake & Output 11/30/20 12/01/20 12/02/20 12/03/20 23:59 23:59 23:59 23:59 Intake Total 1300 2210 2185 880 Output Total 2450 2800 2550 1300 [facility] -1150 -590 -365 -420 Meds/Results Medications: Active Medications Generic Name Dose Route Start Last Admin Trade Name Freq PRN Reason Stop Dose Admin Acetaminophen 650 mg 11/22/20 17:43 12/03/20 00:38 Acetaminophen 325 Mg Tablet PO 650 mg Q4H PRN Administration Mild Pain (1-3) or Fever Albuterol 2 puff 11/21/20 12:00 12/01/20 20:58 Albuterol Sulfate (*Sp) Aerosol 1 Puff INHALATION 2 puff QIDRT MELONY Administration Amiodarone HCl 400 mg 12/03/20 08:55 12/03/20 09:44 Amiodarone Hcl 200 Mg Tablet PO 400 mg DAILY@0800 MELONY Administration Aspirin 325 mg 11/21/20 09:00 12/03/20 09:45 Aspirin 325 Mg Tablet PO 325 mg DAILY MELONY Administration Atorvastatin Calcium 40 mg 11/21/20 09:00 12/03/20 09:45 Atorvastatin 40 Mg Tablet PO 40 mg DAILY MELONY Administration Bumetanide 1 mg 12/03/20 09:00 12/03/20 09:45 Bumetanide 1 Mg Tablet PO 1 mg DAILY MELONY Administration Calcium Carbonate 250 mg 11/28/20 12:00 12/03/20 09:44 Calcium Carbonate (Oscal) 250 Mg Tablet PO 250 mg DAILY@0800 MELONY Administration Dextrose 12.5 gm 11/21/20 13:28 Dextrose 50% 25 Gm/50 Ml Syringe IV PUSH PRN PRN Hypoglycemia Protocol Docusate Sodium 100 mg 11/21/20 08:14 Docusate Sodium 100 Mg Capsule PO Q12H PRN Constipatio
[2020-12-03] MEDS: FLUTICASONE/SALMETEROL 115-21 MCG INHALER 1 PUFF 2 PUFF INHALATION (13:49)
--- NOTE | 2020-12-03 14:04 | PM.PNGS ---
Progress Note: A&P Assessment and Plan (1) Cellulitis of left breast: Code(s): N61.0 - Mastitis without abscess Status: Acute Assessment and Plan: Left breast cellulitis, improving with current treatment. Continue antibiotics. Okay with me at this time to stop IV vancomycin and try switching to oral minocycline which is what she would use when she goes home. (Done on 12/02). Okay from a surgical standpoint to discharge the patient when okay with other services. It would be reasonable to allow the patient to resume her minocycline on discharge for antibiotic coverage. We would then recommend that she follow-up with the Head Banquet Waitress at [facility] in a week. (2) Hidradenitis suppurativa: Code(s): L73.2 - Hidradenitis suppurativa Status: Chronic Assessment and Plan: No significant areas of hidradenitis that are infected. No surgical intervention needed at this time. We would recommend f/u with the specialist at [facility] that she follows with already. - - she can then discuss when to restart her previous biologic therapy once the acute infection has resolved. (3) COPD (chronic obstructive pulmonary disease): Code(s): J44.9 - Chronic obstructive pulmonary disease, unspecified Status: Acute (4) Acute on chronic systolic (congestive) heart failure: Code(s): I50.23 - Acute on chronic systolic (congestive) heart failure Status: Acute Assessment and Plan: Known ischemic cardiomyopathy with EF of 30-35%. Cardiology following. Sees a Nitroglycerin Supervisor in [place]. Management per Cardiology/Hospitalist. (5) Diabetes mellitus: Code(s): E11.9 - Type 2 diabetes mellitus without complications Status: Acute Assessment and Plan: Glycemic control is imperitive to healing and preventing further infections. Discussed this with the patient and also the importance of being compliant with medications after discharge. (6) Tobacco abuse: Code(s): Z72.0 - Tobacco use Status: Acute Assessment and Plan: Patient can f/u with PCP regarding cessation options. Additional Plan Discharge when okay with primary service Would encourage use of a lubricating lotion to all surfaces of her skin that her dry. She can use this on the anterior surface of the left breast now also. However would continue the antifungal cream or powder under her breast on the left side when discharged. Will not plan to see her in the office. Patient already has a fiscal agent that can follow her recent left breast cellulitis and the known hidradenitis that she has. Subjective Subjective Date/Time Seen: 12/03/20 14:04 Interval history: Patient is sitting up in bed when I entered the room. Nurse at this done her dressing around the breast area. She was helping her apply lotion to her dry skin on legs torso and anterior surface left breast. Patient denies much pain. Review of Systems Review of Systems: All systems reviewed & are unremarkable except as noted in HPI and below Constitutional: Constitutional: Reports as per HPI, Reports no additional constitutional complaints, Denies chills, Denies fatigue, Denies fever(s) and Denies weakness Eyes: Eyes: Reports no additional eye complaints, Denies change in vision and Denies loss of vision ENT: Reports system reviewed and no additional complaints, except as documented, Denies dysphagia, Denies dizziness, Denies dry mouth, Denies hearing loss and Denies lip swelling Cardiovascular: Cardiovascular: Reports no additional cardiovascular complaints, Denies chest pain, Denies syncope, Reports leg edema, Denies radiating jaw, neck or arm pain, Denies dyspnea (not at rest) and Reports dyspnea on exertion (improved) Respiratory: Respiratory: Reports no additional respiratory complaints, Denies cough, Denies dyspnea (not at rest), Reports dyspnea on exertion (improved) and Denies wheezing Gastrointestinal: Gastrointestinal: Reports no additional venita
--- NOTE | 2020-12-03 14:20 | PC.NURSE ---
BOTH PT AND OT HAVE BEEN HERE TO SEE PT FOR EVALUATION.
[2020-12-03 17:25] LABS: Glucose Point of Care 108 (65-105)
[2020-12-03] MEDS: guaiFENesin 12 HR 600 MG TABCR PO (20:41)
[2020-12-03] MEDS: PRAMIPEXOLE 0.25 MG TABLET 0.75 MG PO (20:41)
[2020-12-03 21:00] LABS: Glucose Point of Care 210 (65-105)
[2020-12-04] VITALS (7 sets, daily range): BP systolic 114–143; BP diastolic 67–84; PULSE 59–90; RESP 16–22; TEMP 36.3–36.8; O2SAT 90–96
[2020-12-04] MEDS: MINOCYCLINE HCL 50 MG CAPSULE 100 MG PO (05:08)
[2020-12-04] MEDS: HEPARIN SODIUM 5,000 UNITS/ML VIAL 5000 UNITS SUB-Q (05:08)
[2020-12-04 05:55] LABS: Hematocrit 39.4 % (37.0-47.0); Hemoglobin 11.5 g/dL (12.0-15.0); Mean Corpuscular HGB Conc 29.2 g/dl (32-36); Mean Corpuscular Hemoglobin 27.3 pg (26-34); Mean Corpuscular Volume 93.4 fl (80-100); Platelet Count Result 332 k/mm3 (150-375); Red Blood Count 4.22 M/mm3 (4.2-5.4); Red Cell Distribution Width 15.9 % (11.5-14.5); White Blood Count 7.6 K/mm3 (4.5-10.0)
[2020-12-04 06:13] LABS: Alanine Aminotransferase 16 U/L (4-35); Albumin Level 3.8 g/dL (3.5-5.1); Alkaline Phosphatase 101 U/L (38-126); Anion Gap 5 mmol/L (8-16); Aspartate Amino Transferase 31 U/L (14-36); Bilirubin,Total 0.5 mg/dL (0.2-1.3); Blood Urea Nitrogen 22 mg/dL (7-17); Calcium 8.8 mg/dL (8.4-10.2); Carbon Dioxide 32 mmol/L (22-30); Chloride 102 mmol/L (98-107); Estimated CRCL calculation 44 ml/min; Estimated Glomerular Filt Rate 41; Glucose 118 mg/dL (65-105); Magnesium 1.9 mg/dL (1.6-2.3); Phosphorus 4.8 mg/dL (2.5-4.5); Potassium 4.6 mmol/L (3.4-5.0); Sodium 139 mmol/L (137-145)
[2020-12-04] MEDS: ALBUTEROL SULFATE (*SP) AEROSOL 1 PUFF 2 PUFF INHALATION ×2 (09:02→12:30)
[2020-12-04] MEDS: FLUTICASONE/SALMETEROL 115-21 MCG INHALER 1 PUFF 2 PUFF INHALATION (09:03)
[2020-12-04] MEDS: AMIODARONE HCL 200 MG TABLET 400 MG PO (09:03)
[2020-12-04] MEDS: FAMOTIDINE 20 MG TABLET PO (09:04)
[2020-12-04] MEDS: CALCIUM CARBONATE (OSCAL) 250 MG TABLET PO (09:04)
[2020-12-04] MEDS: ASPIRIN 325 MG TABLET PO (09:04)
[2020-12-04] MEDS: guaiFENesin 12 HR 600 MG TABCR PO (09:04)
[2020-12-04] MEDS: BUMETANIDE 1 MG TABLET PO (09:04)
[2020-12-04] MEDS: ATORVASTATIN 40 MG TABLET PO (09:04)
[2020-12-04] MEDS: GABAPENTIN 300 MG CAPSULE PO ×2 (09:04→14:24)
[2020-12-04] MEDS: MAGNESIUM OXIDE 400 MG TABLET PO (09:05)
[2020-12-04] MEDS: SILVER SULFADIAZINE 1% CR 50 GM JAR (*BKC) 1 APPLIC TOPICAL (09:07)
[2020-12-04] MEDS: TOLNAFTATE 1% POWDER 45 GM BTL 1 APPLIC TOPICAL (09:08)
[2020-12-04] MEDS: EUCERIN CREAM 120 GM JAR 1 APPLIC TOPICAL (09:17)
[2020-12-04] MEDS: INSULIN GLARGINE (*BKC) 100 UNITS/ML SUB-Q (09:17)
--- NOTE | 2020-12-04 11:42 | PM.PNCARD ---
Progress Note: A&P Assessment and Plan (1) CHF (congestive heart failure): Code(s): I50.9 - Heart failure, unspecified Status: Acute Assessment and Plan: Patient with known ischemic cardiomyopathy EF 30-35%, Biventricular failure who presents now with acute on chronic systolic heart failure in the setting of dietary non-compliance She has very poor cardiac preserve and has required inotropic support this admission and last admission. Unfortunately, she is not candidate for advanced therapies due to compliance issues Currently appears well compensated from CHF standpoint and volume status better Agree with Bumex 1 mg daily. May use extra PRN dose in afternoon for leg edema or dyspnea Intolerant to BB with profound bradycardia and hypotension this admission after started on low dose metoprolol. Would discharge off BB She is also of Losartan with plan to start in outpatient follow up per nephrology if creatinine remains stable She has multiple runs of NSVT. Was started on Amiodarone this admission Not candidate for ICD due to high infection risk with her cutaneous disorder. Continue ASA and statin for her known CAD (BEHAVIORAL INTERVENTION SPECIALIST of [facility]). She need follow up within a week after discharge with her primary forest technology professor in [place]. (2) CAD (coronary artery disease): Code(s): I25.10 - Atherosclerotic heart disease of [place] coronary artery without angina pectoris Status: Acute Assessment and Plan: Stable (3) Tobacco abuse: Code(s): Z72.0 - Tobacco use Status: Acute Assessment and Plan: Smoking cessation counseling Subjective Date/time seen: 12/04/20 11:42 No overnight events. Denies chest pain or dyspnea Review of Systems Review of Systems: All systems reviewed & are unremarkable except as noted in HPI and below Constitutional: Constitutional: Reports as per HPI Eyes: Eyes: Reports as per HPI ENT: Reports system reviewed and no additional complaints, except as documented and Reports as per HPI Cardiovascular: Cardiovascular: Reports as per HPI Respiratory: Respiratory: Reports as per HPI Gastrointestinal: Gastrointestinal: Reports as per HPI Genitourinary: Genitourinary: Reports as per HPI Musculoskeletal: Musculoskeletal: Reports as per HPI Exam Narrative: Exam Narrative: Const: General: no acute distress HENMT: Head: normal to inspection and atraumatic Ears: hearing grossly normal bilaterally Face and sinus: normal facial exam Eyes: General: appearance normal, both eyes and all related structures Pupils: Equal, round and reactive pupils present EOM: EOMs intact bilaterally Neck: Neck: supple Resp: Increase resp effort only by talking. Decrease breath sounds on auscultation Cardio: Rate: regular rate Heart sounds: S1 normal heart sound present, S2 normal heart sound present and no murmurs . Lower ext edema with skin discoloration extends to the toes (appear cyanotic on the right) GI: Auscultation: normal bowel sounds Skin: General skin exam: normal color Neuro: General: patient oriented x3 Cranial nerves: Yes Equal, round and reactive pupils present and Yes Normal hearing present Extrem: General: normal to inspection and no clubbing, cyanosis or edema Const: General: no acute distress and other (sitting in chair) Nutritional Appearance: well nourished Orientation/consciousness: patient oriented x3 HENMT: Head: normal to inspection and atraumatic Ears: hearing grossly normal bilaterally Face and sinus: normal facial exam Eyes: General: appearance normal, both eyes and all related structures Pupils: Equal, round and reactive pupils present EOM: EOMs intact bilaterally Neck: Neck: supple Chest: Chest palpation & inspection: normal inspection of the chest Resp: Effort & Inspection: normal respiratory effort and no respiratory distress Auscultation: clear to auscultation bilaterally Cardio: Jugular venous distension: no JVD Rate:
--- NOTE | 2020-12-04 11:45 | PM.PNNEP ---
Progress Note: A&P Assessment and Plan (1) HANNA (acute kidney injury): Code(s): N17.9 - Acute kidney failure, unspecified Status: Acute Assessment and Plan: HANNA urine electrolyte c/w prerenal azotemia renal ultrasound normal Most likely due to dysautoregulation and cardiomyopathy The creatinine Is stable at 1.3 Discussed with the patient. She will follow up in the office. Apparently going home today. (2) Acute on chronic systolic (congestive) heart failure: Code(s): I50.23 - Acute on chronic systolic (congestive) heart failure Status: Acute Assessment and Plan: Cardiology following clinically better off dobutamine. (3) HTN (hypertension): Code(s): I10 - Essential (primary) hypertension Status: Acute Assessment and Plan: BP is doing well right now. (4) Wound of foot: Code(s): S91.309A - Unspecified open wound, unspecified foot, initial encounter Status: Acute Assessment and Plan: local wound care Subjective Date/time seen: 12/04/20 11:45 Interval history: Patient is feeling okay. Slept better. Ate breakfast. Breast seems to be better Exam Narrative: Exam Narrative: General: WD/WN female in NAD Heart: normal S1 and S2; no rub Lungs: clear bilaterally Abdomen: soft, nontender, nondistended, positive bowel sounds Extremities: trace to 1+ edema Skin: No rash or subcu nodules Objective Data Vital Signs Vital Signs: Vital Signs - 24 hr 12/03/20 12:00 12/03/20 16:00 12/03/20 20:00 Temperature 37.1 C 36.9 C Pulse Rate 76 66 63 Respiratory Rate 22 H 19 Blood Pressure 155/74 H 132/83 Pulse Oximetry 94 95 12/03/20 20:45 12/04/20 00:00 12/04/20 00:40 Temperature 36.6 C Pulse Rate 65 70 65 Respiratory Rate 16 16 Blood Pressure 109/61 114/67 Pulse Oximetry 92 93 12/04/20 04:00 12/04/20 05:05 12/04/20 09:03 Temperature 36.3 C L Pulse Rate 59 L 72 80 Respiratory Rate 16 Blood Pressure 143/84 H Pulse Oximetry 95 Intake/Output Intake/Output: Intake & Output 12/01/20 12/02/20 12/03/20 12/04/20 23:59 23:59 23:59 23:59 Intake Total 2210 2185 2840 740 Output Total 2800 2550 8530 500 Balance -590 -947 -206 240 Meds/Results Medications: Active Medications Generic Name Dose Route Start Last Admin Trade Name Freq PRN Reason Stop Dose Admin Acetaminophen 650 mg 11/22/20 17:43 12/03/20 00:38 Acetaminophen 325 Mg Tablet PO 650 mg Q4H PRN Administration Mild Pain (1-3) or Fever Albuterol 2 puff 11/21/20 12:00 12/04/20 09:02 Albuterol Sulfate (*Sp) Aerosol 1 Puff INHALATION 2 puff QIDRT MELONY Administration Amiodarone HCl 400 mg 12/03/20 08:55 12/04/20 09:03 Amiodarone Hcl 200 Mg Tablet PO 400 mg DAILY@0800 MELONY Administration Aspirin 325 mg 11/21/20 09:00 12/04/20 09:04 Aspirin 325 Mg Tablet PO 325 mg DAILY MELONY Administration Atorvastatin Calcium 40 mg 11/21/20 09:00 12/04/20 09:04 Atorvastatin 40 Mg Tablet PO 40 mg DAILY MELONY Administration Bumetanide 1 mg 12/03/20 09:00 12/04/20 09:04 Bumetanide 1 Mg Tablet PO 1 mg DAILY MELONY Administration Calcium Carbonate 250 mg 11/28/20 12:00 12/04/20 09:04 Calcium Carbonate (Oscal) 250 Mg Tablet PO 250 mg DAILY@0800 MELONY Administration Dextrose 12.5 gm 11/21/20 13:28 Dextrose 50% 25 Gm/50 Ml Syringe IV PUSH PRN PRN Hypoglycemia Protocol Docusate Sodium 100 mg 11/21/20 08:14 Docusate Sodium 100 Mg Capsule PO Q12H PRN Constipation Famotidine 20 mg 11/21/20 09:00 12/04/20 09:04 Famotidine 20 Mg Tablet PO 20 mg Q12HR MELONY Administration Gabapentin 300 mg 11/21/20 09:00 12/04/20 09:04 Gabapentin 300 Mg Capsule PO 300 mg QID MELONY Administration Glucagon 1 mg 11/21/20 13:28 Glucagon For Inj 1 Mg Vial IM PRN PRN Hypoglycemia Protocol Glucose 15 gm 11/21/20 13:28 G
[2020-12-04 12:10] LABS: Glucose Point of Care 121 (65-105)
--- NOTE | 2020-12-04 12:51 | PC.NURSE ---
CUBA Zheng PA HERE TO SEE PT. DICK COHEN AND DARYN HAVE BEEN HERE TO SEE PT THIS AM AND HAVE BEEN UPDATED. DISCHARGE PLANNING FOR TODAY IN PROGRESS. PT. UPDATED.
--- NOTE | 2020-12-04 13:46 | PM.DS ---
DS: Admitting Diagnosis Admitting Diagnosis Admitting Diagnosis: dyspnea DS: Discharge Diagnosis Discharge Diagnosis (1) Acute respiratory failure with hypoxia: Code(s): J96.01 - Acute respiratory failure with hypoxia Status: Acute Assessment and Plan: Secondary to mild pulmonary edema in the setting of CHF with combined systolic and diastolic dysfunction. CXR 11/27 showed mild pulmonary edema. She was diuresed and respiratory status improved. She initially required up to 2L supplemental O2 but was weaned to room air and tolerated this. (2) Acute on chronic systolic (congestive) heart failure: Code(s): I50.23 - Acute on chronic systolic (congestive) heart failure Status: Acute Assessment and Plan: The patient reported increased dyspnea and swelling in her legs and stomach for 1 week, likely due to poor compliance with low-sodium diet. She denied missing any doses of Lasix. CXR showed pulmonary edema on admission. Last echo August 2020 showed EF 30-35%. BNP elevated at 16,000. She was seen in consultation by cardiology and nephrology. She was initially diuresed with Lasix, however this was discontinued due to her renal function. She was started on a beta-mira, however she did not tolerate this medication well with bradycardia and hypotension, therefore was discontinued and should be avoided in the future per Cardiology. Because of her hypotension and HANNA, she was started on dobutamine which responded well to. This was later discontinued. She was transitioned to Bumex for diuresis and she will continue with 1 mg Bumex daily. She did have some CO2 retention and received Diamox and this resolved. Daily weights monitored as well as intake and output. She was provided with extensive CHF Education. heart healthy diet and monitoring daily weights discussed. She will need to follow-up with her health sciences program coordinator in 1 week. (3) Cellulitis of left breast: Code(s): N61.0 - Mastitis without abscess Status: Acute Assessment and Plan: With left breast erythema, induration, swelling, and pain. Left nipple was inverted due to edema but this resolved with improvement of cellulitis. US demonstrated diffuse left breast edema consistent with cellulitis without abscess. she was started on dicloxacillin with little improvement, therefore transition to Keflex, again with little improvement. Because of concern for MRSA given hospitalization history of cutaneous infections, she was transition to IV vancomycin to which she responded well. She was evaluated by OBGYN and general surgery. She received 5 days of IV vancomycin and then was transition to her daily p.o. minocycline which she will continue as an outpatient. She will need to follow-up with her transformer molder at [place] within 1 week. She will also need to obtain an outpatient diagnostic mammogram once the acute episode has resolved. She reports she has obtain consistent mammograms in the past and denies family history or personal history of breast cancer. (4) Non-sustained ventricular tachycardia: Code(s): I47.2 - Ventricular tachycardia Status: Acute Assessment and Plan: She had several runs of non-sustained v-tach, With 1 consisting of 38 beat run of an SVT. She remained asymptomatic during each episode. Her potassium and magnesium were monitored closely and were within normal limits. She was seen in consultation by cardiology and amiodarone was initiated. She will continue amiodarone 400 mg p.o. daily and follow-up with her health sciences program coordinator. Per Cardiology, she is not a candidate for ICD given her high cutaneous infection risk. Echocardiogram from 08/26/20 demonstrated EF 30-35%. (5) Hyperkalemia: Code(s): E87.5 - Hyperkalemia Status: Acute Assessment and Plan: Potassium was 5.7 on 11/28. She reported eating 3 bananas that day. subsequent potassium levels were within normal limits. She was counsele
--- NOTE | 2020-12-04 15:45 | PC.NURSE ---
HAVE REVIEWED ALL DISCHARGE INSTRUCTIONS AND FOLLOW UP CARE W/ PT. ALL QUESTIONS ANSWERED. PT. VOICED UNDERSTANDING OF ALL. DISCHARGED HOME, OUT VIA WC TO FAMILY'S WAITING CAR WITH ALL PERSONAL BELONGINGS AND DISCHARGE PACKET. VOICES NO C/O. NO DISTRESS NOTED.
--- NOTE | 2021-01-17 09:53 | PM.IMPN ---
Subjective Date/time seen: 11/26/20 09:53 Objective Data Meds/Results Radiology Results: ITS Impressions Head/Neck Ultrasound 11/23/20 08:38 IMPRESSION: 1. Large right internal jugular vein. 2. Tributary vein Doppler signal suggesting possibility of right heart failure. Renal Ultrasound 11/24/20 09:02 IMPRESSION: 1. Normal kidneys without hydronephrosis. Breast Ultrasound 11/26/20 14:57 Impression: 1: Diffuse left breast edema without evidence for abscess. Findings compatible with cellulitis. Head CT 11/27/20 09:40 IMPRESSION: 1. No acute intracranial abnormality. Chest X-Ray 11/30/20 10:06 IMPRESSION: 1. Stable airspace opacities in the lower lung zones, consistent with atelectasis versus pneumonia. 2. Cardiomegaly. Quality VTE Prophylaxis VTE prophylaxis: pharmacologic ordered (Heparin SQ)
== END 2020-12-04 15:45 | disposition home or self-care (01) | DRG 871 ==
LOC: ANHED 22:03 → ANH3MEDSUR 22:51 → ANHCPC 11-28 23:04 → ANH3MEDSUR 12-07 15:51 → ANHCPC 12-07 15:51
PROVIDERS: Internal Medicine; Internal Medicine Cardiovascular Disease; Internal Medicine Nephrology; Physician Assistant; Admitting Provider Internal Medicine; Emergency Provider Emergency Medicine; PCP Family Medicine; Visit Provider Physician Assistant
DX: A41.9 Sepsis, unspecified organism (principal); J96.01 Acute respiratory failure with hypoxia; I50.23 Acute on chronic systolic (congestive) heart failure; N17.9 Acute kidney failure, unspecified; I47.2 Ventricular tachycardia; I11.0 Hypertensive heart disease with heart failure; J44.9 Chronic obstructive pulmonary disease, unspecified; E11.9 Type 2 diabetes mellitus without complications; Z20.822 Contact with and (suspected) exposure to COVID-19; L98.499 Non-pressure chronic ulcer of skin of other sites with unspecified severity; N61.0 Mastitis without abscess; I25.10 Atherosclerotic heart disease of native coronary artery without angina pectoris; F17.210 Nicotine dependence, cigarettes, uncomplicated; E87.5 Hyperkalemia; L73.2 Hidradenitis suppurativa; I25.5 Ischemic cardiomyopathy; B37.2 Candidiasis of skin and nail; G47.30 Sleep apnea, unspecified; F28 Other psychotic disorder not due to a substance or known physiological condition
CPT/HCPCS: 36415; 70450; 71045; 71046; 76536; 76641; 76775; 80048; 80053; 80069; 80202; 81001; 82550; 82570; 82728; 83036; 83605; 83615; 83735; 83880; 83883; 83935; 84100; 84132; 84155; 84156; 84165; 84166; 84300; 84484; 85025; 85027; 85610; 85730; 86140; 87040; 93005; 94640; 94762; 96372; 96374; 96376; 97161; 97165; 99285; A9270; C9803; G0378; J1250; J1644; J1650; J1815; J1940; J3370; J3475; U0003

== ENCOUNTER 2020-12-12 16:47 | Outpatient (CLI) | payer MEDICARE, MEDICAID, SELFPAY ==
[2020-12-12 17:42] LABS: Albumin Level 3.9 g/dL (3.5-5.1); Anion Gap 7 mmol/L (8-16); Blood Urea Nitrogen 50 mg/dL (7-17); Calcium 9.1 mg/dL (8.4-10.2); Carbon Dioxide 32 mmol/L (22-30); Chloride 107 mmol/L (98-107); Estimated Glomerular Filt Rate 45; Glucose 112 mg/dL (65-105); Phosphorus 4.5 mg/dL (2.5-4.5); Potassium 4.2 mmol/L (3.4-5.0); Sodium 146 mmol/L (137-145)
== END 2020-12-12 16:48 | disposition home or self-care (01) ==
PROVIDERS: PCP Family Medicine; Visit Provider Physician Assistant
DX: N17.9 Acute kidney failure, unspecified (principal); Z79.899 Other long term (current) drug therapy
CPT/HCPCS: 36415; 80069

== ENCOUNTER 2021-03-12 18:51 | Emergency (ER) | payer MEDICARE, MEDICAID, SELFPAY ==
--- NOTE | ~2021-03-12 | CT_ITS ---
EXAMINATION: CT abdomen pelvis wo con DATE: 03/12/2021 20:41 INDICATION: Right abdominal and flank pain. TECHNIQUE: Computed tomography (CT) of the abdomen and pelvis was performed without intravenous contr ast. Automated exposure control and iterative reconstruction technique were employed. The dose-length product was 961.93 mGy-cm. COMPARISON: None FINDINGS: Mild linear discoid atelectasis/scarring in the right lower lobe. Cardiomegaly. Atherosclerotic coron piedad artery calcification and aortic valve calcific lesion. No pericardial or pleural effusion. Liver, gallbladder, spleen, pancreas and right adrenal gland are normal. Diffuse thickening of the left adr enal gland 1.6 cm left adrenal nodule with relatively low-attenuation suggestive but not diagnostic o f adenoma. A couple nonobstructing right renal stones the largest at the upper pole measuring 3 mm. 3 renal lesions including a 1.9 cm hyperdense proteinaceous/hemorrhagic cyst at the upper pole, 2.4 cm low-attenuation simple cyst at the lower pole and a 1.8 cm exophytic intermediate attenuation lesion at the lower pole with cystic imaging features on ultrasound dated 11/24/2020 consistent with an abigail tional proteinaceous/hemorrhagic cyst. Additional 10 mm exophytic simple cyst at the upper pole of th e left kidney. Normal appendix. Moderate amount of stool in the proximal colon. No abnormal bowel wal l thickening or obstruction. Bladder, uterus and bilateral adnexa are unremarkable. Small fat-contain ing right inguinal hernia. No free intraperitoneal gas or fluid. No pathologically enlarged abdominal or pelvic lymphadenopathy. Moderate to severe lower lumbar facet osteoarthritis. Otherwise mild dege nerative skeletal changes in the spine and at the bilateral hip and sacroiliac joints. Bone island at the right posterior iliac spine. IMPRESSION: 1. Nonobstructing right nephrolithiasis. No ureteral stones or hydronephrosis. 2. Cardiomegaly. 3. 1.6 cm relatively low density left adrenal nodule suggestive but not diagnostic of adenoma. Consid er 12 month follow-up adrenal protocol pre and postcontrast CT or MRI. Reviewed, dictated and finalized at location A. IMPRESSION: 1. Nonobstructing right nephrolithiasis. No ureteral stones or hydronephrosis. 2. Cardiomegaly. 3. 1.6 cm relatively low density left adrenal nodule suggestive but not diagnos tic of adenoma. Consider 12 month follow-up adrenal protocol pre and postcontra st CT or MRI.
[2021-03-12 18:54] VITALS: BP 171/70; PULSE 84; RESP 24; TEMP 36.2; O2SAT 98
[2021-03-12 21:02] VITALS: BP 161/72; PULSE 86; RESP 18; O2SAT 97
[2021-03-12] MEDS: MORPHINE SULFATE (*CRX) 4 MG/ML INJ IV PUSH (21:03)
[2021-03-12] MEDS: ONDANSETRON INJ 4 MG/2 ML VIAL IV PUSH (21:03)
[2021-03-12 21:08] LABS: Basophils Absolute Auto 0.1 K/mm3 (0.0-0.1); Basophils Percent Auto 0.4 % (0.2-1.2); Eosinophils Absolute Auto 0.3 K/mm3 (0-0.3); Eosinophils Percent Auto 1.6 % (0-4.4); Hematocrit 50.3 % (37.0-47.0); Hemoglobin 15.5 g/dL (12.0-15.0); Immature Granulocyte Absolute 0.07 K/mm3 (0.00-0.031); Immature Granulocyte Percent A 0.4 % (0-0.5); Lymphocytes Absolute Auto 1.93 K/mm3 (0.9-3.2); Lymphocytes Percent Auto 11.7 % (18.3-44.2); Mean Corpuscular HGB Conc 30.8 g/dl (32-36); Mean Corpuscular Hemoglobin 28.4 pg (26-34); Mean Corpuscular Volume 92.3 fl (80-100); Mean Platelet Volume 11.6 fl (7.4-10.4); Monocytes Absolute Auto 1.8 K/mm3 (0.1-0.6); Monocytes Percent Auto 10.7 % (2.6-8.5); Neutrophils Absolute Auto 12.4 K/mm3 (1.3-6.7); Neutrophils Percent Auto 75.2 % (45.5-73.1); Platelet Count Result 360 k/mm3 (150-375); Red Blood Count 5.45 M/mm3 (4.2-5.4); Red Cell Distribution Width 16.4 % (11.5-14.5); White Blood Count 16.5 K/mm3 (4.5-10.0)
[2021-03-12 21:18] LABS: Alanine Aminotransferase 20 U/L (4-35); Albumin Level 3.9 g/dL (3.5-5.1); Alkaline Phosphatase 107 U/L (38-126); Anion Gap 4 mmol/L (8-16); Aspartate Amino Transferase 25 U/L (14-36); Bilirubin,Total 0.4 mg/dL (0.2-1.3); Blood Urea Nitrogen 38 mg/dL (7-17); Calcium 9.9 mg/dL (8.4-10.2); Carbon Dioxide 31 mmol/L (22-30); Chloride 104 mmol/L (98-107); Estimated CRCL calculation 50 ml/min; Estimated Glomerular Filt Rate 55; Glucose 247 mg/dL (65-105); Potassium 4.7 mmol/L (3.4-5.0); Sodium 139 mmol/L (137-145)
[2021-03-12 22:14] LABS: Add Urine Microscopic? YES; Appearance Urine Clear (Clear); Bilirubin Urine Negative (Negative); Blood Urine Negative (Negative); Color Urine Yellow (Yellow); Glucose Urine UA 1+ mg/dL (Negative); Ketones Urine Negative (Negative); Leukocyte Esterase Ur Negative LEU/UL (Negative); Mucus Urine Rare /lpf; Nitrate Urine Negative (Negative); Protein Urine 3+ mg/dL (Negative); RBC Urine 0-2 /hpf (0-2); Specific Grav Ur 1.019 (1.001-1.035); Squamous Epithelial Cell Urine Rare /hpf (Few); Urobilinogen Urine Negative mg/dL (<2.0); WBC Urine 0-3 /hpf
--- NOTE | 2021-03-12 22:23 | ED.GENADULT ---
HPI - General Adult General Chief complaint: Unspecified Stated complaint: right rib pain Time Seen by Provider: 03/12/21 20:05 Source: patient and family Mode of arrival: ambulatory Limitations: no limitations History of Present Illness HPI narrative: 66-year-old with a history of systolic CHF, COPD discharged from [facility] yesterday for CHF presents to the ER with right flank pain. Patient states that she has been having pain while she was in the hospital however this evening pain got worse . She denies any trauma no recent falls. Denies any shortness of breath, cough or fever. Onset (ago): day(s) (2) Location: back Severity: moderate Quality: aching Pain Consistency: constant Relieving factors: none Exacerbating factors: none Associated symptoms: denies other symptoms Related Data Home Medications Medication Instructions Recorded Confirmed Advair HFA 2 puff INHALATION Q12H 08/25/20 11/21/20 Trulicity 1.5 mg SUBCUT WEEKLY 08/25/20 11/21/20 albuterol sulfate [ProAir HFA] 2 puff INHALATION QID PRN 08/25/20 11/21/20 aspirin 325 mg PO DAILY 08/25/20 11/21/20 atorvastatin 40 mg PO DAILY 08/25/20 11/21/20 azelastine 2 drp OPHTHALMIC (EYE) DAILY PRN 08/25/20 11/21/20 betamethasone dipropionate 1 applic TOPICAL BID 08/25/20 11/21/20 gabapentin 300 mg PO QID 08/25/20 11/21/20 hydrocodone-acetaminophen 5 - 325 tablet PO Q12H PRN 08/25/20 11/21/20 minocycline 100 mg PO BID 08/25/20 11/21/20 oxybutynin chloride 10 mg PO DAILY 08/25/20 11/21/20 pramipexole 0.75 mg PO HS 08/25/20 11/21/20 silver sulfadiazine [SSD] 1 applic TOPICAL DAILY 08/25/20 11/21/20 tizanidine 4 mg PO Q8H 08/25/20 11/21/20 Allergies Allergy/AdvReac Type Severity Reaction Status Date / Time infliximab Allergy Unknown Other Verified 03/12/21 19:22 Review of Systems Review of Systems: All systems reviewed & are unremarkable except as noted in HPI and below Constitutional: Constitutional: Reports no additional constitutional complaints Eyes: Eyes: Reports no additional eye complaints ENT: Reports system reviewed and no additional complaints, except as documented Cardiovascular: Cardiovascular: Reports no additional cardiovascular complaints Respiratory: Respiratory: Reports no additional respiratory complaints Gastrointestinal: Gastrointestinal: Reports as per HPI Musculoskeletal: Musculoskeletal: Reports as per HPI Neurologic: Reports system reviewed and no additional complaints, except as documented PMFSH Past Medical History Medical History Acute CHF (congestive heart failure) Anxiety Chronic back pain COPD (chronic obstructive pulmonary disease) Coronary artery disease Diabetes mellitus, new onset Hidradenitis suppurativa History of myocardial infarction Hypertension Psoriasis Restless leg syndrome Tobacco abuse Surgical History Surgical History History of cardiac cath History of tonsillectomy Family History Family History Mother Family history of diabetes mellitus in first degree relative Father Unknown family medical history Social History Social History Social History: Ms. Cruz lives at home alone. She reports she is independent in her ADLs. She has 3 adult children. Her PCP is Dr. Stokes. She designates her daughter, Celia as her surrogate decision maker and would like to be a full code. She does not work. Smoking packs per day: 0.5 Smoking cigarettes per day: 10.0 Years smoked: 30 Smoking pack-years: 15.00 Smoking status: Current every day smoker Tobacco type: cigarettes Alcohol intake: never Substance use: current Substance use type: marijuana Other substance usage details: Smokes marijuana 1x/week Gender identity (if verbalized by the patient): Female Spiritual care c
[2021-03-12 22:46] VITALS: BP 148/68; PULSE 80; RESP 18; O2SAT 97
== END 2021-03-12 21:45 | disposition home or self-care (01) ==
PROVIDERS: Emergency Provider Family Medicine; PCP Family Medicine
DX: M54.9 Dorsalgia, unspecified (principal); I50.9 Heart failure, unspecified; J44.9 Chronic obstructive pulmonary disease, unspecified; I25.10 Atherosclerotic heart disease of native coronary artery without angina pectoris; E11.9 Type 2 diabetes mellitus without complications; I25.2 Old myocardial infarction; I10 Essential (primary) hypertension; G25.81 Restless legs syndrome; F41.9 Anxiety disorder, unspecified; F17.210 Nicotine dependence, cigarettes, uncomplicated; Z79.82 Long term (current) use of aspirin; I51.7 Cardiomegaly; N20.0 Calculus of kidney; E27.8 Other specified disorders of adrenal gland; Z79.899 Other long term (current) drug therapy
CPT/HCPCS: 36415; 74176; 80053; 81001; 85025; 96374; 96375; 99284; J2270; J2405

== ENCOUNTER 2021-03-14 15:44 | Emergency (ER) | payer MEDICARE, MEDICAID, SELFPAY ==
--- NOTE | ~2021-03-14 | XR_ITS ---
EXAMINATION: XR chest 2V DATE: 03/14/2021 16:56 INDICATION: Right flank pain. TECHNIQUE: Frontal and lateral views of the chest were obtained. COMPARISON: Chest 2 views 11/30/2020, CT abdomen and pelvis 03/12/2021 FINDINGS: The patient is rotated to her left. There is mild atelectasis in the lower lung zones. No p leural effusion or pneumothorax. Cardiomegaly is noted. IMPRESSION: 1. Mild atelectasis in the lower lung zones. 2. Cardiomegaly. Reviewed, dictated and finalized at location A.
--- NOTE | ~2021-03-14 | US_ITS ---
EXAMINATION: US abdomen limited DATE: 03/14/2021 17:58 INDICATION: Abdominal pain. TECHNIQUE: Multiple grayscale and Doppler ultrasound images of the abdomen were obtained. COMPARISON: CT abdomen and pelvis 03/12/2021 FINDINGS: The pancreas is not well visualized. The liver is normal without focal lesion. No liver viji face nodularity. The gallbladder is normal in size. No gallstones or gallbladder wall thickening. The re was no sonographic Schultz sign. The common duct is normal and measures 5 mm. IMPRESSION: 1. Normal right upper quadrant ultrasound. Reviewed, dictated and finalized at location A.
[2021-03-14 15:57] VITALS: BP 134/67; PULSE 78; RESP 18; TEMP 36.3; O2SAT 91
--- NOTE | 2021-03-14 16:06 | ED.BACK ---
HPI - Back Pain/Injury General Chief Complaint: Back Pain/Injury Stated Complaint: right side pain Time Seen by Provider: 03/14/21 16:12 Related Data Home Medications Medication Instructions Recorded Confirmed Advair HFA 2 puff INHALATION Q12H 08/25/20 11/21/20 Trulicity 1.5 mg SUBCUT WEEKLY 08/25/20 11/21/20 albuterol sulfate [ProAir HFA] 2 puff INHALATION QID PRN 08/25/20 11/21/20 aspirin 325 mg PO DAILY 08/25/20 11/21/20 atorvastatin 40 mg PO DAILY 08/25/20 11/21/20 azelastine 2 drp OPHTHALMIC (EYE) DAILY PRN 08/25/20 11/21/20 betamethasone dipropionate 1 applic TOPICAL BID 08/25/20 11/21/20 gabapentin 300 mg PO QID 08/25/20 11/21/20 hydrocodone-acetaminophen 5 - 325 tablet PO Q12H PRN 08/25/20 11/21/20 minocycline 100 mg PO BID 08/25/20 11/21/20 oxybutynin chloride 10 mg PO DAILY 08/25/20 11/21/20 pramipexole 0.75 mg PO HS 08/25/20 11/21/20 silver sulfadiazine [SSD] 1 applic TOPICAL DAILY 08/25/20 11/21/20 tizanidine 4 mg PO Q8H 08/25/20 11/21/20 Allergies Allergy/AdvReac Type Severity Reaction Status Date / Time infliximab Allergy Unknown Other Verified 03/14/21 16:07 [facility] Past Medical History Medical History Acute CHF (congestive heart failure) Anxiety Chronic back pain COPD (chronic obstructive pulmonary disease) Coronary artery disease Diabetes mellitus, new onset Hidradenitis suppurativa History of myocardial infarction Hypertension Psoriasis Restless leg syndrome Tobacco abuse Surgical History Surgical History History of cardiac cath History of tonsillectomy Family History Family History Mother Family history of diabetes mellitus in first degree relative Father Unknown family medical history Social History Social History Social History: Ms. Cruz lives at home alone. She reports she is independent in her ADLs. She has 3 adult children. Her PCP is Dr. Stokes. She designates her daughter, Celia as her surrogate decision maker and would like to be a full code. She does not work. Smoking packs per day: 0.5 Smoking cigarettes per day: 10.0 Years smoked: 30 Smoking pack-years: 15.00 Smoking status: Current every day smoker Tobacco type: cigarettes Alcohol intake: never Substance use: current Substance use type: marijuana Other substance usage details: Smokes marijuana 1x/week Gender identity (if verbalized by the patient): Female Spiritual care concerns: No Course Vital Signs Vital signs: Vital Signs Temperature 36.3 C L 03/14/21 15:57 Pulse Rate 78 03/14/21 15:57 Respiratory Rate 18 03/14/21 15:57 Blood Pressure 134/67 03/14/21 15:57 Pulse Oximetry 91 03/14/21 15:57 Temperature 36.3 C L 03/14/21 15:57 Pulse Rate 78 03/14/21 15:57 Respiratory Rate 18 03/14/21 15:57 Blood Pressure 134/67 03/14/21 15:57 Pulse Oximetry 91 03/14/21 15:57 Discharge Plan Discharge Prescriptions: No Action atorvastatin 40 mg tablet 40 mg PO DAILY RF: 0 azelastine 0.05 % drops 2 drp ophthalmic (eye) DAILY PRN (Reason: Dry Eye(S)) RF: 0 hydrocodone-acetaminophen 5-325 mg tablet 5 - 325 tablet PO Q12H PRN (Reason: Pain (Scale Score 4-6)) RF: 0 pramipexole 0.5 mg tablet 0.75 mg PO HS RF: 0 gabapentin 100 mg capsule 300 mg PO QID RF: 0 albuterol sulfate [ProAir HFA] 90 mcg/actuation HFA aerosol inhaler 2 puff INHALATION QID PRN (Reason: Shortness Of Breath) RF: 0 Advair HFA 115-21 mcg/actuation HFA aerosol inhaler 2 puff INHALATION Q12H RF: 0 Trulicity 1.5 mg/0.5 mL pen injector 1.5 mg SUBCUT WEEKLY RF: 0 silver sulfadiazine [SSD] 1 % cream 1 applic TOPICAL DAILY RF: 0 oxybutynin chloride 10 mg tablet extended release 24hr 10 mg PO DAILY RF: 0 aspirin 325 mg Tablet 325
--- NOTE | 2021-03-14 16:44 | ED.GENADULT ---
HPI - General Adult General Chief complaint: Back Pain/Injury Stated complaint: right side pain Time Seen by Provider: 03/14/21 16:12 Source: patient History of Present Illness HPI narrative: Patient is a 66 female complaining of right upper abdominal pain starting 2-3 days ago. She describes her pain as sharp and rates it as more than 10/10. There is no alleviating or exacerbating factor. She has no vomiting or diarrhea. She also has chronic SOB due to CHF and COPD. Related Data Home Medications Medication Instructions Recorded Confirmed Advair HFA 2 puff INHALATION Q12H 08/25/20 11/21/20 Trulicity 1.5 mg SUBCUT WEEKLY 08/25/20 11/21/20 albuterol sulfate [ProAir HFA] 2 puff INHALATION QID PRN 08/25/20 11/21/20 aspirin 325 mg PO DAILY 08/25/20 11/21/20 atorvastatin 40 mg PO DAILY 08/25/20 11/21/20 azelastine 2 drp OPHTHALMIC (EYE) DAILY PRN 08/25/20 11/21/20 betamethasone dipropionate 1 applic TOPICAL BID 08/25/20 11/21/20 gabapentin 300 mg PO QID 08/25/20 11/21/20 hydrocodone-acetaminophen 5 - 325 tablet PO Q12H PRN 08/25/20 11/21/20 minocycline 100 mg PO BID 08/25/20 11/21/20 oxybutynin chloride 10 mg PO DAILY 08/25/20 11/21/20 pramipexole 0.75 mg PO HS 08/25/20 11/21/20 silver sulfadiazine [SSD] 1 applic TOPICAL DAILY 08/25/20 11/21/20 tizanidine 4 mg PO Q8H 08/25/20 11/21/20 Allergies Allergy/AdvReac Type Severity Reaction Status Date / Time infliximab Allergy Unknown Other Verified 03/14/21 16:07 Review of Systems Constitutional: Constitutional: Denies chills, Denies fever(s), Denies headache(s) and Denies weakness Eyes: Eyes: Denies blurry vision ENT: Denies headache(s) and Denies neck pain Cardiovascular: Cardiovascular: Denies chest pain and Reports dyspnea Respiratory: Respiratory: Denies cough and Reports dyspnea Gastrointestinal: Gastrointestinal: Reports abdominal pain, Denies diarrhea, Denies nausea and Denies vomiting Genitourinary: Genitourinary: Denies hematuria and Denies dysuria Musculoskeletal: Musculoskeletal: Denies back pain and Denies neck pain Neurologic: Denies headache(s) and Denies weakness PMFSH Past Medical History Medical History Acute CHF (congestive heart failure) Anxiety Chronic back pain COPD (chronic obstructive pulmonary disease) Coronary artery disease Diabetes mellitus, new onset Hidradenitis suppurativa History of myocardial infarction Hypertension Psoriasis Restless leg syndrome Tobacco abuse Surgical History Surgical History History of cardiac cath History of tonsillectomy Family History Family History Mother Family history of diabetes mellitus in first degree relative Father Unknown family medical history Social History Social History Social History: Ms. Cruz lives at home alone. She reports she is independent in her ADLs. She has 3 adult children. Her PCP is Dr. Stokes. She designates her daughter, Celia as her surrogate decision maker and would like to be a full code. She does not work. Smoking packs per day: 0.5 Smoking cigarettes per day: 10.0 Years smoked: 30 Smoking pack-years: 15.00 Smoking status: Current every day smoker Tobacco type: cigarettes Alcohol intake: never Substance use: current Substance use type: marijuana Other substance usage details: Smokes marijuana 1x/week Gender identity (if verbalized by the patient): Female Spiritual care concerns: No Exam Const: General: no acute distress and well developed Orientation/consciousness: oriented to person, oriented to place, oriented to time and patient oriented x3 HENMT: Head: normocephalic Ears: external ears normal General nose exam: Normal external nose present Eyes: General: appearance normal, both eyes and all related structures Conjuncti
--- NOTE | 2021-03-14 17:17 | PC.NURSE ---
pt refuses ekg stating that she cannot lay on back for procedure and she reports that she has had ekg within the last [address] holley aware.
[2021-03-14 17:24] LABS: Basophils Absolute Auto 0.1 K/mm3 (0.0-0.1); Basophils Percent Auto 0.5 % (0.2-1.2); Eosinophils Absolute Auto 0.3 K/mm3 (0-0.3); Eosinophils Percent Auto 1.5 % (0-4.4); Hematocrit 53.1 % (37.0-47.0); Immature Granulocyte Absolute 0.07 K/mm3 (0.00-0.031); Immature Granulocyte Percent A 0.4 % (0-0.5); Lymphocytes Absolute Auto 2.27 K/mm3 (0.9-3.2); Lymphocytes Percent Auto 13.4 % (18.3-44.2); Mean Corpuscular HGB Conc 30.1 g/dl (32-36); Mean Corpuscular Hemoglobin 28.7 pg (26-34); Mean Corpuscular Volume 95.3 fl (80-100); Mean Platelet Volume 11.6 fl (7.4-10.4); Monocytes Absolute Auto 1.5 K/mm3 (0.1-0.6); Monocytes Percent Auto 9.1 % (2.6-8.5); Neutrophils Absolute Auto 12.7 K/mm3 (1.3-6.7); Neutrophils Percent Auto 75.1 % (45.5-73.1); Platelet Count Result 359 k/mm3 (150-375); Red Blood Count 5.57 M/mm3 (4.2-5.4); Red Cell Distribution Width 16.1 % (11.5-14.5); White Blood Count 16.9 K/mm3 (4.5-10.0)
[2021-03-14 17:30] LABS: Add Urine Microscopic? YES; Appearance Urine Cloudy (Clear); Bilirubin Urine Negative (Negative); Blood Urine Negative (Negative); Color Urine Yellow (Yellow); Glucose Urine UA 1+ mg/dL (Negative); Ketones Urine Negative (Negative); Leukocyte Esterase Ur Negative LEU/UL (Negative); Nitrate Urine Negative (Negative); Protein Urine 3+ mg/dL (Negative); RBC Urine 0-2 /hpf (0-2); Specific Grav Ur 1.016 (1.001-1.035); Squamous Epithelial Cell Urine Rare /hpf (Few); Urobilinogen Urine Negative mg/dL (<2.0)
[2021-03-14 17:36] LABS: Alanine Aminotransferase 25 U/L (4-35); Albumin Level 4.2 g/dL (3.5-5.1); Alkaline Phosphatase 136 U/L (38-126); Anion Gap 9 mmol/L (8-16); Aspartate Amino Transferase 26 U/L (14-36); Bilirubin,Total 0.5 mg/dL (0.2-1.3); Blood Urea Nitrogen 36 mg/dL (7-17); Calcium 10.9 mg/dL (8.4-10.2); Carbon Dioxide 28 mmol/L (22-30); Chloride 103 mmol/L (98-107); Estimated CRCL calculation 46 ml/min; Estimated Glomerular Filt Rate 50; Glucose 257 mg/dL (65-105); Potassium 4.9 mmol/L (3.4-5.0); Sodium 140 mmol/L (137-145)
[2021-03-14] MEDS: KETOROLAC 30 MG/ML VIAL (*BKC) IM (17:42)
[2021-03-14 17:44] LABS: NT Pro B Type Natriuretic Pept 17000 pg/mL (5-100)
[2021-03-14 18:26] VITALS: BP 147/60; PULSE 74; RESP 20; O2SAT 94
--- NOTE | 2021-03-14 19:27 | PC.NURSE ---
Patient requested urinary catheter if Lasix was to be given IV-spoke with Dr Gannon, he went in to speak with patient. Patient refusing lasix and just wants to go home. Dr Gannon at bedside for decision. Patient continues to c/o right upper abdominal/back pain and denies any relief from the Toradol given earlier. Daughter is at bedside.
== END 2021-03-14 19:40 | disposition home or self-care (01) ==
PROVIDERS: Emergency Provider Emergency Medicine; PCP Family Medicine
DX: I50.9 Heart failure, unspecified (principal); R07.81 Pleurodynia; R10.11 Right upper quadrant pain; F41.9 Anxiety disorder, unspecified; J44.9 Chronic obstructive pulmonary disease, unspecified; I25.10 Atherosclerotic heart disease of native coronary artery without angina pectoris; E11.9 Type 2 diabetes mellitus without complications; I10 Essential (primary) hypertension; G25.81 Restless legs syndrome
CPT/HCPCS: 36415; 71046; 76705; 80053; 81001; 83880; 85025; 96372; 99284; J1885